=== PATIENT | female | born 1930 | race Caucasian/White ===

== ENCOUNTER → 2016-08-20 | Outpatient (CLI) | payer OTHER ==
[~2016-08-20] MED LIST: ACET325T96 PO; CALC500C50; CITA40TA12 PO; CLR10 PO; LOPE1TAB25 PO; LORA-741 PO; NVLGI/PEN SQ; ONDA4TAB10 SL; PRT40 PO; ULT50X PO
--- NOTE | 2016-08-20 09:35 | DIAGNOSTIC IMAGING REPORT ---
DOUBLE CONTRAST UPPER GI SERIES CLINICAL HISTORY: Status post hiatal hernia repair. COMPARISON STUDY: Abdominal CT dated 04/19/2016. Upper GI series dated 05/13/2016. TECHNIQUE: A standard air contrast upper GI series was performed. Spot images of the esophagus and stomach were obtained in multiple obliquities both upright and prone. FINDINGS: The patient swallowed barium without difficulty. The esophagus is structurally normal without evidence of intrinsic or extrinsic mass. The esophageal mucosal pattern is normal. No gastroesophageal reflux was elicited by having the patient perform the Valsalva maneuver. Moderate dysmotility is seen in the mid to distal third. The gastroesophageal junction distends normally. The appearance of the gastroesophageal junction suggests previous fundoplication. No hiatal hernia is identified. The stomach is otherwise normal in configuration and demonstrates normal distensibility. No mass or ulceration is identified. There was no evidence of gastritis. The duodenal bulb and sweep are unremarkable. Fluoroscopy time: 1.7 minutes Fluoroscopic images: 19 IMPRESSION: 1. The appearance of the stomach suggests interval fundoplication. No hiatal hernia is identified on today's examination. 2. Esophageal dysmotility. Electronically signed by: Figueroa Henson M.D. 08/20/2016 9:33 AM Dictated Date/Time: 08/20/2016 9:25 AM
== END | disposition home or self-care (01) ==
LOC: C.RAD 08:42
PROVIDERS: ATTEND Surgery
DX: K91.1 Postgastric surgery syndromes (principal); K22.4 Dyskinesia of esophagus

== ENCOUNTER → 2016-12-18 | Outpatient (CLI) | payer OTHER ==
[~2016-12-18] MED LIST changes: -ONDA4TAB10 SL
[2016-12-18 10:55] LABS: BLOOD UREA NITROGEN 9 mg/dl (7-18); BUN/CREATININE RATIO 14.1 (10-20); CALCIUM 8.3 mg/dl (8.5-10.1); CARBON DIOXIDE 30 mmol/L (21-32); CHLORIDE 104 mmol/L (98-107); CREATININE 0.64 mg/dl (0.60-1.20); GLUCOSE 237 mg/dl (70-99); POTASSIUM 4.4 mmol/L (3.5-5.1); SODIUM 140 mmol/L (136-145)
[2016-12-18 11:22] LABS: ESTIMATED AVERAGE GLUCOSE 171 mg/dl; HA1C FLAG Normal (Normal)
== END | disposition home or self-care (01) ==
LOC: C.LABOUTLO 10:04
PROVIDERS: ATTEND Family Medicine
DX: E11.9 Type 2 diabetes mellitus without complications (principal)

== ENCOUNTER 2017-08-07 18:58 | Emergency (ER) | payer OTHER ==
[~2017-08-07] VITALS: Ht 167.6 cm; Wt 75.0 kg
[~2017-08-07 18:58] MED LIST changes: -CLR10 PO
[2017-08-07 19:06] VITALS: TEMP 36.6; Ht 167.6 cm; Wt 75.0 kg
[2017-08-07] MEDS ORDERED: CITA40TA12 PO (19:34)
[2017-08-07] MEDS ORDERED: FLUT0.15 NAE (19:34)
[2017-08-07] MEDS ORDERED: MULT-513 PO (19:34)
[2017-08-07] MEDS ORDERED: DOCU-94 PO (19:34)
[2017-08-07] MEDS ORDERED: INSDGIPEN SQ (19:34)
[2017-08-07] MEDS ORDERED: GEMF600T3 PO (19:34)
[2017-08-07] MEDS ORDERED: ASPCH81X PO (19:34)
[2017-08-07] MEDS ORDERED: SALI0.6515 (19:34)
[2017-08-07] MEDS ORDERED: LISI-461 PO (19:34)
[2017-08-07] MEDS ORDERED: METO25TA3 PO (19:34)
[2017-08-07] MEDS ORDERED: NVLGI/PEN SQ (19:34)
[2017-08-07] MEDS ORDERED: PROAIR SQ (19:46)
[2017-08-07] MEDS ORDERED: SENN8.6T9 PO (19:46)
[2017-08-07] MEDS ORDERED: IMD/2 PO (19:46)
[2017-08-07] MEDS ORDERED: ONDA4TAB46 PO (19:46)
[2017-08-07] MEDS ORDERED: IBUP-1050 PO (19:46)
[2017-08-07] MEDS ORDERED: ACET5LIQ PO (19:46)
[2017-08-07 19:50] LABS: BASO % 0.2 %; BASO ABS # 0.02 K/uL (0-0.2); EOS % 2.2 %; EOS ABS # 0.18 K/uL (0-0.5); HEMATOCRIT 34.2 % (37-47); HEMOGLOBIN 11.5 g/dL (12.0-16.0); IG# 0.05 K/uL (0.00-0.02); LYMPH % 24.1 %; MEAN CORPUSCULAR HEMOGLOBIN 27.9 pg (25-34); MEAN CORPUSCULAR HGB CONC 33.6 g/dl (32-36); MEAN PLATELET VOLUME 8.7 fL (7.4-10.4); MONO ABS # 0.75 K/uL (0.11-0.59); NEUT % 63.9 %; NEUT ABS # 5.29 K/uL (1.4-6.5); PLATELET COUNT 260 K/uL (130-400); RED CELL DISTRIBUTION WIDTH CV 16.7 % (11.5-14.5); RED CELL DISTRIBUTION WIDTH SD 50.9 fL (36.4-46.3); WHITE BLOOD COUNT 8.29 K/uL (4.8-10.8)
[2017-08-07 20:08] LABS: ALBUMIN 3.2 gm/dl (3.4-5.0); ALT/SGPT 22 U/L (12-78); BLOOD UREA NITROGEN 9 mg/dl (7-18); CALCIUM 8.7 mg/dl (8.5-10.1); CARBON DIOXIDE 23 mmol/L (21-32); CREATININE 0.73 mg/dl (0.60-1.20); GLUCOSE 325 mg/dl (70-99); LIPASE 212 U/L (73-393); POTASSIUM 3.8 mmol/L (3.5-5.1); SODIUM 131 mmol/L (136-145)
[2017-08-07 20:11] LABS: AST/SGOT 15 U/L (15-37); TOTAL PROTEIN 7.1 gm/dl (6.4-8.2)
[2017-08-07 20:19] LABS: ALKALINE PHOSPHATASE 106 U/L (45-117)
[2017-08-07 21:20] VITALS: BP 156/71; PULSE 78; O2SAT 97
[2017-08-07] MEDS ORDERED: CLR10 PO (21:37)
--- NOTE | 2017-08-07 22:29 | EMERGENCY ROOM VISIT NOTE ---
History Report prepared by Roseanne: Marielena Navarrete Under the Supervision of: Dr. Good Manjarrez D.O. First contact with patient: 19:11 Chief Complaint: HYPERGLYCEMIA Stated Complaint: HIGH BLOOD SUGAR Nursing Triage Summary: Pt from [facility]. Daughter reports patient had BSG of 400 before dinner and was given 10 units of insulin. Pt ate dinner and then had a recheck of >400. BSG 342 in triage. History of Present Illness The patient is an 86 year old female who presents to the Emergency Room with complaints of persistent hyperglycemia starting earlier today. The patient lives at [facility] living. They went to the [employer] today for breakfast. They note that she normally puts a time of syrup on her food at the shop. Before dinner, they checked her BSG and found that it was over 400. She was given 10 units of insulin and she ate dinner. After dinner, her blood sugar was still high. It is now down to 340. She states that she feels fine. She has some headache. She denies any chest pain, SOB, nausea, vomiting, diarrhea, urinary symptoms, or abdominal pain. She last had a bowel movement this afternoon. She has been acting normally according to her daughter. Source of History: patient, family Onset: earlier today Position: other (global) Symptom Intensity: over 400 Quality: other (hyperglycemia) Timing: other (persistent) Associated Symptoms: + headache, No chest pain, No SOB, No nausea, No vomiting, No abdominal pain, No diarrhea, No urinary symptoms Review of Systems See HPI for pertinent positives & negatives. A total of 10 systems reviewed and were otherwise negative. Past Medical & Surgical Medical Problems: (1) Amputated toe (2) DM type 2 (diabetes mellitus, type 2) (3) Endometrial adenocarcinoma (4) HTN (hypertension) Surgical Problems: (1) Hx of tubal ligation (2) S/P tonsillectomy and adenoidectomy Family History Cancer Diabetes mellitus FHx: gallbladder disease Social History Smoking Status: Never Smoker Drug Use: none Housing Status: assisted living Occupation Status: retired Current/Historical Medications Scheduled Aspirin (Aspirin Chewable), 81 MG PO DAILY Citalopram Hydrobromide (Celexa), 40 MG PO DAILY Docusate Sodium (Colace), 1 CAP PO BID Fluticasone Propionate (Nasal) (Flonase Allergy Relief), 2 SPRAYS BHAVANI DAILY Gemfibrozil (Lopid), 600 MG PO DAILY Insulin Glargine (Lantus Solostar), 12 UNITS SQ QPM Lisinopril (Zestril), 10 MG PO DAILY Loratadine (Claritin), 10 MG PO DAILY Metoprolol Succ (Toprol Xl) (Toprol-Xl), 25 MG PO DAILY Multivitamins/Minerals (Mvi With Minerals), 1 TAB PO DAILY Saline (Saline Mist), 1 SPRAY NA BID Scheduled PRN Acetaminophen (Tylenol Children's Susp), 15.6 ML PO Q4H PRN for Pain or Fever Ibuprofen (Advil), 800 MG PO Q6H PRN for Pain Insulin Aspart (Novolog Flexpen), SQ BID PRN for SLIDING SCALE Loperamide Hcl (Imodium), 2 MG PO Q4 PRN for Diarrhea Ondansetron Hcl (Zofran), 4 MG PO Q8 PRN for Nausea Sennosides (Senexon), 2 TAB PO BID PRN for Constipation [Proair], 2 PUFF SQ Q4 PRN for Shortness of Breath Allergies Coded Allergies: No Known Allergies (Unverified , 05/11/16) Physical Exam Vital Signs Date Time Temp Pulse Resp B/P (MAP) Pulse Ox O2 Delivery O2 Flow Rate FiO2 08/07/17 21:20 78 18 156/71 97 08/07/17 19:06 36.6 91 18 120/71 93 Room Air Physical Exam GENERAL: Sitting up in bed, alert, well appearing, well nourished, no distress, non-toxic EYE EXAM: normal conjunctiva. OROPHARYNX: no exudate, no erythema, lips, buccal mucosa, and tongue normal and mucous membranes are moist NECK: supple, no nuchal rigidity, no adenopathy, non-tender LUNGS: Clear to auscultation. Normal chest wall mechanics HEART: no murmurs, S1 normal and S2 normal ABDOMEN: abdomen soft, non-tender, normo-active bowel sounds, no masses, no rebound or guarding. BACK: Back is symmetrical on inspection and there is no deformity, no midline tenderness, no CVA tenderness. SKIN: no rashes and no bruising UPPER EXTREMITIES: upper extremities are grossly normal. LOWER EXTREMITIES: No pitting edema. NEURO EXAM: Normal sensorium, cranial nerves II-XII grossly intact, normal speech, no gross weakness of arms, no gross weakness of legs. Medical Decision & Procedures Laboratory Results 08/07/17 19:30 Red Blood Count 4.12, Mean Corpuscular Volume 83.0, Mean Corpuscular Hemoglobin 27.9, Mean Corpuscular Hemoglobin Concent 33.6, Mean Platelet Volume 8.7, Neutrophils (%) (Auto) 63.9, Lymphocytes (%) (Auto) 24.1, Monocytes (%) (Auto) 9.0, Eosinophils (%) (Auto) 2.2, Basophils (%) (Auto) 0.2, Neutrophils # (Auto) 5.29, Lymphocytes # (Auto) 2.00, Monocytes # (Auto) 0.75, Eosinophils # (Auto) 0.18, Basophils # (Auto) 0.02 08/07/17 19:30 Test 08/07/17 19:30 08/07/17 21:01 White Blood Count 8.29 K/uL (4.8-10.8) Red Blood Count 4.12 M/uL (4.2-5.4) Hemoglobin 11.5 g/dL (12.0-16.0) Hematocrit 34.2 % (37-47) Mean Corpuscular Volume 83.0 fL (80-100) Mean Corpuscular Hemoglobin 27.9 pg (25-34) Mean Corpuscular Hemoglobin Concent 33.6 g/dl (32-36) Platelet Count 260 K/uL (130-400) Mean Platelet Volume 8.7 fL (7.4-10.4) Neutrophils (%) (Auto) 63.9 % Lymphocytes (%) (Auto) 24.1 % Monocytes (%) (Auto) 9.0 % Eosinophils (%) (Auto) 2.2 % Basophils (%) (Auto) 0.2 % Neutrophils # (Auto) 5.29 K/uL (1.4-6.5) Lymphocytes # (Auto) 2.00 K/uL (1.2-3.4) Monocytes # (Auto) 0.75 K/uL (0.11-0.59) Eosinophils # (Auto) 0.18 K/uL (0-0.5) Basophils # (Auto) 0.02 K/uL (0-0.2) RDW Standard Deviation 50.9 fL (36.4-46.3) RDW Coefficient of Variation 16.7 % (11.5-14.5) Immature Granulocyte % (Auto) 0.6 % Immature Granulocyte # (Auto) 0.05 K/uL (0.00-0.02) Anion Gap 12.0 mmol/L (3-11) Est Creatinine Clear Calc Drug Dose 58.3 ml/min Estimated GFR () 87.0 Estimated GFR (Non- 75.1 BUN/Creatinine Ratio 12.1 (10-20) Calcium Level 8.7 mg/dl (8.5-10.1) Total Bilirubin 0.4 mg/dl (0.2-1) Direct Bilirubin < 0.1 mg/dl (0-0.2) Aspartate Amino Transf (AST/SGOT) 15 U/L (15-37) Alanine Aminotransferase (ALT/SGPT) 22 U/L (12-78) Alkaline Phosphatase 106 U/L (45-117) Total Protein 7.1 gm/dl (6.4-8.2) Albumin 3.2 gm/dl (3.4-5.0) Lipase 212 U/L (73-393) Beta-Hydroxybutyric Acid 1.18 mg/dL (0.2-2.81) Bedside Glucose 272 mg/dl (70-90) Laboratory results per my review. ED Course ED COURSE: Vital signs were reviewed and showed normal vitals. The patients medical record was reviewed The above diagnostic studies were performed and reviewed. ED treatments and interventions as stated above. 1916: The patient was evaluated in room C4. A complete history and physical examination was performed. 2103: Upon reevaluation, the patient's blood sugar is down to 277. I discussed my findings with the patient and her daughter and they understand and agree with the treatment plan. Based on the patients age, coexisting illnesses, exam and lab findings the decision to treat as an outpatient was made. The patient remained stable while under my care. The patient appeared well at the time of discharge. Medical Decision Differential Diagnosis includes but is not limited to dehydration, stroke, anemia, hypoglycemia, hyponatremia, hypernatremia, urinary tract infection, pneumonia, bronchitis, sepsis, gastroenteritis, additional abdominal pathology, metabolic abnormalities and infections. Patient is an 86-year-old female who presents to ER for hyperglycemia. She went to the [employer] shop earlier today where she puts a large amount of syrup on her food. Blood sugars were in the 400s. She was given 10 units of insulin. He ate dinner and her blood sugar was again above 400. Patient was sent in for evaluation. She has no complaints. She is at her baseline. CBC was unremarkable. BMP without a gap. CO2 was 23. Beta hydroxybutyric acid was negative. BSG was 342. Trended down to 272 on the ER without intervention. Patient family were updated at bedside. Discussed with Pt concerning signs and symptoms to watch out for. Pt was instructed to follow up with their PCP and discussed with the patient their option to return to the ED at anytime for persistent or worsening symptoms. The appropriate anticipatory guidance and out- patient management, including indications for return to the emergency department , were explained at length to the patient and understood. Medication Reconcilliation Current Medication List: was personally reviewed by me Blood Pressure Screening Patient's blood pressure: Normal blood pressure Blood pressure disposition: Did not require urgent referral Impression Primary Impression: Hyperglycemia Scribe Attestation The scribe's documentation has been prepared under my direction and personally reviewed by me in its entirety. I confirm that the note above accurately reflects all work, treatment, procedures, and medical decision making performed by me. Departure Information Dispostion Home / Self-Care Referrals Joselin Campos D.O. Forms HOME CARE DOCUMENTATION FORM, IMPORTANT VISIT INFORMATION, WORK / SCHOOL INSTRUCTIONS Patient Instructions ED Hyperglycemia Diabetic, My [facility] Additional Instructions Please follow up with your primary care doctor with in the next 24 hours. Any worsening of your symptoms, please return to the ED immediately. This includes any fevers greater than 100.4, worsening pain, chest pain, shortness breath, persistent nausea, vomiting, unable to eat or drink, or any other concerning signs or symptoms from your standpoint. Please keep close eye on her blood sugars for the next 2 hours.
== END 2017-08-07 21:23 | disposition home or self-care (01) ==
LOC: C.EDB 19:00 → C.EDC 21:23
DX: R73.9 Hyperglycemia, unspecified (principal); E11.9 Type 2 diabetes mellitus without complications; I10 Essential (primary) hypertension; Z83.3 Family history of diabetes mellitus; Z79.82 Long term (current) use of aspirin; Z79.4 Long term (current) use of insulin

== ENCOUNTER 2017-11-02 21:52 | Emergency (ER) | payer OTHER ==
[~2017-11-02] VITALS: Ht 172.7 cm; Wt 71.8 kg
[~2017-11-02 21:52] MED LIST changes: -ACET325T96 PO; +ACET5LIQ PO; +ASPCH81X PO; -CALC500C50; +CLR10 PO; +DOCU-94 PO; +FLUT0.15 NAE; +GEMF600T3 PO; +IBUP-1050 PO; +IMD/2 PO; +INSDGIPEN SQ; +LISI-461 PO; -LOPE1TAB25 PO; -LORA-741 PO; +METO25TA3 PO; +MULT-513 PO; +ONDA4TAB46 PO; +PROAIR SQ; -PRT40 PO; +SALI0.6515; +SENN8.6T9 PO; -ULT50X PO
[2017-11-02 21:58] VITALS: TEMP 36.8; Ht 172.7 cm; Wt 71.8 kg
[2017-11-02 22:04] VITALS: O2SAT 98
--- NOTE | 2017-11-02 22:17 | DIAGNOSTIC IMAGING REPORT ---
CHEST ONE VIEW PORTABLE HISTORY: 87 years-old Female EVALUATE RESPIRATORY DISTRESS.DYSPNEA acute respiratory distress COMPARISON: Acute abdominal series radiographs 05/11/2016 TECHNIQUE: Portable AP view of the chest FINDINGS: Cardiac silhouette is enlarged, unchanged. Suggested coronary arterial stent graft. Atherosclerosis of the aorta. No pneumothorax, pleural effusion, overt pulmonary edema or lobar airspace consolidation. Linear subsegmental bibasilar opacities suggest atelectasis. Previously noted large hiatal hernia is no longer identified. Degenerative changes of the shoulders and spine. IMPRESSION: Cardiomegaly without acute process. The above report was generated using voice recognition software. It may contain grammatical, syntax or spelling errors. Electronically signed by: Daryl Mills M.D. 11/02/2017 10:16 PM Dictated Date/Time: 11/02/2017 10:15 PM
[2017-11-02 22:20] LABS: BASO % 0.2 %; BASO ABS # 0.02 K/uL (0-0.2); EOS % 1.6 %; EOS ABS # 0.14 K/uL (0-0.5); HEMATOCRIT 34.6 % (37-47); HEMOGLOBIN 11.5 g/dL (12.0-16.0); IG# 0.03 K/uL (0.00-0.02); LYMPH % 22.8 %; LYMPH ABS # 1.94 K/uL (1.2-3.4); MEAN CELL VOLUME 80.8 fL (80-100); MEAN CORPUSCULAR HEMOGLOBIN 26.9 pg (25-34); MEAN CORPUSCULAR HGB CONC 33.2 g/dl (32-36); MEAN PLATELET VOLUME 8.2 fL (7.4-10.4); MONO % 7.4 %; MONO ABS # 0.63 K/uL (0.11-0.59); NEUT % 67.6 %; NEUT ABS # 5.76 K/uL (1.4-6.5); PLATELET COUNT 258 K/uL (130-400); RED CELL DISTRIBUTION WIDTH CV 16.1 % (11.5-14.5); RED CELL DISTRIBUTION WIDTH SD 47.4 fL (36.4-46.3); WHITE BLOOD COUNT 8.52 K/uL (4.8-10.8)
[2017-11-02 22:33] LABS: PTT PATIENT 26.9 SECONDS (21.0-31.0)
[2017-11-02 22:36] LABS: ALBUMIN 3.2 gm/dl (3.4-5.0); ALT/SGPT 20 U/L (12-78); AST/SGOT 11 U/L (15-37); BLOOD UREA NITROGEN 7 mg/dl (7-18); CALCIUM 8.5 mg/dl (8.5-10.1); CARBON DIOXIDE 25 mmol/L (21-32); GLUCOSE 235 mg/dl (70-99); POTASSIUM 3.9 mmol/L (3.5-5.1); SODIUM 133 mmol/L (136-145)
[2017-11-02 22:41] LABS: ALKALINE PHOSPHATASE 96 U/L (45-117); TOTAL PROTEIN 6.9 gm/dl (6.4-8.2)
[2017-11-02] MEDS ORDERED: TPRSR25 PO (22:51)
[2017-11-02 22:53] VITALS: BP 149/72; PULSE 77; O2SAT 98
--- NOTE | 2017-11-02 23:00 | EMERGENCY ROOM VISIT NOTE ---
History Report prepared by Roseanne: Marielena Navarrete Under the Supervision of: Dr. Peter Patel D.O. First contact with patient: 21:55 Chief Complaint: SHORTNESS OF BREATH Stated Complaint: SOB, REFERRED BY [facility] Nursing Triage Summary: patient from [facility], called for shortness of breath. patient did not want to come to ER. she states she was at the doctors today and was seen. that she doesn' have shortness of breath or chest pain. that she cannot lie down and they had her flat. room air oxygen was 98% History of Present Illness The patient is an 87 year old female who presents to the Emergency Room for resolved SOB starting 2129. The patient presents to the ED by EMS from [facility]. The patient reportedly had chest pain and SOB. She currently denies chest pain and SOB. She reports rhinorrhea which she attributes to allergies. She has had a cough recently. She denies any leg swelling. Source of History: patient, nursing staff Onset: 2129 Position: other (breathing) Quality: other (SOB) Timing: resolved Associated Symptoms: + cough, + chest pain Note: Pt reports rhinorrhea. Pt denies leg swelling. Review of Systems See HPI for pertinent positives & negatives. A total of 10 systems reviewed and were otherwise negative. Past Medical & Surgical Medical Problems: (1) Amputated toe (2) DM type 2 (diabetes mellitus, type 2) (3) Endometrial adenocarcinoma (4) HTN (hypertension) Surgical Problems: (1) Hx of tubal ligation (2) S/P tonsillectomy and adenoidectomy Family History Cancer Diabetes mellitus FHx: gallbladder disease Social History Smoking Status: Never Smoker Drug Use: none Housing Status: assisted living Occupation Status: retired Current/Historical Medications Scheduled Aspirin (Aspirin Chewable), 81 MG PO DAILY Citalopram Hydrobromide (Celexa), 40 MG PO DAILY Docusate Sodium (Colace), 100 MG PO BID Gemfibrozil (Lopid), 600 MG PO DAILY Insulin Glargine (Lantus Solostar), 22 UNITS SQ QPM Lisinopril (Zestril), 10 MG PO DAILY Metoprolol Succinate (Metoprolol Succinate ER), 25 MG PO DAILY Multivitamins/Minerals (Mvi With Minerals), 1 TAB PO DAILY Scheduled PRN Acetaminophen (Tylenol Children's Susp), 15.6 ML PO Q4H PRN for Pain or Fever Insulin Aspart (Novolog Flexpen), SQ BID PRN for SLIDING SCALE Loperamide Hcl (Imodium), 2 MG PO Q4 PRN for Diarrhea Ondansetron Hcl (Zofran), 4 MG PO Q8 PRN for Nausea Sennosides (Senexon), 2 TAB PO BID PRN for Constipation Allergies Coded Allergies: No Known Allergies (Unverified , 05/11/16) Physical Exam Vital Signs Date Time Temp Pulse Resp B/P (MAP) Pulse Ox O2 Delivery O2 Flow Rate FiO2 11/02/17 22:53 77 20 149/72 98 Room Air 11/02/17 22:09 81 11/02/17 22:04 98 Room Air 11/02/17 21:58 36.8 81 20 165/69 96 Room Air 11/02/17 21:58 98 Room Air Physical Exam GENERAL: Patient is awake, alert, and in no acute distress. Patient is resting comfortably and showing no signs of anxiety EYES: The conjunctivae are clear. The pupils are round and reactive. EARS, NOSE, MOUTH AND THROAT: The nose is without any evidence of any deformity. Mucous membranes are moist tongue is midline NECK: The neck is nontender and supple. RESPIRATORY: Normal respiratory effort is noted there is no evidence of wheezing rhonchi or rales CARDIOVASCULAR: Regular rate and rhythm noted there no murmurs rubs or gallops normal S1 normal S2 GASTROINTESTINAL: The abdomen is soft. Bowel sounds are present in all quadrants. Abdomen is nontender MUSCULOSKELETAL/EXTREMITIES: There is no evidence of gross deformity full range of motion is noted in the hips and shoulders SKIN: There is trace pedal edema bilaterally. NEUROLOGIC: Patient is awake and oriented to person and place, but not time or situation. Medical Decision & Procedures ER Provider Diagnostic Interpretation: X-ray results as stated below per interpretation by me and the radiologist. CHEST ONE VIEW PORTABLE HISTORY: 87 years-old Female EVALUATE RESPIRATORY DISTRESS.DYSPNEA acute respiratory distress COMPARISON: Acute abdominal series radiographs 05/11/2016 TECHNIQUE: Portable AP view of the chest FINDINGS: Cardiac silhouette is enlarged, unchanged. Suggested coronary arterial stent graft. Atherosclerosis of the aorta. No pneumothorax, pleural effusion, overt pulmonary edema or lobar airspace consolidation. Linear subsegmental bibasilar opacities suggest atelectasis. Previously noted large hiatal hernia is no longer identified. Degenerative changes of the shoulders and spine. IMPRESSION: Cardiomegaly without acute process. The above report was generated using voice recognition software. It may contain grammatical, syntax or spelling errors. Electronically signed by: Daryl Mills M.D. 11/02/2017 10:16 PM Dictated Date/Time: 11/02/2017 10:15 PM Laboratory Results 11/02/17 22:10 Red Blood Count 4.28, Mean Corpuscular Volume 80.8, Mean Corpuscular Hemoglobin 26.9, Mean Corpuscular Hemoglobin Concent 33.2, Mean Platelet Volume 8.2, Neutrophils (%) (Auto) 67.6, Lymphocytes (%) (Auto) 22.8, Monocytes (%) (Auto) 7.4, Eosinophils (%) (Auto) 1.6, Basophils (%) (Auto) 0.2, Neutrophils # (Auto) 5.76, Lymphocytes # (Auto) 1.94, Monocytes # (Auto) 0.63, Eosinophils # (Auto) 0.14, Basophils # (Auto) 0.02 11/02/17 22:10 Test 11/02/17 22:10 White Blood Count 8.52 K/uL (4.8-10.8) Red Blood Count 4.28 M/uL (4.2-5.4) Hemoglobin 11.5 g/dL (12.0-16.0) Hematocrit 34.6 % (37-47) Mean Corpuscular Volume 80.8 fL (80-100) Mean Corpuscular Hemoglobin 26.9 pg (25-34) Mean Corpuscular Hemoglobin Concent 33.2 g/dl (32-36) Platelet Count 258 K/uL (130-400) Mean Platelet Volume 8.2 fL (7.4-10.4) Neutrophils (%) (Auto) 67.6 % Lymphocytes (%) (Auto) 22.8 % Monocytes (%) (Auto) 7.4 % Eosinophils (%) (Auto) 1.6 % Basophils (%) (Auto) 0.2 % Neutrophils # (Auto) 5.76 K/uL (1.4-6.5) Lymphocytes # (Auto) 1.94 K/uL (1.2-3.4) Monocytes # (Auto) 0.63 K/uL (0.11-0.59) Eosinophils # (Auto) 0.14 K/uL (0-0.5) Basophils # (Auto) 0.02 K/uL (0-0.2) RDW Standard Deviation 47.4 fL (36.4-46.3) RDW Coefficient of Variation 16.1 % (11.5-14.5) Immature Granulocyte % (Auto) 0.4 % Immature Granulocyte # (Auto) 0.03 K/uL (0.00-0.02) Prothrombin Time 10.7 SECONDS (9.0-12.0) Prothromb Time International Ratio 1.0 (0.9-1.1) Activated Partial Thromboplast Time 26.9 SECONDS (21.0-31.0) Partial Thromboplastin Ratio 1.0 Anion Gap 8.0 mmol/L (3-11) Est Creatinine Clear Calc Drug Dose 58.2 ml/min Estimated GFR () 90.9 Estimated GFR (Non- 78.5 BUN/Creatinine Ratio 9.6 (10-20) Calcium Level 8.5 mg/dl (8.5-10.1) Total Bilirubin 0.3 mg/dl (0.2-1) Aspartate Amino Transf (AST/SGOT) 11 U/L (15-37) Alanine Aminotransferase (ALT/SGPT) 20 U/L (12-78) Alkaline Phosphatase 96 U/L (45-117) Troponin I < 0.015 ng/ml (0-0.045) Total Protein 6.9 gm/dl (6.4-8.2) Albumin 3.2 gm/dl (3.4-5.0) Globulin 3.7 gm/dl (2.5-4.0) Albumin/Globulin Ratio 0.9 (0.9-2) Influenza Type A (RT-PCR) Neg for Influ A (NEG) Influenza Type B (RT-PCR) Neg for Influ B (NEG) Laboratory results per my review. ECG Per My Interpretation Indication: chest pain Rate (beats per minute): 83 Rhythm: sinus rhythm Findings: 1st degree AV block, no ectopy, other (no acute ST segment abnormality) Comparison ECG Date: 11-May-2016 Change: no significant change ED Course 2200: The patient was evaluated in room C6. A complete history and physical examination were performed. 2212: The nurse from [facility] reports that the patient complained of chest pain and SOB. She also had pain with deep breaths. Medical Decision Prior records/ancillary studies reviewed. Triage Nursing notes reviewed. The patient's history was concerning for respiratory difficulties. Additional history is obtained from patient's daughter. Differential diagnosis: Etiologies such as infections, reactive airway disease, pneumonia, pneumothorax , COPD, CHF, cardiac ischemia, pulmonary embolism, musculoskeletal, gastrointestinal, as well as others were entertained. The patient is an 87-year-old female who presented to the emergency department for an evaluation of shortness of breath. The patient did not have any complaints on arrival. She had no hypoxia or tachycardia. She had no calf tenderness. When we called to her personal mcc there was report that the patient was having chest discomfort but this appears to be resolved at this time. The patient's EKG did not reveal any acute ischemic changes compared to previous. Her cardiac biomarkers was negative. Chest x-ray did not show any acute abnormality. I discussed patient's laboratory and radiographic studies with her and her daughter. At this time I would not recommend any further workup but I would defer further workup to her primary care physician if symptoms continue or worsen. The patient does not appear to be a very good anticoagulation candidate so I do not feel that pursuing any further workup for venous thromboembolic disease would be warranted. I discussed this with her daughter and she was in agreement. They were encouraged to follow-up with the primary care physician this week but return to the emergency department immediately if symptoms change worsening the need arises. Medication Reconcilliation Current Medication List: was personally reviewed by me Blood Pressure Screening Patient's blood pressure: Elevated blood pressure Impression Primary Impression: SOB (shortness of breath) Additional Impression: Chest pain Scribe Attestation The scribe's documentation has been prepared under my direction and personally reviewed by me in its entirety. I confirm that the note above accurately reflects all work, treatment, procedures, and medical decision making performed by me. Departure Information Referrals Joselin Campos D.O. (PCP) Patient Instructions My [facility] Problem Qualifiers Additional Impression: Chest pain Chest pain type: unspecified Qualified Codes: R07.9 - Chest pain, unspecified
[2017-11-02 23:08] LABS: INFLUENZA A PCR Neg for Influ A (NEG); INFLUENZA B PCR Neg for Influ B (NEG)
== END 2017-11-02 23:26 | disposition home or self-care (01) ==
LOC: EDBD 21:52 → C.EDC 21:53
DX: R06.02 Shortness of breath (principal); R07.9 Chest pain, unspecified; Z89.429 Acquired absence of other toe(s), unspecified side; E11.9 Type 2 diabetes mellitus without complications; Z85.42 Personal history of malignant neoplasm of other parts of uterus; I10 Essential (primary) hypertension; Z98.51 Tubal ligation status; Z79.82 Long term (current) use of aspirin; Z79.84 Long term (current) use of oral hypoglycemic drugs; Z79.899 Other long term (current) drug therapy

== ENCOUNTER 2020-05-23 17:49 | Inpatient (IN) ==
[2020-05-23] MEDS ORDERED: PIPERACILLIN/TAZOBACTAM 4.5 GM/120 ML BAG IV ONE (18:49)
[2020-05-23] MEDS ORDERED: DAPTOmycin 200 MG in SYRINGE 0 ML IV ONE (18:49)
[2020-05-23] MEDS ORDERED: PIPERACILL/TAZOBAC CONSULT ACTIVE PRN (18:49)
[2020-05-23] MEDS ORDERED: SODIUM CHLORIDE 0.9% 1000ML 1,000 ML IV SCH (19:00)
--- NOTE | 2020-05-23 19:27 | Emergency Department Note ---
Impression & Plan Cellulitis, Diabetic foot ulcer ED Provider Note INFORMANT: Patient ED PROVIDER(S): Truman Marin MD CHIEF COMPLAINT: Right foot infection PLAN: Disposition: Admitted Condition: Good MEDICAL DECISION MAKING: Patient presented because of a right foot infection. On examination she has a obvious cellulitis and diabetic ulcer. The redness has extended up to the knee. An x-ray was performed and did not reveal any obvious osteomyelitis. Blood work revealed a mild anemia on CBC. Chemistry panel was unremarkable. Twelve- lead ECG reveals a sinus rhythm. No dysrhythmia. Blood and wound cultures were performed. The patient was given IV Zosyn and daptomycin to cover for a diabetic foot infection. I discussed treatment in the hospital. Consultation was made with Dr. Wellington Javed, [facility] hospitalist service. The patient was evaluated in the ER for further treatment. Triage Nursing notes reviewed and agree them. Additional history obtained from patient's friend. Vital Signs: reviewed and remarkable for no significant abnormalities Differential diagnosis: Etiologies such as cellulitis, abscess, MRSA infection, dermatitis, drug eruption, necrotizing fasciitis, DVT as well as others were entertained. Diagnostics interpreted by me: ECG: Twelve-lead ECG reveals a sinus rhythm with sinus arrhythmia and first- degree AV block at 73 bpm. Inferior Q waves. No dysrhythmia. No ST elevation or depression. Normal axis and QRS. Imaging studies: X-ray imaging of the right foot reveals no evidence of osteomyelitis. Soft tissue swelling noted. Consultation(s): [facility] Hospitalist service HPI: The patient is a 89 year old female who presents to the Emergency Room with complaints of right foot infection. This started 5 days ago and is worsening. The patient also notes the following associated symptoms, tenderness and swelling. The patient has been seen by her PCP today and started on oral antibiotics for relieving factors. Current pain is unable to be accurately rated, likely to the patient's memory impairment issues. 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 Pt denies LOC, headache, fevers, chills, diaphoresis, visual changes, neck pain, chest pain, breathing difficulties, nausea, vomiting, abdominal pain, back pain, urinary symptoms, numbness, weakness, or other complaints. ROS: See above HPI for pertinent positives & negatives. A total of 10 systems reviewed and were otherwise negative. PAST MEDICAL HISTORY:See Below, diabetes, hypertension PAST SURGICAL HISTORY:See Below, tonsillectomy FAMILY HISTORY:See Below SOCIAL HISTORY:See Below, resides at [facility] MEDICATIONS:See Below ALLERGIES:See Below VITALS:See Below PHYSICAL EXAMINATION: GENERAL: Awake, alert, well-appearing, in no distress HENT: Normocephalic, atraumatic. Oropharynx unremarkable. EYES: Normal conjunctiva. Sclera non-icteric. NECK: Inspection normal. Non-tender. Supple. No nuchal rigidity. FROM. No masses. RESPIRATORY: Clear to auscultation. No wheezes. No rales. Normal respiratory effort. CARDIAC: Normal rate. Normal rhythm. No murmurs. No rubs. Extremities warm and well perfused. Pulses equal. No JVD. GI: Soft, non-distended. No tenderness to palpation. No rebound or guarding. No masses. RECTAL: Deferred. MUSCULOSKELETAL: Atraumatic. Chest examination reveals no tenderness. The back is symmetrical on inspection without obvious abnormality. There is no CVA tenderness to palpation. No joint edema. LOWER EXTREMITIES: The right lower extremity is significant more edematous compared to the left. There is erythema extending up to the knee. There are 2 open wounds noted on the medial and plantar aspect of the foot with serous drainage present. Concerning for a cellulitis and infected diabetic foot ulcer. NEURO: Normal sensorium. No sensory or motor deficits noted. SKIN: No rash or jaundice noted. 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 Colon cancer status post resection - 2012 2. Endometrial adenocarcinoma, FIGO grade I, clinical FIGO I (no surgical staging) 3. Status post completion of radiation therapy, all external beam, completed 10/26/2015 received 6100 cGy" On 11/02/15 09:49 Dotty Whitman wrote "DIAGNOSIS: 1. Colon cancer status post resection - 2012 2. Endometrial adenocarcinoma, FIGO grade I, clinical FIGO I (no surgical staging) 3. Status post completion of radiation therapy, all external beam, completed 10/26/2015 received 6100 cGy" On 08/03/15 14:24 Rae Black wrote "DIAGNOSIS: 1. Endometrial adenocarcinoma, FIGO grade I, clinical FIGO I (no surgical staging) 2. Colon cancer status post resection - 2012" Endometrial cancer Environmental allergies MOLD/POLLEN/CATS/MILDEW GERD (gastroesophageal reflux disease) Hearing deficit History of amputation of left great toe HTN (hypertension) Hyperlipidemia Surgical History Amputated toe RT TOE History of amputation of lesser toe of left foot History of cataract surgery left Hx of tubal ligation S/P tonsillectomy and adenoidectomy Social History Smoking Status: Unknown if ever smoked Hx Alcohol Use: No Preferred Language: Citizen Of [place] Health Equipment Servicer Required: No Current Living Situation[facility] Current Living Situation Comment: [facility] Feels Safe at Home: Yes Assistive Devices: Hearing Aid - Bilateral Allergies Allergies Allergy/AdvReac Type Severity Reaction Status Date / Time No Known Allergies Allergy Verified 05/23/20 21:19 Home Meds Home Medications Medication Instructions Recorded Confirmed Lantus Solostar U-100 Insulin 12 units SUBCUT AMHS 07/10/18 05/23/20 citalopram 40 mg PO DAILY 07/10/18 05/23/20 gemfibrozil 600 mg PO DAILY 07/10/18 05/23/20 lisinopril 10 mg PO DAILY 07/10/18 05/23/20 metoprolol succinate 25 mg PO DAILY 07/10/18 05/23/20 aspirin 81 mg PO DAILY 07/17/18 05/23/20 insulin aspart U-100 [Novolog 1 sliding scale dose SUBCUT BID 07/17/18 05/23/20 PenFill U-100 Insulin] Therems-M 1 tab PO DAILY 03/02/19 05/23/20 diclofenac sodium [Voltaren] 1 g TOPICAL QID 03/02/19 05/23/20 tramadol 50 mg PO DAILY PRN 03/02/19 05/23/20 Silapap 160mg/5ml 15.6 ml PO Q4 PRN 05/23/20 05/23/20 lorazepam [Ativan] 1 mg PO DAILY PRN 05/23/20 05/23/20 mirtazapine 15 mg PO HS 05/23/20 05/23/20 sulfamethoxazole-trimethoprim 1 tab PO BID 05/23/20 05/23/20 trazodone 50 mg PO DAILY 05/23/20 05/23/20 Results & Data (ED) Vital Signs Vital Signs - 24 hr 05/23/20 17:55 05/23/20 19:57 Temperature 37 C Temperature Source Oral Pulse Rate 81 Pulse Rate [Right Finger] 79 Respiratory Rate 18 24 Blood Pressure 161/57 H Blood Pressure [Right Arm] 138/66 Blood Pressure Mean 91 Blood Pressure Mean [Right Arm] 90 Pulse Oximetry 98 96 Sepsis Recent Fever Within 48 Hours No Sepsis New/Unexplained Change in Mental Status N/A Sepsis Action Taken by Nursing No Action Required Laboratory Data Result diagrams: 05/23/20 19:27 05/23/20 19:27 Lab Results 05/23/20 05/23/20 05/23/20 Range/Units 19:27 19:27 19:27 WBC 10.45 (4.8-10.8) K/uL RBC 3.52 L (4.2-5.4) M/uL Hgb 9.7 L (12.0-16.0) g/dL Hct 30.1 L (37-47) % MCV 85.5 (80-100) fL MCH 27.6 (25-34) pg MCHC 32.2 (32-36) g/dL RDW Std Deviation 47.4 H (36.4-46.3) fL RDW Coeff of Pamela 15.2 H (11.5-14.5) % Plt Count 258 (130-400) K/uL MPV 9.0 (7.4-10.4) fL Immature Gran % (Auto) 0.6 % Neut % (Auto) 79.2 % Lymph % (Auto) 10.5 % [place] % (Auto) 8.5 % Eos % (Auto) 1.0 % Baso % (Auto) 0.2 % Neut # (Auto) 8.28 H (1.4-6.5) K/uL Lymph # (Auto) 1.10 L (1.2-3.4) K/uL [place] # (Auto) 0.89 H (0.11-0.59) K/uL Eos # (Auto) 0.10 (0-0.5) K/uL Baso # (Auto) 0.02 (0-0.2) K/uL Immature Gran # (Auto) 0.06 H (0.00-0.02) K/uL PT 11.9 (9.0-12.0) Seconds INR 1.1 (0.9-1.1) APTT 32.6 H (21.0-31.0) Seconds PTT Ratio 1.2 Sodium 135 L (136-145) mmol/L Potassium 4.2 (3.5-5.1) mmol/L Chloride 103 (98-107) mmol/L Carbon Dioxide 26 (21-32) mmol/L Anion Gap 6.0 (3-11) BUN 17 (7-18) mg/dl Creatinine 0.83 (0.6-1.2) mg/dl Est Cr Clr Drug Dosing 43.7 ml/min Est GFR ( Amer) 73.0 Est GFR (Non-Af Amer) 63.0 BUN/Creatinine Ratio 20.1 H (10-20) Glucose 219 H (70-99) mg/dl Lactate (0.4-2.0) mmol/L Calcium 8.5 (8.5-10.1) mg/dl Magnesium 2.2 (1.8-2.4) mg/dl Total Bilirubin 0.1 L (0.2-1) mg/dl AST 65 H (15-37) U/L ALT 50 (12-78) U/L Alkaline Phosphatase 100 (45-117) U/L Total Creatine Kinase (26-192) U/L Total Protein 7.4 (6.4-8.2) gm/dl Albumin 2.5 L (3.4-5.0) gm/dl Globulin 4.9 H (2.5-4.0) gm/dl Albumin/Globulin Ratio 0.5 L (0.9-2) Specimen Hemolysis Urine Color Urine Appearance (Clear) Urine pH (4.5-7.5) Ur Specific Golden (1.000-1.030) Urine Protein (Negative) Urine Glucose (UA) (Negative) Urine Ketones (Negative) Urine Blood (Negative) Urine Nitrite (Negative) Urine Bilirubin (Negative) Urine Urobilinogen (Negative) Ur Leukocyte Esterase (Negative) Urine WBC (Auto) (0-5) /hpf Urine RBC (Auto) (0-4) /hpf U Hyaline Cast (Auto) (0-5) /lpf U Epithel Cells (Auto) (0-5) /lpf Urine Bacteria (Auto) (Negative) COVID-19 Eval Order 05/23/20 05/23/20 05/23/20 Range/Units 19:27 19:27 20:30 WBC (4.8-10.8) K/uL RBC (4.2-5.4) M/uL Hgb (12.0-16.0) g/dL Hct (37-47) % MCV (80-100) fL MCH (25-34) pg MCHC (32-36) g/dL RDW Std Deviation (36.4-46.3) fL RDW Coeff of Pamela (11.5-14.5) % Plt Count (130-400) K/uL MPV (7.4-10.4) fL Immature Gran % (Auto) % Neut % (Auto) % Lymph % (Auto) % [place] % (Auto) % Eos % (Auto) % Baso % (Auto) % Neut # (Auto) (1.4-6.5) K/uL Lymph # (Auto) (1.2-3.4) K/uL [place] # (Auto) (0.11-0.59) K/uL Eos # (Auto) (0-0.5) K/uL Baso # (Auto) (0-0.2) K/uL Immature Gran # (Auto) (0.00-0.02) K/uL PT (9.0-12.0) Seconds INR (0.9-1.1) APTT (21.0-31.0) Seconds PTT Ratio Sodium (136-145) mmol/L Potassium (3.5-5.1) mmol/L Chloride (98-107) mmol/L Carbon Dioxide (21-32) mmol/L Anion Gap (3-11) BUN (7-18) mg/dl Creatinine (0.6-1.2) mg/dl Est Cr Clr Drug Dosing ml/min Est GFR ( Amer) Est GFR (Non-Af Amer) BUN/Creatinine Ratio (10-20) Glucose (70-99) mg/dl Lactate 1.6 (0.4-2.0) mmol/L Calcium (8.5-10.1) mg/dl Magnesium (1.8-2.4) mg/dl Total Bilirubin (0.2-1) mg/dl AST (15-37) U/L ALT (12-78) U/L Alkaline Phosphatase (45-117) U/L Total Creatine Kinase 104 (26-192) U/L Total Protein (6.4-8.2) gm/dl Albumin (3.4-5.0) gm/dl Globulin (2.5-4.0) gm/dl Albumin/Globulin Ratio (0.9-2) Specimen Hemolysis Urine Color Yellow Urine Appearance Clear (Clear) Urine pH 6.5 (4.5-7.5) Ur Specific Golden 1.009 (1.000-1.030) Urine Protein Trace H (Negative) Urine Glucose (UA) Negative (Negative) Urine Ketones Negative (Negative) Urine Blood Trace H (Negative) Urine Nitrite Positive A (Negative) Urine Bilirubin Negative (Negative) Urine Urobilinogen Negative (Negative) Ur Leukocyte Esterase 1+ H (Negative) Urine WBC (Auto) 10-30 H (0-5) /hpf Urine RBC (Auto) >30 H (0-4) /hpf U Hyaline Cast (Auto) 0 (0-5) /lpf U Epithel Cells (Auto) 20-30 H (0-5) /lpf Urine Bacteria (Auto) 4+ H (Negative) COVID-19 Eval Order 05/23/20 Range/Units 21:38 WBC (4.8-10.8) K/uL RBC (4.2-5.4) M/uL Hgb (12.0-16.0) g/dL Hct (37-47) % MCV (80-100) fL MCH (25-34) pg MCHC (32-36) g/dL RDW Std Deviation (36.4-46.3) fL RDW Coeff of Pamela (11.5-14.5) % Plt Count (130-400) K/uL MPV (7.4-10.4) fL Immature Gran % (Auto) % Neut % (Auto) % Lymph % (Auto) % [place] % (Auto) % Eos % (Auto) % Baso % (Auto) % Neut # (Auto) (1.4-6.5) K/uL Lymph # (Auto) (1.2-3.4) K/uL [place] # (Auto) (0.11-0.59) K/uL Eos # (Auto) (0-0.5) K/uL Baso # (Auto) (0-0.2) K/uL Immature Gran # (Auto) (0.00-0.02) K/uL PT (9.0-12.0) Seconds INR (0.9-1.1) APTT (21.0-31.0) Seconds PTT Ratio Sodium (136-145) mmol/L Potassium (3.5-5.1) mmol/L Chloride (98-107) mmol/L Carbon Dioxide (21-32) mmol/L Anion Gap (3-11) BUN (7-18) mg/dl Creatinine (0.6-1.2) mg/dl Est Cr Clr Drug Dosing ml/min Est GFR ( Amer) Est GFR (Non-Af Amer) BUN/Creatinine Ratio (10-20) Glucose (70-99) mg/dl Lactate (0.4-2.0) mmol/L Calcium (8.5-10.1) mg/dl Magnesium (1.8-2.4) mg/dl Total Bilirubin (0.2-1) mg/dl AST (15-37) U/L ALT (12-78) U/L Alkaline Phosphatase (45-117) U/L Total Creatine Kinase (26-192) U/L Total Protein (6.4-8.2) gm/dl Albumin (3.4-5.0) gm/dl Globulin (2.5-4.0) gm/dl Albumin/Globulin Ratio (0.9-2) Specimen Hemolysis Urine Color Urine Appearance (Clear) Urine pH (4.5-7.5) Ur Specific Golden (1.000-1.030) Urine Protein (Negative) Urine Glucose (UA) (Negative) Urine Ketones (Negative) Urine Blood (Negative) Urine Nitrite (Negative) Urine Bilirubin (Negative) Urine Urobilinogen (Negative) Ur Leukocyte Esterase (Negative) Urine WBC (Auto) (0-5) /hpf Urine RBC (Auto) (0-4) /hpf U Hyaline Cast (Auto) (0-5) /lpf U Epithel Cells (Auto) (0-5) /lpf Urine Bacteria (Auto) (Negative) COVID-19 Eval [facility] Administered Medications Discontinued Medications Sodium Chloride (Nss 1000ml) 1,000 mls @ 150 mls/hr IV [id number] HINA Stop: 06/22/20 18:59 Last Admin: 05/23/20 19:33 Dose: 150 mls/hr Documented by: [id number] Piperacillin Sod/Tazobactam Sod (Zosyn) 4.5 gm in 120 mls @ 240 mls/hr IV NOW ONE Stop: 05/23/20 19:18 Last Infusion: 05/23/20 20:02 Dose: 0 mls/hr Documented by: [id number] Admin: 05/23/20 19:33 Dose: 240 mls/hr Documented by: [id number] Daptomycin 200 mg/ Syringe 4 mls @ 2 mls/min IV NOW ONE; Protocol Stop: 05/23/20 18:50 Last Admin: 05/23/20 19:57 Dose: 2 mls/min Documented by: [id number] Discharge Plan Visit Data Chief Complaint: Laceration/Cut (Suture/Dermabond) Stated Complaint: LACERATION TO R FOOT ED Provider: Truman Marin Discharge Problem: Cellulitis, Diabetic foot ulcer Forms Stand Alone Forms: My [facility] Prescriptions Prescriptions: No Action citalopram 40 mg Tablet 40 mg PO DAILY RF: 0 gemfibrozil 600 mg Tablet 600 mg PO DAILY RF: 0 Lantus Solostar U-100 Insulin 100 unit/mL (3 mL) Insulin Pen 12 units subcut AMHS RF: 0 lisinopril 10 mg Tablet 10 mg PO DAILY RF: 0 metoprolol succinate 25 mg Tablet Extended Release 24 Hr 25 mg PO DAILY RF: 0 aspirin 81 mg Tablet,Chewable 81 mg PO DAILY RF: 0 insulin aspart U-100 [Novolog PenFill U-100 Insulin] 100 unit/mL Cartridge 1 sliding scale dose SUBCUT BID RF: 0 trazodone 50 mg tablet 50 mg PO DAILY RF: 0 sulfamethoxazole-trimethoprim 800-160 mg tablet 1 tab PO BID RF: 0 mirtazapine 15 mg tablet 15 mg PO HS RF: 0 lorazepam [Ativan] 1 mg tablet 1 mg PO DAILY PRN (Reason: Anxiety) RF: 0 Silapap 160mg/5ml 15.6 ml PO Q4 PRN (Reason: Pain) RF: 0 tramadol 50 mg Tablet 50 mg PO DAILY PRN (Reason: Pain) RF: 0 Therems-M 27-0.4 mg Tablet 1 tab PO DAILY RF: 0 diclofenac sodium [Voltaren] 1 % Gel 1 g TOPICAL QID RF: 0
[2020-05-23 19:47] LABS: Basophils # (auto) 0.02 K/uL (0-0.2); Basophils % (auto) 0.2 %; Hematocrit (blood only) 30.1 % (37-47); Hemoglobin 9.7 g/dL (12.0-16.0); Immature Granulocytes # (auto) 0.06 K/uL (0.00-0.02); Immature Granulocytes % (auto) 0.6 %; Lymphocytes % (auto) 10.5 %; Mean Corpuscular Hemoglobin 27.6 pg (25-34); Mean Corpuscular Hgb Conc 32.2 g/dL (32-36); Mean Corpuscular Volume 85.5 fL (80-100); Monocytes # (auto) 0.89 K/uL (0.11-0.59); Monocytes % (auto) 8.5 %; Neutrophils # (auto) 8.28 K/uL (1.4-6.5); Neutrophils % (auto) 79.2 %; Platelet Count 258 K/uL (130-400); RDW Coefficient of Variation 15.2 % (11.5-14.5); RDW Standard Deviation 47.4 fL (36.4-46.3); Red Blood Count 3.52 M/uL (4.2-5.4); White Blood Count 10.45 K/uL (4.8-10.8)
[2020-05-23 19:57] LABS: INR 1.1 (0.9-1.1); Partial Thromboplastin Ratio 1.2; Partial Thromboplastin Time 32.6 Seconds (21.0-31.0); Prothrombin Time 11.9 Seconds (9.0-12.0)
[2020-05-23 20:05] LABS: Albumin Level 2.5 gm/dl (3.4-5.0); BUN Creatinine Ratio 20.1 (10-20); Calcium 8.5 mg/dl (8.5-10.1); Creatinine Clr Calc Pharmacy 43.7 ml/min; Magnesium 2.2 mg/dl (1.8-2.4); Potassium 4.2 mmol/L (3.5-5.1)
[2020-05-23 20:09] LABS: Albumin Globulin Ratio 0.5 (0.9-2); Bilirubin,Total 0.1 mg/dl (0.2-1); Globulin 4.9 gm/dl (2.5-4.0); Total Protein 7.4 gm/dl (6.4-8.2)
--- NOTE | 2020-05-23 20:11 | XRay Report ---
XR foot RT min 3V routine CLINICAL HISTORY: infected diabetic foot ulcer COMPARISON STUDY: None. FINDINGS: Mild diffuse soft tissue swelling within the right foot. No acute fracture or dislocation. Dermal calcifications are seen within the distal lower leg. The bones are osteopenic. The Lisfranc kenny int is intact. Old, healed right fifth metatarsal fracture. No bony destruction to suggest osteomyeli tis. There are flexion deformities seen within the toes. Small plantar and posterior tibial spurs are noted. Focal skin ulceration along the plantar surface of the foot at the level of the first MTP rafael nt. This measures 1.5 cm. IMPRESSION: 1. A 1.5 cm focal skin ulceration at the plantar surface of the foot at the level the first MTP joint . No underlying bony abnormality to suggest osteomyelitis. 2. No acute fracture or dislocation within the right foot. 3. Mild diffuse soft tissue swelling. 4. Old, healed right fifth metatarsal fracture. ACT 112: Negative or not required by law. Electronically signed by: Juan Carlos Bonilla M.D. 05/23/2020 8:09 PM
[2020-05-23 21:09] LABS: Appearance Urine Clear (Clear); Bacteria Urine Automated 4+ (Negative); Bilirubin Urine Negative (Negative); Blood Urine Trace (Negative); Cast Urine Automated 0 /lpf (0-5); Color Urine Yellow; Epithelial Cell Urine Auto 20-30 /lpf (0-5); Glucose Urine UA Negative (Negative); Ketones Urine Negative (Negative); Leukocyte Esterase Urine 1+ (Negative); Nitrite Urine Positive (Negative); Protein Urine Trace (Negative); RBC Urine Automated >30 /hpf (0-4); Specific Gravity Urine 1.009 (1.000-1.030); Urobilinogen Urine Negative (Negative); pH Urine 6.5 (4.5-7.5)
[2020-05-23 22:12] LABS: Creatine Kinase 104 U/L (26-192)
--- NOTE | 2020-05-23 22:55 | History & Physical Report ---
Date of Service May 23, 2020 Assessment & Plan (1) Cellulitis: RLE celluliitis secondary to infected foot wound No sepsis for now Rule out arterial insufficiency, hx PVD as per records abdominal pain ? Secondary to complicated UTI Esophageal thickening on initial CT read hypertension, stable Acute on chronic anemia, hemoglobin drop from baseline DM2 insulin requiring, well-controlled as of recent outpatient hemoglobin A1c of 25 May 2020 colon cancer sp surgery uterine cancer sp radiation tx Dementia, at baseline mood disorder GMF Doxycycline, Cefepime for infected foot wound Wound care provider consult RE right foot wound RLE arterial Dopplers rule out arterial insufficiency, history of PVD Cefepime for complicated UTI Anemia work-up, transfuse PRBC if hemoglobin less than 8 and or for symptomatic anemia Follow official CT abdomen pelvis read regarding esophageal [id number] Basal insulin, ISS BG goal [id number] DVT prophylaxis with Lovenox subcu DNR as per prior directives as per daughter/POA, Ms. No Parker. She requests updates from providers through [phone]. Text document was generated using [employer] voice recognition software. It may contain grammatical or spelling errors. Kindly contact undersigned for clarification of any documentation item in question. History of Present Illness Chief Complaint: Right foot swelling/wound Primary Care Provider: [place]angi History obtained from patient, family, and records. Limited history from patient secondary to dementia. Medical history significant for dementia, hypertension, PVD as per records, DM2 insulin requiring, colon cancer sp surgery, uterine cancer sp radiation tx, chronic anemia (baseline hemoglobin 11), mood disorder. Last confinement April 2016 for abdominal pain, attributed to paraesophageal hernia. Patient transferred to [facility] for laparoscopic paraesophageal hernia repair. Patient noted to have a draining wound on the right great toe with swelling extending to the R foot and leg. Probably started just in the last few days given absence of finding on last PCP visit last week for annual checkup. PCP prescribed Bactrim course, consideration for inpatient care as per family. Outpatient RLE venous Dopplers negative for DVT. Patient complaining of right foot pain. Denies chest pain, S OB, fever, chills. Complains of abdominal pain as per family. No note of black/bloody stools. Patient brought to ER for evaluation. Patient received Vancomycin and Zosyn at the ER. MEDICAL HISTORY: As above. 2015 EGD showed reflux esophagitis 2013 colonoscopy showed a polyp. SURGERIES: Colectomy, foot surgery, paraesophageal hernia repair, bone debridement, colpocleisis, cystoscopy, BTL, tonsillectomy/adenoidectomy FAMILY HISTORY: Cervical cancer. Heart disease. PERSONAL AND SOCIAL HISTORY: Past tobacco abuse. No chronic intake of ETOH beverages. [facility] resident Allergies Allergy/AdvReac Type Severity Reaction Status Date / Time No Known Allergies Allergy Verified 05/23/20 21:19 Home Medications Home Medications Medication Instructions Recorded Confirmed Type Lantus Solostar U-100 Insulin 12 units SUBCUT AMHS 07/10/18 05/23/20 History citalopram 40 mg PO DAILY 07/10/18 05/23/20 History gemfibrozil 600 mg PO DAILY 07/10/18 05/23/20 History lisinopril 10 mg PO DAILY 07/10/18 05/23/20 History metoprolol succinate 25 mg PO DAILY 07/10/18 05/23/20 History aspirin 81 mg PO DAILY 07/17/18 05/23/20 History insulin aspart U-100 [Novolog 1 sliding scale dose SUBCUT BID 07/17/18 05/23/20 History PenFill U-100 Insulin] Therems-M 1 tab PO DAILY 03/02/19 05/23/20 History diclofenac sodium [Voltaren] 1 g TOPICAL QID 03/02/19 05/23/20 History tramadol 50 mg PO DAILY PRN 03/02/19 05/23/20 History Silapap 160mg/5ml 15.6 ml PO Q4 PRN 05/23/20 05/23/20 History lorazepam [Ativan] 1 mg PO DAILY PRN 05/23/20 05/23/20 History mirtazapine 15 mg PO HS 05/23/20 05/23/20 History sulfamethoxazole-trimethoprim 1 tab PO BID 05/23/20 05/23/20 History trazodone 50 mg PO DAILY 05/23/20 05/23/20 History Past Med/Surg History Medical History (Updated 05/23/20 @ 19:23 by Truman Marin MD) Acquired claw toe of right foot Adenoma Asthma Benign neoplasm of colon Depression Diabetes mellitus with diabetic polyneuropathy Diabetic polyneuropathy Diverticulitis DM type 2 (diabetes mellitus, type 2) 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 Colon cancer status post resection - 2012 2. Endometrial adenocarcinoma, FIGO grade I, clinical FIGO I (no surgical staging) 3. Status post completion of radiation therapy, all external beam, completed 10/26/2015 received 6100 cGy" On 11/02/15 09:49 Dotty Whitman wrote "DIAGNOSIS: 1. Colon cancer status post resection - 2012 2. Endometrial adenocarcinoma, FIGO grade I, clinical FIGO I (no surgical staging) 3. Status post completion of radiation therapy, all external beam, completed 10/26/2015 received 6100 cGy" On 08/03/15 14:24 Rae Black wrote "DIAGNOSIS: 1. Endometrial adenocarcinoma, FIGO grade I, clinical FIGO I (no surgical staging) 2. Colon cancer status post resection - 2012" Endometrial cancer Environmental allergies MOLD/POLLEN/CATS/MILDEW GERD (gastroesophageal reflux disease) Hearing deficit History of amputation of left great toe HTN (hypertension) Hyperlipidemia Surgical History Amputated toe RT TOE History of amputation of lesser toe of left foot History of cataract surgery left Hx of tubal ligation S/P tonsillectomy and adenoidectomy Social History Smoking Status: Unknown if ever smoked Hx Alcohol Use: No (Unknown.) Hx Substance Use: No (Unknown.) Preferred Language: Mozambican Communication Ability: Effective Can Stacker Required: No Beliefs That Will Affect Care: None Current Living Situation: Detention Current Living Situation Comment: [facility]isted Living facility. Other Information That Helps Us Care for You: No Feels Safe at Home: Yes Safety Concerns: Feels Safe At This Time Assistive Devices: Glasses, Hearing Aid - Bilateral and Walker Review of Systems Review of Systems: Could not be reliably obtained Physical Exam Physical Exam: GENERAL: Demented, hard of hearing, no respiratory distress SKIN: Pallor , warm HEENT: Pale palpebral conjunctivae, no ptosis, dry buccal mucosa NECK : Supple, no tenderness CHEST : Decreased breath sounds , no tenderness HEART : RRR, no obvious murmurs ABDOMEN: Some distention, nontender RECTAL : Intact sphincter, brown stool (FOBT negative) EXTREMITIES : Ulcerated wounds right foot, tender R foot swelling extending to right leg NEUROLOGIC : Demented, no facial asymmetry, no other gross focality Results & Data Results & Data ([facility]) Vital Signs (Past 12 Hours) Vital Signs Temp Pulse Pulse Resp BP BP Pulse Ox 05/23/20 19:57 79 24 138/66 96 05/23/20 17:55 37 C 81 18 161/57 H 98 Laboratory Results Laboratory Results WBC 10.45 K/uL (4.8-10.8) 05/23/20 19: RBC 3.52 M/uL (4.2-5.4) L 05/23/20 19: Hgb 9.7 g/dL (12.0-16.0) L 05/23/20 19: Hct 30.1 % (37-47) L 05/23/20 19: MCV 85.5 fL (80-100) 05/23/20 19: MCH 27.6 pg (25-34) 05/23/20 19: MCHC 32.2 g/dL (32-36) 05/23/20 19: RDW Std Deviation 47.4 fL (36.4-46.3) H 05/23/20 19: RDW Coeff of Pamela 15.2 % (11.5-14.5) H 05/23/20 19: Plt Count 258 K/uL (130-400) 05/23/20 19: MPV 9.0 fL (7.4-10.4) 05/23/20 19: Immature Gran % (Auto) 0.6 % 05/23/20 19: Neut % (Auto) 79.2 % 05/23/20 19: Lymph % (Auto) 10.5 % 05/23/20 19: [place] % (Auto) 8.5 % 05/23/20 19: Eos % (Auto) 1.0 % 05/23/20 19: Baso % (Auto) 0.2 % 05/23/20 19: Neut # (Auto) 8.28 K/uL (1.4-6.5) H 05/23/20 19: Lymph # (Auto) 1.10 K/uL (1.2-3.4) L 05/23/20 19:27 [place] # (Auto) 0.89 K/uL (0.11-0.59) H 05/23/20 19: Eos # (Auto) 0.10 K/uL (0-0.5) 05/23/20 19: Baso # (Auto) 0.02 K/uL (0-0.2) 05/23/20 19: Immature Gran # (Auto) 0.06 K/uL (0.00-0.02) H 05/23/20 19: PT 11.9 Seconds (9.0-12.0) 05/23/20 19: INR 1.1 (0.9-1.1) 05/23/20: APTT 32.6 Seconds (21.0-31.0) H 05/23/20: PTT Ratio 1.2 05/23/20 19: Sodium 135 mmol/L (136-145) L 05/23/20: Potassium 4.2 mmol/L (3.5-5.1) 05/23/20: Chloride 103 mmol/L (98-107) 05/23/20 19: Carbon Dioxide 26 mmol/L (21-32) 05/23/20: Anion Gap 6.0 (3-11) 05/23/20: BUN 17 mg/dl (7-18) 05/23/20 19: Creatinine 0.83 mg/dl (0.6-1.2) 05/23/20 19: Est Cr Clr Drug Dosing 43.7 ml/min 05/23/20: Est GFR ( Amer) 73.0 05/23/20 19: Est GFR (Non-Af Amer) 63.0 05/23/20: BUN/Creatinine Ratio 20.1 (10-20) H 05/23/20 19: Glucose 219 mg/dl (70-99) H 05/23/20: Lactate 1.6 mmol/L (0.4-2.0) 05/23/20 19: Calcium 8.5 mg/dl (8.5-10.1) 05/23/20: Magnesium 2.2 mg/dl (1.8-2.4) 05/23/20 19: Total Bilirubin 0.1 mg/dl (0.2-1) L 05/23/20 19: AST 65 U/L (15-37) H 05/23/20: ALT 50 U/L (12-78) 05/23/20 19: Alkaline Phosphatase 100 U/L (45-117) 05/23/20: Total Creatine Kinase 104 U/L (26-192) 05/23/20: Total Protein 7.4 gm/dl (6.4-8.2) 05/23/20: Albumin 2.5 gm/dl (3.4-5.0) L 05/23/20: Globulin 4.9 gm/dl (2.5-4.0) H 05/23/20: Albumin/Globulin Ratio 0.5 (0.9-2) L 05/23/20: Lipase 152 U/L (73-393) 05/23/20: Specimen Hemolysis 05/23/20: Specimen Hemolysis 05/23/20: Urine Color Yellow 05/23/20 20: Urine Appearance Clear (Clear) 05/23/20 20: Urine pH 6.5 (4.5-7.5) 05/23/20 20: Ur Specific [place] 1.009 (1.000-1.030) 05/23/20 20: Urine Protein Trace (Negative) H 05/23/20 20:30 Urine Glucose (UA) Negative (Negative) 05/23/20 20: Urine Ketones Negative (Negative) 05/23/20 20: Urine Blood Trace (Negative) H 05/23/20 20:30 Urine Nitrite Positive (Negative) A 05/23/20 20: Urine Bilirubin Negative (Negative) 05/23/20 20: Urine Urobilinogen Negative (Negative) 05/23/20 20: Ur Leukocyte Esterase 1+ (Negative) H 05/23/20 20:30 Urine WBC (Auto) 10-30 /hpf (0-5) H 05/23/20 20:30 Urine RBC (Auto) >30 /hpf (0-4) H 05/23/20 20:30 U Hyaline Cast (Auto) 0 /lpf (0-5) 05/23/20 20:30 U Epithel Cells (Auto) 20-30 /lpf (0-5) H 05/23/20 20:30 Urine Bacteria (Auto) 4+ (Negative) H 05/23/20 20:30 COVID-19 Eval Order Covid19 [facility]Now [facility] 05/23/20 21:38 SARS-CoV-2, RNA, NAAT NEGATIVE (NEGATIVE) 05/23/20 21:38 Diagnostic Findings Right foot x-ray: 1. A 1.5 cm focal skin ulceration at the plantar surface of the foot at the level the first MTP joint. No underlying bony abnormality to suggest osteomyelitis. 2. No acute fracture or dislocation within the right foot. 3. Mild diffuse soft tissue swelling. 4. Old, healed right fifth metatarsal fracture. CT abdomen pelvis initial read: Resolved hiatal hernia. Distal esophageal thickening (esophagitis versus neoplasm), cholelithiasis. No clear findings of gallbladder inflammation. Distal colonic resection. EKG as per my interpretation: Rate 75, NSR, LAD, LAFB 1 AVB, inferior infarct, T wave abnormalities inferior leads
[2020-05-23] MEDS ORDERED: IOVERSOL 100ml IV ONE (23:17)
[2020-05-24] MEDS ORDERED: IBUPROFEN 200 MG TAB PO PRN (00:04)
[2020-05-24] MEDS ORDERED: ACETAMINOPHEN 325 MG TAB PO PRN (00:04)
[2020-05-24] MEDS ORDERED: traMADol HCL 50 MG TABLET PO PRN (00:04)
[2020-05-24] MEDS ORDERED: INSULIN GLARGINE SOLOSTAR 100 UNITS/ML 3 ML PEN SC STA (00:04)
[2020-05-24] MEDS: INSULIN ASPART 100 UNITS/ML 3 ML PEN SC SCH ×5 (01:42→20:25)
[2020-05-24] MEDS ORDERED: CEFEPIME CONSULT ACTIVE PRN (03:25)
[2020-05-24] MEDS: CEFEPIME 2,000 MG in SYRINGE 0 ML IV SCH ×2 (03:58→15:56)
[2020-05-24] MEDS ORDERED: OLANZapine 10 MG/2.1 ML SDV IM PRN (05:07)
[2020-05-24 06:09] LABS: Estimated Average Glucose 123 mg/dl; Hemoglobin A1C 5.9 % (4.5-5.6)
[2020-05-24] MEDS: DOXYCYCLINE HYCLATE 100 MG CAP PO SCH ×2 (06:34→18:21)
[2020-05-24] MEDS ORDERED: SODIUM CHLORIDE 0.9% 1000ML 1,000 ML IV ONE (06:51)
[2020-05-24 07:11] LABS: Basophils # (auto) 0.01 K/uL (0-0.2); Basophils % (auto) 0.1 %; Eosinophils # (auto) 0.11 K/uL (0-0.5); Eosinophils % (auto) 1.4 %; Hematocrit (blood only) 27.8 % (37-47); Hemoglobin 9.1 g/dL (12.0-16.0); Immature Granulocytes # (auto) 0.06 K/uL (0.00-0.02); Immature Granulocytes % (auto) 0.8 %; Lymphocytes # (auto) 1.11 K/uL (1.2-3.4); Lymphocytes % (auto) 14.1 %; Mean Corpuscular Hemoglobin 27.5 pg (25-34); Mean Corpuscular Hgb Conc 32.7 g/dL (32-36); Mean Platelet Volume 8.7 fL (7.4-10.4); Monocytes # (auto) 0.72 K/uL (0.11-0.59); Monocytes % (auto) 9.1 %; Neutrophils # (auto) 5.87 K/uL (1.4-6.5); Neutrophils % (auto) 74.5 %; Platelet Count 233 K/uL (130-400); RDW Coefficient of Variation 14.9 % (11.5-14.5); RDW Standard Deviation 46.4 fL (36.4-46.3); Red Blood Count 3.31 M/uL (4.2-5.4); Reticulocyte % 1.1 % (0.5-2.0); Reticulocytes # 0.03 10^6/uL (0.02-0.10); White Blood Count 7.88 K/uL (4.8-10.8)
[2020-05-24 07:44] LABS: BUN Creatinine Ratio 16.6 (10-20); Calcium 8.5 mg/dl (8.5-10.1); Creatinine Clr Calc Pharmacy 64.1 ml/min; Est GFR (African American) 95.9; Est GFR (Non-African American) 82.8
[2020-05-24 07:47] LABS: Ferritin 256.7 ng/ml (8-388)
[2020-05-24] MEDS: METOPROLOL SUCC 25MG EXT REL TAB PO SCH (08:42)
[2020-05-24] MEDS: CITALOPRAM 40 MG TAB PO SCH (08:42)
[2020-05-24] MEDS: lisinopril 10 MG TAB PO SCH (08:42)
[2020-05-24] MEDS: gemfibroziL 600 MG TAB PO SCH (08:42)
[2020-05-24] MEDS: ASPIRIN 81 MG ECTAB PO SCH (08:42)
[2020-05-24] MEDS: INSULIN GLARGINE SOLOSTAR 100 UNITS/ML 3 ML PEN SC SCH ×2 (08:43→20:28)
[2020-05-24] MEDS: ENOXAPARIN INJ 30 MG/0.3 ML SYR SQ SCH (08:49)
--- NOTE | 2020-05-24 08:57 | Ultrasound Report ---
US arterial duplex right lower extremity CLINICAL HISTORY: R foot infection, hx peripheral vascular disease as per records COMPARISON STUDY: None. FINDINGS: Diffuse calcified plaque seen throughout the right lower extremity arterial system. Elevate d peak systolic velocities within the right common femoral artery and mid to distal right superficial femoral artery. These measure up to 308 cm/s and are consistent with areas of stenosis. Monophasic l ow velocity waveforms seen within the popliteal and calf vessels consistent with diffuse atherosclero tic disease. There is enlarged right inguinal lymph node measuring 3.9 x 2.3 x 1.4 cm. However, this demonstrates a normal fatty hilum and thin cortex. The ankle brachial indices were unable to be evalu ated. IMPRESSION: 1. Multifocal areas of stenosis within the right common femoral and mid to distal superficial femoral arteries. 2. No evidence for arterial occlusion. ACT 112: Negative or not required by law. Electronically signed by: Juan Carlos Bonilla M.D. 05/24/2020 8:55 AM
[2020-05-24 09:18] LABS: Folate (Folic Acid) 12.71 ng/ml (>5.38)
--- NOTE | 2020-05-24 09:22 | CT Scan Report ---
CT SCAN OF THE ABDOMEN AND PELVIS WITH IV CONTRAST CLINICAL HISTORY: Generalized abdominal pain. Change in mental status. COMPARISON STUDY: Abdominal CT dated 04/19/2016. TECHNIQUE: Following the IV administration of 93 cc of Optiray 320, CT scan of the abdomen and pelvi s is performed from the lung bases to the proximal femora. Images are reviewed in the axial, sagittal , and coronal planes. IV contrast was administered without complication. A dose lowering technique wa s utilized adhering to the principles of ALARA. The examination is degraded by motion artifact, as we ll as by streak artifact from the arms which could not be elevated above the abdomen. CT DOSE: 669.28 mGy.cm FINDINGS: Lung bases: The heart is top normal in size and without pericardial effusion. Evaluation of the lung bases is degraded by motion artifact. No airspace consolidation or pleural effusion is identified. Th ere is a moderate hiatal hernia. Postoperative change is suggested at the gastroesophageal junction. Wall thickening is noted in the distal esophagus. Liver: The contrast-enhanced liver is mildly enlarged measuring 18.7 cm in length. The liver is other weems normal in contour and attenuation. There is no intrahepatic biliary ductal dilatation. The hepat ic veins and portal veins are patent. Gallbladder: There is a large calcified gallstone with no CT evidence of acute cholecystitis. Spleen: The spleen is mildly enlarged measuring 13.5 cm in length. 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 Pancreas: Unremarkable. Adrenal glands: Unremarkable. Kidneys: The contrast enhanced kidneys demonstrate cortical atrophy and are without hydronephrosis. T he kidneys enhance symmetrically. Foci of cortical scarring are noted in both kidneys. Abdominal vasculature: The abdominal aorta is normal in course and caliber. Bowel: There is postoperative change from sigmoid colon resection with colocolonic anastomosis. No deloris wel obstruction is seen. Moderate fecal retention is noted throughout the colon. A segment of small b owel is contained within a left inguinal hernia. The appendix is not visualized. Peritoneum: There is no intraperitoneal free air or abdominal ascites. Lymphadenopathy: None. Pelvic viscera: The bladder is distended. The bladder wall appears mildly thickened and trabeculated. The uterus and adnexa are normal as visualized. There are bilateral fat-containing inguinal hernias. A small segment of bowel is present within the left inguinal hernia. Skeletal structures: The skeletal structures are osteopenic. Moderate lumbosacral spondylosis is obse rved. No lytic or blastic lesions are seen. IMPRESSION: 1. The bladder is distended, and the wall appears thickened and trabeculated. Correlation with clinic al findings and urinalysis will be required. 2. Moderate constipation. No bowel obstruction is seen. 3. A left inguinal hernia contains a nonobstructed segment of small bowel. 4. Cholelithiasis. 5. Mild hepatosplenomegaly. 6. Moderate hiatal hernia with wall thickening of the distal esophagus. Correlate clinically for evid ence of esophagitis. 7. Additional findings as above. ACT 112: Negative or not required by law. Electronically signed by: Figueroa Henson M.D. 05/24/2020 9:20 AM
[2020-05-24] MEDS: CEROVITE ADV FORMULA TAB PO SCH (10:32)
[2020-05-24] MEDS: DICLOFENAC SOD 1% GEL 100 GM TUBE EXT SCH ×4 (10:32→20:28)
--- NOTE | 2020-05-24 14:19 | Consultation ---
Date of Consultation May 24, 2020 Assessment & Plan (1) Diabetic foot ulcer: This 89-year-old female had noninvasive testing of the arterial system both lower extremities. Waveforms are biphasic throughout. She has diffuse areas of mild stenosis but no occlusion was noted on the duplex of the lower extremities. At this point she is not a candidate for any intervention either endovascular or surgical. Would recommend orthopedic consult for evaluation of the necrotic ulcer of the foot. Thank you very much for letting us participate in the care of this patient. Please page us if any questions or reevaluation needed. Diabetic foot ulcer location: midfoot Diabetes mellitus type: type 2 Laterality: right Non-pressure ulcer stage: with necrosis of muscle Qualified Code(s): E11.621 - Type 2 diabetes mellitus with foot ulcer; L97.413 - Non-pressure chronic ulcer of right heel and midfoot with necrosis of muscle History of Present Illness Reason for Consultation: Peripheral vascular disease with ulceration right foot Attending Physician: Niels Arias MD History of Present Illness This is an 89-year-old female with a history of carcinoma the colon and endometrium. She has a history of peripheral vascular disease according to her chart. She presented to emergency room with swelling pain and ulceration on the right foot. She is a poor historian due to dementia. She is in a long-term nursing care facility. Allergies Allergy/AdvReac Type Severity Reaction Status Date / Time No Known Allergies Allergy Verified 05/23/20 21:19 Home Medications Home Medications Medication Instructions Recorded Confirmed Type Lantus Solostar U-100 Insulin 12 units SUBCUT AMHS 07/10/18 05/23/20 History citalopram 40 mg PO DAILY 07/10/18 05/23/20 History gemfibrozil 600 mg PO DAILY 07/10/18 05/23/20 History lisinopril 10 mg PO DAILY 07/10/18 05/23/20 History metoprolol succinate 25 mg PO DAILY 07/10/18 05/23/20 History aspirin 81 mg PO DAILY 07/17/18 05/23/20 History insulin aspart U-100 [Novolog 1 sliding scale dose SUBCUT BID 07/17/18 05/23/20 History PenFill U-100 Insulin] Therems-M 1 tab PO DAILY 03/02/19 05/23/20 History diclofenac sodium [Voltaren] 1 g TOPICAL QID 03/02/19 05/23/20 History tramadol 50 mg PO DAILY PRN 03/02/19 05/23/20 History Silapap 160mg/5ml 15.6 ml PO Q4 PRN 05/23/20 05/23/20 History lorazepam [Ativan] 1 mg PO DAILY PRN 05/23/20 05/23/20 History mirtazapine 15 mg PO HS 05/23/20 05/23/20 History sulfamethoxazole-trimethoprim 1 tab PO BID 05/23/20 05/23/20 History trazodone 50 mg PO DAILY 05/23/20 05/23/20 History Patient History Medical History (Updated 05/24/20 @ 14:18 by Ismael Deal MD) Acquired claw toe of right foot Adenoma Asthma Benign neoplasm of colon Depression Diabetes mellitus with diabetic polyneuropathy Diabetic polyneuropathy Diverticulitis DM type 2 (diabetes mellitus, type 2) 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 Colon cancer status post resection - 2012 2. Endometrial adenocarcinoma, FIGO grade I, clinical FIGO I (no surgical staging) 3. Status post completion of radiation therapy, all external beam, completed 10/26/2015 received 6100 cGy" On 11/02/15 09:49 Dotty Whitman wrote "DIAGNOSIS: 1. Colon cancer status post resection - 2012 2. Endometrial adenocarcinoma, FIGO grade I, clinical FIGO I (no surgical staging) 3. Status post completion of radiation therapy, all external beam, completed 10/26/2015 received 6100 cGy" On 08/03/15 14:24 Rae Black wrote "DIAGNOSIS: 1. Endometrial adenocarcinoma, FIGO grade I, clinical FIGO I (no surgical staging) 2. Colon cancer status post resection - 2012" Endometrial cancer Environmental allergies MOLD/POLLEN/CATS/MILDEW GERD (gastroesophageal reflux disease) Hearing deficit History of amputation of left great toe HTN (hypertension) Hyperlipidemia Surgical History Amputated toe RT TOE History of amputation of lesser toe of left foot History of cataract surgery left Hx of tubal ligation S/P tonsillectomy and adenoidectomy Social History Smoking Status: Unknown if ever smoked Hx Alcohol Use: No (Unknown.) Hx Substance Use: No (Unknown.) Preferred Language: Arabic Communication Ability: Impaired Head Waiter Required: No Beliefs That Will Affect Care: None marital status: / Current Living Situation: Intermediate Current Living Situation Comment: [facility]-Assisted Living facility. Other Information That Helps Us Care for You: No Feels Safe at Home: Yes Safety Concerns: Feels Safe At This Time Assistive Devices: Glasses, Hearing Aid - Bilateral and Walker Review of Systems Review of Systems: Unobtainable due to the dementia. Physical Exam Constitutional: well developed, well nourished and + frail appearing; no acute distress Neck: trachea midline Cardiovascular: Rate/Rhythm: regular rate and regular rhythm Vessels: femoral pulses present, posterior tibial pulses present (to doppler), dorsalis pedis pulses present (to doppler) and radial pulses present Extremities: normal capillary refill and + pedal edema (right foot) Gastrointestinal (Abdomen): Inspection/Auscultation: abdomen normal to inspection Percussion/Palpation: abdomen soft; abdomen nontender Musculoskeletal: gangrenous ulcer right foot Neurologic: CN's II-XI intact bilaterally and moves all extremities Psychiatric: Orientation: alert; + not oriented x 3 Results & Data ([facility]) Vital Signs (Past 12 Hours) Vital Signs Temp Pulse Resp BP Pulse Ox 05/24/20 07:37 37.2 C 74 16 119/44 L 96
--- NOTE | 2020-05-24 15:44 | Hospitalist Progress Note ---
Date of Service May 24, 2020 Assessment & Plan (1) Cellulitis: 89-year-old female with history of diabetes type 2, hypertension, history of colon cancer status post surgery, dementia Stenting with right foot infection and right lower extremity swelling Right foot wound infection, right lower extremity cellulitis No sepsis for now Foot wound culture: Staph species Blood cultures: Pending Arterial Doppler ultrasound: Positive stenosis of the right femoral artery and superficial femoral artery Continue empiric cefepime plus doxycycline Wound care service consulted, MRI of the foot recommended Vascular surgery consulted, recommend conservative management of femoral artery stenosis, recommend orthopedic consultation Orthopedic service consulted abdominal pain ? Secondary to UTI Urine culture: Gram-negative bacilli Continue cefepime Esophageal thickening on initial CT read Outpatient follow-up Acute on chronic anemia, iron deficiency Hemoglobin at baseline is 11, now at 9.1 Iron level 26 Start iron supplementation No signs of active bleeding Check fecal occult blood test Hypertension Blood pressure on the lower side, hold lisinopril, continue metoprolol DM2 insulin requiring, well-controlled as of recent outpatient hemoglobin A1c of 25 May 2020 Sliding scale Colon cancer sp surgery Uterine cancer sp radiation tx Dementia, at baseline mood disorder DVT prophylaxis with Lovenox subcu DNR as per prior directives as per daughter/POA, Ms. No Parker. She requests updates from providers through [phone]. Admission and Anticipated Discharge Date Admission Date: May 23, 2020 Subjective ff up for foot infection, leg cellulitis seen resting in bed, comfortable, sleeping, but easily awakened alert, answering questions appropriately States she feels improved compared to yesterday Less foot discomfort and leg pain Denies fevers or chills, dizziness, headache, chest pain, shortness of breath, abdominal pain, nausea vomiting No other symptoms Review of Systems Review of Systems: All systems reviewed & are unremarkable except as noted in Subjective Physical Exam Physical Exam: General- oriented x 2, not in distress, speaks in sentences with no effort or accessory muscle use Head- atraumatic Eyes- PERRL, EOMI, anicteric ENT- oropharynx clear Neck- supple, no JVD, no adenopathy, no thyromegaly; carotids +2/2, no bruits appreciated Lungs- clear to auscultation bilaterally, no rales/wheezes Heart- normal rate, regular rhythm; no murmur, no gallop, no rub appreciated Abdomen- normal bowel sounds, nondistended, soft, nontender, no masses or hepatosplenomegaly Extremities- right foot: Necrotic ulcer noted at the area of the first metatarsal head, with surrounding erythema, no active discharge noted Positive mild to moderate foot edema Positive right lower leg edema, no erythema/warmth/tenderness Neuro- alert, oriented x2; CN 2-12 grossly intact; motor 5/5 bilaterally;sensation 100% on all extremities; no other gross focal neurologic deficits Skin- warm & dry Results & Data Results & Data ([facility]) Vital Signs (Past 12 Hours) Vital Signs Temp Pulse Resp BP Pulse Ox 05/24/20 07:37 37.2 C 74 16 119/44 L 96 Laboratory Results Laboratory Results - last 24 hr 05/23/20 05/23/20 05/23/20 19:27 19:27 19:27 WBC 10.45 RBC 3.52 L Hgb 9.7 L Hct 30.1 L MCV 85.5 MCH 27.6 MCHC 32.2 RDW Std Deviation 47.4 H RDW Coeff of Pamela 15.2 H Plt Count 258 MPV 9.0 Immature Gran % (Auto) 0.6 Neut % (Auto) 79.2 Lymph % (Auto) 10.5 [place] % (Auto) 8.5 Eos % (Auto) 1.0 Baso % (Auto) 0.2 Reticulocyte % (Auto) Neut # (Auto) 8.28 H Lymph # (Auto) 1.[address] [place] # (Auto) 0.89 H Eos # (Auto) 0.10 Baso # (Auto) 0.02 Reticulocyte # Immature Gran # (Auto) 0.06 H PT 11.9 INR 1.1 APTT 32.6 H PTT Ratio 1.2 Sodium 135 L Potassium 4.2 Chloride 103 Carbon Dioxide 26 Anion Gap 6.0 BUN 17 Creatinine 0.83 Est Cr Clr Drug Dosing 43.7 Est GFR ( Amer) 73.0 Est GFR (Non-Af Amer) 63.0 BUN/Creatinine Ratio 20.1 H Glucose 219 H POC Glucose Estimat Average Glucose Hemoglobin A1c Lactate Calcium 8.5 Magnesium 2.2 Iron TIBC Transferrin Ferritin Total Bilirubin 0.1 L AST 65 H ALT 50 Alkaline Phosphatase 100 Total Creatine Kinase Total Protein 7.4 Albumin 2.5 L Globulin 4.9 H Albumin/Globulin Ratio 0.5 L Lipase 152 Vitamin B12 Folate Specimen Hemolysis Urine Color Urine Appearance Urine pH Ur Specific [place] Urine Protein Urine Glucose (UA) Urine Ketones Urine Blood Urine Nitrite Urine Bilirubin Urine Urobilinogen Ur Leukocyte Esterase Urine WBC (Auto) Urine RBC (Auto) U Hyaline Cast (Auto) U Epithel Cells (Auto) Urine Bacteria (Auto) Nasal Screen MRSA (PCR) COVID-19 Eval Order SARS-CoV-2, RNA, NAAT Blood Type Antibody Screen 05/23/20 05/23/20 05/23/20 19:27 19:27 19:27 WBC RBC Hgb Hct MCV MCH MCHC RDW Std Deviation RDW Coeff of Pamela Plt Count MPV Immature Gran % (Auto) Neut % (Auto) Lymph % (Auto) [place] % (Auto) Eos % (Auto) Baso % (Auto) Reticulocyte % (Auto) Neut # (Auto) Lymph # (Auto) [place] # (Auto) Eos # (Auto) Baso # (Auto) Reticulocyte # Immature Gran # (Auto) PT INR APTT PTT Ratio Sodium Potassium Chloride Carbon Dioxide Anion Gap BUN Creatinine Est Cr Clr Drug Dosing Est GFR ( Amer) Est GFR (Non-Af Amer) BUN/Creatinine Ratio Glucose POC Glucose Estimat Average Glucose 123 Hemoglobin A1c 5.9 H Lactate 1.6 Calcium Magnesium Iron TIBC Transferrin Ferritin Total Bilirubin AST ALT Alkaline Phosphatase Total Creatine Kinase 104 Total Protein Albumin Globulin Albumin/Globulin Ratio Lipase Vitamin B12 Folate Specimen Hemolysis Urine Color Urine Appearance Urine pH Ur Specific [place] Urine Protein Urine Glucose (UA) Urine Ketones Urine Blood Urine Nitrite Urine Bilirubin Urine Urobilinogen Ur Leukocyte Esterase Urine WBC (Auto) Urine RBC (Auto) U Hyaline Cast (Auto) U Epithel Cells (Auto) Urine Bacteria (Auto) Nasal Screen MRSA (PCR) COVID-19 Eval Order SARS-CoV-2, RNA, NAAT Blood Type Antibody Screen 05/23/20 05/23/20 05/23/20 20:30 21:38 21:38 WBC RBC Hgb Hct MCV MCH MCHC RDW Std Deviation RDW Coeff of Pamela Plt Count MPV Immature Gran % (Auto) Neut % (Auto) Lymph % (Auto) [place] % (Auto) Eos % (Auto) Baso % (Auto) Reticulocyte % (Auto) Neut # (Auto) Lymph # (Auto) [place] # (Auto) Eos # (Auto) Baso # (Auto) Reticulocyte # Immature Gran # (Auto) PT INR APTT PTT Ratio Sodium Potassium Chloride Carbon Dioxide Anion Gap BUN Creatinine Est Cr Clr Drug Dosing Est GFR ( Amer) Est GFR (Non-Af Amer) BUN/Creatinine Ratio Glucose POC Glucose Estimat Average Glucose Hemoglobin A1c Lactate Calcium Magnesium Iron TIBC Transferrin Ferritin Total Bilirubin AST ALT Alkaline Phosphatase Total Creatine Kinase Total Protein Albumin Globulin Albumin/Globulin Ratio Lipase Vitamin B12 Folate Specimen Hemolysis Urine Color Yellow Urine Appearance Clear Urine pH 6.5 Ur Specific [place] 1.009 Urine Protein Trace H Urine Glucose (UA) Negative Urine Ketones Negative Urine Blood Trace H Urine Nitrite Positive A Urine Bilirubin Negative Urine Urobilinogen Negative Ur Leukocyte Esterase 1+ H Urine WBC (Auto) 10-30 H Urine RBC (Auto) >30 H U Hyaline Cast (Auto) 0 U Epithel Cells (Auto) 20-30 H Urine Bacteria (Auto) 4+ H Nasal Screen MRSA (PCR) COVID-19 Eval [facility] SARS-CoV-2, RNA, NAAT NEGATIVE Blood Type Antibody Screen 05/24/20 05/24/20 05/24/20 01:31 02:21 06:14 WBC 7.88 RBC 3.31 L Hgb 9.1 L Hct 27.8 L MCV 84.0 MCH 27.5 MCHC 32.7 RDW Std Deviation 46.4 H RDW Coeff of Pamela 14.9 H Plt Count 233 MPV 8.7 Immature Gran % (Auto) 0.8 Neut % (Auto) 74.5 Lymph % (Auto) 14.1 [place] % (Auto) 9.1 Eos % (Auto) 1.4 Baso % (Auto) 0.1 Reticulocyte % (Auto) 1.1 Neut # (Auto) 5.87 Lymph # (Auto) 1.[address] [place] # (Auto) 0.72 H Eos # (Auto) 0.11 Baso # (Auto) 0.01 Reticulocyte # 0.03 Immature Gran # (Auto) 0.06 H PT INR APTT PTT Ratio Sodium Potassium Chloride Carbon Dioxide Anion Gap BUN Creatinine Est Cr Clr Drug Dosing Est GFR ( Amer) Est GFR (Non-Af Amer) BUN/Creatinine Ratio Glucose POC Glucose 230 H Estimat Average Glucose Hemoglobin A1c Lactate Calcium Magnesium Iron TIBC Transferrin Ferritin Total Bilirubin AST ALT Alkaline Phosphatase Total Creatine Kinase Total Protein Albumin Globulin Albumin/Globulin Ratio Lipase Vitamin B12 Folate Specimen Hemolysis Urine Color Urine Appearance Urine pH Ur Specific [place] Urine Protein Urine Glucose (UA) Urine Ketones Urine Blood Urine Nitrite Urine Bilirubin Urine Urobilinogen Ur Leukocyte Esterase Urine WBC (Auto) Urine RBC (Auto) U Hyaline Cast (Auto) U Epithel Cells (Auto) Urine Bacteria (Auto) Nasal Screen MRSA (PCR) Negative COVID-19 Eval Order SARS-CoV-2, RNA, NAAT Blood Type Antibody Screen 05/24/20 05/24/20 05/24/20 06:14 06:14 06:14 WBC RBC Hgb Hct MCV MCH MCHC RDW Std Deviation RDW Coeff of Pamela Plt Count MPV Immature Gran % (Auto) Neut % (Auto) Lymph % (Auto) [place] % (Auto) Eos % (Auto) Baso % (Auto) Reticulocyte % (Auto) Neut # (Auto) Lymph # (Auto) [place] # (Auto) Eos # (Auto) Baso # (Auto) Reticulocyte # Immature Gran # (Auto) PT INR APTT PTT Ratio Sodium 139 Potassium 4.0 Chloride 108 H Carbon Dioxide 27 Anion Gap 4.0 BUN 9 D Creatinine 0.57 L Est Cr Clr Drug Dosing 64.1 Est GFR ( Amer) 95.9 Est GFR (Non-Af Amer) 82.8 BUN/Creatinine Ratio 16.6 Glucose 115 H POC Glucose Estimat Average Glucose Hemoglobin A1c Lactate Calcium 8.5 Magnesium Iron 26 L TIBC 173 L Transferrin 141 L Ferritin 256.7 Total Bilirubin AST ALT Alkaline Phosphatase Total Creatine Kinase Total Protein Albumin Globulin Albumin/Globulin Ratio Lipase Vitamin B12 Folate Cancelled Specimen Hemolysis Urine Color Urine Appearance Urine pH Ur Specific [place] Urine Protein Urine Glucose (UA) Urine Ketones Urine Blood Urine Nitrite Urine Bilirubin Urine Urobilinogen Ur Leukocyte Esterase Urine WBC (Auto) Urine RBC (Auto) U Hyaline Cast (Auto) U Epithel Cells (Auto) Urine Bacteria (Auto) Nasal Screen MRSA (PCR) COVID-19 Eval Order SARS-CoV-2, RNA, NAAT Blood Type B Negative Antibody Screen NEGATIVE 05/24/20 05/24/20 05/24/20 06:14 08:16 12:07 WBC RBC Hgb Hct MCV MCH MCHC RDW Std Deviation RDW Coeff of Pamela Plt Count MPV Immature Gran % (Auto) Neut % (Auto) Lymph % (Auto) [place] % (Auto) Eos % (Auto) Baso % (Auto) Reticulocyte % (Auto) Neut # (Auto) Lymph # (Auto) [place] # (Auto) Eos # (Auto) Baso # (Auto) Reticulocyte # Immature Gran # (Auto) PT INR APTT PTT Ratio Sodium Potassium Chloride Carbon Dioxide Anion Gap BUN Creatinine Est Cr Clr Drug Dosing Est GFR ( Amer) Est GFR (Non-Af Amer) BUN/Creatinine Ratio Glucose POC Glucose 124 H 133 H Estimat Average Glucose Hemoglobin A1c Lactate Calcium Magnesium Iron TIBC Transferrin Ferritin Total Bilirubin AST ALT Alkaline Phosphatase Total Creatine Kinase Total Protein Albumin Globulin Albumin/Globulin Ratio Lipase Vitamin B12 666 Folate 12.71 Specimen Hemolysis Urine Color Urine Appearance Urine pH Ur Specific [place] Urine Protein Urine Glucose (UA) Urine Ketones Urine Blood Urine Nitrite Urine Bilirubin Urine Urobilinogen Ur Leukocyte Esterase Urine WBC (Auto) Urine RBC (Auto) U Hyaline Cast (Auto) U Epithel Cells (Auto) Urine Bacteria (Auto) Nasal Screen MRSA (PCR) COVID-19 Eval Order SARS-CoV-2, RNA, NAAT Blood Type Antibody Screen
--- NOTE | 2020-05-24 16:39 | Electrocardiogram Report ---
Test Reason : Blood Pressure : / mmHG Vent. Rate : 073 BPM Atrial Rate : 073 BPM P-R Int : 218 ms QRS Dur : 088 ms QT Int : 396 ms P-R-T Axes : 068 -09 007 degrees QTc Int : 436 ms Sinus rhythm with sinus arrhythmia with 1st degree A-V block Abnormal ECG When compared with ECG of 31-OCT-2019 22:55, No significant change was found Confirmed by Addison Shine ([id number]) on 05/24/2020 4:38:49 PM [place] [facility] [place] Confirmed By:Conner Shine
[2020-05-24] MEDS: DOCUSATE SODIUM/SENNA 50/8.6MG TAB PO SCH (17:49)
--- NOTE | 2020-05-24 23:43 | Wound Consultation ---
Date of Consultation May 24, 2020 Assessment & Plan (1) Diabetic foot ulcer: This 89-year-old female with diabetic foot ulcer and underlying cellulitis. Wound needed debridement. Using scissors and forceps the wound was debrided of necrotic skin and slough. There was no bleeding. Patient tolerated the procedure well with no complications. This represents a nonexcisional debridement of less than 20cm2. Would will be dressed with Optifoam. Recommend MRI foot to rule out osteomyelitis or abscess. Thank you for allowing me to participate in the care of this patient. Please call with any questions. History of Present Illness Reason for Consultation: right foot wound Attending Physician: Niels Arias MD History of Present Illness This is an 89 year old female with a history of dementia, type 2 diabetes, htn, and left toe amputation who is admitted with cellulitis. I am being asked to see her about her diabetic foot ulcer with underlying cellulitis. Patient is non verbal during history and exam. Allergies Allergy/AdvReac Type Severity Reaction Status Date / Time No Known Allergies Allergy Verified 05/23/20 21:19 Home Medications Home Medications Medication Instructions Recorded Confirmed Type Lantus Solostar U-100 Insulin 12 units SUBCUT AMHS 07/10/18 05/23/20 History citalopram 40 mg PO DAILY 07/10/18 05/23/20 History gemfibrozil 600 mg PO DAILY 07/10/18 05/23/20 History lisinopril 10 mg PO DAILY 07/10/18 05/23/20 History metoprolol succinate 25 mg PO DAILY 07/10/18 05/23/20 History aspirin 81 mg PO DAILY 07/17/18 05/23/20 History insulin aspart U-100 [Novolog 1 sliding scale dose SUBCUT BID 07/17/18 05/23/20 History PenFill U-100 Insulin] Therems-M 1 tab PO DAILY 03/02/19 05/23/20 History diclofenac sodium [Voltaren] 1 g TOPICAL QID 03/02/19 05/23/20 History tramadol 50 mg PO DAILY PRN 03/02/19 05/23/20 History Silapap 160mg/5ml 15.6 ml PO Q4 PRN 05/23/20 05/23/20 History lorazepam [Ativan] 1 mg PO DAILY PRN 05/23/20 05/23/20 History mirtazapine 15 mg PO HS 05/23/20 05/23/20 History sulfamethoxazole-trimethoprim 1 tab PO BID 05/23/20 05/23/20 History trazodone 50 mg PO DAILY 05/23/20 05/23/20 History Patient History Medical History Acquired claw toe of right foot Adenoma Asthma Benign neoplasm of colon Depression Diabetes mellitus with diabetic polyneuropathy Diabetic polyneuropathy Diverticulitis DM type 2 (diabetes mellitus, type 2) 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 Colon cancer status post resection - 2012 2. Endometrial adenocarcinoma, FIGO grade I, clinical FIGO I (no surgical staging) 3. Status post completion of radiation therapy, all external beam, completed 10/26/2015 received 6100 cGy" On 11/02/15 09:49 Dotty Whitman wrote "DIAGNOSIS: 1. Colon cancer status post resection - 2012 2. Endometrial adenocarcinoma, FIGO grade I, clinical FIGO I (no surgical staging) 3. Status post completion of radiation therapy, all external beam, completed 10/26/2015 received 6100 cGy" On 08/03/15 14:24 Rae Black wrote "DIAGNOSIS: 1. Endometrial adenocarcinoma, FIGO grade I, clinical FIGO I (no surgical staging) 2. Colon cancer status post resection - 2012" Endometrial cancer Environmental allergies MOLD/POLLEN/CATS/MILDEW GERD (gastroesophageal reflux disease) Hearing deficit History of amputation of left great toe HTN (hypertension) Hyperlipidemia Surgical History Amputated toe RT TOE History of amputation of lesser toe of left foot History of cataract surgery left Hx of tubal ligation S/P tonsillectomy and adenoidectomy Social History Smoking Status: Unknown if ever smoked Hx Alcohol Use: No (Unknown.) Hx Substance Use: No (Unknown.) Preferred Language: Montenegrin Communication Ability: Impaired Remedial Masseur Required: No Beliefs That Will Affect Care: None marital status: / Current Living Situation: Care Home Current Living Situation Comment: [facility]. Other Information That Helps Us Care for You: No Feels Safe at Home: Yes Safety Concerns: Feels Safe At This Time Assistive Devices: Walker Review of Systems Review of Systems: All systems reviewed & are unremarkable except as noted in HPI & below Physical Exam Physical Exam: Temp Pulse Resp BP Pulse Ox 36.7 C 78 18 106/53 L 95 05/24/20 16:07 05/24/20 16:07 05/24/20 16:07 05/24/20 16:07 05/24/20 16:07 Constitutional: WD/WN, vitals as above Skin: Right foot wound measuring as recorded in nursing documentation. Wound is covered with fibrin, slough and necrotic skin. Periwound is boggy with inflammation and maceration. Neurologic: awake Results & Data ([facility]) Vital Signs (Past 12 Hours) Vital Signs Temp Pulse Resp BP Pulse Ox 05/24/20 16:07 36.7 C 78 18 106/53 L 95 PG Care Time/CCT Total # of Minutes Spent Total Time Spent with Patient: Total time spent is greater than 50% in coordination of care (as documented) at patient's floor/unit and/or counseling patient: Coding Level of Care Code 24254 Inpt Consult Level 3 Diagnoses Diabetic foot ulcer E11.621; L97.413 Diabetes mellitus type: type 2 Diabetic foot ulcer location: midfoot Laterality: right Non-pressure ulcer stage: with necrosis of muscle (1) Diabetic foot ulcer Diabetes mellitus type: type 2 Diabetic foot ulcer location: midfoot Laterality: right Non-pressure ulcer stage: with necrosis of muscle Qualified Code(s): E11.621 - Type 2 diabetes mellitus with foot ulcer; 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
[2020-05-25] MEDS: CEFEPIME 2,000 MG in SYRINGE 0 ML IV SCH ×3 (03:38→20:16)
[2020-05-25] MEDS: DOXYCYCLINE HYCLATE 100 MG CAP PO SCH ×2 (05:53→18:12)
[2020-05-25] MEDS: INSULIN ASPART 100 UNITS/ML 3 ML PEN SC SCH ×4 (09:57→20:30)
[2020-05-25] MEDS: INSULIN GLARGINE SOLOSTAR 100 UNITS/ML 3 ML PEN SC SCH ×2 (09:58→20:29)
[2020-05-25] MEDS: METOPROLOL SUCC 25MG EXT REL TAB PO SCH (10:00)
[2020-05-25] MEDS: lisinopril 10 MG TAB PO SCH (10:00)
[2020-05-25] MEDS: ENOXAPARIN INJ 30 MG/0.3 ML SYR SQ SCH (10:01)
[2020-05-25] MEDS: FERROUS SULFATE 325 MG/7.4 ML UDP PO SCH ×2 (10:01→18:12)
[2020-05-25] MEDS: CITALOPRAM 40 MG TAB PO SCH (10:01)
[2020-05-25] MEDS: ASPIRIN 81 MG ECTAB PO SCH (10:01)
[2020-05-25] MEDS: CEROVITE ADV FORMULA TAB PO SCH (10:01)
[2020-05-25] MEDS: gemfibroziL 600 MG TAB PO SCH (10:01)
[2020-05-25] MEDS: DOCUSATE SODIUM/SENNA 50/8.6MG TAB PO SCH (10:02)
[2020-05-25] MEDS: DICLOFENAC SOD 1% GEL 100 GM TUBE EXT SCH ×4 (10:02→20:24)
--- NOTE | 2020-05-25 15:35 | Orthopedic Consultation ---
Date of Consultation May 25, 2020 Assessment & Plan (1) Diabetic foot ulcer: Will await MRI results of the right foot to assess for osteomyelitis. I discussed findings with the daughter. We discussed possible surgical I&D, possible great toe amputation depending on MRI findings. She will be nonweightbearing on the right lower extremity. We will follow with the right foot. Thank you for the consultation. (2) Peripheral vascular disease in diabetes mellitus: Supervising Physician Co-Signing Physician Notes I had seen the patient with her daughter at bedside shortly after the evaluation performed by Sarabjit Mistry PA-C. I had a lengthy discussion regarding the patient's care with the daughter present at bedside. The patient is a poor historian due to dementia. I performed physical exam and reviewed the laboratories and imaging studies as well as the patient's history and physical. Will await findings for MRI which will likely be completed within the next day. Likely need for surgical intervention possibility of amputation depending upon the extent of infection and presence of any osteomyelitis. Thank the opportunity consult in the care of this patient. Garcia Ortiz DO History of Present Illness Reason for Consultation: Right foot ulceration Requesting Physician: Dr. Arias Attending Physician: Niels Arias MD History of Present Illness This is a patient with a history of diabetes and peripheral vascular disease that had an ulceration start at the plantar and medial aspects of the first MTP. It is believed that the ulceration started within the past 1 to 2 weeks since she had recently been seen by her PCP. She has a related complicated history history of a transmetatarsal amputation on the left foot performed by [facility] in [place] for wounds that failed to heal despite several months of conservative management, debridement and hyperbaric treatments performed by another provider. Her daughter is with her today and states that they have tried to get an MRI but she has been too agitated to perform. She is hoping to have the MRI done this evening or tomorrow morning for the right foot. Allergies Allergy/AdvReac Type Severity Reaction Status Date / Time No Known Allergies Allergy Verified 05/23/20 21:19 Home Medications Home Medications Medication Instructions Recorded Confirmed Type Lantus Solostar U-100 Insulin 12 units SUBCUT AMHS 07/10/18 05/23/20 History citalopram 40 mg PO DAILY 07/10/18 05/23/20 History gemfibrozil 600 mg PO DAILY 07/10/18 05/23/20 History lisinopril 10 mg PO DAILY 07/10/18 05/23/20 History metoprolol succinate 25 mg PO DAILY 07/10/18 05/23/20 History aspirin 81 mg PO DAILY 07/17/18 05/23/20 History insulin aspart U-100 [Novolog 1 sliding scale dose SUBCUT BID 07/17/18 05/23/20 History PenFill U-100 Insulin] Therems-M 1 tab PO DAILY 03/02/19 05/23/20 History diclofenac sodium [Voltaren] 1 g TOPICAL QID 03/02/19 05/23/20 History tramadol 50 mg PO DAILY PRN 03/02/19 05/23/20 History Silapap 160mg/5ml 15.6 ml PO Q4 PRN 05/23/20 05/23/20 History lorazepam [Ativan] 1 mg PO DAILY PRN 05/23/20 05/23/20 History mirtazapine 15 mg PO HS 05/23/20 05/23/20 History sulfamethoxazole-trimethoprim 1 tab PO BID 05/23/20 05/23/20 History trazodone 50 mg PO DAILY 05/23/20 05/23/20 History Patient History Medical History (Updated 05/25/20 @ 15:43 by Sarabjit Mistry PA-C) Acquired claw toe of right foot Adenoma Asthma Benign neoplasm of colon Depression Diabetes mellitus with diabetic polyneuropathy Diabetic polyneuropathy Diverticulitis DM type 2 (diabetes mellitus, type 2) 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 Colon cancer status post resection - 2012 2. Endometrial adenocarcinoma, FIGO grade I, clinical FIGO I (no surgical staging) 3. Status post completion of radiation therapy, all external beam, completed 10/26/2015 received 6100 cGy" On 11/02/15 09:49 Dotty Whitman wrote "DIAGNOSIS: 1. Colon cancer status post resection - 2012 2. Endometrial adenocarcinoma, FIGO grade I, clinical FIGO I (no surgical staging) 3. Status post completion of radiation therapy, all external beam, completed 10/26/2015 received 6100 cGy" On 08/03/15 14:24 Rae Black wrote "DIAGNOSIS: 1. Endometrial adenocarcinoma, FIGO grade I, clinical FIGO I (no surgical staging) 2. Colon cancer status post resection - 2012" Endometrial cancer Environmental allergies MOLD/POLLEN/CATS/MILDEW GERD (gastroesophageal reflux disease) Hearing deficit History of amputation of left great toe HTN (hypertension) Hyperlipidemia Surgical History Amputated toe RT TOE History of amputation of lesser toe of left foot History of cataract surgery left Hx of tubal ligation S/P tonsillectomy and adenoidectomy Social History Smoking Status: Unknown if ever smoked Hx Alcohol Use: No (Unknown.) Hx Substance Use: No (Unknown.) Preferred Language: Argentine Communication Ability: Impaired Claim Auditor Required: No Beliefs That Will Affect Care: None marital status: / Current Living Situation: Care Home Current Living Situation Comment: [facility]. Other Information That Helps Us Care for You: No Feels Safe at Home: Yes Safety Concerns: Feels Safe At This Time Assistive Devices: Walker Physical Exam Constitutional: + thin ENMT: external ear and nose normal, oropharynx normal Neck: trachea midline, no thyromegaly Musculoskeletal: Right foot: Plantar medial first MTP ulcerations that appear superficial but identical to assess for abscess near the first MTP. Fluctuant tissue plantar medial first metatarsal phalangeal joint right foot. The plantar ulceration is approximately 3 cm with his zone of injury that extends to 4.5 cm in diameter. The medial first MTP ulceration appears to be approximately 4 cm in diameter. There is mild to moderate erythema surrounding the lesion. Pedal pulses are palpable. Scant hair growth is noted. No streaking up the foot or lower leg. Psychiatric: Patient is lying in bed, mostly sleeping. When she is awake, she appears confused. Patient daughter present at bedside. Results & Data ([facility]) Vital Signs (Past 12 Hours) Vital Signs Temp Pulse Resp BP Pulse Ox 05/25/20 08:00 36.9 C 75 18 110/79 98 (1) Diabetic foot ulcer Diabetes mellitus type: type 2 Diabetic foot ulcer location: midfoot Laterality: right Non-pressure ulcer stage: with necrosis of muscle Qualified Code(s): E11.621 - Type 2 diabetes mellitus with foot ulcer; L97.619 - Non-pressure chronic ulcer of right heel and midfoot with necrosis of muscle
[2020-05-25] MEDS ORDERED: LORazepam 1 MG TAB PO PRN (19:51)
--- NOTE | 2020-05-25 19:57 | Hospitalist Progress Note ---
Date of Service May 25, 2020 Assessment & Plan (1) Cellulitis: 89-year-old female with history of diabetes type 2, hypertension, history of colon cancer status post surgery, dementia Stenting with right foot infection and right lower extremity swelling Right foot wound infection, right lower extremity cellulitis No sepsis for now Foot wound culture: MSSA Blood cultures: Negative so far Arterial Doppler ultrasound: Positive stenosis of the right femoral artery and superficial femoral artery Continue empiric cefepime plus doxycycline Wound care service consulted, MRI of the foot recommended: Pending Vascular surgery consulted, recommend conservative management of femoral artery stenosis, recommend orthopedic consultation Orthopedic service consulted: Awaiting MRI, will likely need surgical I&D, and possible great toe amputation Abdominal pain likely secondary to UTI Urine culture: Klebsiella Continue cefepime Esophageal thickening on initial CT read Outpatient follow-up Acute on chronic anemia, iron deficiency Hemoglobin at baseline is 11, now at 9.1 Iron level 26 iron supplementation No signs of active bleeding Fecal occult blood test: Negative Hypertension Blood pressure on the lower side, hold lisinopril, continue metoprolol DM2 insulin requiring, well-controlled as of recent outpatient hemoglobin A1c of 25 May 2020 Sliding scale Colon cancer sp surgery Uterine cancer sp radiation tx Dementia, at baseline mood disorder DVT prophylaxis with Lovenox subcu DNR as per prior directives as per daughter/POA, . No Parker. Disposition Pending Admission and Anticipated Discharge Date Admission Date: May 23, 2020 Subjective Follow-up for right foot wound infection, lower leg cellulitis Seen resting in bed, comfortable, not in distress, pleasantly confused States she feels fine overall Denies foot or leg pain No chest pain, palpitations, dizziness No other symptoms next Review of Systems Review of Systems: All systems reviewed & are unremarkable except as noted in Subjective Physical Exam Physical Exam: General- oriented x 1, not in distress, speaks in sentences with no effort or accessory muscle use Eyes- anicteric Neck- no JVD Lungs- clear breath sounds bilaterally, no rales/wheezes Heart- normal rate, regular rhythm; no murmurs Abdomen- normal bowel sounds, nondistended, soft, nontender Extremities-right foot: Necrotic wound on the first metatarsal head area, with some drainage Right lower leg: Less edema Left lower extremity essentially normal Neuro- alert, oriented x 3; no gross focal neurologic deficits Skin- warm & dry Results & Data Results & Data ([facility]) Vital Signs (Past 12 Hours) Vital Signs Temp Pulse Pulse Resp BP Pulse Ox 05/25/20 16:33 36.3 C L 75 18 128/65 96 05/25/20 08:00 36.9 C 75 18 110/79 98 Laboratory Results Laboratory Results - last 24 hr 05/24/20 05/25/20 05/25/20 20:24 08:35 12:10 POC Glucose 209 H 146 H 193 H Stool Occult Bld Scrn 05/25/20 05/25/20 17:01 19:20 POC Glucose 153 H Stool Occult Bld Scrn Negative
[2020-05-25] MEDS: MIRTAZAPINE TAB 15 MG TAB PO SCH (20:16)
[2020-05-25] MEDS: traZODone HCL 50 MG TAB PO SCH (20:23)
--- NOTE | 2020-05-25 23:48 | Wound Progress Note ---
Date of Service May 25, 2020 Assessment & Plan (1) Diabetic foot ulcer: No debridement done today. Wound will be dressed with kaltistat and optifoam. After MRI will use Aquacel Ag. Await MRI. Agree with orthopedic consultation. Will continue to follow. Admission and Anticipated Discharge Date Admission Date: May 23, 2020 Subjective Patient seen at bedside with WOCN. MRI pending. Vascular consult reviewed. Recommend ortho consult. Wound culture positive for MSSA. Review of Systems Review of Systems: Unobtainable due to cognitive status Physical Exam Physical Exam: Temp Pulse Resp BP Pulse Ox 36.3 C L 75 18 128/65 96 05/25/20 16:33 05/25/20 16:33 05/25/20 16:33 05/25/20 16:33 05/25/20 16:33 Skin: Wound measuring as recorded in nursing documentation. Wound bed is boggy and covered with fibrin and slough. Periwound is boggy, with noviable skin and erythema. Neurologic: awake Results & Data ([facility]) Vital Signs (Past 12 Hours) Vital Signs Temp Pulse Resp BP Pulse Ox 05/25/20 16:33 36.3 C L 75 18 128/65 96 PG Care Time/CCT Total # of Minutes Spent Total Time Spent with Patient: Total time spent is greater than 50% in coordination of care (as documented) at patient's floor/unit and/or counseling patient: Coding Level of Care Code 32773 Subseq Hosp Care Lvl 2 Diagnoses Diabetic foot ulcer E11.621; L97.413 Diabetes mellitus type: type 2 Diabetic foot ulcer location: midfoot Laterality: right Non-pressure ulcer stage: with necrosis of muscle (1) Diabetic foot ulcer Diabetes mellitus type: type 2 Diabetic foot ulcer location: midfoot Laterality: right Non-pressure ulcer stage: with necrosis of muscle Qualified Code(s): E11.621 - Type 2 diabetes mellitus with foot ulcer; 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
[2020-05-26] MEDS: CEFEPIME 2,000 MG in SYRINGE 0 ML IV SCH (04:12)
[2020-05-26] MEDS: DOXYCYCLINE HYCLATE 100 MG CAP PO SCH ×2 (05:43→18:30)
[2020-05-26] MEDS ORDERED: traZODone HCL 50 MG TAB PO SCH (09:00)
[2020-05-26 09:34] LABS: Basophils # (auto) 0.02 K/uL (0-0.2); Basophils % (auto) 0.2 %; Eosinophils # (auto) 0.28 K/uL (0-0.5); Eosinophils % (auto) 2.5 %; Hematocrit (blood only) 29.9 % (37-47); Hemoglobin 9.6 g/dL (12.0-16.0); Immature Granulocytes # (auto) 0.17 K/uL (0.00-0.02); Immature Granulocytes % (auto) 1.5 %; Lymphocytes # (auto) 1.43 K/uL (1.2-3.4); Lymphocytes % (auto) 12.9 %; Mean Corpuscular Hemoglobin 27.7 pg (25-34); Mean Corpuscular Hgb Conc 32.1 g/dL (32-36); Mean Corpuscular Volume 86.2 fL (80-100); Mean Platelet Volume 8.7 fL (7.4-10.4); Monocytes # (auto) 1.12 K/uL (0.11-0.59); Monocytes % (auto) 10.1 %; Neutrophils # (auto) 8.06 K/uL (1.4-6.5); Neutrophils % (auto) 72.8 %; Platelet Count 293 K/uL (130-400); RDW Coefficient of Variation 14.9 % (11.5-14.5); RDW Standard Deviation 46.8 fL (36.4-46.3); Red Blood Count 3.47 M/uL (4.2-5.4); White Blood Count 11.08 K/uL (4.8-10.8)
[2020-05-26 09:55] LABS: BUN Creatinine Ratio 12.7 (10-20); Calcium 8.8 mg/dl (8.5-10.1); Creatinine Clr Calc Pharmacy 53.7 ml/min; Est GFR (African American) 90.5; Est GFR (Non-African American) 78.1; Potassium 4.5 mmol/L (3.5-5.1)
--- NOTE | 2020-05-26 10:59 | Magnetic Resonance Report ---
MR foot RT w/o con CLINICAL HISTORY: R/O ABSCESS, OSTEOMYELITIS COMPARISON STUDY: No previous studies for comparison. FINDINGS: Images were acquired in the axial sagittal and coronal planes. 3 attempts were made at imaging this patient. Images are severely degraded by motion artifact. The co ntrast portion the study was not performed due to the severe artifact on the noncontrast images. There is mild soft tissue edema involving the medial aspect of the foot. There is no definitive T1 edema involving the great toe to indicate osteomyelitis. IMPRESSION: 1. Severely motion degraded study. 2. No convincing evidence of osteomyelitis. ACT 112: Negative or not required by law. Electronically signed by: Florencio Hood M.D. 05/26/2020 10:58 AM
--- NOTE | 2020-05-26 11:20 | Orthopedic Progress Note ---
Date of Service May 26, 2020 Assessment & Plan (1) Diabetic foot ulcer: No Clear evidence of osteomyelitis Per MRI performed. I discussed findings with the I discussed MRI findings and need for surgical intervention with Dr. Coronado. She will be nonweightbearing on the right lower extremity. N.p.o. after midnight for planned surgical incision and drainage right foot with debridement of diabetic neuropathic hypovascular ulcer 4 cm in diameter. Plan for OR tomorrow. Thank you for the consultation. (2) Peripheral vascular disease in diabetes mellitus: Admission and Anticipated Discharge Date Admission Date: May 23, 2020 Subjective Patient seen while sitting up in bed. MRI Completed. Vascular consult reviewed. Wound culture positive for MSSA. All history obtained from the chart as patient is demented. Physical Exam Physical Exam: Pleasantly confused due to dementia. Focused examination right foot demonstrates 3 to 4 cm diameter zone of injury with wound necrosis and abscess adjacent to the first metatarsal phalangeal joint plantar medial right foot. Zone of injury is 4.5 cm diameter. Claw toes first second third fourth and fifth toes. Pulses are occasionally palpable. Feet are warm. Scant hair growth. No streaking or redness proximal to the first MTP region. Difficult to assess sensation due to patient's dementia. Results & Data ([facility]) Vital Signs (Past 12 Hours) Vital Signs Temp Pulse Pulse Resp BP BP Pulse Ox 05/26/20 07:20 36.6 C 82 16 115/53 L 96 05/26/20 00:08 37.3 C 73 17 109/45 L 93 (1) Diabetic foot ulcer Diabetes mellitus type: type 2 Diabetic foot ulcer location: midfoot Laterality: right Non-pressure ulcer stage: with necrosis of muscle Qualified Code(s): E11.621 - Type 2 diabetes mellitus with foot ulcer; 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
[2020-05-26] MEDS: INSULIN ASPART 100 UNITS/ML 3 ML PEN SC SCH ×4 (11:32→20:49)
[2020-05-26] MEDS: gemfibroziL 600 MG TAB PO SCH (11:34)
[2020-05-26] MEDS: CITALOPRAM 40 MG TAB PO SCH (11:34)
[2020-05-26] MEDS: ASPIRIN 81 MG ECTAB PO SCH (11:34)
[2020-05-26] MEDS: METOPROLOL SUCC 25MG EXT REL TAB PO SCH (11:34)
[2020-05-26] MEDS: lisinopril 10 MG TAB PO SCH (11:35)
[2020-05-26] MEDS: CEROVITE ADV FORMULA TAB PO SCH (11:35)
[2020-05-26] MEDS: DICLOFENAC SOD 1% GEL 100 GM TUBE EXT SCH ×4 (11:36→21:22)
[2020-05-26] MEDS: INSULIN GLARGINE SOLOSTAR 100 UNITS/ML 3 ML PEN SC SCH ×2 (11:36→20:42)
[2020-05-26] MEDS: FERROUS SULFATE 325 MG/7.4 ML UDP PO SCH ×2 (11:36→18:30)
[2020-05-26] MEDS: ENOXAPARIN INJ 30 MG/0.3 ML SYR SQ SCH (11:37)
[2020-05-26] MEDS: DOCUSATE SODIUM/SENNA 50/8.6MG TAB PO SCH (11:39)
--- NOTE | 2020-05-26 13:15 | Anesthesiology Consultation ---
Date of Service May 26, 2020 Assessment & Plan (1) Encounter for pre-operative examination: Chart Review Chart Review: entry level chemist initiated History Surgery Operation Date: 05/27/20 07:30 Proposed Procedures p Incision and Drainage Right Foot Abscess(Right) - Garcia Ortiz DO Height/Weight Height: 5 ft 3 in Weight: 70.2 kg Allergies Allergy/AdvReac Type Severity Reaction Status Date / Time No Known Allergies Allergy Verified 05/23/20 21:19 Medications Home Medications Medication Instructions Recorded Confirmed Last Taken Lantus Solostar U-100 Insulin 12 units SUBCUT AMHS 07/10/18 05/23/20 03/27/19 citalopram 40 mg PO DAILY 07/10/18 05/23/20 03/27/19 gemfibrozil 600 mg PO DAILY 07/10/18 05/23/20 07/16/18 08:30 lisinopril 10 mg PO DAILY 07/10/18 05/23/20 03/27/19 metoprolol succinate 25 mg PO DAILY 07/10/18 05/23/20 03/27/19 aspirin 81 mg PO DAILY 07/17/18 05/23/20 03/27/19 insulin aspart U-100 [Novolog 1 sliding scale dose SUBCUT BID 07/17/18 05/23/20 07/16/18 PenFill U-100 Insulin] Therems-M 1 tab PO DAILY 03/02/19 05/23/20 03/27/19 diclofenac sodium [Voltaren] 1 g TOPICAL QID 03/02/19 05/23/20 03/27/19 tramadol 50 mg PO DAILY PRN 03/02/19 05/23/20 Unknown Silapap 160mg/5ml 15.6 ml PO Q4 PRN 05/23/20 05/23/20 Unknown lorazepam [Ativan] 1 mg PO DAILY PRN 05/23/20 05/23/20 Unknown mirtazapine 15 mg PO HS 05/23/20 05/23/20 Unknown sulfamethoxazole-trimethoprim 1 tab PO BID 05/23/20 05/23/20 Unknown trazodone 50 mg PO DAILY 05/23/20 05/23/20 Unknown Active Medications Generic Name Dose Route Start Last Admin Trade Name Freq PRN Reason Stop Dose Admin Aspirin 81 mg 05/24/20 09:00 11/07/20 11:34 Aspirin 81 Mg Ectab PO 06/23/20 08:59 81 mg DAILY HINA Administration Citalopram Hydrobromide 40 mg 05/24/20 09:00 05/26/20 11:34 Citalopram 40 Mg Tab PO 06/23/20 08:59 40 mg DAILY HINA Administration Diclofenac Sodium 1 gm 05/24/20 09:00 05/26/20 11:36 Diclofenac Sod 1% Gel 100 Gm Tube EXT 06/23/20 08:59 Not Given QID HINA Doxycycline Hyclate 100 mg 05/24/20 06:00 05/26/20 05:43 Doxycycline Hyclate 100 Mg Cap PO 05/31/20 05:59 100 mg Q12H HINA Administration Enoxaparin Sodium 30 mg 05/24/20 09:00 05/26/20 11:37 Enoxaparin Inj 30 Mg/0.3 Ml Syr SQ 06/23/20 08:59 30 mg QAM HINA Administration Ferrous Sulfate 325 mg 05/25/20 08:00 05/26/20 11:36 Ferrous Sulfate 325 Mg/7.4 Ml Udp PO 06/24/20 07:59 325 mg BIDM HINA Administration Gemfibrozil 600 mg 05/24/20 09:00 05/26/20 11:34 Gemfibrozil 600 Mg Tab PO 06/23/20 08:59 600 mg DAILY HINA Administration Insulin Aspart 0 units 05/24/20 00:04 05/26/20 11:32 Insulin Aspart 100 Units/Ml 3 Ml Pen SC 06/23/20 00:03 Not Given ACHS HINA Insulin Glargine 5 units 05/24/20 09:00 05/26/20 11:36 Insulin Glargine Solostar 100 Units/Ml 3 Ml Pen SC 06/23/20 08:59 5 units BID HINA Administration Lisinopril 10 mg 05/24/20 09:00 05/26/20 11:35 Lisinopril 10 Mg Tab PO 06/23/20 08:59 10 mg DAILY HINA Administration Lorazepam 1 mg 05/25/20 19:51 05/26/20 09:10 Lorazepam 1 Mg Tab PO 06/24/20 19:50 1 mg DAILY PRN Administration Anxiety Metoprolol Succinate 25 mg 05/24/20 09:00 05/26/20 11:34 Metoprolol Succ 25mg Ext Rel Tab PO 06/23/20 08:59 25 mg DAILY HINA Administration Mirtazapine 15 mg 05/25/20 21:00 05/25/20 20:16 Mirtazapine Tab 15 Mg Tab PO 06/24/20 20:59 15 mg HS HINA Administration Multivitamins/Minerals 1 tab 05/24/20 09:00 05/26/20 11:35 Cerovite Adv Formula Tab PO 06/23/20 08:59 1 tab DAILY HINA Administration Olanzapine 2.5 mg 05/24/20 05:07 05/24/20 20:29 Olanzapine 10 Mg/2.1 Ml Sdv IM 06/23/20 05:06 2.5 mg Q4H PRN Administration Anxiety/Agitation Senna/Docusate Sodium 1 tab 05/24/20 17:30 05/26/20 11:39 Docusate Sodium/Senna 50/8.6mg Tab PO 06/23/20 17:29 Not Given QAM HINA Tramadol HCl 25 - 50 mg 05/24/20 00:04 05/24/20 19:21 Tramadol Hcl 50 Mg Tablet PO 06/23/20 00:03 25 mg Q4H PRN Administration Pain Trazodone HCl 50 mg 05/25/20 21:00 05/25/20 20:23 Trazodone Hcl 50 Mg Tab PO 06/24/20 20:59 50 mg HS HINA Administration Past Medical History Medical History Acquired claw toe of right foot Adenoma Asthma Benign neoplasm of colon Depression Diabetes mellitus with diabetic polyneuropathy Diabetic polyneuropathy Diverticulitis DM type 2 (diabetes mellitus, type 2) 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 Colon cancer status post resection - 2012 2. Endometrial adenocarcinoma, FIGO grade I, clinical FIGO I (no surgical staging) 3. Status post completion of radiation therapy, all external beam, completed 10/26/2015 received 6100 cGy" On 11/02/15 09:49 Dotty Whitman wrote "DIAGNOSIS: 1. Colon cancer status post resection - 2012 2. Endometrial adenocarcinoma, FIGO grade I, clinical FIGO I (no surgical staging) 3. Status post completion of radiation therapy, all external beam, completed 10/26/2015 received 6100 cGy" On 08/03/15 14:24 Veaisha Black wrote "DIAGNOSIS: 1. Endometrial adenocarcinoma, FIGO grade I, clinical FIGO I (no surgical staging) 2. Colon cancer status post resection - 2012" Endometrial cancer Environmental allergies MOLD/POLLEN/CATS/MILDEW GERD (gastroesophageal reflux disease) Hearing deficit History of amputation of left great toe HTN (hypertension) Hyperlipidemia Past Surgical History Surgical History Amputated toe RT TOE History of amputation of lesser toe of left foot History of cataract surgery left Hx of tubal ligation S/P tonsillectomy and adenoidectomy Social History Smoking Status: Unknown if ever smoked Hx Alcohol Use: No (Unknown.) Hx Substance Use: No (Unknown.) Physical Exam Vital Signs Last Vital Signs Temp 97.9 F 05/26/20 07:20 Pulse 82 05/26/20 07:20 Resp 16 05/26/20 07:20 BP 115/53 L 05/26/20 07:20 Pulse Ox 96 05/26/20 07:20 Testing Laboratory Results 05/26/20 09:12 05/26/20 09:12 PT 11.9 Seconds (9.0-12.0) 05/23/20 19:27 INR 1.1 (0.9-1.1) 05/23/20 19:27 APTT 32.6 Seconds (21.0-31.0) H 05/23/20 19:27 Hemoglobin A1c 5.9 % (4.5-5.6) H 05/23/20 19:27 Urine Color Yellow 05/23/20 20:30 Urine Appearance Clear (Clear) 05/23/20 20:30 Urine pH 6.5 (4.5-7.5) 05/23/20 20:30 Ur Specific [place] 1.009 (1.000-1.030) 05/23/20 20:30 Urine Protein Trace (Negative) H 05/23/20 20:30 Urine Glucose (UA) Negative (Negative) 05/23/20 20:30 Urine Ketones Negative (Negative) 05/23/20 20:30 Urine Nitrite Positive (Negative) A 05/23/20 20:30 Ur Leukocyte Esterase 1+ (Negative) H 05/23/20 20:30 Urine WBC (Auto) 10-30 /hpf (0-5) H 05/23/20 20:30 Urine RBC (Auto) >30 /hpf (0-4) H 05/23/20 20:30 U Hyaline Cast (Auto) 0 /lpf (0-5) 05/23/20 20:30 U Epithel Cells (Auto) 20-30 /lpf (0-5) H 05/23/20 20:30 Urine Bacteria (Auto) 4+ (Negative) H 05/23/20 20:30 Blood Type B Negative 05/24/20 06:14 Antibody Screen NEGATIVE 05/24/20 06:14 05/23/20 19:27 Aerobic Blood Culture - Preliminary Blood No growth in Aerobic bottle after 48 hours. Anaerobic Blood Culture - Preliminary No growth in Anaerobic bottle after 48 hours. 05/23/20 19:14 Aerobic Blood Culture - Preliminary Blood No growth in Aerobic bottle after 48 hours. Anaerobic Blood Culture - Preliminary No growth in Anaerobic bottle after 48 hours. 05/23/20 20:30 Urine Culture - Final Urine,Clean Catch Klebsiella pneumoniae 05/23/20 19:11 Gram Stain - Final Foot,Left Wound Culture - Final Staphylococcus aureus 05/26/20 05/26/20 12:09 08:09 POC Glucose 184 H 131 H Electrocardiogram Date: 05/23/20 Sinus rhythm with sinus arrhythmia with 1st degree A-V block, rate 73 bpm Abnormal ECG When compared with ECG of 31-OCT-2019 22:55, No significant change was found Confirmed by Addison Shine ([id number]) on 05/24/2020 4:38:49 PM
[2020-05-26] MEDS: AMPICILLIN/SULBACTAM SOD 3,000 MG in 0.9 % SODIUM CHLORIDE 100 ML IV SCH ×3 (14:03→23:50)
--- NOTE | 2020-05-26 18:02 | Hospitalist Progress Note ---
Date of Service May 26, 2020 Assessment & Plan (1) Cellulitis: 89-year-old female with history of diabetes type 2, hypertension, history of colon cancer status post surgery, dementia Stenting with right foot infection and right lower extremity swelling Right foot wound infection, right lower extremity cellulitis No sepsis for now Foot wound culture: MSSA Blood cultures: Negative so far Arterial Doppler ultrasound: Positive stenosis of the right femoral artery and superficial femoral artery MRI of the foot: Poor study but no signs of osteomyelitis Transitioned from cefepime and doxy to Unasyn Wound care service consulted Vascular surgery consulted, recommend conservative management of femoral artery stenosis Orthopedic service consulted: Recommend I&D tomorrow, no medical contraindications to proceed with planned surgical procedure Patient moderate risk for cardiopulmonary complications secondary to age and multiple comorbidities Patient's daughter Lindsey accepting of risks and agreeable to proceed with surgical procedure Abdominal pain likely secondary to UTI Urine culture: Klebsiella Continue cefepime Esophageal thickening on initial CT read Outpatient follow-up Acute on chronic anemia, iron deficiency Hemoglobin at baseline is 11, now at 9.1 Iron level 26 iron supplementation No signs of active bleeding Fecal occult blood test: Negative Hypertension Blood pressure on the lower side, hold lisinopril, continue metoprolol DM2 insulin requiring, well-controlled as of recent outpatient hemoglobin A1c of 6 N [id number] Sliding scale Colon cancer sp surgery Uterine cancer sp radiation tx Dementia, at baseline mood disorder DVT prophylaxis with Lovenox subcu DNR as per prior directives as per daughter/POA, Ms. No Parker. Disposition Pending Admission and Anticipated Discharge Date Admission Date: May 23, 2020 Subjective Follow-up for right foot infection, cellulitis Seen resting in bed, sleeping but easily awakened Patient's daughter Lindsey at the bedside visiting Patient states she feels fine Denies pain No shortness of breath or chest pain No other symptoms Review of Systems Review of Systems: All systems reviewed & are unremarkable except as noted in Subjective Physical Exam Physical Exam: General- oriented x 1-2, not in distress, speaks in sentences with no effort or accessory muscle use Eyes- anicteric Neck- no JVD Lungs- clear breath sounds bilaterally, no rales/wheezes Heart- normal rate, regular rhythm; no murmurs Abdomen- normal bowel sounds, nondistended, soft, nontender Extremities- no pretibial edema, no calf tenderness Right foot-minimal edema, necrotic appearing wound on the area of the first base of the metatarsal, minimal discharge Neuro- alert, oriented x 1-2; no gross focal neurologic deficits Skin- warm & dry Results & Data Results & Data ([facility]) Vital Signs (Past 12 Hours) Vital Signs Temp Pulse Pulse Resp BP Pulse Ox 05/26/20 16:05 36.9 C 77 16 106/57 L 95 05/26/20 07:20 36.6 C 82 16 115/53 L 96 Laboratory Results Laboratory Results - last 24 hr 05/25/20 05/25/20 05/26/20 19:20 20:29 08:09 WBC RBC Hgb Hct MCV MCH MCHC RDW Std Deviation RDW Coeff of Pamela Plt Count MPV Immature Gran % (Auto) Neut % (Auto) Lymph % (Auto) [place] % (Auto) Eos % (Auto) Baso % (Auto) Neut # (Auto) Lymph # (Auto) [place] # (Auto) Eos # (Auto) Baso # (Auto) Immature Gran # (Auto) Sodium Potassium Chloride Carbon Dioxide Anion Gap BUN Creatinine Est Cr Clr Drug Dosing Est GFR ( Amer) Est GFR (Non-Af Amer) BUN/Creatinine Ratio Glucose POC Glucose 163 H 131 H Calcium Stool Occult Bld Scrn Negative 05/26/20 05/26/20 05/26/20 09:12 09:12 12:09 WBC 11.08 H RBC 3.47 L Hgb 9.6 L Hct 29.9 L MCV 86.2 MCH 27.7 MCHC 32.1 RDW Std Deviation 46.8 H RDW Coeff of Pamela 14.9 H Plt Count 293 MPV 8.7 Immature Gran % (Auto) 1.5 Neut % (Auto) 72.8 Lymph % (Auto) 12.9 [place] % (Auto) 10.1 Eos % (Auto) 2.5 Baso % (Auto) 0.2 Neut # (Auto) 8.06 H Lymph # (Auto) 1.43 [place] # (Auto) 1.12 H Eos # (Auto) 0.28 Baso # (Auto) 0.02 Immature Gran # (Auto) 0.17 H Sodium 137 Potassium 4.5 Chloride 104 Carbon Dioxide 27 Anion Gap 6.0 BUN 9 Creatinine 0.68 Est Cr Clr Drug Dosing 53.7 Est GFR ( Amer) 90.5 Est GFR (Non-Af Amer) 78.1 BUN/Creatinine Ratio 12.7 Glucose 146 H POC Glucose 184 H Calcium 8.8 Stool Occult Bld Scrn 05/26/20 17:34 WBC RBC Hgb Hct MCV MCH MCHC RDW Std Deviation RDW Coeff of Pamela Plt Count MPV Immature Gran % (Auto) Neut % (Auto) Lymph % (Auto) [place] % (Auto) Eos % (Auto) Baso % (Auto) Neut # (Auto) Lymph # (Auto) [place] # (Auto) Eos # (Auto) Baso # (Auto) Immature Gran # (Auto) Sodium Potassium Chloride Carbon Dioxide Anion Gap BUN Creatinine Est Cr Clr Drug Dosing Est GFR ( Amer) Est GFR (Non-Af Amer) BUN/Creatinine Ratio Glucose POC Glucose 166 H Calcium Stool Occult Bld Scrn
[2020-05-26] MEDS: traZODone HCL 50 MG TAB PO SCH (20:42)
[2020-05-26] MEDS: MIRTAZAPINE TAB 15 MG TAB PO SCH (20:44)
[2020-05-27] MEDS: AMPICILLIN/SULBACTAM SOD 3,000 MG in 0.9 % SODIUM CHLORIDE 100 ML IV SCH ×4 (05:58→23:31)
[2020-05-27] MEDS: DOXYCYCLINE HYCLATE 100 MG CAP PO SCH (06:19)
[2020-05-27 08:23] LABS: Creatinine Clr Calc Pharmacy 58.9 ml/min; Est GFR (African American) 93.3; Est GFR (Non-African American) 80.5
[2020-05-27] MEDS: INSULIN ASPART 100 UNITS/ML 3 ML PEN SC SCH ×4 (09:51→20:55)
[2020-05-27] MEDS: DICLOFENAC SOD 1% GEL 100 GM TUBE EXT SCH ×4 (09:52→20:48)
[2020-05-27] MEDS ORDERED: fentaNYL citrate 100 MCG/2 ML VIAL IV PRN (10:00)
[2020-05-27] MEDS ORDERED: ONDANSETRON INJ 2 MG/ML 2 ML VIAL IV PRN (10:00)
[2020-05-27] MEDS ORDERED: ePHEDrine sulfate 50 MG/ML AMP IV PRN (10:00)
[2020-05-27] MEDS ORDERED: ATROPINE SULFATE 0.1 MG/ML 10ML SYR IV PRN (10:00)
[2020-05-27] MEDS ORDERED: BACITRACIN INJ 50,000 UNIT VIAL ONE (10:30)
[2020-05-27] MEDS ORDERED: fentaNYL citrate 100 MCG/2 ML VIAL ONE (10:30)
--- NOTE | 2020-05-27 11:19 | History & Physical Bridge Note ---
Date of Service May 27, 2020 History & Physical Bridge Note I have examined the patient, reviewed the History & Physical and in the interval since the performance of the History & Physical I have noted the following changes of clinical significance: no changes noted
[2020-05-27] MEDS ORDERED: BUPIVACAINE 0.5 % 5 MG/1 ML MPF 30ML VIAL ONE (11:32)
[2020-05-27] MEDS ORDERED: PROPOFOL IV EMULSION 10 MG/ML 20 ML VIAL IV ONE ×2 (11:54)
[2020-05-27] MEDS ORDERED: ONDANSETRON INJ 2 MG/ML 2 ML VIAL ONE (11:54)
[2020-05-27] MEDS ORDERED: LIDOCAINE HCL 2% 2 ML VIAL/AMP(20MG/ML) INFIL ONE (11:54)
[2020-05-27] MEDS ORDERED: PHENYLEPHRINE 100MCG/ML 5ML SYR ONE (12:05)
[2020-05-27] MEDS ORDERED: ceFAZolin 1000MG 1,000 MG/7.5 ML SYR IV ONE (12:10)
--- NOTE | 2020-05-27 12:44 | Post Operative Brief Note ---
Immediate Post Op Note v1 Date of Surgery May 27, 2020 Pre & Post Diagnosis Operation Date: 05/27/20 07:30 Pre-Op Diagnosis: Right foot diabetic/neuropathic foot ulcer 3.5 cm diameter, abscess first metatarsal phalangeal joint region, septic bursitis right first MTPJ, skin slough, PVD Post-Op Diagnosis: Right foot diabetic/neuropathic foot ulcer 3.5 cm diameter, abscess first metatarsal phalangeal joint region, septic bursitis right first MTPJ, skin slough, PVD I identified the patient and participated in the time-out.: Yes Procedure Operation Date: 05/27/20 07:30 Actual Procedures p Incision and Drainage Right Foot deep abscess, Bursectomy first MTPJ, Irrigation and debridement neuropathic diabetic foot ulcer 3.5 cm diameter including skin/slough/fascia/joint capsule (Right) - Garcia Ortiz DO Surgeon Garcia Ortiz DO Quality Assurance Monitor Final None Estimated Blood Loss 2 Findings Consistent with Post-Op Diagnosis Specimens None-previous collection direct wound culture 24 hours prior in process Drains Other (1/4 inch iodoform packing x4 sites) Anesthesia Type MAC Complications none Disposition Accompanied Patient To Recovery: No Disposition: Recovery Room
--- NOTE | 2020-05-27 12:54 | Anesthesiology Progress Note ---
Date of Service May 27, 2020 Anesthesia Post Procedure Vital Signs Vital Signs: Temp Pulse Pulse Pulse Resp BP BP 05/27/20 12:50 65 18 101/45 L 05/27/20 12:40 67 15 118/52 L 05/27/20 12:33 99.3 F 69 18 123/51 L 05/27/20 07:41 97.9 F 75 16 128/64 05/26/20 23:28 98.4 F 70 14 80/34 L 05/26/20 16:05 98.4 F 77 16 106/57 L Pulse Ox 05/27/20 12:50 97 05/27/20 12:40 97 05/27/20 12:33 97 05/27/20 07:41 94 05/26/20 23:28 91 05/26/20 16:05 95 Transfer of Care Handoff Completed per policy Notes Mental Status: alert / awake / arousable and participated in evaluation Patient Amnestic to Procedure: Yes Nausea / Vomiting: adequately controlled Pain: adequately controlled Airway Patency, RR, SpO2: stable & adequate BP & HR: stable & adequate Hydration State: stable & adequate Anesthetic Complications: no major complications apparent and Pt Satisfied with anesthetic care
--- NOTE | 2020-05-27 14:31 | Hospitalist Progress Note ---
Date of Service May 27, 2020 Assessment & Plan (1) Cellulitis: 89-year-old female with history of diabetes type 2, hypertension, history of colon cancer status post surgery, dementia Stenting with right foot infection and right lower extremity swelling Right DM foot wound infection, right lower extremity cellulitis No sepsis for now Foot wound culture: MSSA Blood cultures: Negative Arterial Doppler ultrasound: Positive stenosis of the right femoral artery and superficial femoral artery MRI of the foot: Poor study but no signs of osteomyelitis Right foot diabetic/neuropathic foot ulcer 3.5 cm diameter, abscess first metatarsal phalangeal joint region, septic bursitis right first MTPJ, skin slough, PVD Transitioned from cefepime and doxy to Unasyn IV Wound care service consulted Vascular surgery consulted, recommend conservative management of femoral artery stenosis Orthopedic service consulted: s/p I&D 05/27/2020 Abdominal pain likely secondary to UTI Urine culture: Klebsiella on Unasyn Esophageal thickening on initial CT read Outpatient follow-up Acute on chronic anemia, iron deficiency Hemoglobin at baseline is 11, now at 9.1 Iron level 26 iron supplementation No signs of active bleeding Fecal occult blood test: Negative Hypertension Blood pressure on the lower side, hold lisinopril, continue metoprolol DM2 insulin requiring, well-controlled as of recent outpatient hemoglobin A1c of 25 May 2020 Sliding scale Colon cancer sp surgery Uterine cancer sp radiation tx Dementia, at baseline mood disorder DVT prophylaxis with Lovenox subcu DNR as per prior directives as per daughter/POA, Ms. No Parker. Disposition Pending Status post I&D, DM foot, will need prison facility placement Admission and Anticipated Discharge Date Admission Date: May 23, 2020 Subjective ff up for right foot infected ulcer, cellulitis seen resting in bed, comfortable sitting up, having lunch s/p I&D states she feels fine overall denies chest pain, dyspnea, dizziness no abdominal pain, nausea no other symptoms Review of Systems Review of Systems: All systems reviewed & are unremarkable except as noted in Subjective Physical Exam Physical Exam: General- oriented x 1, not in distress, speaks in sentences with no effort or accessory muscle use Eyes- anicteric Neck- no JVD Lungs- clear BS BL no rales/wheezing Heart- normal rate, regular rhythm; no murmurs Abdomen- normal bowel sounds, nondistended, soft, nontender Extremities- no pretibial edema, no calf tenderness Right foot: heavy dressing in place Neuro- alert, oriented x 1; no gross focal neurologic deficits Skin- warm & dry Results & Data Results & Data ([facility]) Vital Signs (Past 12 Hours) Vital Signs Temp Pulse Pulse Resp BP Pulse Ox 05/27/20 13:45 69 17 124/52 L 97 05/27/20 13:15 36.4 C L 69 16 121/62 97 05/27/20 13:00 36.4 C L 67 14 120/51 L 95 05/27/20 12:50 65 18 101/45 L 97 05/27/20 12:40 67 15 118/52 L 97 05/27/20 12:33 37.4 C 69 18 123/51 L 97 05/27/20 07:41 36.6 C 75 16 128/64 94 Laboratory Results Laboratory Results - last 24 hr 05/26/20 05/26/20 05/27/20 17:34 20:48 06:56 Creatinine 0.62 Est Cr Clr Drug Dosing 58.9 Est GFR ( Amer) 93.3 Est GFR (Non-Af Amer) 80.5 POC Glucose 166 H 201 H 05/27/20 05/27/20 08:23 12:36 Creatinine Est Cr Clr Drug Dosing Est GFR ( Amer) Est GFR (Non-Af Amer) POC Glucose 140 H 140 H
[2020-05-27] MEDS: DOCUSATE SODIUM/SENNA 50/8.6MG TAB PO SCH (14:42)
[2020-05-27] MEDS: INSULIN GLARGINE SOLOSTAR 100 UNITS/ML 3 ML PEN SC SCH ×2 (14:42→20:53)
[2020-05-27] MEDS: FERROUS SULFATE 325 MG/7.4 ML UDP PO SCH ×2 (14:42→18:08)
[2020-05-27] MEDS: CEROVITE ADV FORMULA TAB PO SCH (14:46)
[2020-05-27] MEDS: ASPIRIN 81 MG ECTAB PO SCH (14:46)
[2020-05-27] MEDS: CITALOPRAM 40 MG TAB PO SCH (14:46)
[2020-05-27] MEDS: gemfibroziL 600 MG TAB PO SCH (14:46)
[2020-05-27] MEDS: METOPROLOL SUCC 25MG EXT REL TAB PO SCH (14:46)
[2020-05-27] MEDS: lisinopril 10 MG TAB PO SCH (14:47)
--- NOTE | 2020-05-27 19:35 | Operative Report (OR) ---
DATE OF OPERATION: 05/27/2020 PREOPERATIVE DIAGNOSES: 1. Right foot first metatarsophalangeal abscess. 2. Diabetic neuropathic foot ulcer 3.5 cm in diameter. 3. Septic bursitis, right first metatarsophalangeal joint. 4. Skin slough. 5. Peripheral vascular disease. 6. Cellulitis. POSTOPERATIVE DIAGNOSES: 1. Right foot first metatarsophalangeal abscess. 2. Diabetic neuropathic foot ulcer 3.5 cm in diameter. 3. Septic bursitis, right first metatarsophalangeal joint. 4. Skin slough. 5. Peripheral vascular disease. 6. Cellulitis. PROCEDURES PERFORMED: 1. Incision and drainage of right foot deep abscess. 2. Bursectomy, first metatarsophalangeal joint. 3. Irrigation and debridement of neuropathic diabetic foot ulcer 3.5 cm in diameter including skin/slough/fascia/joint capsule. SURGEON: Garcia Ortiz DO. TARIFF PUBLISHING AGENT: None. ANESTHESIA: MAC. SPECIMENS: None with previously collected direct specimen in process in laboratory. DRAINS: Iodoform gauze 1/4 inch x4 sites. COMPLICATIONS: None. BLOOD LOSS: 2 mL. PERTINENT HISTORY: This is an 89-year-old woman who has had worsening diabetic neuropathic ulceration on the plantar medial first metatarsophalangeal region of the right foot. Conservative care was attempted and failed. The patient presented to the hospital and placed on IV antibiotics. MRI was obtained noting a local abscess and local soft tissue destruction without any evidence of osteomyelitis. The patient is scheduled for surgery as indicated. All potential risks, benefits, complications, alternatives, rehab potential for incomplete relief of symptoms, need for further surgery, DVT, PE, , persistent pain, swelling, scarring, weakness, neurovascular injury, wound complications or need for further debridement or amputation were discussed with the patient and her daughters who are her power of attorneys, and they all decided to proceed with the procedure as indicated. DESCRIPTION OF PROCEDURE: The patient was taken to the operative suite, placed supine on the operating table. After review of consent and identification of proper operative site, the patient was sedated and monitored anesthesia care was performed and the surgical timeout was performed. Right lower extremity was sterilely prepped and draped in usual fashion, elevated. Next, a sterile Esmarch tourniquet was applied over sterile surgical towel at the level of the right ankle. Next, a 15 blade scalpel was used to make an incision along the mid lateral line of the first metatarsophalangeal joint of the right foot. The incision was deepened through the skin, slough and subcutaneous tissue to the level of the abscess. The abscess was identified and then evacuated approximately 3-4 mL. Next, the adjacent first metatarsophalangeal bursa was noted to be septic and necrotic. This was then sharply excised using a combination of 15 blade scalpel and rongeur. Next, the incision site was then copiously irrigated with sterile normal saline and bacitracin with pulse lavage until clear. Next, the 3.5 cm diabetic neuropathic ulcer on the plantar aspect of the first metatarsal was then dressed with a 15 blade scalpel. This was used to debride the skin, slough, fascia and down to the level of the joint capsule with a 15 blade scalpel and a rongeur, removing any necrotic-appearing tissue. Superficial skin was preserved when possible. Next, pulsatile lavage, 3 liters in total was then used to lavage and cleanse the area. Next, a 1/4 inch iodoform gauze packing was placed in 4 separate sites, 1 in the incision site, 1 more proximal through a small percutaneous incision with 15 blade scalpel, 1 directly in the neuropathic ulcer on the plantar side of the foot and another through the incision medially. A 4-0 nylon suture was then used to loosely close over the drains and the primary incision site as well as the ulceration site. A sterile compressive dressing consisting of Xeroform gauze, sterile 4 x 4's, ABD pads x2, cast padding and Aron wrap was applied. The tourniquet was released. The patient was awakened and taken to recovery in stable condition. I attest to the content of the Intraoperative Record and any orders documented therein. Any exception s are noted below.
[2020-05-27] MEDS: MIRTAZAPINE TAB 15 MG TAB PO SCH (20:43)
[2020-05-27] MEDS: traZODone HCL 50 MG TAB PO SCH (20:43)
[2020-05-28] MEDS: AMPICILLIN/SULBACTAM SOD 3,000 MG in 0.9 % SODIUM CHLORIDE 100 ML IV SCH ×2 (05:31→13:24)
[2020-05-28] MEDS: METOPROLOL SUCC 25MG EXT REL TAB PO SCH (09:35)
[2020-05-28] MEDS: INSULIN ASPART 100 UNITS/ML 3 ML PEN SC SCH ×4 (09:37→21:14)
[2020-05-28] MEDS: INSULIN GLARGINE SOLOSTAR 100 UNITS/ML 3 ML PEN SC SCH ×2 (09:37→21:13)
[2020-05-28] MEDS: ENOXAPARIN INJ 30 MG/0.3 ML SYR SQ SCH (09:38)
[2020-05-28] MEDS: CITALOPRAM 40 MG TAB PO SCH (09:39)
[2020-05-28] MEDS: FERROUS SULFATE 325 MG/7.4 ML UDP PO SCH ×2 (09:39→18:33)
[2020-05-28] MEDS: ASPIRIN 81 MG ECTAB PO SCH (09:39)
[2020-05-28] MEDS: DICLOFENAC SOD 1% GEL 100 GM TUBE EXT SCH ×4 (09:39→20:10)
[2020-05-28] MEDS: CEROVITE ADV FORMULA TAB PO SCH (09:39)
[2020-05-28] MEDS: lisinopril 10 MG TAB PO SCH (09:39)
[2020-05-28] MEDS: gemfibroziL 600 MG TAB PO SCH (09:39)
[2020-05-28] MEDS: DOCUSATE SODIUM/SENNA 50/8.6MG TAB PO SCH (09:54)
--- NOTE | 2020-05-28 11:29 | Orthopedic Progress Note ---
Date of Service May 28, 2020 Assessment & Plan (1) Diabetic foot ulcer: Postop day 2 Continue daily dressing changes at this point in time. Antibiotics as per medicine service. Admission and Anticipated Discharge Date Admission Date: May 23, 2020 Subjective Postop day 2 Patient currently sleeping upon entering room but is easily awoken. States she is not having any discomfort at this time. Pain is controlled. No complaints. Physical Exam Physical Exam: Dressings removed from the right foot. Multiple strings of iodoform gauze are noted and removed. Mild erythema around the ulceration. Blackened eschar noted of the distal portion with the other two thirds being a yellow slough. There is a central portion where pink bed of tissue was seen. There is no foul odor. Minimal drainage noted. Wound is redressed with Adaptic, 4 x 4's, Kerlix wrap, Aron wrap. 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
--- NOTE | 2020-05-28 14:50 | Hospitalist Progress Note ---
Date of Service May 28, 2020 Assessment & Plan (1) Cellulitis: 89-year-old female with history of diabetes type 2, hypertension, history of colon cancer status post surgery, dementia presenting with right foot infection and right lower extremity swelling Right Foot 1st MTP Abscess, Septic Bursitis, Neuropathic Foot Culcer No sepsis Foot wound culture: MSSA Blood cultures: Negative Arterial Doppler ultrasound: Positive stenosis of the right femoral artery and superficial femoral artery Vascular surgery consulted, recommend conservative management of femoral artery stenosis MRI of the foot: Poor study but no signs of osteomyelitis Right foot diabetic/neuropathic foot ulcer 3.5 cm diameter, abscess first metatarsal phalangeal joint region, septic bursitis right first MTPJ, skin slough, PVD Orthopedic service consulted Dr. Ortiz: s/p I&D 05/28/20: 1. Right foot first metatarsophalangeal abscess. 2. Diabetic neuropathic foot ulcer 3.5 cm in diameter. 3. Septic bursitis, right first metatarsophalangeal joint. 4. Skin slough. 5. Peripheral vascular disease. 6. Cellulitis. PROCEDURES PERFORMED: 1. Incision and drainage of right foot deep abscess. 2. Bursectomy, first metatarsophalangeal joint. 3. Irrigation and debridement of neuropathic diabetic foot ulcer 3.5 cm in diameter including skin/slough/fascia/joint capsule. -- Transitioned from cefepime and doxy to Unasyn IV [facility] ID consulted: recommend Cefazolin 1g IV q8h x 4 weeks -- PT/OT eval Abdominal pain likely secondary to UTI Urine culture: Klebsiella transitioned to Cefazolin Esophageal thickening on initial CT read Outpatient follow-up Acute on chronic anemia, iron deficiency Hemoglobin at baseline is 11, now at 9.1 Iron level 26 iron supplementation No signs of active bleeding Fecal occult blood test: Negative Hypertension Blood pressure on the lower side, hold lisinopril, continue metoprolol DM2 insulin requiring, well-controlled as of recent outpatient hemoglobin A1c of 25 May 2020 Sliding scale Colon cancer sp surgery Uterine cancer sp radiation tx Dementia, at baseline mood disorder DVT prophylaxis with Lovenox subcu DNR as per prior directives as per daughter/POA, Ms. No Parker. Disposition Status post I&D, DM foot, will need IV Cefazolin x 4 weeks, will need alf facility placement Admission and Anticipated Discharge Date Admission Date: May 23, 2020 Subjective ff up for right foot abscess, cellulitis seen resting in bed, sleeping but easily awakened pleasantly confused states she feels fine denies pain no dyspnea, chest pain, dizziness appetite is good no other symptoms Review of Systems Review of Systems: All systems reviewed & are unremarkable except as noted in Subjective Physical Exam Physical Exam: General- oriented x 1, not in distress, speaks in sentences with no effort or accessory muscle use Eyes- anicteric Neck- no JVD Lungs- clear BS BL no rales/wheezing Heart- normal rate, regular rhythm; no murmurs Abdomen- normal bowel sounds, nondistended, soft, nontender Extremities- no pretibial edema, no calf tenderness Right foot: heavy dressing in place Neuro- alert, oriented x 3; no gross focal neurologic deficits Skin- warm & dry Results & Data Results & Data ([facility]) Vital Signs (Past 12 Hours) Vital Signs Temp Pulse Resp BP 05/28/20 07:23 36.4 C L 74 16 108/47 L Laboratory Results Laboratory Results - last 24 hr 05/27/20 05/27/20 05/27/20 17:19 20:36 20:52 POC Glucose 198 H 182 H 173 H 05/28/20 05/28/20 08:23 12:19 POC Glucose 113 H 230 H
[2020-05-28] MEDS: ceFAZolin 2000MG 2,000 MG/15 ML SYR IV SCH (20:08)
[2020-05-28] MEDS: traZODone HCL 50 MG TAB PO SCH (20:09)
[2020-05-28] MEDS: MIRTAZAPINE TAB 15 MG TAB PO SCH (20:10)
[2020-05-29] MEDS: ceFAZolin 2000MG 2,000 MG/15 ML SYR IV SCH ×3 (04:42→20:25)
--- NOTE | 2020-05-29 08:21 | Orthopedic Progress Note ---
Date of Service May 29, 2020 Assessment & Plan (1) Diabetic foot ulcer: Postop day 3 Continue daily dressing changes at this point in time. Antibiotics as per medicine service. No further surgery at this time. Orthopedics will sign off. Is call with any questions. Follow-up with Dr. Ortiz in 7 to 10 days. Admission and Anticipated Discharge Date Admission Date: May 23, 2020 Subjective Postop day 3 Patient sleeping upon arrival. Easily awoken but drifts off to sleep again at times. No complaints this morning. States she is feeling well. Pain appears controlled Physical Exam Physical Exam: Dressings removed. Less drainage this morning. Much less y ellow slough noted and a good portion of the wound now is covered with a light eschar mild erythema around the edges. No foul odor. Wound redressed. 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
[2020-05-29] MEDS: FERROUS SULFATE 325 MG/7.4 ML UDP PO SCH ×2 (11:00→18:38)
[2020-05-29] MEDS: INSULIN ASPART 100 UNITS/ML 3 ML PEN SC SCH ×4 (11:00→20:56)
[2020-05-29] MEDS: lisinopril 10 MG TAB PO SCH (11:03)
[2020-05-29] MEDS: CITALOPRAM 40 MG TAB PO SCH (11:03)
[2020-05-29] MEDS: gemfibroziL 600 MG TAB PO SCH (11:03)
[2020-05-29] MEDS: METOPROLOL SUCC 25MG EXT REL TAB PO SCH (11:03)
[2020-05-29] MEDS: CEROVITE ADV FORMULA TAB PO SCH (11:03)
[2020-05-29] MEDS: INSULIN GLARGINE SOLOSTAR 100 UNITS/ML 3 ML PEN SC SCH ×2 (11:03→20:55)
[2020-05-29] MEDS: ASPIRIN 81 MG ECTAB PO SCH (11:03)
[2020-05-29] MEDS: ENOXAPARIN INJ 30 MG/0.3 ML SYR SQ SCH (11:04)
[2020-05-29] MEDS: DOCUSATE SODIUM/SENNA 50/8.6MG TAB PO SCH (11:04)
[2020-05-29] MEDS: DICLOFENAC SOD 1% GEL 100 GM TUBE EXT SCH ×4 (11:04→20:27)
[2020-05-29] MEDS: MIRTAZAPINE TAB 15 MG TAB PO SCH (20:26)
[2020-05-29] MEDS: traZODone HCL 50 MG TAB PO SCH (20:26)
--- NOTE | 2020-05-29 21:36 | Hospitalist Progress Note ---
Date of Service May 29, 2020 Assessment & Plan (1) Cellulitis: 89-year-old female with history of diabetes type 2, hypertension, history of colon cancer status post surgery, dementia presenting with right foot infection and right lower extremity swelling Right Foot 1st MTP Abscess, Septic Bursitis, Neuropathic Foot Culcer No sepsis Foot wound culture: MSSA Blood cultures: Negative Arterial Doppler ultrasound: Positive stenosis of the right femoral artery and superficial femoral artery Vascular surgery consulted, recommend conservative management of femoral artery stenosis MRI of the foot: Poor study but no signs of osteomyelitis Right foot diabetic/neuropathic foot ulcer 3.5 cm diameter, abscess first metatarsal phalangeal joint region, septic bursitis right first MTPJ, skin slough, PVD Orthopedic service consulted Dr. Ortiz: s/p I&D 05/28/20: 1. Right foot first metatarsophalangeal abscess. 2. Diabetic neuropathic foot ulcer 3.5 cm in diameter. 3. Septic bursitis, right first metatarsophalangeal joint. 4. Skin slough. 5. Peripheral vascular disease. 6. Cellulitis. 1. Incision and drainage of right foot deep abscess. 2. Bursectomy, first metatarsophalangeal joint. 3. Irrigation and debridement of neuropathic diabetic foot ulcer 3.5 cm in diameter including skin/slough/fascia/joint capsule. -- Transitioned from cefepime and doxy to Unasyn IV, then [facility] ID consulted: recommend Cefazolin 1g IV q8h x 4 weeks --Awaiting acceptance to [facility] Abdominal pain likely secondary to UTI Urine culture: Klebsiella transitioned to Cefazolin Esophageal thickening CT abd/pelv:Moderate hiatal hernia with wall thickening of the distal esophagus. Correlate clinically for evidence of esophagitis. denies abdominal pain, nausea start Protonix daily Outpatient follow-up Acute on chronic anemia, iron deficiency Hemoglobin at baseline is 11, now at 9.1 Iron level 26 Iron supplementation No signs of active bleeding Fecal occult blood test: Negative -- ff up as outpatient Hypertension Blood pressure on the lower side, hold lisinopril, continue metoprolol DM2 insulin requiring, well-controlled as of recent outpatient hemoglobin A1c of 25 May 2020 Sliding scale Colon cancer sp surgery Uterine cancer sp radiation tx Dementia, at baseline mood disorder DVT prophylaxis with Lovenox subcu DNR as per prior directives as per daughter/POA, Ms. No Parker. Disposition Status post I&D, DM foot, will need IV Cefazolin x 4 weeks, will need Rehab/shelter facility placement Admission and Anticipated Discharge Date Admission Date: May 23, 2020 Subjective ff up for right foot abscess and cellulitis Seen resting bedside chair, not in distress, pleasantly confused States she feels fine overall Minimal pain over the right foot surgical site No chest pain, shortness of breath, palpitations, dizziness Denies other symptoms Review of Systems Review of Systems: All systems reviewed & are unremarkable except as noted in Subjective Physical Exam Physical Exam: General- oriented x 1, not in distress, speaks in sentences with no effort or accessory muscle use Eyes- anicteric Neck- no JVD Lungs- clear breath sounds bilaterally Heart- normal rate, regular rhythm; no murmurs Abdomen- normal bowel sounds, nondistended, soft, nontender Extremities- no pretibial edema, no calf tenderness Right foot heavy dressing in place No bleeding or discharge Neuro- alert, oriented x 1; no gross focal neurologic deficits Skin- warm & dry Results & Data Results & Data ([facility]) Vital Signs (Past 12 Hours) Vital Signs Temp Pulse Resp BP Pulse Ox 05/29/20 16:36 36.7 C 64 17 126/62 97 Laboratory Results Laboratory Results - last 24 hr 05/29/20 05/29/20 05/29/20 08:05 12:11 16:56 POC Glucose 139 H 260 H 156 H 05/29/20 20:28 POC Glucose 224 H
[2020-05-30] MEDS: ceFAZolin 2000MG 2,000 MG/15 ML SYR IV SCH ×3 (05:31→21:31)
[2020-05-30] MEDS: ASPIRIN 81 MG ECTAB PO SCH (08:21)
[2020-05-30] MEDS: CEROVITE ADV FORMULA TAB PO SCH (08:21)
[2020-05-30] MEDS: lisinopril 10 MG TAB PO SCH (08:21)
[2020-05-30] MEDS: METOPROLOL SUCC 25MG EXT REL TAB PO SCH (08:22)
[2020-05-30] MEDS: gemfibroziL 600 MG TAB PO SCH (08:22)
[2020-05-30] MEDS: CITALOPRAM 40 MG TAB PO SCH (08:22)
[2020-05-30] MEDS: ENOXAPARIN INJ 30 MG/0.3 ML SYR SQ SCH (08:23)
[2020-05-30] MEDS: DICLOFENAC SOD 1% GEL 100 GM TUBE EXT SCH ×4 (08:24→20:21)
[2020-05-30] MEDS: INSULIN ASPART 100 UNITS/ML 3 ML PEN SC SCH ×4 (09:15→21:26)
[2020-05-30] MEDS: INSULIN GLARGINE SOLOSTAR 100 UNITS/ML 3 ML PEN SC SCH ×2 (09:16→21:25)
[2020-05-30] MEDS: DOCUSATE SODIUM/SENNA 50/8.6MG TAB PO SCH (09:19)
[2020-05-30 10:07] LABS: Creatinine Clr Calc Pharmacy 56.2 ml/min; Est GFR (African American) 91.9; Est GFR (Non-African American) 79.3
[2020-05-30] MEDS: FERROUS SULFATE 325 MG/7.4 ML UDP PO SCH ×2 (11:14→15:56)
--- NOTE | 2020-05-30 13:02 | Hospitalist Progress Note ---
Date of Service May 30, 2020 Assessment & Plan (1) Cellulitis: 89-year-old female with history of diabetes type 2, hypertension, history of colon cancer status post surgery, dementia presenting with right foot infection and right lower extremity swelling Right Foot 1st MTP Abscess, Septic Bursitis, Neuropathic Foot Ulcer No sepsis Foot wound culture: MSSA Blood cultures: Negative Arterial Doppler ultrasound: Positive stenosis of the right femoral artery and superficial femoral artery Vascular surgery consulted, recommend conservative management of femoral artery stenosis MRI of the foot: Poor study but no signs of osteomyelitis Right foot diabetic/neuropathic foot ulcer 3.5 cm diameter, abscess first metatarsal phalangeal joint region, septic bursitis right first MTPJ, skin slough, PVD Orthopedic service consulted Dr. Ortiz: s/p I&D 05/28/20: 1. Right foot first metatarsophalangeal abscess. 2. Diabetic neuropathic foot ulcer 3.5 cm in diameter. 3. Septic bursitis, right first metatarsophalangeal joint. 4. Skin slough. 5. Peripheral vascular disease. 6. Cellulitis. 1. Incision and drainage of right foot deep abscess. 2. Bursectomy, first metatarsophalangeal joint. 3. Irrigation and debridement of neuropathic diabetic foot ulcer 3.5 cm in diameter including skin/slough/fascia/joint capsule. -- Transitioned from cefepime and doxy to Unasyn IV, then [facility] ID consulted: recommend Cefazolin 1g IV q8h x 4 weeks --Awaiting acceptance to [facility] guided Peripheral Ordered today Abdominal pain likely secondary to UTI Urine culture: Klebsiella transitioned to Cefazolin Esophageal thickening CT abd/pelv:Moderate hiatal hernia with wall thickening of the distal esophagus. Correlate clinically for evidence of esophagitis. denies abdominal pain, nausea start Protonix daily Outpatient follow-up Acute on chronic anemia, iron deficiency Hemoglobin at baseline is 11, now at 9.1 Iron level 26 Iron supplementation No signs of active bleeding Fecal occult blood test: Negative -- ff up as outpatient Hypertension Blood pressure on the lower side, hold lisinopril, continue metoprolol DM2 insulin requiring, well-controlled as of recent outpatient hemoglobin A1c of 25 May 2020 Sliding scale Colon cancer sp surgery Uterine cancer sp radiation tx Dementia, at baseline mood disorder DVT prophylaxis with Lovenox subcu DNR as per prior directives as per daughter/POA, Ms. No Parker. Disposition Status post I&D, DM foot, will need IV Cefazolin x 4 weeks, will need Rehab/nursing home facility placement Labs Checked ROS-No Headache, No Visual Changes, No Nausea, No Vomiting, No Fever, No Chills, No Neck Pain or Stiffness, No Chest Pain, No Palpitations, No SOB, No DAVIS, No Cough, No Sputum, No Wheezing, No Abdominal Pain, No Diarrhea, No Hematemesis, No Hemoptysis, No Unexpected Weight Loss, No Flank pain, No Melena, No Hematochezia, No Frequency, No Urgency, No Burning, No Hematuria, No Rashes, No Diaphoresis. Appetite is Normal Physical Exam Gen-AAO x 3, NAD, Afebrile Head-NCAT, EOMI, PERRLA, Anicteric Sclera, No Posterior Pharyngeal Erythema Neck-Supple, No JVD, No Thyromegaly, No Masses, No LAD, No Bruits Lungs-Clear to Auscultation Bilaterally, No Rales, No Rhonchi, No Wheezing, No Crepitus Chest-No S4, +S1, +S2, No S3, No Murmurs, No Rubs, No Gallops, No Ectopy Abdomen-Soft, Bowel Sounds Present, Non Tender, Non Distended, No Hepatomegaly, No Splenomegaly, No Palpable Masses, No Rebound, No Rigidity, No Guarding Musculoskeletal-Full Range of Motion Bilaterally, No CVAT Extremities-No Cyanosis, No Clubbing, No Edema, R Foot Dressed Nuero-Cranial Nerves II-XII grossly intact, Motor WNL, DTRs WNL, Strength WNL, Non Focal Psych-Normal Mood Admission and Anticipated Discharge Date Admission Date: May 23, 2020 Results & Data Results & Data ([facility]) Vital Signs (Past 12 Hours) Vital Signs Temp Pulse Resp BP Pulse Ox 05/30/20 07:37 36.7 C 74 16 125/54 L 95
[2020-05-30] MEDS: traZODone HCL 50 MG TAB PO SCH (20:20)
[2020-05-30] MEDS: MIRTAZAPINE TAB 15 MG TAB PO SCH (20:20)
[2020-05-31] MEDS: ceFAZolin 2000MG 2,000 MG/15 ML SYR IV SCH ×2 (06:00→12:16)
[2020-05-31 06:31] LABS: Basophils # (auto) 0.03 K/uL (0-0.2); Basophils % (auto) 0.3 %; Eosinophils # (auto) 0.23 K/uL (0-0.5); Eosinophils % (auto) 2.6 %; Hematocrit (blood only) 30.2 % (37-47); Hemoglobin 9.3 g/dL (12.0-16.0); Immature Granulocytes # (auto) 0.19 K/uL (0.00-0.02); Immature Granulocytes % (auto) 2.2 %; Lymphocytes # (auto) 1.98 K/uL (1.2-3.4); Lymphocytes % (auto) 22.6 %; Mean Corpuscular Hemoglobin 26.8 pg (25-34); Mean Corpuscular Hgb Conc 30.8 g/dL (32-36); Mean Platelet Volume 8.6 fL (7.4-10.4); Monocytes # (auto) 0.77 K/uL (0.11-0.59); Monocytes % (auto) 8.8 %; Neutrophils # (auto) 5.58 K/uL (1.4-6.5); Neutrophils % (auto) 63.5 %; Platelet Count 352 K/uL (130-400); RDW Coefficient of Variation 15.1 % (11.5-14.5); RDW Standard Deviation 47.7 fL (36.4-46.3); Red Blood Count 3.47 M/uL (4.2-5.4); White Blood Count 8.78 K/uL (4.8-10.8)
[2020-05-31 06:56] LABS: Albumin Level 2.3 gm/dl (3.4-5.0); BUN Creatinine Ratio 16.5 (10-20); Calcium 8.3 mg/dl (8.5-10.1); Creatinine Clr Calc Pharmacy 59.9 ml/min; Est GFR (African American) 93.8; Est GFR (Non-African American) 80.9; Potassium 4.1 mmol/L (3.5-5.1)
[2020-05-31 07:00] LABS: Albumin Globulin Ratio 0.4 (0.9-2); Bilirubin,Total 0.2 mg/dl (0.2-1); Globulin 5.1 gm/dl (2.5-4.0); Total Protein 7.4 gm/dl (6.4-8.2)
[2020-05-31] MEDS: gemfibroziL 600 MG TAB PO SCH (09:01)
[2020-05-31] MEDS: FERROUS SULFATE 325 MG/7.4 ML UDP PO SCH (09:01)
[2020-05-31] MEDS: CITALOPRAM 40 MG TAB PO SCH (09:01)
[2020-05-31] MEDS: METOPROLOL SUCC 25MG EXT REL TAB PO SCH (09:01)
[2020-05-31] MEDS: ENOXAPARIN INJ 30 MG/0.3 ML SYR SQ SCH (09:01)
[2020-05-31] MEDS: ASPIRIN 81 MG ECTAB PO SCH (09:01)
[2020-05-31] MEDS: lisinopril 10 MG TAB PO SCH (09:01)
[2020-05-31] MEDS: CEROVITE ADV FORMULA TAB PO SCH (09:02)
[2020-05-31] MEDS: DICLOFENAC SOD 1% GEL 100 GM TUBE EXT SCH (09:03)
[2020-05-31] MEDS: DOCUSATE SODIUM/SENNA 50/8.6MG TAB PO SCH (09:17)
[2020-05-31] MEDS: INSULIN GLARGINE SOLOSTAR 100 UNITS/ML 3 ML PEN SC SCH (09:18)
[2020-05-31] MEDS: INSULIN ASPART 100 UNITS/ML 3 ML PEN SC SCH (09:20)
--- NOTE | 2020-05-31 10:23 | Discharge Summary ---
Date of Service May 31, 2020 Admission HPI Per Admitting Provider History obtained from patient, family, and records. Limited history from patient secondary to dementia. Medical history significant for dementia, hypertension, PVD as per records, DM2 insulin requiring, colon cancer sp surgery, uterine cancer sp radiation tx, chronic anemia (baseline hemoglobin 11), mood disorder. Last confinement April 2016 for abdominal pain, attributed to paraesophageal hernia. Patient transferred to [facility] for laparoscopic paraesophageal hernia repair. Patient noted to have a draining wound on the right great toe with swelling extending to the R foot and leg. Probably started just in the last few days given absence of finding on last PCP visit last week for annual checkup. PCP prescribed Bactrim course, consideration for inpatient care as per family. Outpatient RLE venous Dopplers negative for DVT. Patient complaining of right foot pain. Denies chest pain, S OB, fever, chills. Complains of abdominal pain as per family. No note of black/bloody stools. Patient brought to ER for evaluation. Patient received Vancomycin and Zosyn at the ER. MEDICAL HISTORY: As above. 2015 EGD showed reflux esophagitis 2013 colonoscopy showed a polyp. SURGERIES: Colectomy, foot surgery, paraesophageal hernia repair, bone debridement, colpocleisis, cystoscopy, BTL, tonsillectomy/adenoidectomy FAMILY HISTORY: Cervical cancer. Heart disease. PERSONAL AND SOCIAL HISTORY: Past tobacco abuse. No chronic intake of ETOH beverages. [facility] resident Admission Exam Per Admitting Provider GENERAL: Demented, hard of hearing, no respiratory distress SKIN: Pallor , warm HEENT: Pale palpebral conjunctivae, no ptosis, dry buccal mucosa NECK : Supple, no tenderness CHEST : Decreased breath sounds , no tenderness HEART : RRR, no obvious murmurs ABDOMEN: Some distention, nontender RECTAL : Intact sphincter, brown stool (FOBT negative) EXTREMITIES : Ulcerated wounds right foot, tender R foot swelling extending to right leg NEUROLOGIC : Demented, no facial asymmetry, no other gross focality Principal Diagnosis Cellulitis: Abdominal pain UTI Esophageal thickening Acute on chronic anemia, iron deficiency Hypertension DM2 Colon cancer Uterine cancer Dementia Discharge Exam See below Discharge Data Allergies Allergy/AdvReac Type Severity Reaction Status Date / Time No Known Allergies Allergy Verified 05/23/20 21:19 Consultations 05/23/20 20:29 ED Decision to Admit Stat 05/24/20 00:04 Consult Wound Care Provider Routine 05/24/20 09:49 Consult Vascular Surgery Routine 05/24/20 15:41 Consult Orthopedic Surgery Routine 05/28/20 09:47 Consult Infectious Diseases Routine Procedures Performed Operation Date: 05/27/20 07:30 Actual Procedures p Incision and Drainage Right Foot Abscess, Bursectomy first MCP, Irrigation and debridement neuropathic diabetic foot ulcer 3.5 cm diameter(Right) - Garcia Ortiz DO Ordered Studies 05/23/20 22:36 CT abd pelvis IV con only Urgent 05/24/20 01:37 US arterial duplex LE RT Routine 05/26/20 00:00 MR foot RT w/o con Routine Current Diagnoses Type 2 diabetes mellitus with diabetic peripheral angiopathy without gangrene (05/23/20) Type 2 diabetes mellitus with foot ulcer (05/23/20) Cellulitis, unspecified (05/23/20) Non-pressure chronic ulcer of right heel and midfoot with necrosis of muscle (05/23/20) Encounter for other preprocedural examination (05/23/20) Allergies No Known Allergies Allergy (Verified 05/23/20 21:19) Height/Weight/Isolation Height 5 ft 3 in Weight 70.2 kg Isolation Type Removed Precautions Chemistry 05/30/20 05/31/20 09:05 05:58 Sodium 139 Potassium 4.1 Chloride 107 Carbon Dioxide 28 Anion Gap 5.0 BUN 10 Creatinine 0.65 0.61 Glucose 122 H Microbiology 05/23/20 19:27 Blood Aerobic Blood Culture - Final No growth in Aerobic bottle after 5 days. 05/23/20 19:27 Blood Anaerobic Blood Culture - Final No growth in Anaerobic bottle after 5 days. 05/23/20 19:14 Blood Aerobic Blood Culture - Final No growth in Aerobic bottle after 5 days. 05/23/20 19:14 Blood Anaerobic Blood Culture - Final No growth in Anaerobic bottle after 5 days. Hospital Course (1) Cellulitis: 89-year-old female with history of diabetes type 2, hypertension, history of colon cancer status post surgery, dementia presenting with right foot infection and right lower extremity swelling Right Foot 1st MTP Abscess, Septic Bursitis, Neuropathic Foot Ulcer No sepsis Foot wound culture: MSSA Blood cultures: Negative Arterial Doppler ultrasound: Positive stenosis of the right femoral artery and superficial femoral artery Vascular surgery consulted, recommend conservative management of femoral artery stenosis MRI of the foot: Poor study but no signs of osteomyelitis Right foot diabetic/neuropathic foot ulcer 3.5 cm diameter, abscess first metatarsal phalangeal joint region, septic bursitis right first MTPJ, skin slough, PVD Orthopedic service consulted Dr. Ortiz: s/p I&D 05/28/20: 1. Right foot first metatarsophalangeal abscess. 2. Diabetic neuropathic foot ulcer 3.5 cm in diameter. 3. Septic bursitis, right first metatarsophalangeal joint. 4. Skin slough. 5. Peripheral vascular disease. 6. Cellulitis. 1. Incision and drainage of right foot deep abscess. 2. Bursectomy, first metatarsophalangeal joint. 3. Irrigation and debridement of neuropathic diabetic foot ulcer 3.5 cm in diameter including skin/slough/fascia/joint capsule. -- Transitioned from cefepime and doxy to Unasyn IV, then [facility] ID consulted: recommend Cefazolin 1g IV q8h x 4 weeks --Awaiting acceptance to [facility], [place] guided Peripheral Ordered today Abdominal pain likely secondary to UTI Urine culture: Klebsiella transitioned to Cefazolin Esophageal thickening CT abd/pelv:Moderate hiatal hernia with wall thickening of the distal esophagus. Correlate clinically for evidence of esophagitis. denies abdominal pain, nausea start Protonix daily Outpatient follow-up Acute on chronic anemia, iron deficiency Hemoglobin at baseline is 11, now at 9.1 Iron level 26 Iron supplementation No signs of active bleeding Fecal occult blood test: Negative -- ff up as outpatient Hypertension Blood pressure on the lower side, hold lisinopril, continue metoprolol DM2 insulin requiring, well-controlled as of recent outpatient hemoglobin A1c of 25 May 2020 Sliding scale Colon cancer sp surgery Uterine cancer sp radiation tx Dementia, at baseline mood disorder DVT prophylaxis with Lovenox subcu DNR as per prior directives as per daughter/POA, Ms. No Parker. Disposition Status post I&D, DM foot, DC to SNF on IV Cefazolin x 4 weeks, [facility] today, COVID negative Labs Checked ROS-No Headache, No Visual Changes, No Nausea, No Vomiting, No Fever, No Chills, No Neck Pain or Stiffness, No Chest Pain, No Palpitations, No SOB, No DAVIS, No Cough, No Sputum, No Wheezing, No Abdominal Pain, No Diarrhea, No Hematemesis, No Hemoptysis, No Unexpected Weight Loss, No Flank pain, No Melena, No Hematochezia, No Frequency, No Urgency, No Burning, No Hematuria, No Rashes, No Diaphoresis. Appetite is Normal Physical Exam Gen-AAO x 3, NAD, Afebrile Head-NCAT, EOMI, PERRLA, Anicteric Sclera, No Posterior Pharyngeal Erythema Neck-Supple, No JVD, No Thyromegaly, No Masses, No LAD, No Bruits Lungs-Clear to Auscultation Bilaterally, No Rales, No Rhonchi, No Wheezing, No Crepitus Chest-No S4, +S1, +S2, No S3, No Murmurs, No Rubs, No Gallops, No Ectopy Abdomen-Soft, Bowel Sounds Present, Non Tender, Non Distended, No Hepatomegaly, No Splenomegaly, No Palpable Masses, No Rebound, No Rigidity, No Guarding Musculoskeletal-Full Range of Motion Bilaterally, No CVAT Extremities-No Cyanosis, No Clubbing, No Edema, R Foot Dressed Nuero-Cranial Nerves II-XII grossly intact, Motor WNL, DTRs WNL, Strength WNL, Non Focal Psych-Normal Mood Total Time Total Time Spent Total Time Spent (In Minutes): 45 mins Total Time Includes: Examination of the Patient, Discharge Planning, Medication Reconciliation and Communication With Other Providers Discharge Plan Discharge Items Patient Disposition: Transfer Alf Fac Reason For Visit: R foot Infection, Covid Neg, DC Isol Prec Discharge Diagnosis: Cellulitis: Abdominal pain UTI Esophageal thickening Acute on chronic anemia, iron deficiency Hypertension DM2 Colon cancer Uterine cancer Dementia Condition on Discharge: Good Activity: Resume your previous activity Lifting: None Bathing: No limitations Exercise/Sports: None Weightbearing: Full weightbearing Non-emergency contact: Primary Care Provider Call non-emergency contact if: you have any medication questions Follow-up/Referrals: [facility] Wald[facility] at [place] [facility]Staff[facility] - Diet: Carb Consistent or DM2 and Heart Healthy Addtl Attending Provider Instructions: None Pending Studies at Discharge: No Stand-Alone Forms: My [facility] Skilled Items Patient informed of condition?: Yes DNR: Yes Discharge Level of Care: Skilled Communicable Disease: No Discharge Prognosis: Improving Lines: US Guided Peripheral IV Urinary Catheter: No Medications and DC Order Prescriptions: New cefazolin 1 gram recon soln 2 g IV Q8 28 Days Qty: 84 RF: 0 tramadol 50 mg tablet 50 mg PO Q8H Qty: 30 RF: 0 lorazepam [Ativan] 1 mg tablet 1 mg PO DAILY PRN (Reason: anxiety) Qty: 30 RF: 0 Continued citalopram 40 mg Tablet 40 mg PO DAILY RF: 0 gemfibrozil 600 mg Tablet 600 mg PO DAILY RF: 0 Lantus Solostar U-100 Insulin 100 unit/mL (3 mL) Insulin Pen 12 units subcut AMHS RF: 0 lisinopril 10 mg Tablet 10 mg PO DAILY RF: 0 metoprolol succinate 25 mg Tablet Extended Release 24 Hr 25 mg PO DAILY RF: 0 aspirin 81 mg Tablet,Chewable 81 mg PO DAILY RF: 0 insulin aspart U-100 [Novolog PenFill U-100 Insulin] 100 unit/mL Cartridge 1 sliding scale dose SUBCUT BID RF: 0 trazodone 50 mg tablet 50 mg PO DAILY RF: 0 mirtazapine 15 mg tablet 15 mg PO HS RF: 0 lorazepam [Ativan] 1 mg tablet 1 mg PO DAILY PRN (Reason: Anxiety) RF: 0 Silapap 160mg/5ml 15.6 ml PO Q4 PRN (Reason: Pain) RF: 0 tramadol 50 mg Tablet 50 mg PO DAILY PRN (Reason: Pain) RF: 0 Therems-M 27-0.4 mg Tablet 1 tab PO DAILY RF: 0 diclofenac sodium [Voltaren] 1 % Gel 1 g TOPICAL QID RF: 0 Discontinued sulfamethoxazole-trimethoprim 800-160 mg tablet 1 tab PO BID RF: 0 Discharge Orders: Discharge Order (Routine); Ordered 05/31/20 Ordered By: Enoc Gomez Admission Data Admit Date/Time: 05/23/20 22:39 Attending Provider: Enoc Gomez Admit Provider: Wellington Javed [facility] Other Providers: Arnold Azevedo ; Ismael Deal ; Ty Matias ; Adia Liang ; Jonah Reilly ; Mónica Hoyt ; Rg Arauz ; Wellington Javed ; Mario Neil ; Ashia Hughes ; Trevin Garcia I. ; Pepito Stafford II ; Vielka Espinoza ; Pino English ; Jennifer Waldron [facility]
== END 2020-05-31 13:19 | DRG 988 ==
LOC: ED 17:49 → 3N 22:39 → SUATTDRO 22:39 → 3N 23:04

== ENCOUNTER 2020-07-19 12:08 | Inpatient (IN) ==
--- NOTE | 2020-07-18 10:57 | Anesthesiology Consultation ---
Date of Service July 18, 2020 Assessment & Plan (1) Encounter for pre-operative examination: Patient with severe dementia, resides in [facility] Care unit. Facility reports no current known + covid cases in [facility]. Spoke to surgeon's office, who state patient was covid tested this AM via CSI send-out. They expect results to be back by AM DOS. Will send letter of medical necessity AM DOS just in case covid test results not yet received. Spoke to Dr. Salgado -- patient approved for [facility] test if CSI test not received. Daughter, BOOM Johnson, will be present AM DOS. BSG AM DOS Chart Review Chart Review: Acceptable Risk for Surgery and Patient NOT seen in Pre Admission Testing History Surgery Operation Date: 07/19/20 13:30 Proposed Procedures p Right Freat Toe Amputation, First Ray Resection - Garcia Ortiz DO s Incision and Drainage - Garcia Ortiz DO Height/Weight Height: 5 ft 3 in Weight: 70.2 kg Allergies Allergy/AdvReac Type Severity Reaction Status Date / Time No Known Allergies Allergy Verified 07/18/20 11:49 Medications Home Medications Medication Instructions Recorded Confirmed Last Taken Lantus Solostar U-100 Insulin 12 units SUBCUT AMHS 07/10/18 07/18/20 03/27/19 citalopram 40 mg PO DAILY 07/10/18 07/18/20 03/27/19 gemfibrozil 600 mg PO DAILY 07/10/18 07/18/20 07/16/18 08:30 lisinopril 10 mg PO DAILY 07/10/18 07/18/20 03/27/19 metoprolol succinate 25 mg PO DAILY 07/10/18 07/18/20 03/27/19 aspirin 81 mg PO DAILY 07/17/18 07/18/20 03/27/19 insulin aspart U-100 [Novolog 1 sliding scale dose SUBCUT BID 07/17/18 07/18/20 07/16/18 PenFill U-100 Insulin] Therems-M 1 tab PO DAILY 03/02/19 07/18/20 03/27/19 diclofenac sodium [Voltaren] 1 g TOPICAL QID 03/02/19 07/18/20 03/27/19 tramadol 50 mg PO DAILY PRN 03/02/19 07/18/20 Unknown mirtazapine 15 mg PO HS 05/23/20 07/18/20 Unknown trazodone 50 mg PO HS 05/23/20 07/18/20 Unknown acetaminophen 650 mg PO Q4H PRN 07/18/20 07/18/20 Unknown amoxicillin-pot clavulanate 1 tab PO BID 07/18/20 07/18/20 Unknown ferrous sulfate 325 mg PO BID 07/18/20 07/18/20 Unknown Past Medical History Medical History Acquired claw toe of right foot Anemia Asthma Cellulitis RIGHT LOWER LIMB Dementia Daughter, Elizabeth, is POA. Patient does not sign consents. Currently residing in [facility]. Depression Diabetic polyneuropathy Diverticulitis DM type 2 (diabetes mellitus, type 2) Controlled, A1C 5.9% 05/2020. 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/15) Endometrial adenocarcinoma, FIGO grade I, status post completion of radiation therapy 2015 Endometrial cancer Environmental allergies MOLD/POLLEN/CATS/MILDEW Foot ulcer GERD (gastroesophageal reflux disease) Hearing deficit History of amputation of left great toe History of colon cancer s/p resection 2012 HTN (hypertension) Hyperlipidemia Reflux esophagitis Exercise / Class Metabolic Activity IV < 2 Limit ADL/Bedbound Past Surgical History Surgical History Amputated toe RT TOE H/O colonoscopy with polypectomy History of amputation of lesser toe of left foot History of cataract surgery left Hx of tubal ligation S/P tonsillectomy and adenoidectomy Social History Smoking Status: Unknown if ever smoked Hx Alcohol Use: No (Unknown.) Hx Substance Use: No (Unknown.) Testing Laboratory Results 05/31/20 WBC: 8.78 H/H: 9.3/30.2 PLATELETS: 352 SODIUM: 139 POTASSIUM: 4.1 CHLORIDE: 107 CO2: 28 BUN: 10 CREATININE: 0.61 GLUCOSE: 122 05/23/20 PT: 11.9 PTT: 32.6 INR: 1.1 A1C: 5.9% Electrocardiogram Date: 05/23/20 Sinus rhythm at 73 bpm with sinus arrhythmia and first-degree AV block. Compared with EKG of 10/31/2019 no significant change was found. Chest X-Ray Date: 10/31/19 FINDINGS: AP and lateral chest radiographs are compared to study dated 11/02/2017. Correlation is made with chest CT dated 08/20/2015. The heart is mildly enlarged noting atherosclerotic calcification of the thoracic aorta. The pulmonary vasculature is noncongested. Chronic interstitial thickening is similar to previous. Scarring/atelectasis is noted at the lung bases. No airspace consolidation or pleural effusion is identified. There is no pneumothorax. The skeletal structures are osteopenic. The bony thorax appears intact. IMPRESSION: Mild cardiac enlargement with no acute cardiopulmonary abnormality.
--- NOTE | 2020-07-18 12:15 | PAT Medication Instructions ---
Medication Instructions Date of Service July 18, 2020 Home Medications Lantus Solostar U-100 Insulin 12 units SUBCUT AMHS citalopram 40 mg PO DAILY gemfibrozil 600 mg PO DAILY lisinopril 10 mg PO DAILY metoprolol succinate 25 mg PO DAILY aspirin 81 mg PO DAILY insulin aspart U-100 [Novolog PenFill U-100 Insulin] 1 sliding scale dose SUBCUT BID Therems-M 1 tab PO DAILY diclofenac sodium [Voltaren] 1 g TOPICAL QID tramadol 50 mg PO DAILY PRN mirtazapine 15 mg PO HS trazodone 50 mg PO HS acetaminophen 650 mg PO Q4H PRN amoxicillin-pot clavulanate 1 tab PO BID ferrous sulfate 325 mg PO BID Continue as directed amoxicillin-pot clavulanate 1 tab PO BID ASK your surgeon for instructions aspirin 81 mg PO DAILY STOP taking 48 hours before surgery gemfibrozil 600 mg PO DAILY STOP taking 24 hours before surgery diclofenac sodium [Voltaren] 1 g TOPICAL QID DO NOT take the morning of surgery lisinopril 10 mg PO DAILY insulin aspart U-100 [Novolog PenFill U-100 Insulin] 1 sliding scale dose SUBCUT BID Therems-M 1 tab PO DAILY ferrous sulfate 325 mg PO BID Take morning of surgery With a small sip of water, OTHERWISE NOTHING TO EAT OR DRINK AFTER MIDNIGHT: citalopram 40 mg PO DAILY (if scheduled for AM) metoprolol succinate 25 mg PO DAILY (if scheduled for AM) tramadol 50 mg PO DAILY PRN (if needed, may be taken up to four hours before surgery) acetaminophen 650 mg PO Q4H PRN (if needed, may be taken up to four hours before surgery) Take evening before surgery Lantus Solostar U-100 Insulin 12 units SUBCUT AMHS insulin aspart U-100 [Novolog PenFill U-100 Insulin] 1 sliding scale dose SUBCUT BID Therems-M 1 tab PO DAILY tramadol 50 mg PO DAILY PRN (if needed) mirtazapine 15 mg PO HS trazodone 50 mg PO HS acetaminophen 650 mg PO Q4H PRN (if needed) ferrous sulfate 325 mg PO BID Insulin Dependent Diabetic Patients * Test your blood sugar the morning of surgery * If Blood Sugar is GREATER THAN 150, take HALF of your regular dose of: Lantus Solostar U-100 Insulin 12 units SUBCUT AMHS -- TAKE 6 UNITS * If Blood Sugar is LESS THAN 150, DO NOT TAKE ANY: Lantus Solostar U-100 Insulin 12 units SUBCUT AMHS Other Notes If you have any questions please call us at [phone] or [phone] or [phone] or [phone]
[~2020-07-19 12:08] MED LIST changes: -ACET5LIQ PO; -ASPCH81X PO; -CITA40TA12 PO; -CLR10 PO; -DOCU-94 PO; -FLUT0.15 NAE; -GEMF600T3 PO; -IBUP-1050 PO; -IMD/2 PO; -INSDGIPEN SQ; -LISI-461 PO; +LR 15ML/HR IV SCH; -METO25TA3 PO; -MULT-513 PO; -NVLGI/PEN SQ; -ONDA4TAB46 PO; -PROAIR SQ; -SALI0.6515; -SENN8.6T9 PO
[2020-07-19] MEDS ORDERED: LIDOCAINE HCL 2% 2 ML VIAL/AMP(20MG/ML) INFIL ONE (13:34)
[2020-07-19] MEDS ORDERED: PHENYLEPHRINE 100MCG/ML 5ML SYR ONE (13:34)
[2020-07-19] MEDS ORDERED: PROPOFOL IV EMULSION 10 MG/ML 20 ML VIAL IV ONE ×3 (13:34→15:18)
[2020-07-19] MEDS ORDERED: ePHEDrine sulfate 50 MG/ML SYR ONE (13:34)
[2020-07-19] MEDS ORDERED: fentaNYL citrate 100 MCG/2 ML VIAL ONE (13:34)
[2020-07-19] MEDS ORDERED: ceFAZolin 2000MG 2,000 MG/15 ML SYR IV ONE (13:38)
[2020-07-19] MEDS ORDERED: fentaNYL citrate 100 MCG/2 ML VIAL IV PRN (13:39)
[2020-07-19] MEDS ORDERED: ATROPINE SULFATE 0.1 MG/ML 10ML SYR IV PRN (13:39)
[2020-07-19] MEDS ORDERED: ePHEDrine sulfate 50 MG/ML AMP IV PRN (13:39)
[2020-07-19] MEDS ORDERED: ceFAZolin 2,000 MG/15 ML IV PUSH IV ONE (13:40)
--- NOTE | 2020-07-19 13:40 | History & Physical Bridge Note ---
Date of Service July 19, 2020 History & Physical Bridge Note I have examined the patient, reviewed the History & Physical and in the interval since the performance of the History & Physical I have noted the following changes of clinical significance: no changes noted
[2020-07-19] MEDS ORDERED: BACITRACIN INJ 50,000 UNIT VIAL ONE (13:47)
[2020-07-19] MEDS ORDERED: BUPIVACAINE 0.5 % 5 MG/1 ML MPF 30ML VIAL ONE (13:47)
[2020-07-19] MEDS ORDERED: LIDOCAINE HCL 1% 20 ML VIAL ONE (14:49)
--- NOTE | 2020-07-19 16:01 | Anesthesiology Progress Note ---
Date of Service July 19, 2020 Anesthesia Post Procedure Vital Signs Vital Signs: Temp Pulse Pulse Resp BP BP Pulse Ox 07/19/20 16:00 97.5 F L 79 16 98/37 L 98 07/19/20 15:50 79 15 95/38 L 100 07/19/20 15:40 96.8 F L 72 16 113/60 100 07/19/20 12:51 97.7 F 90 20 108/71 99 Transfer of Care Handoff Completed per policy Notes Mental Status: alert / awake / arousable and participated in evaluation Patient Amnestic to Procedure: Yes Nausea / Vomiting: adequately controlled Pain: adequately controlled Airway Patency, RR, SpO2: stable & adequate BP & HR: stable & adequate Hydration State: stable & adequate Anesthetic Complications: no major complications apparent and Pt Satisfied with anesthetic care
--- NOTE | 2020-07-19 16:19 | Post Operative Brief Note ---
Immediate Post Op Note v1 Date of Surgery July 19, 2020 Pre & Post Diagnosis Operation Date: 07/19/20 13:30 Pre-Op Diagnosis: Right Toe Non-Pressure Large Chronic Ulcer, Right great toe osteomyelitis, osteomyelitis first metatarsal head, osteomyelitis medial sesamoid Post-Op Diagnosis: Non-Pressure Large Chronic Ulcer (4 x 4.5 x 1.0 cm), Right great toe osteomyelitis, osteomyelitis first metatarsal head, osteomyelitis medial sesamoid I identified the patient and participated in the time-out.: Yes Procedure Operation Date: 07/19/20 13:30 Actual Procedures p Right Great Toe Amputation, First Ray Resection with amputation first metatarsal, Second Metatarsal head Resection (Right) - Garcia Ortiz DO s Irrigation and debridement large necrotic ulcer first metatarsal phalangeal joint (4 x 4.5 x 1.0 cm)(Right) - Garcia Ortiz DO Surgeon Garcia Ortiz DO Stop Attacher None Estimated Blood Loss 5 Findings Consistent with Post-Op Diagnosis Specimens Amputated right great toe, first metatarsal and second metatarsal head Anesthesia Type MAC Regional Complications none Disposition Accompanied Patient To Recovery: Yes Disposition: Recovery Room
--- NOTE | 2020-07-19 17:00 | Operative Report (OR) ---
DATE OF OPERATION: 07/19/2020 PREOPERATIVE DIAGNOSES: 1. Right foot great toe osteomyelitis. 2. Osteomyelitis of the first metatarsal head. 3. Osteomyelitis of the medial sesamoid. 4. Large necrotic ulceration, right first metatarsophalangeal joint, measuring 4 x 4.5 x 1.0 cm with exposed bone. POSTOPERATIVE DIAGNOSES: 1. Right foot great toe osteomyelitis. 2. Osteomyelitis of the first metatarsal head. 3. Osteomyelitis of the medial sesamoid. 4. Large necrotic ulceration, right first metatarsophalangeal joint, measuring 4 x 4.5 x 1.0 cm with exposed bone. PROCEDURES PERFORMED: 1. Right foot amputation, great toe. 2. Amputation of first metatarsal/first ray resection. 3. Resection of second metatarsal head. 4. Irrigation and debridement of large necrotic neuropathic ulcer, first metatarsophalangeal joint (4 x 4.5 x 1.0 cm). SURGEON: Garcia Ortiz DO. SNUFF GRINDER AND SCREENER: None. ANESTHESIA: MAC regional. SPECIMENS: Bone and tissue from the right foot including the great toe, first metatarsal and second metatarsal and tissue. DRAINS: None. COMPLICATIONS: None. BLOOD LOSS: 5 mL. PERTINENT HISTORY: This is an 89-year-old female who had prior irrigation and debridement for limb salvage. She had worsening of her status due to diabetes mellitus, neuropathy, peripheral vascular disease and dementia. The patient was seen in the clinic, noted to have worsening of her condition despite conservative management. She was then scheduled for surgery as indicated due to large exposed neuropathic necrotic ulcer measuring 4 x 4.5 x 1.0 cm with exposed bone including the first metatarsal head, medial sesamoid, and base of the proximal phalanx of the great toe. All potential risks, benefits, complications, alternatives, rehab potential for incomplete relief of symptoms, need for further surgery, DVT, PE, , persistent pain, swelling, scarring, weakness, neurovascular injury, wound complications, need for further surgery and amputation were discussed with the patient and her durable power of employment law attorney, and they both decided to proceed with the procedure as indicated. DESCRIPTION OF PROCEDURE: The patient was taken to the operative suite and placed supine on the operating table. After review of consent and identification of proper operative site, the patient was sedated and the right lower extremity was then sterilely prepped and draped in usual fashion, elevated and partially exsanguinated from the hindfoot extending proximally with an Esmarch bandage and Esmarch tourniquet was applied over sterile surgical towel at the level of the ankle. Next, a 15 blade scalpel was used to debride the necrotic full-thickness ulcer along the medial first metatarsophalangeal region of the right foot measuring 4 x 4.5 x 1.0 cm. The margins were then debrided until bleeding tissue was noted. The necrotic tissue was then sharply excised revealing the medial sesamoid, which was then sharply excised due to its necrosis. Next, the first metatarsal head was identified and then a forceps was then placed to test the integrity of the bone and the forceps passed easily into the bone indicating advanced necrosis and osteomyelitis. The decision was then made to perform a complete amputation of the great toe while extending the incision distally to circumferentially excise the nail plate and the distal phalanx. The tissue flap was then salvaged for later use to rotate over the tissue deficit over the medial forefoot as described above. Next, the 15 blade was used to make an incision along the medial first metatarsal and the incision was then deepened along the medial aspect of the foot. Care was taken to dissect free the neurovascular components and the tendons, both extensor and flexor to reveal the periosteum, which was then split with a 15 blade scalpel and then using gentle tissue retraction, dorsal and plantar with skin rakes. The joint capsule of the first tarsometatarsal joint was then incised with a 15 blade scalpel and circumferential release of the first metatarsal bone was then performed with a 15 blade scalpel. This was then resected primarily due to tissue loss distally and also with concern of spreading and advancing necrosis of the bone as evidenced by softening of the metatarsal, at least 60% of the metatarsal length. After the first metatarsal was then resected, the remainder of the great toe was then resected, was circumferentially released at the first metatarsophalangeal joint of the proximal phalanx, which was then dissected free from the soft tissue, which was preserved and the distal phalanx was then excised in completion and passed off. Next, the residual flap was then irrigated with copious amounts of sterile normal saline until clear. All necrotic tissue was then sharply excised exposing the second metatarsal head, which had been violated by the erosion of the tissue and obvious wound necrosis. Forceps was placed into the second metatarsal head evidencing wound necrosis and bone necrosis. Next, the second metatarsal head was then exposed with 15 blade scalpel. Hohmann retractors were placed around the soft tissue to protect it and then a sagittal saw was then used to resect the second metatarsal head with a slight margin to prevent spread of the infection of the distal metatarsal. This was then excised using a rongeur and passed off. Next, the residual soft tissue was then copiously irrigated with a lavage with bacitracin. Next, the residual tissue flap was then sharply revised and rotated appropriately to cover the void and tissue flap was then sutured in place using multiple 3-0 nylon and 4-0 nylon sutures. Stable reconstruction of the forefoot was achieved. Flap appeared healthy with low tension and a partial ankle block was then performed with 30 mL of 0.5% Marcaine plain and 1% lidocaine plain was then used to supplement distally. A sterile compressive dressing and a soft bulky forefoot dressing was applied overwrapped with an Aron wrap. The tourniquet was released. The patient was awakened and taken to recovery in stable condition. I attest to the content of the Intraoperative Record and any orders documented therein. Any exception s are noted below.
[2020-07-19] MEDS ORDERED: PHARMACY GLYCEMIC MGMT CONSULT PRN (19:25)
[2020-07-19] MEDS ORDERED: GLUCAGON FOR INJ 1 MG VIAL IM PRN (19:30)
[2020-07-19] MEDS ORDERED: CARBOHYDRATES FOR HYPOGLYCEMIA PO PRN (19:30)
[2020-07-19] MEDS ORDERED: DEXTROSE 50% 50 ML SYRINGE IV PRN (19:30)
[2020-07-19] MEDS ORDERED: GLUCOSE 40% GEL 15 GM TUBE PO PRN (19:30)
[2020-07-19] MEDS ORDERED: GLUCOSE 10 TABS/TUBE PO PRN (19:30)
[2020-07-19] MEDS ORDERED: SODIUM CHLORIDE 0.9% 500 ML IV ONE (20:06)
[2020-07-19 20:22] LABS: Basophils # (auto) 0.02 K/uL (0-0.2); Basophils % (auto) 0.3 %; Eosinophils # (auto) 0.13 K/uL (0-0.5); Eosinophils % (auto) 2.2 %; Hematocrit (blood only) 24.9 % (37-47); Hemoglobin 7.9 g/dL (12.0-16.0); Immature Granulocytes # (auto) 0.05 K/uL (0.00-0.02); Immature Granulocytes % (auto) 0.9 %; Lymphocytes # (auto) 1.53 K/uL (1.2-3.4); Lymphocytes % (auto) 26.1 %; Mean Corpuscular Hemoglobin 26.9 pg (25-34); Mean Corpuscular Hgb Conc 31.7 g/dL (32-36); Mean Corpuscular Volume 84.7 fL (80-100); Mean Platelet Volume 7.8 fL (7.4-10.4); Monocytes # (auto) 0.42 K/uL (0.11-0.59); Monocytes % (auto) 7.2 %; Neutrophils # (auto) 3.72 K/uL (1.4-6.5); Neutrophils % (auto) 63.3 %; Platelet Count 274 K/uL (130-400); RDW Coefficient of Variation 15.8 % (11.5-14.5); RDW Standard Deviation 49.2 fL (36.4-46.3); Red Blood Count 2.94 M/uL (4.2-5.4); White Blood Count 5.87 K/uL (4.8-10.8)
[2020-07-19] MEDS: INSULIN ASPART 100 UNITS/ML 3 ML PEN SC SCH (20:39)
[2020-07-19 20:40] LABS: BUN Creatinine Ratio 11.4 (10-20); Calcium 7.8 mg/dl (8.5-10.1); Creatinine Clr Calc Pharmacy 54.3 ml/min; Est GFR (Non-African American) 78.5; Magnesium 1.9 mg/dl (1.8-2.4)
[2020-07-19] MEDS: FERROUS SULFATE 325 MG TAB PO SCH (20:41)
[2020-07-19 20:43] LABS: RBC Morphology Unremarkable
[2020-07-19] MEDS ORDERED: traZODone HCL 50 MG TAB PO SCH (21:00)
[2020-07-19] MEDS ORDERED: INSULIN GLARGINE SOLOSTAR 100 UNITS/ML 3 ML PEN SC SCH (21:00)
[2020-07-19] MEDS ORDERED: MIRTAZAPINE TAB 15 MG TAB PO SCH (21:00)
--- NOTE | 2020-07-19 21:04 | Pharmacy Report ---
Pharmacy Glycemic Short Note 2 - Date of Service July 19, 2020 - Glycemic Short BSG Results (Last 24 hours): 07/19/20 07/19/20 07/19/20 12:35 15:44 17:23 Glucose POC Glucose 160 H 136 H 159 H 07/19/20 07/19/20 20:12 20:34 Glucose 180 H POC Glucose 201 H OUTPATIENT ANTIDIABETIC REGIMEN: * Lantus 12 units AMHS, novolog SSI ASSESSMENT: * 89 year old admitted for toe amputation/osteomyelitis concern. Pharmacy consulted for glycemic management postop. No steroids given intraoperatively. * Patient managed on insulin at home, diet started post surgery - plan to utilize scale for basal insulin / stress of 2 dosing for novolog PLAN FOR INPATIENT GLYCEMIC CONTROL: * Hold outpatient oral diabetes medications * Basal insulin * Lantus 8-12 units SQ BID based upon BSG value * Bolus insulin * NovoLog per scale ACHS or Q6hrs while NPO * Goal Range: Low 120 mg/dL - High 160 mg/dL * Correction Factor: 35 mg/dL/unit * Nutritional / Prandial insulin per carb ratio of 1 unit per 12 grams CHO consumed
[2020-07-19] MEDS ORDERED: SODIUM CHLORIDE 0.9% 250 ML IV PRN (21:31)
--- NOTE | 2020-07-19 22:02 | Hospitalist Consultation ---
Date of Consultation July 19, 2020 Assessment & Plan (1) Amputated toe: Final Assessment and Recommendations as follows : Right great toe osteomyelitis status post toe amputation hx PVD as per records Postop hypotension Postop anemia, hemoglobin drop from baseline DM2 insulin requiring, well-controlled as of recent outpatient hemoglobin A1c of 25 May 2020 colon cancer sp surgery uterine cancer sp radiation tx Dementia, at baseline mood disorder IVF bolus Decrease maintenance lisinopril dose for now Transfuse PRBC to maintain hemoglobin greater than 8, hx PVD as per records Delirium precautions Hold nighttime neuropsychotropic medications for now given confusion Pharmacy glycemic control consult as per postop Orthopedic orders DVT prophylaxis. TEDS as per postop Orthopedics orders (SCDs contraindicated with history PAD) Recommend pharmacologic anticoagulation with Lovenox 30 mg subcutaneous daily once bleeding risk is deemed to be minimal and negligible pending Orthopedics follow-up evaluation in a.m. Thank you very much for this consultation. Dr. Mays will follow patient's progress. Text document was generated using frents voice recognition software. It may contain grammatical or spelling errors. Kindly contact undersigned for clarification of any documentation item in question. History of Present Illness Reason for Consultation: Medical management Requesting Physician: Dr. Ortiz Attending Physician: Garcia Ortiz DO History of Present Illness PCP : Dr. Joselin Campos History obtained from patient and records. Limited history from patient secondary to dementia. Medical history significant for dementia, hypertension, PVD as per records, DM2 insulin requiring, colon cancer sp surgery, uterine cancer sp radiation tx, chronic anemia (baseline hemoglobin 9), mood disorder. Last confinement right foot abscess, diabetic foot ulcer status post surgery. Wound CS grew MSSA. Patient discharged on Cefazolin course as per C ID recommendations. Worsening right foot ulcer despite outpatient antibiotic Rx as per documentation. Patient underwent right foot/great toe amputation today. SBP noted to be 90s postop. Patient currently comfortable. Denies chest pain, S OB. Does not know why she is at the hospital. " Republican, republican" as per patient. MEDICAL HISTORY: As above. SURGERIES: Colectomy, foot surgery, paraesophageal hernia repair, bone debridement, colpocleisis, cystoscopy, BTL, tonsillectomy/adenoidectomy FAMILY HISTORY: Cervical cancer. Heart disease. PERSONAL AND SOCIAL HISTORY: Past tobacco abuse. No chronic intake of ETOH beverages. Personal-snf resident Allergies Allergy/AdvReac Type Severity Reaction Status Date / Time No Known Allergies Allergy Verified 07/19/20 12:48 Home Medications Medication Instructions Recorded Confirmed Type Lantus Solostar U-100 Insulin 12 units SUBCUT AMHS 07/10/18 07/19/20 History citalopram 40 mg PO DAILY 07/10/18 07/19/20 History gemfibrozil 600 mg PO DAILY 07/10/18 07/19/20 History lisinopril 10 mg PO DAILY 07/10/18 07/19/20 History metoprolol succinate 25 mg PO DAILY 07/10/18 07/19/20 History aspirin 81 mg PO DAILY 07/17/18 07/19/20 History insulin aspart U-100 [Novolog 1 sliding scale dose SUBCUT BID 07/17/18 07/18/20 History PenFill U-100 Insulin] Therems-M 1 tab PO DAILY 03/02/19 07/19/20 History diclofenac sodium [Voltaren] 1 g TOPICAL QID 03/02/19 07/19/20 History tramadol 50 mg PO DAILY PRN 03/02/19 07/19/20 History mirtazapine 15 mg PO HS 05/23/20 07/19/20 History trazodone 50 mg PO HS 05/23/20 07/19/20 History acetaminophen 650 mg PO Q4H PRN 07/18/20 07/19/20 History amoxicillin-pot clavulanate 1 tab PO BID 07/18/20 07/19/20 History ferrous sulfate 325 mg PO BID 07/18/20 07/19/20 History Patient History Medical History Acquired claw toe of right foot Anemia Asthma Cellulitis RIGHT LOWER LIMB Dementia Daughter, Elizabeth, is POA. Patient does not sign consents. Currently residing in [facility]. Depression Diabetic polyneuropathy Diverticulitis DM type 2 (diabetes mellitus, type 2) Controlled, A1C 5.9% 05/2020. 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/15) Endometrial adenocarcinoma, FIGO grade I, status post completion of radiation therapy 2016 Endometrial cancer Environmental allergies MOLD/POLLEN/CATS/MILDEW Foot ulcer GERD (gastroesophageal reflux disease) Hearing deficit History of amputation of left great toe History of colon cancer s/p resection 2012 HTN (hypertension) Hyperlipidemia Reflux esophagitis Surgical History Amputated toe RT TOE H/O colonoscopy with polypectomy History of amputation of lesser toe of left foot History of cataract surgery left Hx of tubal ligation S/P tonsillectomy and adenoidectomy Social History Smoking Status: Unknown if ever smoked Hx Alcohol Use: No (Unknown.) Hx Substance Use: No (Unknown.) Preferred Language: Japanese Communication Ability: Impaired Communication Ability Comment: PT DX WITH DEMENTIA Clinical Resource Manager Required: No Beliefs That Will Affect Care: None marital status: / Current Living Situation: [facility] Current Living Situation Comment: [facility] Feels Safe at Home: Yes Assistive Devices: None Review of Systems Review of Systems: Could not be reliably obtained Physical Exam Physical Exam: GENERAL: Comfortable, demented, hard of hearing, no respiratory distress SKIN: Pallor , warm HEENT: Pale palpebral conjunctivae, no ptosis, dry buccal mucosa NECK : Supple, no tenderness CHEST : CTA, no tenderness HEART : RRR, no obvious murmurs ABDOMEN: Some distention, nontender EXTREMITIES : RLE dressing, no other conspicuous deformities noted NEUROLOGIC : Demented, no facial asymmetry, hard of hearing, no other gross focality Results & Data Results & Data ([facility]) Vital Signs (Past 12 Hours) Vital Signs Temp Pulse Pulse Resp BP BP Pulse Ox 07/19/20 20:10 37.2 C 81 14 104/58 L 95 07/19/20 19:10 37.4 C 97 H 14 93/56 L 94 07/19/20 18:21 37.1 C 86 16 120/63 96 07/19/20 17:45 36.8 C 84 16 104/57 L 95 07/19/20 16:40 91 H 16 114/41 L 96 07/19/20 16:25 85 15 93/40 L 94 07/19/20 16:15 82 15 92/36 L 98 07/19/20 16:00 36.4 C L 79 16 98/37 L 98 07/19/20 15:50 79 15 95/38 L 100 07/19/20 15:40 36 C L 72 16 113/60 100 07/19/20 12:51 36.5 C 90 20 108/71 99 Laboratory Results Laboratory Results WBC 5.87 K/uL (4.8-10.8) 07/19/20 20:12 RBC 2.94 M/uL (4.2-5.4) L 07/19/20 20:12 Hgb 7.9 g/dL (12.0-16.0) L 07/19/20 20:12 Hct 24.9 % (37-47) L 07/19/20 20:12 MCV 84.7 fL (80-100) 07/19/20 20:12 MCH 26.9 pg (25-34) 07/19/20 20:12 MCHC 31.7 g/dL (32-36) L 07/19/20 20:12 RDW Std Deviation 49.2 fL (36.4-46.3) H 07/19/20 20:12 RDW Coeff of Pamela 15.8 % (11.5-14.5) H 07/19/20 20:12 Plt Count 274 K/uL (130-400) 07/19/20 20:12 MPV 7.8 fL (7.4-10.4) 07/19/20 20:12 Immature Gran % (Auto) 0.9 % 07/19/20 20:12 Neut % (Auto) 63.3 % 07/19/20 20:12 Lymph % (Auto) 26.1 % 07/19/20 20:12 [place] % (Auto) 7.2 % 07/19/20 20:12 Eos % (Auto) 2.2 % 07/19/20 20:12 Baso % (Auto) 0.3 % 07/19/20 20:12 Neut # (Auto) 3.72 K/uL (1.4-6.5) 07/19/20 20:12 Lymph # (Auto) 1.53 K/uL (1.2-3.4) 07/19/20 20:12 [place] # (Auto) 0.42 K/uL (0.11-0.59) 07/19/20 20:12 Eos # (Auto) 0.13 K/uL (0-0.5) 07/19/20 20:12 Baso # (Auto) 0.02 K/uL (0-0.2) 07/19/20 20:12 Immature Gran # (Auto) 0.05 K/uL (0.00-0.02) H 07/19/20 20:12 RBC Morphology Unremarkable 07/19/20 20:12 Sodium 140 mmol/L (136-145) 07/19/20 20:12 Potassium 4.0 mmol/L (3.5-5.1) 07/19/20 20:12 Chloride 106 mmol/L (98-107) 07/19/20 20:12 Carbon Dioxide 28 mmol/L (21-32) 07/19/20 20:12 Anion Gap 6.0 (3-11) 07/19/20 20:12 BUN 8 mg/dl (7-18) 07/19/20 20:12 Creatinine 0.67 mg/dl (0.6-1.2) 07/19/20 20:12 Est Cr Clr Drug Dosing 54.3 ml/min 07/19/20 20:12 Est GFR ( Amer) 91.0 07/19/20 20:12 Est GFR (Non-Af Amer) 78.5 07/19/20 20:12 BUN/Creatinine Ratio 11.4 (10-20) 07/19/20 20:12 Glucose 180 mg/dl (70-99) H 07/19/20 20:12 POC Glucose 201 mg/dl (70-99) H 07/19/20 20:34 Lactate 1.8 mmol/L (0.4-2.0) 07/19/20 20:12 Calcium 7.8 mg/dl (8.5-10.1) L 07/19/20 20:12 Magnesium 1.9 mg/dl (1.8-2.4) 07/19/20 20:12
[2020-07-19] MEDS: HYDROCODONE/ACETAMOPHEN 5/325MG TAB PO PRN (23:22)
[2020-07-20] MEDS: ACETAMINOPHEN 325 MG TAB PO PRN ×2 (03:18→22:20)
[2020-07-20] MEDS ORDERED: KETOROLAC TROMETHAMINE 15 MG/ML VIAL IV ONE (04:42)
[2020-07-20] MEDS ORDERED: KETOROLAC TROMETHAMINE 15 MG/ML VIAL ONE (04:48)
[2020-07-20] MEDS: HYDROCODONE/ACETAMOPHEN 5/325MG TAB PO PRN ×3 (05:19→20:02)
[2020-07-20] MEDS ORDERED: OLANZapine 10 MG/2.1 ML SDV IM PRN (06:35)
[2020-07-20] MEDS: lisinopril 2.5 MG TAB PO SCH (08:04)
[2020-07-20] MEDS: METOPROLOL SUCC 25MG EXT REL TAB PO SCH (08:05)
[2020-07-20] MEDS: ASPIRIN 81 MG ECTAB PO SCH (08:06)
[2020-07-20] MEDS: FERROUS SULFATE 325 MG TAB PO SCH ×2 (08:06→20:03)
[2020-07-20] MEDS: CITALOPRAM 40 MG TAB PO SCH (08:06)
--- NOTE | 2020-07-20 08:20 | Orthopedic Progress Note ---
Date of Service July 20, 2020 Assessment & Plan (1) Diabetic foot ulcer: Postop day #1 status post 1. Right foot amputation, great toe. 2. Amputation of first metatarsal/first ray resection. 3. Resection of second metatarsal head. 4. Irrigation and debridement of large necrotic neuropathic ulcer, first metatarsophalangeal joint (4 x 4.5 x 1.0 cm). Dressing kept in place today. We will plan for dressing change tomorrow. Nonweightbearing on the right lower extremity. DVT prophylaxisaspirin 81 mg daily. Discharge planninguncertain at this time. Possible return to [facility]. Preoperative hemoglobin was 7.9. We will recheck labs today. (2) Peripheral vascular disease in diabetes mellitus: Admission and Anticipated Discharge Date Admission Date: July 19, 2020 Subjective Patient is somnolent this a.m. No history given by the patient. Patient has a history of dementia. Physical Exam Constitutional: + altered mental status; no acute distress Patient lying comfortably in bed sleeping. Vitals are stable. Musculoskeletal: Right foot: Dressing is clean/dry/intact. No drainage noted on the Aron bandage. Dressing kept in place today. Results & Data ([facility]) Vital Signs (Past 12 Hours) Vital Signs Temp Pulse Pulse Pulse Resp BP BP 07/20/20 08:00 36.7 C 87 16 93/57 L 07/20/20 04:19 36.9 C 94 H 16 118/54 L 07/20/20 02:39 36.2 C L 88 18 125/56 L 07/20/20 02:19 36.4 C L 88 16 126/56 L 07/20/20 01:19 36.7 C 86 16 114/53 L 07/20/20 00:49 37.1 C 87 16 111/49 L 07/20/20 00:34 37.2 C 88 18 99/51 L 07/20/20 00:17 37.4 C 93 H 18 115/50 L 07/19/20 23:11 36.9 C 93 H 18 147/56 H Pulse Ox 07/20/20 08:00 94 07/20/20 04:19 91 07/20/20 02:39 93 07/20/20 02:19 94 07/20/20 01:19 91 07/20/20 00:49 91 07/20/20 00:34 92 07/20/20 00:17 95 07/19/20 23:11 95 (1) Diabetic foot ulcer Diabetes mellitus type: type 2 Diabetic foot ulcer location: midfoot Laterality: right Non-pressure ulcer stage: with necrosis of muscle Qualified Code(s): E11.621 - Type 2 diabetes mellitus with foot ulcer; 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
[2020-07-20] MEDS: INSULIN ASPART 100 UNITS/ML 3 ML PEN SC SCH ×4 (08:52→20:48)
[2020-07-20] MEDS: INSULIN GLARGINE SOLOSTAR 100 UNITS/ML 3 ML PEN SC SCH ×2 (08:53→20:48)
[2020-07-20] MEDS ORDERED: lisinopril 10 MG TAB PO SCH (09:00)
[2020-07-20 10:28] LABS: Hematocrit (blood only) 28.7 % (37-47); Hemoglobin 9.2 g/dL (12.0-16.0); Mean Corpuscular Hemoglobin 26.9 pg (25-34); Mean Corpuscular Hgb Conc 32.1 g/dL (32-36); Mean Corpuscular Volume 83.9 fL (80-100); Mean Platelet Volume 8.2 fL (7.4-10.4); Platelet Count 294 K/uL (130-400); RDW Standard Deviation 48.9 fL (36.4-46.3); Red Blood Count 3.42 M/uL (4.2-5.4); White Blood Count 10.07 K/uL (4.8-10.8)
[2020-07-20 10:59] LABS: BUN Creatinine Ratio 11.7 (10-20); Calcium 8.2 mg/dl (8.5-10.1); Est GFR (African American) 89.7; Est GFR (Non-African American) 77.4; Potassium 3.8 mmol/L (3.5-5.1)
--- NOTE | 2020-07-20 14:34 | Pharmacy Report ---
Pharmacy Glycemic Short Note 2 - Date of Service July 20, 2020 - Glycemic Short BSG Results (Last 24 hours): 07/19/20 07/19/20 07/19/20 15:44 17:23 20:12 Glucose 180 H POC Glucose 136 H 159 H 07/19/20 07/20/20 07/20/20 20:34 08:00 10:04 Glucose 200 H POC Glucose 201 H 98 07/20/20 07/20/20 12:13 12:15 Glucose POC Glucose 332 H* 327 H* OUTPATIENT ANTIDIABETIC REGIMEN: * Lantus 12 units AMHS, novolog SSI ASSESSMENT: 07/20: * Kasandra tolerated her home dose of Lantus 12 units last evening. Fasting BSG of 98 mg/dl this AM is at goal. * Lunchtime BSG of 327 mg/dL. Patient required only 1 unit of novolog this AM to cover carbs from breakfast. I suspect she had something to eat prior to lunch BSG check. RN unable to get a straight answer from the patient as she is confused. I am hesitant to react to a single BSG elevation based on previous BSG data and A1c of 5.9%. If BSG is > 200 mg/dL at dinnertime, adjustments will be made to novolog order. 07/19: * 89 year old admitted for toe amputation/osteomyelitis concern. Pharmacy consulted for glycemic management postop. No steroids given intraoperatively. * Patient managed on insulin at home, diet started post surgery - plan to utilize scale for basal insulin / stress of 2 dosing for novolog PLAN FOR INPATIENT GLYCEMIC CONTROL: * Hold outpatient oral diabetes medications * Basal insulin * Continue Lantus 8-12 units SQ BID based upon BSG value * Bolus insulin * NovoLog per scale ACHS or Q6hrs while NPO * Goal Range: Low 120 mg/dL - High 160 mg/dL * Correction Factor: 35 mg/dL/unit * Nutritional / Prandial insulin per carb ratio of 1 unit per 12 grams CHO consumed
--- NOTE | 2020-07-20 18:50 | Hospitalist Progress Note ---
Date of Service July 20, 2020 Assessment & Plan (1) Amputated toe: Right great toe osteomyelitis S/p day #1 right Great Toe Amputation, First Ray Resection with amputation first metatarsal, Second Metatarsal head Resection and Irrigation and debridement large necrotic ulcer first metatarsal phalangeal joint performed by Dr. Ortiz Post op bleeding Hgb dropped to 7.9 Received 1 unit PRBC Repeat hgb 9.2 Continue monitor CBC Continue IV Zosyn Pain control as per ortho Hypotension Received 1 unit PRBC and IVF Continue to hold Lisinopril Continue monitor BP Acute blood loss anemia Due to the postop S/p 1 unit PRBC Continue monitor BP Dementia Continue Olanzapine prn DVT px on SCD CODE Status DNR Admission and Anticipated Discharge Date Admission Date: July 19, 2020 Subjective Pt was seen and examined Lying in bed with no acute distress Pt has been very agitated and confused Physical Exam Physical Exam: General- confused Head- atraumatic Eyes- PERRL, EOMI, ENT- oropharynx clear Neck- supple, no JVD Lungs- clear to auscultation Heart- regular rhythm; no murmur Abdomen- normal bowel sounds, soft, nontender Extremities- no calf tenderness Neuro- alert, oriented Skin- warm & dry Results & Data Results & Data ([facility]) Vital Signs (Past 12 Hours) Vital Signs Temp Pulse Resp BP BP Pulse Ox 07/20/20 15:39 36.8 C 78 16 115/49 L 93 07/20/20 14:10 148/62 H 07/20/20 08:00 36.7 C 87 16 93/57 L 94
[2020-07-20] MEDS ORDERED: SODIUM CHLORIDE 0.9% 500 ML IV ONE (22:35)
[2020-07-20] MEDS ORDERED: ACETAMINOPHEN 325 MG TAB PO STA (22:36)
[2020-07-20 23:17] LABS: Basophils # (auto) 0.02 K/uL (0-0.2); Basophils % (auto) 0.2 %; Eosinophils # (auto) 0.01 K/uL (0-0.5); Eosinophils % (auto) 0.1 %; Hematocrit (blood only) 27.8 % (37-47); Hemoglobin 8.7 g/dL (12.0-16.0); Immature Granulocytes # (auto) 0.06 K/uL (0.00-0.02); Immature Granulocytes % (auto) 0.5 %; Lymphocytes # (auto) 1.85 K/uL (1.2-3.4); Lymphocytes % (auto) 14.2 %; Mean Corpuscular Hemoglobin 26.3 pg (25-34); Mean Corpuscular Hgb Conc 31.3 g/dL (32-36); Mean Platelet Volume 8.1 fL (7.4-10.4); Monocytes # (auto) 1.43 K/uL (0.11-0.59); Neutrophils # (auto) 9.67 K/uL (1.4-6.5); Platelet Count 294 K/uL (130-400); RDW Coefficient of Variation 15.8 % (11.5-14.5); RDW Standard Deviation 48.5 fL (36.4-46.3); Red Blood Count 3.31 M/uL (4.2-5.4); White Blood Count 13.04 K/uL (4.8-10.8)
[2020-07-20] MEDS ORDERED: PIPERACILL/TAZOBAC CONSULT ACTIVE PRN (23:19)
--- NOTE | 2020-07-20 23:20 | Communication Note ---
Date of Service: July 20, 2020 Notified by RN of SBP 80s, fever spike. Cough symptoms earlier in the day. Chest x-ray as per my interpretation atelectasis AP Sepsis, possible HCAP Cultures, check lactic acid COVID-19 swab IVF Zosyn Will relay to AM provider.
[2020-07-20] MEDS ORDERED: PIPERACILLIN/TAZOBACTAM 4.5 GM in DEXTROSE 5% 100 ML IV STA (23:21)
[2020-07-20 23:36] LABS: BUN Creatinine Ratio 18.7 (10-20); Calcium 7.9 mg/dl (8.5-10.1); Est GFR (African American) 91.9; Est GFR (Non-African American) 79.3; Magnesium 1.9 mg/dl (1.8-2.4); Potassium 3.4 mmol/L (3.5-5.1)
[2020-07-20 23:39] LABS: Albumin Globulin Ratio 0.5 (0.9-2); Bilirubin,Total 0.5 mg/dl (0.2-1); Globulin 4.3 gm/dl (2.5-4.0); Total Protein 6.3 gm/dl (6.4-8.2)
[2020-07-20] MEDS ORDERED: POTASSIUM CHLORIDE CRTAB 20 MEQ TABCR PO STA (23:39)
[2020-07-21 00:01] LABS: Appearance Urine Clear (Clear); Bacteria Urine Automated Negative (Negative); Bilirubin Urine Negative (Negative); Blood Urine Negative (Negative); Color Urine Dark Yellow; Glucose Urine UA 1+ (Negative); Ketones Urine Negative (Negative); Leukocyte Esterase Urine Negative (Negative); Nitrite Urine Negative (Negative); Protein Urine Trace (Negative); RBC Urine Automated 0-4 /hpf (0-4); Urobilinogen Urine Negative (Negative); WBC Urine Automated 0 /hpf (0-5); pH Urine 5.5 (4.5-7.5)
[2020-07-21 00:22] LABS: Influenza A virus by PCR Negative (Neg); Influenza B virus by PCR Negative (Neg); RSV by PCR Negative (Neg); SARS CoV2 RNA(COVID-19) InHosp NEGATIVE (Negative)
[2020-07-21] MEDS ORDERED: NSS + 20MEQ KCL 20 MEQ/1,000 ML BAG IV ONE (01:55)
[2020-07-21] MEDS: PIPERACILLIN/TAZOBACTAM 3.375 GM in DEXTROSE 5% 100 ML IV SCH ×3 (05:35→22:02)
[2020-07-21 07:09] LABS: Hematocrit (blood only) 25.2 % (37-47); Hemoglobin 8.2 g/dL (12.0-16.0); Mean Corpuscular Hemoglobin 27.1 pg (25-34); Mean Corpuscular Hgb Conc 32.5 g/dL (32-36); Mean Corpuscular Volume 83.2 fL (80-100); Mean Platelet Volume 7.9 fL (7.4-10.4); Platelet Count 253 K/uL (130-400); RDW Coefficient of Variation 16.1 % (11.5-14.5); RDW Standard Deviation 48.7 fL (36.4-46.3); Red Blood Count 3.03 M/uL (4.2-5.4); White Blood Count 11.77 K/uL (4.8-10.8)
[2020-07-21 07:39] LABS: BUN Creatinine Ratio 18.9 (10-20); Calcium 7.7 mg/dl (8.5-10.1); Creatinine Clr Calc Pharmacy 66.2 ml/min; Est GFR (African American) 97.1; Est GFR (Non-African American) 83.7; Potassium 3.8 mmol/L (3.5-5.1)
--- NOTE | 2020-07-21 07:55 | XRay Report ---
SINGLE VIEW CHEST CLINICAL HISTORY: Fever. FINDINGS: 2 AP, portable, upright chest radiographs are compared to study dated 10/31/2019 and correla priya with chest CT dated 08/20/2015. The heart is mildly enlarged. The pulmonary vasculature is nonconge sted. Mild interstitial opacities are seen in the right midlung. Atelectasis is noted at the left sandro g base. No large pleural effusion or pneumothorax is seen. The skeletal structures are osteopenic. Th e bony thorax is grossly intact. IMPRESSION: 1. Mild cardiomegaly with no radiographic evidence of congestive failure. 2. There are mild interstitial opacities in the right midlung. Correlate clinically for evidence of a n infectious/inflammatory pneumonitis. ACT 112: Negative or not required by law. Electronically signed by: Figueroa Henson M.D. 07/21/2020 7:54 AM
[2020-07-21] MEDS: METOPROLOL SUCC 25MG EXT REL TAB PO SCH (08:40)
[2020-07-21] MEDS: CITALOPRAM 40 MG TAB PO SCH (08:40)
[2020-07-21] MEDS: ASPIRIN 81 MG ECTAB PO SCH (08:40)
[2020-07-21] MEDS: FERROUS SULFATE 325 MG TAB PO SCH ×2 (08:40→19:21)
[2020-07-21] MEDS: INSULIN GLARGINE SOLOSTAR 100 UNITS/ML 3 ML PEN SC SCH ×2 (08:46→22:00)
[2020-07-21] MEDS: INSULIN ASPART 100 UNITS/ML 3 ML PEN SC SCH ×4 (08:47→21:56)
--- NOTE | 2020-07-21 09:29 | Orthopedic Progress Note ---
"Date of Service July 21, 2020 Assessment & Plan (1) Diabetic foot ulcer: Postop day #2 status post 1. Right foot amputation, great toe. 2. Amputation of first metatarsal/first ray resection. 3. Resection of second metatarsal head. 4. Irrigation and debridement of large necrotic neuropathic ulcer, first metatarsophalangeal joint (4 x 4.5 x 1.0 cm). Dressing change today with Adaptic, gauze, gauze wrap, and Aron bandage. If dressing needs to be changed, please use single layer of Adaptic or Xeroform. Nonweightbearing on the right lower extremity. DVT prophylaxisaspirin 81 mg daily. Discharge planninguncertain at this time. Possible return to [facility]. Will require insurance authorization prior to any prison facility transfer. Hemoglobin--8.2. (2) Peripheral vascular disease in diabetes mellitus: Admission and Anticipated Discharge Date Admission Date: July 19, 2020 Subjective Patient was alert this morning. No complaints of the right foot. She is pleasant and eating breakfast in her bed. No other history today secondary to dementia. Review of Systems Review of Systems: All systems reviewed & are unremarkable except as noted in HPI & below Constitutional: as per Subjective / HPI Physical Exam Constitutional: + altered mental status; no acute distress Vitals are stable Musculoskeletal: Right foot: Well approximated great toe, first metatarsal, second metatarsal amputation site. No erythema. No drainage. Mild blanching at the most distal aspect of the incision/flap. No obvious tenderness noted with dressing change. Results & Data ([facility]) Vital Signs (Past 12 Hours) Vital Signs Temp Pulse Pulse Resp BP BP Pulse Ox 07/21/20 07:37 37.1 C 83 18 94 07/21/20 06:00 121/61 07/20/20 23:17 89/44 L 07/20/20 23:16 37.8 C H 81 16 84/43 L 91 07/20/20 22:21 38.1 C H 76 18 86/38 L 93 Laboratory Results Collected: 07/21/20 Received: 07/21/[address]: Yakov Mays M.D. Copy To: Garcia Ortiz D.O. Ordered: CBC Test Result Flag Reference Site WBC | 11.77 | H | 4.8-10.8 K/uL | RBC | 3.03 | L | 4.2-5.4 M/uL | Hgb | 8.2 | L | 12.0-16.0 g/dL | Hct | 25.2 | L | 37-47 % | MCV | 83.2 | | 80-100 fL | MCH | 27.1 | | 25-34 pg | MCHC | 32.5 | | 32-36 g/dL | RDW Std Dev | 48.7 | H | 36.4-46.3 fL | RDW Coeff Pamela | 16.1 | H | 11.5-14.5 % | Plt | 253 | | 130-400 K/uL | MPV | 7.9 | | 7.4-10.4 fL | (1) Diabetic foot ulcer Diabetes mellitus type: type 2 Diabetic foot ulcer location: midfoot Laterality: right Non-pressure ulcer stage: with necrosis of muscle Qualified Code(s): E11.621 - Type 2 diabetes mellitus with foot ulcer; 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
[2020-07-21] MEDS: HYDROCODONE/ACETAMOPHEN 5/325MG TAB PO PRN ×2 (09:37→17:41)
--- NOTE | 2020-07-21 18:48 | Hospitalist Progress Note ---
Date of Service July 21, 2020 Assessment & Plan (1) Amputated toe: Right great toe osteomyelitis S/p day #1 right Great Toe Amputation, First Ray Resection with amputation first metatarsal, Second Metatarsal head Resection and Irrigation and debridement large necrotic ulcer first metatarsal phalangeal joint performed by Dr. Ortiz Post op bleeding Hgb dropped to 7.9 Received 1 unit PRBC Repeat hgb 9.2 Continue monitor CBC Continue IV Zosyn Pain control as per ortho Hypotension Received 1 unit PRBC and IVF Continue to hold Lisinopril BP improved Continue monitor BP Acute blood loss anemia Due to the postop S/p 1 unit PRBC during hospital course Hgb 8.2 todday Continue monitor h/h Dementia Continue Olanzapine prn DVT px on SCD CODE Status DNR Admission and Anticipated Discharge Date Admission Date: July 19, 2020 Subjective Pt was seen and examined Lying in bed with no distress pain control Denies any chest pain, palpitation, dizziness and SOB Physical Exam Physical Exam: General- confused Head- atraumatic Eyes- PERRL, EOMI, ENT- oropharynx clear Neck- supple, no JVD Lungs- clear to auscultation Heart- regular rhythm; no murmur Abdomen- normal bowel sounds, soft, nontender Extremities- no calf tenderness Neuro- alert, oriented Skin- warm & dry Results & Data Results & Data ([facility]) Vital Signs (Past 12 Hours) Vital Signs Temp Pulse Resp Pulse Ox 07/21/20 07:37 37.1 C 83 18 94
[2020-07-22] MEDS: HYDROCODONE/ACETAMOPHEN 5/325MG TAB PO PRN ×2 (03:55→19:01)
[2020-07-22] MEDS: PIPERACILLIN/TAZOBACTAM 3.375 GM in DEXTROSE 5% 100 ML IV SCH ×3 (05:21→21:32)
[2020-07-22 08:19] LABS: Hematocrit (blood only) 27.8 % (37-47); Hemoglobin 8.9 g/dL (12.0-16.0); Mean Corpuscular Hemoglobin 26.7 pg (25-34); Mean Corpuscular Volume 83.5 fL (80-100); Mean Platelet Volume 8.3 fL (7.4-10.4); Platelet Count 313 K/uL (130-400); RDW Standard Deviation 49.1 fL (36.4-46.3); Red Blood Count 3.33 M/uL (4.2-5.4); White Blood Count 10.97 K/uL (4.8-10.8)
[2020-07-22] MEDS: ASPIRIN 81 MG ECTAB PO SCH (08:40)
[2020-07-22] MEDS: METOPROLOL SUCC 25MG EXT REL TAB PO SCH (08:40)
[2020-07-22] MEDS: CITALOPRAM 40 MG TAB PO SCH (08:40)
[2020-07-22] MEDS: FERROUS SULFATE 325 MG TAB PO SCH ×2 (08:41→20:19)
[2020-07-22] MEDS: INSULIN ASPART 100 UNITS/ML 3 ML PEN SC SCH ×4 (08:43→21:03)
[2020-07-22 08:45] LABS: BUN Creatinine Ratio 12.5 (10-20); Calcium 8.5 mg/dl (8.5-10.1); Creatinine Clr Calc Pharmacy 59.7 ml/min; Est GFR (African American) 93.8; Est GFR (Non-African American) 80.9; Potassium 4.2 mmol/L (3.5-5.1)
[2020-07-22] MEDS: INSULIN GLARGINE SOLOSTAR 100 UNITS/ML 3 ML PEN SC SCH ×2 (08:45→21:58)
--- NOTE | 2020-07-22 10:08 | Pharmacy Report ---
Pharmacy Glycemic Short Note 2 - Date of Service July 22, 2020 - Glycemic Short BSG Results (Last 24 hours): 07/21/20 07/21/20 07/21/20 12:19 17:11 20:39 Glucose POC Glucose 209 H 116 H 134 H 07/22/20 07/22/20 08:04 08:12 Glucose 90 POC Glucose 94 OUTPATIENT ANTIDIABETIC REGIMEN: * Lantus 12 units AMHS, novolog SSI ASSESSMENT: 07/22 * Patient received total of 24 units of insulin yesterday, of which 20 were basal, PO intake poor * Fasting BSG 94 mg/dL - plan to decrease basal at HS * Continue same CF/CR for now PLAN FOR INPATIENT GLYCEMIC CONTROL: * Hold outpatient oral diabetes medications * Basal insulin * Decrease to Lantus 4-6 units SQ BID based upon BSG value * Bolus insulin * NovoLog per scale ACHS or Q6hrs while NPO * Goal Range: Low 120 mg/dL - High 160 mg/dL * Correction Factor: 30 mg/dL/unit * Nutritional / Prandial insulin per carb ratio of 1 unit per 9 grams CHO consumed
--- NOTE | 2020-07-22 11:11 | Orthopedic Progress Note ---
Date of Service July 22, 2020 Assessment & Plan (1) Diabetic foot ulcer: Postop day #3 status post 1. Right foot amputation, great toe. 2. Amputation of first metatarsal/first ray resection. 3. Resection of second metatarsal head. 4. Irrigation and debridement of large necrotic neuropathic ulcer, first metatarsophalangeal joint (4 x 4.5 x 1.0 cm). If dressing needs to be changed, please use single layer of Adaptic or Xeroform. Nonweightbearing on the right lower extremity. DVT prophylaxisaspirin 81 mg daily. Discharge planninguncertain at this time. Possible return to [facility]. Will require insurance authorization prior to any intermediate facility transfer. Hemoglobin--8.9. (2) Peripheral vascular disease in diabetes mellitus: Admission and Anticipated Discharge Date Admission Date: July 19, 2020 Subjective Post Operative Progress Note Patient seen sitting up in bed, comfortable, denies complaints, pain well controlled, no acute issues. Denies F/C/N/V/SOB/CP. Review of Systems Review of Systems: All systems reviewed & are unremarkable except as noted in HPI & below Physical Exam Physical Exam: RLE NVSI grossly, +2 DP pulse, compartments soft NT, dressing cdi. Constitutional: WD/WN, vitals as above Results & Data ([facility]) Vital Signs (Past 12 Hours) Vital Signs Temp Pulse Resp BP Pulse Ox 07/22/20 06:45 36.8 C 73 16 106/56 L 94 07/21/20 23:40 37.5 C 77 18 106/56 L 93 Laboratory Results 07/22/20 07/22/20 07/22/20 Range/Units 08:12 08:04 08:04 WBC 10.97 H (4.8-10.8) K/uL RBC 3.33 L (4.2-5.4) M/uL Hgb 8.9 L (12.0-16.0) g/dL Hct 27.8 L (37-47) % MCV 83.5 (80-100) fL MCH 26.7 (25-34) pg MCHC 32.0 (32-36) g/dL RDW Std Deviation 49.1 H (36.4-46.3) fL RDW Coeff of Paemla 16.0 H (11.5-14.5) % Plt Count 313 (130-400) K/uL MPV 8.3 (7.4-10.4) fL Sodium 138 (136-145) mmol/L Potassium 4.2 (3.5-5.1) mmol/L Chloride 107 (98-107) mmol/L Carbon Dioxide 26 (21-32) mmol/L Anion Gap 5.0 (3-11) BUN 8 (7-18) mg/dl Creatinine 0.61 (0.6-1.2) mg/dl Est Cr Clr Drug Dosing 59.7 ml/min Est GFR ( Amer) 93.8 Est GFR (Non-Af Amer) 80.9 BUN/Creatinine Ratio 12.5 (10-20) Glucose 90 (70-99) mg/dl POC Glucose 94 (70-99) mg/dl Calcium 8.5 (8.5-10.1) mg/dl 07/21/20 07/21/20 07/21/20 Range/Units 20:39 17:11 12:19 WBC (4.8-10.8) K/uL RBC (4.2-5.4) M/uL Hgb (12.0-16.0) g/dL Hct (37-47) % MCV (80-100) fL MCH (25-34) pg MCHC (32-36) g/dL RDW Std Deviation (36.4-46.3) fL RDW Coeff of Pamela (11.5-14.5) % Plt Count (130-400) K/uL MPV (7.4-10.4) fL Sodium (136-145) mmol/L Potassium (3.5-5.1) mmol/L Chloride (98-107) mmol/L Carbon Dioxide (21-32) mmol/L Anion Gap (3-11) BUN (7-18) mg/dl Creatinine (0.6-1.2) mg/dl Est Cr Clr Drug Dosing ml/min Est GFR ( Amer) Est GFR (Non-Af Amer) BUN/Creatinine Ratio (10-20) Glucose (70-99) mg/dl POC Glucose 134 H 116 H 209 H (70-99) mg/dl Calcium (8.5-10.1) mg/dl (1) Diabetic foot ulcer Diabetes mellitus type: type 2 Diabetic foot ulcer location: midfoot Laterality: right Non-pressure ulcer stage: with necrosis of muscle Qualified Code(s): E11.621 - Type 2 diabetes mellitus with foot ulcer; 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
--- NOTE | 2020-07-22 15:59 | Hospitalist Progress Note ---
Date of Service July 22, 2020 Assessment & Plan (1) Amputated toe: Right great toe osteomyelitis S/p day #1 right Great Toe Amputation, First Ray Resection with amputation first metatarsal, Second Metatarsal head Resection and Irrigation and debridement large necrotic ulcer first metatarsal phalangeal joint performed by Dr. Ortiz Post op bleeding Hgb dropped to 7.9 Received 1 unit PRBC Repeat hgb 9.2 Continue monitor CBC Continue IV Zosyn Pain control as per ortho Hypotension Received 1 unit PRBC and IVF Continue to hold Lisinopril BP stable Continue monitor BP Acute blood loss anemia Due to the postop S/p 1 unit PRBC during hospital course Hgb 8.9 today Continue monitor h/h Dementia Continue Olanzapine prn DVT px on SCD CODE Status DNR Admission and Anticipated Discharge Date Admission Date: July 19, 2020 Subjective Pt was seen and examined Lying in bed with no distress Pain controlled Denies any new complaint Physical Exam Physical Exam: General- confused Head- atraumatic Eyes- PERRL, EOMI, ENT- oropharynx clear Neck- supple, no JVD Lungs- clear to auscultation Heart- regular rhythm; no murmur Abdomen- normal bowel sounds, soft, nontender Extremities- no calf tenderness Neuro- alert, oriented Skin- warm & dry Results & Data Results & Data ([facility]) Vital Signs (Past 12 Hours) Vital Signs Temp Pulse Resp BP Pulse Ox 07/22/20 06:45 36.8 C 73 16 106/56 L 94
[2020-07-23] MEDS: HYDROCODONE/ACETAMOPHEN 5/325MG TAB PO PRN ×2 (02:49→18:26)
[2020-07-23] MEDS: PIPERACILLIN/TAZOBACTAM 3.375 GM in DEXTROSE 5% 100 ML IV SCH ×2 (05:42→18:00)
[2020-07-23] MEDS: FERROUS SULFATE 325 MG TAB PO SCH ×2 (09:37→21:14)
--- NOTE | 2020-07-23 09:37 | Pharmacy Report ---
Pharmacy Glycemic Short Note 2 - Date of Service July 23, 2020 - Glycemic Short BSG Results (Last 24 hours): 07/22/20 07/22/20 07/22/20 12:33 17:28 20:58 POC Glucose 117 H 115 H 117 H 07/23/20 08:04 POC Glucose 99 OUTPATIENT ANTIDIABETIC REGIMEN: * Lantus 12 units AMHS, novolog SSI ASSESSMENT: 07/23 * Patient received a total of 12 units of insulin yesterday, 8 of which were basal * BSGs 94-117 mg/dL yesterday * Basal was held last PM per scale, fasting this AM 99 mg/dL will continue with 8 units of lantus this AM * Continue same CF/CR 07/22 * Patient received total of 24 units of insulin yesterday, of which 20 were basal, PO intake poor * Fasting BSG 94 mg/dL - plan to decrease basal at HS * Continue same CF/CR for now PLAN FOR INPATIENT GLYCEMIC CONTROL: * Hold outpatient oral diabetes medications * Basal insulin * Change to 8-12 units QAM; will hold evening dose of lantus * Bolus insulin * NovoLog per scale ACHS or Q6hrs while NPO * Goal Range: Low 120 mg/dL - High 160 mg/dL * Correction Factor: 30 mg/dL/unit * Nutritional / Prandial insulin per carb ratio of 1 unit per 9 grams CHO consumed
[2020-07-23] MEDS: CITALOPRAM 40 MG TAB PO SCH (09:38)
[2020-07-23] MEDS: METOPROLOL SUCC 25MG EXT REL TAB PO SCH (09:38)
[2020-07-23] MEDS: INSULIN GLARGINE SOLOSTAR 100 UNITS/ML 3 ML PEN SC SCH ×2 (09:39→21:49)
[2020-07-23] MEDS: ASPIRIN 81 MG ECTAB PO SCH (09:39)
--- NOTE | 2020-07-23 09:42 | Orthopedic Progress Note ---
Date of Service July 23, 2020 Assessment & Plan (1) Diabetic foot ulcer: Postop day #4 status post 1. Right foot amputation, great toe. 2. Amputation of first metatarsal/first ray resection. 3. Resection of second metatarsal head. 4. Irrigation and debridement of large necrotic neuropathic ulcer, first metatarsophalangeal joint (4 x 4.5 x 1.0 cm). If dressing needs to be changed, please use single layer of Adaptic or Xeroform. Nonweightbearing on the right lower extremity. DVT prophylaxisaspirin 81 mg daily. Discharge planninguncertain at this time. Possible return to [facility]. Will require insurance authorization prior to any senior care facility transfer. (2) Peripheral vascular disease in diabetes mellitus: Admission and Anticipated Discharge Date Admission Date: July 19, 2020 Subjective Post Operative Progress Note Patient seen sitting up in bed, comfortable, denies complaints, pain well controlled, no acute issues. Denies F/C/N/V/SOB/CP. Review of Systems Review of Systems: All systems reviewed & are unremarkable except as noted in HPI & below Constitutional: as per Subjective / HPI Physical Exam Physical Exam: Right lower extremity is neurovascular and sensory intact grossly, dressings are clean dry and intact, compartment soft nontender. Constitutional: WD/WN, vitals as above Results & Data ([facility]) Vital Signs (Past 12 Hours) Vital Signs Temp Pulse Resp BP Pulse Ox 07/23/20 07:09 36.6 C 71 16 121/64 96 07/22/20 23:20 36.5 C 84 15 133/60 93 Laboratory Results 07/23/20 07/22/20 07/22/20 Range/Units 08:04 20:58 17:28 POC Glucose 99 117 H 115 H (70-99) mg/dl 07/22/20 Range/Units 12:33 POC Glucose 117 H (70-99) mg/dl (1) Diabetic foot ulcer Diabetes mellitus type: type 2 Diabetic foot ulcer location: midfoot Laterality: right Non-pressure ulcer stage: with necrosis of muscle Qualified Code(s): E11.621 - Type 2 diabetes mellitus with foot ulcer; 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
[2020-07-23] MEDS: INSULIN ASPART 100 UNITS/ML 3 ML PEN SC SCH ×4 (09:44→21:50)
--- NOTE | 2020-07-23 10:03 | Communication Note ---
Date of Service: July 23, 2020 Dressing changed. Small amount of bloody drainage noted on rick wrap. Dressing removed. Mild odor. No purulent drainage. Blackened eshcar over the majority of the wound flap. Wound edges well approximated. Mild erythema noted around the wound. Redressed.
--- NOTE | 2020-07-23 18:42 | Hospitalist Progress Note ---
Date of Service July 23, 2020 Assessment & Plan (1) Amputated toe: Right great toe osteomyelitis S/p day #1 right Great Toe Amputation, First Ray Resection with amputation first metatarsal, Second Metatarsal head Resection and Irrigation and debridement large necrotic ulcer first metatarsal phalangeal joint performed by Dr. Ortiz Post op bleeding Hgb dropped to 7.9 Received 1 unit PRBC Hgb 8.9 Continue monitor CBC Continue IV Zosyn Pain control as per ortho Hypotension Received 1 unit PRBC and IVF Continue to hold Lisinopril BP stable Continue monitor BP Acute blood loss anemia Due to the postop S/p 1 unit PRBC during hospital course Hgb 8.9 today Continue monitor h/h Dementia Continue Olanzapine prn DVT px on SCD CODE Status DNR Admission and Anticipated Discharge Date Admission Date: July 19, 2020 Subjective Pt was seen and examined Lying in bed with no distress Denies any complaint Physical Exam Physical Exam: General- confused Head- atraumatic Eyes- PERRL, EOMI, ENT- oropharynx clear Neck- supple, no JVD Lungs- clear to auscultation Heart- regular rhythm; no murmur Abdomen- normal bowel sounds, soft, nontender Extremities- no calf tenderness, +dressing in right foot Neuro- alert, oriented Skin- warm & dry Results & Data Results & Data ([facility]) Vital Signs (Past 12 Hours) Vital Signs Temp Pulse Resp BP BP Pulse Ox 07/23/20 15:56 37 C 96 H 18 136/71 98 07/23/20 07:09 36.6 C 71 16 121/64 96
[2020-07-23] MEDS: CEFDINIR 300 MG CAP PO SCH (23:35)
[2020-07-24] MEDS ORDERED: bisacodyL 5 MG TABEC PO ONE (08:01)
[2020-07-24] MEDS: INSULIN ASPART 100 UNITS/ML 3 ML PEN SC SCH ×4 (10:21→21:07)
[2020-07-24] MEDS: ASPIRIN 81 MG ECTAB PO SCH (10:22)
[2020-07-24] MEDS: METOPROLOL SUCC 25MG EXT REL TAB PO SCH (10:22)
[2020-07-24] MEDS: CITALOPRAM 40 MG TAB PO SCH (10:22)
[2020-07-24] MEDS: FERROUS SULFATE 325 MG TAB PO SCH ×2 (10:23→21:08)
[2020-07-24] MEDS: CEFDINIR 300 MG CAP PO SCH ×2 (10:24→21:08)
[2020-07-24] MEDS: INSULIN GLARGINE SOLOSTAR 100 UNITS/ML 3 ML PEN SC SCH ×2 (10:24→21:07)
[2020-07-24] MEDS: ACETAMINOPHEN 325 MG TAB PO PRN (11:34)
--- NOTE | 2020-07-24 11:49 | Orthopedic Progress Note ---
Date of Service July 24, 2020 Assessment & Plan (1) Diabetic foot ulcer: Postop day #5 status post 1. Right foot amputation, great toe. 2. Amputation of first metatarsal/first ray resection. 3. Resection of second metatarsal head. 4. Irrigation and debridement of large necrotic neuropathic ulcer, first metatarsophalangeal joint (4 x 4.5 x 1.0 cm). I will discuss wound with Dr. Ortiz Nonweightbearing on the right lower extremity. Pt not understanding WB status. DVT prophylaxisaspirin 81 mg daily. Discharge planninguncertain at this time. Continue auth for SNF (2) Peripheral vascular disease in diabetes mellitus: Admission and Anticipated Discharge Date Admission Date: July 19, 2020 Subjective POD 5 Pt working with PT/OT. Having difficulty understanding WB status per PT team. More talkative today. Answers some questions appropriately. States the area above her ankle is uncomfortable due to the dressing being too tight? No other complaints. Physical Exam Physical Exam: Dressing removed. Seems to have a little bit more drainage on the rick wrap today. Less odor today. When removing the 4x4's, the proximal suture line seems to be slightly mobile with yellow to grayish tissue surrounding the sutures. Darkened eschar noted over the majority of the flap. Mild erythema noted dorsally. No purulent drainage. Wound redressed. 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
--- NOTE | 2020-07-24 21:24 | Hospitalist Progress Note ---
Date of Service July 24, 2020 Assessment & Plan (1) Amputated toe: Right great toe osteomyelitis S/p day #1 right Great Toe Amputation, First Ray Resection with amputation first metatarsal, Second Metatarsal head Resection and Irrigation and debridement large necrotic ulcer first metatarsal phalangeal joint performed by Dr. Ortiz Case discussed ortho, pt might need another 24hr washout Post op bleeding Hgb dropped to 7.9 Received 1 unit PRBC Hgb 8.9 Continue monitor CBC Continue IV Zosyn Pain control as per ortho Hypotension Received 1 unit PRBC and IVF Continue to hold Lisinopril Continue monitor BP Resolved Acute blood loss anemia Due to the postop S/p 1 unit PRBC during hospital course Hgb 8.9 today Continue monitor h/h Dementia Continue Olanzapine prn DVT px on SCD CODE Status DNR Admission and Anticipated Discharge Date Admission Date: July 19, 2020 Subjective Pt was seen and examined Lying in bed with no distress Pt said that she feels ok She denies any new complaint Physical Exam Physical Exam: General- confused Head- atraumatic Eyes- PERRL, EOMI, ENT- oropharynx clear Neck- supple, no JVD Lungs- clear to auscultation Heart- regular rhythm; no murmur Abdomen- normal bowel sounds, soft, nontender Extremities- no calf tenderness, +dressing in right foot Neuro- alert, oriented Skin- warm & dry Results & Data Results & Data ([facility]) Vital Signs (Past 12 Hours) Vital Signs Temp Pulse Resp BP Pulse Ox 07/24/20 15:38 36.8 C 70 16 104/58 L 96
[2020-07-25] MEDS: FERROUS SULFATE 325 MG TAB PO SCH ×2 (08:56→21:12)
[2020-07-25] MEDS: CITALOPRAM 40 MG TAB PO SCH (08:56)
[2020-07-25] MEDS: METOPROLOL SUCC 25MG EXT REL TAB PO SCH (08:56)
[2020-07-25] MEDS: ASPIRIN 81 MG ECTAB PO SCH (08:56)
[2020-07-25] MEDS: CEFDINIR 300 MG CAP PO SCH (08:56)
[2020-07-25] MEDS: INSULIN ASPART 100 UNITS/ML 3 ML PEN SC SCH ×4 (09:31→21:20)
[2020-07-25] MEDS: INSULIN GLARGINE SOLOSTAR 100 UNITS/ML 3 ML PEN SC SCH ×2 (09:34→21:20)
--- NOTE | 2020-07-25 12:00 | Orthopedic Progress Note ---
Date of Service July 25, 2020 Assessment & Plan (1) Diabetic foot ulcer: Postop day #6 status post 1. Right foot amputation, great toe. 2. Amputation of first metatarsal/first ray resection. 3. Resection of second metatarsal head. 4. Irrigation and debridement of large necrotic neuropathic ulcer, first metatarsophalangeal joint (4 x 4.5 x 1.0 cm). Possible second washout needed. Waiting on Dr. Ortiz's input. NPO for now. Nonweightbearing on the right lower extremity. Pt not understanding WB status. DVT prophylaxisaspirin 81 mg daily. Discharge planninguncertain at this time. Continue auth for SNF (2) Peripheral vascular disease in diabetes mellitus: Admission and Anticipated Discharge Date Admission Date: July 19, 2020 Subjective POD 6 Pt sitting up in bed. Conversant. Pleasant. No complaints. Physical Exam Physical Exam: Dressing changed. The original dressing I did yesterday apparently needed changing. The eschar continues to darken further. The proximal portion of the incision has yellowish tissue that is peeling away. Suture line is somewhat mobile. Mild drainage on this lastest dressing . Minimal odor. 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
--- NOTE | 2020-07-25 13:13 | Anesthesiology Consultation ---
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 Surgery Operation Date: 07/19/20 13:30 Proposed Procedures p Right Freat Toe Amputation, First Ray Resection - Garcia Ortiz DO s Incision and Drainage - Garcia Ortiz DO Operation Date: 07/25/20 11:10 Proposed Procedures p Right Foot Repeat Incision and Drainage - Garcia Ortiz DO Height/Weight Height: 5 ft 6 in Weight: 64.4 kg Allergies Allergy/AdvReac Type Severity Reaction Status Date / Time No Known Allergies Allergy Verified 07/19/20 12:48 Medications Home Medications Medication Instructions Recorded Confirmed Last Taken Lantus Solostar U-100 Insulin 12 units SUBCUT AMHS 07/10/18 07/19/20 07/11/20 citalopram 40 mg PO DAILY 07/10/18 07/19/20 07/19/20 gemfibrozil 600 mg PO DAILY 07/10/18 07/19/20 07/12/20 lisinopril 10 mg PO DAILY 07/10/18 07/19/20 07/12/20 metoprolol succinate 25 mg PO DAILY 07/10/18 07/19/20 07/19/20 aspirin 81 mg PO DAILY 07/17/18 07/19/20 07/12/20 insulin aspart U-100 [Novolog 1 sliding scale dose SUBCUT BID 07/17/18 07/18/20 07/16/18 PenFill U-100 Insulin] Therems-M 1 tab PO DAILY 03/02/19 07/19/20 07/11/20 diclofenac sodium [Voltaren] 1 g TOPICAL QID 03/02/19 07/19/20 07/11/20 tramadol 50 mg PO DAILY PRN 03/02/19 07/19/20 07/12/20 mirtazapine 15 mg PO HS 05/23/20 07/19/20 07/11/20 trazodone 50 mg PO HS 05/23/20 07/19/20 07/12/20 acetaminophen 650 mg PO Q4H PRN 07/18/20 07/19/20 07/11/20 amoxicillin-pot clavulanate 1 tab PO BID 07/18/20 07/19/20 07/16/20 ferrous sulfate 325 mg PO BID 07/18/20 07/19/20 07/11/20 Active Medications Generic Name Dose Route Start Last Admin Trade Name Freq PRN Reason Stop Dose Admin Acetaminophen 650 mg 07/19/20 17:06 07/24/20 11:34 Acetaminophen 325 Mg Tab PO 08/18/20 17:05 650 mg Q4H PRN Administration Pain Hydrocodone Bitart/Acetaminophen 1 tab 07/19/20 19:14 07/23/20 18:26 Hydrocodone/Acetamophen 5/325mg Tab PO 08/02/20 19:13 1 tab Q6H PRN Administration Pain Aspirin 81 mg 07/20/20 09:00 07/25/20 08:56 Aspirin 81 Mg Ectab PO 08/19/20 08:59 81 mg DAILY HINA Administration Cefdinir 300 mg 07/23/20 22:35 07/25/20 08:56 Cefdinir 300 Mg Cap PO 07/30/20 22:34 300 mg Q12 HINA Administration Citalopram Hydrobromide 40 mg 07/20/20 09:00 07/25/20 08:56 Citalopram 40 Mg Tab PO 08/19/20 08:59 40 mg DAILY HINA Administration Ferrous Sulfate 325 mg 07/19/20 21:00 07/25/20 08:56 Ferrous Sulfate 325 Mg Tab PO 08/18/20 20:59 325 mg BID HINA Administration Insulin Aspart 0 units 07/19/20 21:00 07/25/20 12:40 Insulin Aspart 100 Units/Ml 3 Ml Pen SC 08/18/20 20:59 Not Given ACHS [facility] Insulin Glargine 0 units 07/24/20 09:00 07/25/20 09:34 Insulin Glargine Solostar 100 Units/Ml 3 Ml Pen SC 08/19/20 08:59 8 units QAM HINA Administration Protocol Insulin Glargine 0 units 07/23/20 21:00 07/24/20 21:07 Insulin Glargine Solostar 100 Units/Ml 3 Ml Pen SC 08/22/20 20:59 4 units HS HINA Administration Protocol Lisinopril 2.5 mg 07/20/20 09:00 07/20/20 08:04 Lisinopril 2.5 Mg Tab PO 08/19/20 08:59 2.5 mg DAILY HINA Administration Metoprolol Succinate 25 mg 07/20/20 09:00 07/25/20 08:56 Metoprolol Succ 25mg Ext Rel Tab PO 08/19/20 08:59 25 mg DAILY HINA Administration NPO Date Last Intake of Fluids: 07/18/20 Time Last Intake of Fluids: 23:00 Date Last Intake of Solids: 07/18/20 Time Last Intake of Solids: 23:00 Past Medical History Medical History Acquired claw toe of right foot Anemia Asthma Cellulitis RIGHT LOWER LIMB Dementia Daughter, Elizabeth, is POA. Patient does not sign consents. Currently residing in [facility]. Depression Diabetic polyneuropathy Diverticulitis DM type 2 (diabetes mellitus, type 2) Controlled, A1C 5.9% 05/2020. 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/15) Endometrial adenocarcinoma, FIGO grade I, status post completion of radiation therapy 2016 Endometrial cancer Environmental allergies MOLD/POLLEN/CATS/MILDEW Foot ulcer GERD (gastroesophageal reflux disease) Hearing deficit History of amputation of left great toe History of colon cancer s/p resection 2012 HTN (hypertension) Hyperlipidemia Reflux esophagitis Past Surgical History Surgical History Amputated toe RT TOE H/O colonoscopy with polypectomy History of amputation of lesser toe of left foot History of cataract surgery left Hx of tubal ligation S/P tonsillectomy and adenoidectomy Social History Smoking Status: Unknown if ever smoked Hx Alcohol Use: No (Unknown.) Hx Substance Use: No (Unknown.) Physical Exam Vital Signs Last Vital Signs Temp 97.7 F 07/25/20 07:15 Pulse 80 07/25/20 07:15 Resp 16 07/25/20 07:15 BP 129/69 07/25/20 07:15 Pulse Ox 95 07/25/20 07:15 Testing Laboratory Results 07/22/20 08:04 07/22/20 08:04 Urine Color Dark Yellow 07/20/20 23:30 Urine Appearance Clear (Clear) 07/20/20 23:30 Urine pH 5.5 (4.5-7.5) 07/20/20 23:30 Ur Specific Mcg[place] 1.020 (1.000-1.030) 07/20/20 23:30 Urine Protein Trace (Negative) H 07/20/20 23:30 Urine Glucose (UA) 1+ (Negative) H 07/20/20 23:30 Urine Ketones Negative (Negative) 07/20/20 23:30 Urine Nitrite Negative (Negative) 07/20/20 23:30 Ur Leukocyte Esterase Negative (Negative) 07/20/20 23:30 Urine WBC (Auto) 0 /hpf (0-5) 07/20/20 23:30 Urine RBC (Auto) 0-4 /hpf (0-4) 07/20/20 23:30 U Hyaline Cast (Auto) 1-5 /lpf (0-5) 07/20/20 23:30 U Epithel Cells (Auto) 5-10 /lpf (0-5) H 07/20/20 23:30 Urine Bacteria (Auto) Negative (Negative) 07/20/20 23:30 Blood Type B Negative 07/19/20 21:58 Antibody Screen NEGATIVE 07/19/20 21:58 07/20/20 23:04 Aerobic Blood Culture - Preliminary Blood No growth in Aerobic bottle after 48 hours. Anaerobic Blood Culture - Preliminary No growth in Anaerobic bottle after 48 hours. 07/20/20 22:55 Aerobic Blood Culture - Preliminary Blood No growth in Aerobic bottle after 48 hours. Anaerobic Blood Culture - Preliminary No growth in Anaerobic bottle after 48 hours. 07/25/20 07/25/20 07/25/20 12:07 08:21 08:16 POC Glucose 137 H 110 H 116 H Laboratory Tests 07/20/20 23:15 SARS-CoV-2 (PCR) NEGATIVE Electrocardiogram Date: 05/23/20 Sinus rhythm with sinus arrhythmia with 1st degree A-V block, rate 73 bpm Abnormal ECG When compared with ECG of 31-OCT-2019 22:55, No significant change was found Confirmed by Addison Shine ([id number]) on 05/24/2020 4:38:49 PM Chest X-Ray Date: 07/20/20 IMPRESSION: 1. Mild cardiomegaly with no radiographic evidence of congestive failure. 2. There are mild interstitial opacities in the right midlung. Correlate clinically for evidence of an infectious/inflammatory pneumonitis.
[2020-07-25] MEDS ORDERED: fentaNYL citrate 100 MCG/2 ML VIAL IV PRN (16:16)
[2020-07-25] MEDS ORDERED: ATROPINE SULFATE 0.1 MG/ML 10ML SYR IV PRN (16:16)
[2020-07-25] MEDS ORDERED: ONDANSETRON INJ 2 MG/ML 2 ML VIAL IV PRN (16:16)
--- NOTE | 2020-07-25 17:09 | History & Physical Bridge Note ---
Date of Service July 25, 2020 History & Physical Bridge Note I have examined the patient, reviewed the History & Physical and in the interval since the performance of the History & Physical I have noted the following changes of clinical significance: no changes noted
[2020-07-25] MEDS ORDERED: PIPERACILL/TAZOBAC CONSULT ACTIVE PRN (17:10)
[2020-07-25] MEDS ORDERED: PIPERACILLIN/TAZOBACTAM 3.375 GM in DEXTROSE 5% 100 ML IV ONE ×2 (17:30→18:15)
[2020-07-25] MEDS ORDERED: ceFAZolin 2000MG 2,000 MG/15 ML SYR IV ONE (17:41)
--- NOTE | 2020-07-25 17:42 | Hospitalist Progress Note ---
Date of Service July 25, 2020 Assessment & Plan (1) Amputated toe: Right great toe osteomyelitis S/p day #2 right Great Toe Amputation, s/p repeat wash out today Acute blood loss anemia Due to the postop S/p 1 unit PRBC during hospital course Hgb 8.9 today Continue monitor h/h Dementia Continue Olanzapine prn DVT px on SCD CODE Status DNR Admission and Anticipated Discharge Date Admission Date: July 19, 2020 Subjective s/p repeat I&D of left great toe diabetic ulcer pt is afebrile pain is well controlled Review of Systems Review of Systems: All systems reviewed & are unremarkable except as noted in HPI & below Physical Exam Constitutional: WD/WN, vitals as above Eyes: PERRL, conjunctivae normal, anicteric sclerae ENMT: external ear and nose normal, oropharynx normal Neck: trachea midline, no thyromegaly Respiratory: normal respiratory effort, lungs clear to auscultation Cardiovascular: RRR, no murmur, no edema Gastrointestinal (Abdomen): normal bowel sounds, soft, nontender, no hepatosplenomegaly Musculoskeletal: left foot in bandage Skin: no rashes, warm and dry Neurologic: PERRL, EOMI, accommodation nl, no face palsy, no dysarthria Psychiatric: A+Ox3, euthymic affect Results & Data Results & Data ([facility]) Vital Signs (Past 12 Hours) Vital Signs Temp Pulse Pulse Resp BP BP Pulse Ox 07/25/20 16:16 37.4 C 77 74 18 158/58 H 94 07/25/20 14:57 36.4 C L 76 17 123/55 L 94 07/25/20 07:15 36.5 C 80 16 129/69 95
[2020-07-25] MEDS ORDERED: BUPIVACAINE 0.5 % 5 MG/1 ML MPF 30ML VIAL ONE (18:00)
[2020-07-25] MEDS ORDERED: BACITRACIN INJ 50,000 UNIT VIAL ONE (18:01)
--- NOTE | 2020-07-25 18:41 | Post Operative Brief Note ---
Immediate Post Op Note v1 Date of Surgery July 25, 2020 Pre & Post Diagnosis Operation Date: 07/19/20 13:30 Pre-Op Diagnosis: Right Toe necrotic ulcer 6 x 4 x 2 cm; osteomyelitis first metatarsal head; osteomyelitis medial sesamoid Post-Op Diagnosis: Right Toe necrotic ulcer 6 x 4 x 2 cm; osteomyelitis first metatarsal head; osteomyelitis medial sesamoid Operation Date: 07/25/20 11:10 Pre-Op Diagnosis: Right Toe necrotic ulcer 6 x 4 x 2 cm Post-Op Diagnosis: Right Toe necrotic ulcer 6 x 4 x 2 cm I identified the patient and participated in the time-out.: Yes Procedure Operation Date: 07/19/20 13:30 Actual Procedures p Right Great Toe Amputation, First Ray Resection, Second Metatarsal Resection (Right) - Garcia Ortiz DO s Incision and Drainage(Right) - Garcia Ortiz DO Operation Date: 07/25/20 11:10 Actual Procedures p Right Foot Incision and Drainage deep abscess; irrigation and debridement necrotic ulcer 6 x 4 x 2 cm; irrigation debridement skin, subcutaneous tissue, fascia, tendon and muscle (Right) - Garcia Ortiz DO Surgeon Garcia Ortiz DO Social Services Director None Estimated Blood Loss 4 Findings Consistent with Post-Op Diagnosis Specimens Amputated right great toe, first metatarsal and second metatarsal head Second procedurenone Drains Other (Multiple 1/2 inch iodoform gauze drains) Anesthesia Type MAC Regional Complications none Disposition Accompanied Patient To Recovery: No Disposition: Recovery Room
--- NOTE | 2020-07-25 18:55 | Anesthesiology Progress Note ---
Date of Service July 25, 2020 Anesthesia Post Procedure Vital Signs Vital Signs: Temp Pulse Pulse Resp BP BP Pulse Ox 07/25/20 18:35 72 14 134/57 L 98 07/25/20 18:27 36.4 C L 63 13 108/53 L 98 07/25/20 16:16 37.4 C 77 74 18 158/58 H 94 07/25/20 14:57 36.4 C L 76 17 123/55 L 94 07/25/20 07:15 36.5 C 80 16 129/69 95 07/24/20 23:43 37.2 C 83 14 142/56 H 96 Pain Intensity Right Foot: Pain Intensity: 0 Right Ankle: Pain Intensity: 6 Transfer of Care Handoff Completed per policy Notes Mental Status: alert / awake / arousable Patient Amnestic to Procedure: Yes Nausea / Vomiting: adequately controlled Pain: adequately controlled Airway Patency, RR, SpO2: stable & adequate BP & HR: stable & adequate Hydration State: stable & adequate Anesthetic Complications: no major complications apparent
--- NOTE | 2020-07-25 21:24 | Operative Report (OR) ---
DATE OF OPERATION: 07/25/2020 PREOPERATIVE DIAGNOSES: 1. Right foot necrotic ulceration 6 x 4 x 2 cm. 2. Deep abscess, right foot. POSTOPERATIVE DIAGNOSES: 1. Right foot necrotic ulceration 6 x 4 x 2 cm. 2. Deep abscess, right foot. PROCEDURES: 1. Right foot irrigation and debridement of necrotic ulcer 6 x 4 x 2 cm. 2. Irrigation and debridement of skin, subcutaneous tissue, fascia, tendon and muscle. 3. Incision and drainage deep abscess, right foot. SURGEON: Garcia Ortiz DO. DRILLING ENGINEER: None. ANESTHESIA: MAC regional. SPECIMENS: None, previously collected on last debridement. DRAINS: Multiple 1/2 inch iodoform gauze drains. COMPLICATIONS: None. BLOOD LOSS: 4 mL. PERTINENT HISTORY: This is an 89-year-old female who had previous first ray resection with amputation of the great toe and resection of sesamoids. She had a rotational flap performed and unfortunately the patient's dementia precluded her from adhering to the nonweightbearing recommendations. The patient had been routinely walking and transferring with full weight on the foot and began to breakdown the flap. Next, during dressing changes noted to have some purulence indicating deep abscess and then further necrosis of the flap. The patient is scheduled for surgery as indicated. All potential risks, benefits, complications, alternatives, rehab potential for incomplete relief of symptoms, need for further surgery, DVT, PE, , persistent pain, swelling, scarring, weakness, neurovascular injury, need for further amputation and debridement were discussed with the patient's power of call person, which is her daughter. She decided to proceed with the procedure as indicated. DESCRIPTION OF PROCEDURE: The patient was taken to the operative suite, placed supine on the operating table. After review of consent and identification of proper operative site, the patient was sedated and the right lower extremity was then sterilely prepped and draped in usual fashion. After surgical timeout was performed, the Esmarch tourniquet was applied to the ankle over sterile surgical towel. No exsanguination was performed due to the wound necrosis distally. The 15 blade scalpel was then used to remove any sutures left from previous procedure and the superficial eschar overlying the flap was then sharply excised. There was noted to be a large void medially. Necrotic tissue was noted. This included skin, subcutaneous tissue and fascia, which were sharply debrided with a 15 blade scalpel. The extensor tendon and flexor tendon were visualized and noted to be in poor condition with local necrosis. There was also noted to be a deep abscess adjacent to it, which was then evacuated with a curette and a rongeur. Next noted to be a necrotic muscular tissue, specifically of the abductor hallucis, which remained as a flap. This was sharply debrided with a 15 blade scalpel and after the flap was debrided, noted to be still a significant ulcer measuring 6 x 4 x 2 cm. Next, after the grossly necrotic tissue was sharply excised and then pulsatile lavage with 3 liters of saline with bacitracin was then used to cleanse the foot. The flap had some viability to it and therefore, this was preserved as best as possible. Next, a new top sheet and top gloves were applied. New instruments were utilized and then the deep space was then closed with gentle light traction sutures of 3-0 nylon followed by packing with one-half inch iodoform gauze to promote egress of any necrotic fluid or tissue, which was not visualized. Next, a moist sterile saline 4 x 4 was then packed over the soft tissue to promote wet to dry debridement and then a Xeroform gauze dressing was applied overwrapped with 4 x 4s, ABD pads x2, cast padding and a 4-inch Aron wrap. This was after local anesthetic was injected in and around the surgical site one-half with 0.5% Marcaine, approximately 20 mL. This was then overwrapped with a 4-inch Aron wrap and then the tourniquet was released. Normal hyperemic response returned to the toes. The patient was awakened and then taken to recovery in stable condition. I attest to the content of the Intraoperative Record and any orders documented therein. Any exception s are noted below.
[2020-07-25] MEDS: HYDROCODONE/ACETAMOPHEN 5/325MG TAB PO PRN (22:44)
[2020-07-26] MEDS: PIPERACILLIN/TAZOBACTAM 3.375 GM in DEXTROSE 5% 100 ML IV SCH ×4 (00:03→23:56)
[2020-07-26 06:56] LABS: Creatinine Clr Calc Pharmacy 61.7 ml/min; Est GFR (African American) 94.8; Est GFR (Non-African American) 81.8
[2020-07-26] MEDS: FERROUS SULFATE 325 MG TAB PO SCH ×2 (08:41→20:25)
[2020-07-26] MEDS: METOPROLOL SUCC 25MG EXT REL TAB PO SCH (08:41)
[2020-07-26] MEDS: CITALOPRAM 40 MG TAB PO SCH (08:41)
[2020-07-26] MEDS: ASPIRIN 81 MG ECTAB PO SCH (08:42)
[2020-07-26] MEDS: lisinopril 2.5 MG TAB PO SCH (09:11)
[2020-07-26] MEDS: INSULIN ASPART 100 UNITS/ML 3 ML PEN SC SCH ×4 (09:38→20:55)
[2020-07-26] MEDS: INSULIN GLARGINE SOLOSTAR 100 UNITS/ML 3 ML PEN SC SCH (09:40)
--- NOTE | 2020-07-26 11:24 | Pharmacy Report ---
Pharmacy Glycemic Short Note 2 - Date of Service July 26, 2020 - Glycemic Short BSG Results (Last 24 hours): 07/25/20 07/25/20 12:07 20:34 POC Glucose 137 H 153 H OUTPATIENT ANTIDIABETIC REGIMEN: * Lantus 12 units AMHS, novolog SSI ASSESSMENT: 07/26 * Patient received total of 12 units of insulin yesterday, of which 8 were basal * Had been changed to NPO yesterday evening and went for 2nd washout of foot, continue with Lantus BID scale per BSG PLAN FOR INPATIENT GLYCEMIC CONTROL: * Hold outpatient oral diabetes medications * Basal insulin * Lantus 0-8 units bid based upon BSG value * Bolus insulin * NovoLog per scale ACHS or Q6hrs while NPO * Goal Range: Low 120 mg/dL - High 160 mg/dL * Correction Factor: 30 mg/dL/unit * Nutritional / Prandial insulin per carb ratio of 1 unit per 9 grams CHO consumed PLAN FOR DISCHARGE: * A1c of 5.9% 05/2020 * Less stringent goal of <8% is reasonable for this patient. A1c indicative of tight control. Not clear if patient experiencing low BSGs outpatient * Would favor reducing home insulin regimen on discharge as insulin needs during hospital stay minimal. Could consider Lantus 8 units daily (~30% reduction) plus continuation of home SSI * Would encourage routine self monitoring of BSGs 3x per day to ensure BSGs stable
[2020-07-26] MEDS ORDERED: INSULIN GLARGINE SOLOSTAR 100 UNITS/ML 3 ML PEN SC ONE (12:15)
--- NOTE | 2020-07-26 15:22 | Orthopedic Progress Note ---
Date of Service July 26, 2020 Assessment & Plan (1) Abscess of left foot: Admission and Anticipated Discharge Date Admission Date: 89 yo female POD #1 s/p right foot I&D, POD 1 week s/p right 1st ray resection, I&D, stable 1. Med management- cont IV Zosyn 2. DVT prophylaxis- ASA, SCDs 3. PT/OT 4. D/C planning- Subjective Pt resting in bed, pain controlled, denies complaints Physical Exam Physical Exam: Right foot dressing C/D/I Results & Data ([facility]) Vital Signs (Past 12 Hours) Vital Signs Temp Pulse Resp BP Pulse Ox 07/26/20 15:08 36.9 C 82 18 112/52 L 95 07/26/20 12:30 36.4 C L 75 18 122/59 L 95 07/26/20 08:03 36.7 C 70 18 113/47 L 95 07/26/20 03:44 36.7 C 74 16 145/68 H 91 Laboratory Results 07/26/20 07/26/20 07/25/20 Range/Units 11:56 05:33 20:34 Creatinine 0.59 L (0.6-1.2) mg/dl Est Cr Clr Drug Dosing 61.7 ml/min Est GFR ( Amer) 94.8 Est GFR (Non-Af Amer) 81.8 POC Glucose 195 H 153 H (70-99) mg/dl
--- NOTE | 2020-07-26 20:33 | Hospitalist Progress Note ---
Date of Service July 26, 2020 Assessment & Plan (1) Amputated toe: Right great toe osteomyelitis S/p day #3 right Great Toe Amputation, s/p repeat wash out Continue on Zosyn Acute blood loss anemia Due to the postop S/p 1 unit PRBC during hospital course Remained stable postop Dementia Continue Olanzapine prn DVT px on SCD CODE Status DNR Disposition: As per orthopedics team Admission and Anticipated Discharge Date Admission Date: July 19, 2020 Subjective Up visit for right great toe osteomyelitis status post amputation. Offers no new complaint, pain at surgical site well controlled, no fever or chills, Chest pain or shortness of breath Vitals stable Review of Systems Review of Systems: All systems reviewed & are unremarkable except as noted in HPI & below Physical Exam Constitutional: WD/WN, vitals as above Eyes: PERRL, conjunctivae normal, anicteric sclerae ENMT: external ear and nose normal, oropharynx normal Neck: trachea midline, no thyromegaly Respiratory: normal respiratory effort, lungs clear to auscultation Cardiovascular: RRR, no murmur, no edema Gastrointestinal (Abdomen): normal bowel sounds, soft, nontender, no hepatosplenomegaly Skin: no rashes, warm and dry Neurologic: PERRL, EOMI, accommodation nl, no face palsy, no dysarthria Psychiatric: A+Ox3, euthymic affect Results & Data Results & Data ([facility]) Vital Signs (Past 12 Hours) Vital Signs Temp Pulse Resp BP Pulse Ox 07/26/20 15:08 36.9 C 82 18 112/52 L 95 07/26/20 12:30 36.4 C L 75 18 122/59 L 95
[2020-07-26] MEDS ORDERED: INSULIN GLARGINE SOLOSTAR 100 UNITS/ML 3 ML PEN SC SCH (21:00)
[2020-07-27] MEDS: HYDROCODONE/ACETAMOPHEN 5/325MG TAB PO PRN ×2 (00:36→23:50)
[2020-07-27] MEDS ORDERED: POLYETHYLENE (MIRALAX) 17 GM PACK PO PRN (06:37)
[2020-07-27 07:36] LABS: Creatinine Clr Calc Pharmacy 56.9 ml/min; Est GFR (African American) 92.3; Est GFR (Non-African American) 79.7
[2020-07-27] MEDS: CITALOPRAM 40 MG TAB PO SCH (08:50)
[2020-07-27] MEDS: lisinopril 2.5 MG TAB PO SCH (08:51)
[2020-07-27] MEDS: ASPIRIN 81 MG ECTAB PO SCH (08:51)
[2020-07-27] MEDS: FERROUS SULFATE 325 MG TAB PO SCH ×2 (08:51→20:49)
[2020-07-27] MEDS: METOPROLOL SUCC 25MG EXT REL TAB PO SCH (08:51)
[2020-07-27] MEDS: INSULIN ASPART 100 UNITS/ML 3 ML PEN SC SCH ×4 (08:52→20:45)
[2020-07-27] MEDS: INSULIN GLARGINE SOLOSTAR 100 UNITS/ML 3 ML PEN SC SCH (08:55)
[2020-07-27] MEDS: PIPERACILLIN/TAZOBACTAM 3.375 GM in DEXTROSE 5% 100 ML IV SCH ×2 (08:57→16:05)
[2020-07-27 09:28] LABS: Hematocrit (blood only) 27.4 % (37-47); Hemoglobin 8.6 g/dL (12.0-16.0); Mean Corpuscular Hemoglobin 26.5 pg (25-34); Mean Corpuscular Hgb Conc 31.4 g/dL (32-36); Mean Corpuscular Volume 84.3 fL (80-100); Mean Platelet Volume 8.1 fL (7.4-10.4); Platelet Count 371 K/uL (130-400); RDW Standard Deviation 49.5 fL (36.4-46.3); Red Blood Count 3.25 M/uL (4.2-5.4); White Blood Count 9.07 K/uL (4.8-10.8)
[2020-07-27 09:39] LABS: BUN Creatinine Ratio 14.1 (10-20); Calcium 8.3 mg/dl (8.5-10.1); Creatinine Clr Calc Pharmacy 68.7 ml/min; Est GFR (African American) 98.3; Est GFR (Non-African American) 84.8
--- NOTE | 2020-07-27 10:24 | Orthopedic Progress Note ---
Date of Service July 27, 2020 Assessment & Plan (1) Abscess of right foot: Postop day 2 status post I&D of 1: Right foot irrigation and debridement of necrotic ulcer 6 x 4 x 2 cm. 2. Irrigation and debridement of skin, subcutaneous tissue, fascia, tendon and muscle.3. Incision and drainage deep abscess, right foot. Currently on Zosyn. No cultures taken from the second I&D. Will discuss use of wound VAC with wound care team. Consider cx of wound at bedside during Wound Care team mamta. Discussed case with Janine HCENG. Plan for wound cx at the bedside Admission and Anticipated Discharge Date Admission Date: July 19, 2020 Subjective Postop day 2 Patient currently sleeping while sitting up in bed. Easily awoken. Conversant and pleasant. No complaints at this time. Physical Exam Physical Exam: Dressing removed. Moderate drainage noted on the dressing. Multiple strands of iodoform packing that was placed superficially are removed. Moistened 4 x 4 noted, packed into the wound, removed. Scant purulence noted on a pink bed of tissue. Moderate tissue loss noted compared to previous I&D. Redressed with Adaptic, 4 x 4's, Kerlix, Aron wrap. Results & Data ([facility]) Vital Signs (Past 12 Hours) Vital Signs Temp Pulse Resp BP Pulse Ox 07/27/20 07:38 36.5 C 68 14 104/59 L 94 07/26/20 23:00 37.2 C 68 16 115/53 L 95
--- NOTE | 2020-07-27 10:48 | Hospitalist Progress Note ---
Date of Service July 27, 2020 Assessment & Plan (1) Amputated toe: RIGHT GREAT TOE OSTEOMYELITIS -07/19/2020: S/p right great toe amputation -07/25/2020: S/p I&D and washout of right great toe amputation site -On Zosyn (day 8) -Blood cultures negative -Wound culture from 05/2020 grew MSSA -No wound cultures available for this visit -discussed with Mathew Hannon PA-C -plan for bedside culture today, wound care evaluation, possible wound VAC ANEMIA -History of chronic iron deficiency anemia -Hgb 7.9 07/20/20 -received 1 unit PRBC -Hgb 8.6 today -Continue iron replacement HTN -Lisinopril was reduced to 2.5 mg (from 10mg) due to hypotension -Continue metoprolol -BP controlled DM TYPE II -Hgb A1c 5.9 05/2020 -Lantus and NovoLog -Glycemic pharmacy consulted DEMENTIA -Mood stable, continue citalopram -Continue Olanzapine prn DVT px on SCD CODE Status DNR Admission and Anticipated Discharge Date Admission Date: July 19, 2020 Supervising Physician Co-Signing Physician Notes ATTENDING ADDENDUM : pt seen and examined care co-ordinated with Janine CHENG advanced dementia , very pleasant offeres no complains has wound vac on right foot no fever or chills tolerating iv abx well please refer to further documentation by Janine CHENG for disussion of other chronic issues Jenny Trevizo MD Subjective Patient seen and examined. Offers no complaints. Denies chest pain and shortness of breath. No abdominal pain or nausea. Worked with PT this morning. Physical Exam Constitutional: WD/WN, vitals as above Respiratory: normal respiratory effort, lungs clear to auscultation Cardiovascular: Rate/Rhythm: regular rate and regular rhythm Extremities: no edema Gastrointestinal (Abdomen): Inspection/Auscultation: normal bowel sounds Percussion/Palpation: abdomen soft; abdomen nontender Musculoskeletal: Extremities: + amputation noted (Left transmetatarsal) Dressing in place to right foot Neurologic: No gross focal deficits Psychiatric: Orientation: alert, oriented to person and oriented to place; + not oriented to time Results & Data Results & Data ([facility]) Vital Signs (Past 12 Hours) Vital Signs Temp Pulse Resp BP Pulse Ox 07/27/20 07:38 36.5 C 68 14 104/59 L 94 07/26/20 23:00 37.2 C 68 16 115/53 L 95 Laboratory Results Short CBC 07/27/20 Range/Units 05:51 WBC 9.07 (4.8-10.8) K/uL Hgb 8.6 L (12.0-16.0) g/dL Hct 27.4 L (37-47) % Plt Count 371 (130-400) K/uL BMP 07/27/20 07/27/20 05:51 08:51 Sodium 136 Potassium 4.0 Chloride 103 Carbon Dioxide 31 BUN 7 Creatinine 0.64 0.53 L Glucose 127 H Calcium 8.3 L
--- NOTE | 2020-07-27 14:43 | Pharmacy Report ---
Pharmacy Glycemic Short Note 2 - Date of Service July 27, 2020 - Glycemic Short BSG Results (Last 24 hours): 07/26/20 07/26/20 07/27/20 16:56 20:51 08:04 Glucose POC Glucose 162 H 201 H 137 H 07/27/20 07/27/20 08:51 11:48 Glucose 127 H POC Glucose 202 H OUTPATIENT ANTIDIABETIC REGIMEN: * Lantus 12 units AMHS, novolog SSI ASSESSMENT: 07/27 * Patient received total of 21 units of insulin yesterday, of which 8 were basal * Fasting BSG w/in range 137 mg/dL - continue same * No change in CF/CR PLAN FOR INPATIENT GLYCEMIC CONTROL: * Hold outpatient oral diabetes medications * Basal insulin * Lantus 8 units daily * Bolus insulin * NovoLog per scale ACHS or Q6hrs while NPO * Goal Range: Low 120 mg/dL - High 160 mg/dL * Correction Factor: 30 mg/dL/unit * Nutritional / Prandial insulin per carb ratio of 1 unit per 9 grams CHO consumed PLAN FOR DISCHARGE: * A1c of 5.9% 05/2020 * Less stringent goal of <8% is reasonable for this patient. A1c indicative of tight control. Not clear if patient experiencing low BSGs outpatient * Would favor reducing home insulin regimen on discharge as insulin needs during hospital stay minimal. Could consider dose decrease ~30-50% on discharge (Lantus 6-8 units BID) plus SSI novolog * Would encourage routine self monitoring of BSGs 3x per day to ensure BSGs stable
[2020-07-28] MEDS: PIPERACILLIN/TAZOBACTAM 3.375 GM in DEXTROSE 5% 100 ML IV SCH ×3 (00:04→15:18)
--- NOTE | 2020-07-28 07:58 | Orthopedic Progress Note ---
Date of Service July 28, 2020 Assessment & Plan (1) Abscess of right foot: Postop day 3 status post repeat I&D of 1: Right foot irrigation and debridement of necrotic ulcer 6 x 4 x 2 cm. 2. Irrigation and debridement of skin, subcutaneous tissue, fascia, tendon and muscle.3. Incision and drainage deep abscess, right foot. POD#9 Right Great Toe Amputation, First Ray Resection, Second Metatarsal Resection, I&D Currently on Zosyn. Cultures taken at bedside yesterday are pending. Gram stain with few WBC's, no organisms Wound vac has been placed and is suctioning. NWB right lower extremity D/C planning-plan to discharge to [facility] when stable. Await cultures. As per medicine. Admission and Anticipated Discharge Date Admission Date: July 19, 2020 Subjective Patient is POD3 repeat I&D. She is asleep on arrival but is arousable. However not really answering my questions this morning. She has no complaints of pain or discomfort. Wound vac placed yesterday. Review of Systems Review of Systems: Unobtainable due to mental health condition Physical Exam Physical Exam: Patient is sleeping on arrival. She is arousable. Wound vac is in place and suctioning. Dressing is c/d/i. Distally n/v status and sensation intact. Results & Data ([facility]) Vital Signs (Past 12 Hours) Vital Signs Temp Pulse Resp BP Pulse Ox 07/27/20 23:36 36.4 C L 73 14 121/57 L 95
[2020-07-28] MEDS: FERROUS SULFATE 325 MG TAB PO SCH ×2 (08:01→20:25)
[2020-07-28] MEDS: METOPROLOL SUCC 25MG EXT REL TAB PO SCH (08:01)
[2020-07-28] MEDS: CITALOPRAM 40 MG TAB PO SCH (08:02)
[2020-07-28] MEDS: lisinopril 2.5 MG TAB PO SCH (08:02)
[2020-07-28] MEDS: ASPIRIN 81 MG ECTAB PO SCH (08:02)
[2020-07-28] MEDS: INSULIN GLARGINE SOLOSTAR 100 UNITS/ML 3 ML PEN SC SCH (08:35)
[2020-07-28] MEDS: INSULIN ASPART 100 UNITS/ML 3 ML PEN SC SCH ×4 (08:40→20:56)
[2020-07-28 09:09] LABS: Creatinine Clr Calc Pharmacy 61.7 ml/min; Est GFR (African American) 94.8; Est GFR (Non-African American) 81.8
--- NOTE | 2020-07-28 16:33 | Hospitalist Progress Note ---
Date of Service July 28, 2020 Assessment & Plan (1) Amputated toe: Right great toe osteomyelitis S/p day #4 right Great Toe Amputation, s/p repeat wash out wound culture growing -gram negative bacilli on IV Zosyn ID consulted for recommendation of antibiotic and duration of tx Acute blood loss anemia Due to the postop S/p 1 unit PRBC during hospital course Remained stable postop Dementia Continue Olanzapine prn mental status at baseline , pleasant , oriented to person only continue supportive care caution for owning avoid BDZ /sedatives which can cause reactive agitation , worsening of confsion DVT px on SCD CODE Status DNR Disposition: As per orthopedics team Admission and Anticipated Discharge Date Admission Date: July 19, 2020 Subjective FOLLOW UP VISIT FOR RT GREAT TOE OSTEOMYELITIS S/P AMPUTATION , REPEAT I&d Presently demented, offers no complaints, Appears to be comfortable No fever or chills, vitals Physical Exam Constitutional: WD/WN, vitals as above Eyes: PERRL, conjunctivae normal, anicteric sclerae ENMT: external ear and nose normal, oropharynx normal Neck: trachea midline, no thyromegaly Respiratory: normal respiratory effort, lungs clear to auscultation Cardiovascular: RRR, no murmur, no edema Gastrointestinal (Abdomen): normal bowel sounds, soft, nontender, no hepatosplenomegaly Skin: no rashes, warm and dry Neurologic: PERRL, EOMI, accommodation nl, no face palsy, no dysarthria Psychiatric: A+Ox3, euthymic affect Results & Data Results & Data ([facility]) Vital Signs (Past 12 Hours) Vital Signs Temp Pulse Resp BP Pulse Ox 07/28/20 15:55 36.9 C 69 16 129/65 95 07/28/20 08:16 36.9 C 59 L 18 129/50 L 90
[2020-07-29] MEDS: PIPERACILLIN/TAZOBACTAM 3.375 GM in DEXTROSE 5% 100 ML IV SCH ×3 (00:17→16:23)
--- NOTE | 2020-07-29 07:44 | Orthopedic Progress Note ---
Date of Service July 29, 2020 Assessment & Plan (1) Abscess of right foot: POD# 4 status post repeat I&D of 1: Right foot irrigation and debridement of necrotic ulcer 6 x 4 x 2 cm. 2. Irrigation and debridement of skin, subcutaneous tissue, fascia, tendon and muscle.3. Incision and drainage deep abscess, right foot. POD#10 s/p Right Great Toe Amputation, First Ray Resection, Second Metatarsal Resection, I&D -Currently on Zosyn. Bedside cultures growing gram negative bacilli, sens itivities pending. Gram stain with few WBC's, no organisms. ID consult is pending. -Wound vac has been placed and is suctioning. To be changed Thursday. -NWB right lower extremity -D/C planning-plan to discharge to [facility] when stable. Await cultures, ID consult pending. Admission and Anticipated Discharge Date Admission Date: July 19, 2020 Subjective POD#4 repeat I&D. Has wound vac on. Patient with dementia. Offers no complaints. Review of Systems Review of Systems: Unobtainable due to cognitive status Physical Exam Physical Exam: Wound vac is in place and suctioning. Dressing is c/d/i. Calf is soft and non tender. Results & Data ([facility]) Vital Signs (Past 12 Hours) Vital Signs Temp Pulse Resp BP Pulse Ox 07/28/20 22:55 36.9 C 68 16 124/38 L 95
[2020-07-29] MEDS: ASPIRIN 81 MG ECTAB PO SCH (09:15)
[2020-07-29] MEDS: CITALOPRAM 40 MG TAB PO SCH (09:15)
[2020-07-29] MEDS: METOPROLOL SUCC 25MG EXT REL TAB PO SCH (09:15)
[2020-07-29] MEDS: lisinopril 2.5 MG TAB PO SCH (09:15)
[2020-07-29] MEDS: FERROUS SULFATE 325 MG TAB PO SCH ×2 (09:15→19:47)
[2020-07-29] MEDS: INSULIN ASPART 100 UNITS/ML 3 ML PEN SC SCH ×4 (09:16→20:26)
[2020-07-29] MEDS: INSULIN GLARGINE SOLOSTAR 100 UNITS/ML 3 ML PEN SC SCH (09:16)
--- NOTE | 2020-07-29 14:47 | Pharmacy Report ---
Pharmacy Glycemic Short Note 2 - Date of Service July 29, 2020 - Glycemic Short BSG Results (Last 24 hours): 07/28/20 07/28/20 07/29/20 17:23 20:39 08:10 POC Glucose 205 H 96 136 H 07/29/20 12:05 POC Glucose 190 H OUTPATIENT ANTIDIABETIC REGIMEN: * Lantus 12 units AMHS, novolog SSI ASSESSMENT: 07/29: * Pt has been receiving ~25 units of insulin per day with adequate glycemic control * 8 units of basal insulin with Lantus * 17 units of bolus insulin with NovoLog * BSGs 340-000-655-96-136-190 mg/dl * AM fasting BSG is in goal range BG < 140 mg/dl. May need to increase slightly if AM fasting BSG continues to trend upwards. * Post-prandial BSGs elevated - will tighten CR. BSGs drop significantly when high dose CF+CR given therefore will loosen CF 07/27 * Patient received total of 21 units of insulin yesterday, of which 8 were basal * Fasting BSG w/in range 137 mg/dL - continue same * No change in CF/CR PLAN FOR INPATIENT GLYCEMIC CONTROL: * Hold outpatient oral diabetes medications * Basal insulin * Lantus 8 units daily * Bolus insulin * NovoLog per scale ACHS or Q6hrs while NPO * Goal Range: Low 100 mg/dL - High 160 mg/dL * Correction Factor: 40 mg/dL/unit * Nutritional / Prandial insulin per carb ratio of 1 unit per 7 grams CHO consumed PLAN FOR DISCHARGE: * A1c of 5.9% 05/2020 * Less stringent goal of <8% is reasonable for this patient. A1c indicative of tight control. Not clear if patient experiencing low BSGs outpatient * Would favor reducing home insulin regimen on discharge as insulin needs during hospital stay minimal. Could consider dose decrease ~30-50% on discharge (Lantus 6-8 units BID) plus SSI novolog * Would encourage routine self monitoring of BSGs 3x per day to ensure BSGs stable
--- NOTE | 2020-07-29 22:54 | Hospitalist Progress Note ---
Date of Service July 29, 2020 Assessment & Plan (1) Amputated toe: Right great toe osteomyelitis S/p day #5 right Great Toe Amputation, s/p repeat wash out wound culture growing -gram negative bacilli on IV Zosyn ID consulted for recommendation of antibiotic and duration of tx Acute blood loss anemia Due to the postop S/p 1 unit PRBC during hospital course Remained stable postop Dementia Continue Olanzapine prn mental status at baseline , pleasant , oriented to person only continue supportive care caution for sundowning avoid BDZ /sedatives which can cause reactive agitation , worsening of confsion DVT px on SCD CODE Status DNR Disposition: As per orthopedics team Admission and Anticipated Discharge Date Admission Date: July 19, 2020 Subjective Follow up visit for rt great toe osteomyelitis s/p amputation pt sitting up on bed pleasantly demented offers no complain wound vac present on rt foot no fever or chills Review of Systems Review of Systems: Unobtainable due to cognitive status (dementia ) Physical Exam Constitutional: WD/WN, vitals as above Eyes: PERRL, conjunctivae normal, anicteric sclerae ENMT: external ear and nose normal, oropharynx normal Neck: trachea midline, no thyromegaly Respiratory: normal respiratory effort, lungs clear to auscultation Cardiovascular: RRR, no murmur, no edema Gastrointestinal (Abdomen): normal bowel sounds, soft, nontender, no hepatosplenomegaly Skin: no rashes, warm and dry Neurologic: PERRL, EOMI, accommodation nl, no face palsy, no dysarthria Psychiatric: A+Ox3, euthymic affect Results & Data Results & Data ([facility]) Vital Signs (Past 12 Hours) Vital Signs Temp Pulse Resp BP Pulse Ox 07/29/20 15:10 36.8 C 59 L 18 107/56 L 97
[2020-07-30] MEDS: PIPERACILLIN/TAZOBACTAM 3.375 GM in DEXTROSE 5% 100 ML IV SCH ×2 (00:23→08:25)
[2020-07-30] MEDS: lisinopril 2.5 MG TAB PO SCH (08:17)
[2020-07-30] MEDS: METOPROLOL SUCC 25MG EXT REL TAB PO SCH (08:17)
[2020-07-30] MEDS: ASPIRIN 81 MG ECTAB PO SCH (08:17)
[2020-07-30] MEDS: CITALOPRAM 40 MG TAB PO SCH (08:20)
[2020-07-30] MEDS: FERROUS SULFATE 325 MG TAB PO SCH ×2 (08:21→20:54)
[2020-07-30] MEDS: INSULIN GLARGINE SOLOSTAR 100 UNITS/ML 3 ML PEN SC SCH (08:27)
[2020-07-30] MEDS: INSULIN ASPART 100 UNITS/ML 3 ML PEN SC SCH ×4 (08:32→20:53)
--- NOTE | 2020-07-30 10:43 | Orthopedic Progress Note ---
Date of Service July 30, 2020 Assessment & Plan (1) Abscess of right foot: Waiting on ID consult today. Pending antibiotic recommendation, patient may be able to go to [facility] today. [facility] will be using their own wound VAC products and will not need the current VAC on. Aquacel Ag dressing applied to the foot at this point in time. If she will need to be here a few more days, plan for continued wound VAC. Enterobacter Cloacae noted on bedside culture. Currently on Zosyn. Admission and Anticipated Discharge Date Admission Date: July 19, 2020 Subjective Postop day 5 status post repeat I&D right foot Patient sitting up in bed awake and alert. No complaints. Wound care team is present and taking off the wound VAC. Physical Exam Physical Exam: Wound VAC removed by Erica Del Toro. No gross purulence or purulent drainage in the tubing. Mild bloody drainage in the tubing. There was apparently a slight odor when the VAC was removed but I cannot appreciate one at this time. [place] wound bed with a little bit of slough noted. It appears some of the wound cavities have close down. Overall looking better. Results & Data ([facility]) Vital Signs (Past 12 Hours) Vital Signs Temp Pulse Resp BP Pulse Ox 07/30/20 08:36 36.8 C 81 16 101/62 97 07/29/20 23:31 36.8 C 58 L 18 123/83 96 Diagnostic Findings Name: CARON LUEVANO Acct: [id number] Status: AD[place] 1930 [facility] [place]: 07/19/20 Age: 89 Sex: F Dis Date: Loc: Medical/Surgical/Ortho [address] [place] [address]/Bed: N375-1 Spec: [id number] Collected: 07/27/20 Received: 07/27/[address]: Mathew Hannon PA-C Copy To: Garcia Ortiz D.O. Source: Foot,Right OV Order: Ordered: Aer/Karen Cult/Sm Comments: Comment Collected by Stephany MARSHALL Procedure Result Verified Site Gram Stain Final 07/28/2046 Gram Stain Result Few WBCs Seen No Organisms Seen Aero/Karen Cult Preliminary 07/30/20-1007 Organism 1 Enterobacter cloacae Quantity Moderate Sens Sensitivities to Follow +MixWound Plus Low Counts of Probable Skin Estella E cloacae RX M.I.C. --- --------- Amikacin S <=16 Cefepime S <=4 Cefotaxime S 8 Ceftriaxone R 8 Ciprofloxacin S <=1 Ertapenem S <=1 Gentamicin S <=4 Levofloxacin S <=2 Meropenem S <=1 Tobramycin S <=4 Trimeth/Sulfa S <=2/38 Pip/Tazo S <=16 S = SENSITIVE I = INTERMEDIATE R = RESISTANT
[2020-07-30] MEDS ORDERED: ERTAPENEM SODIUM 1,000 MG in SODIUM CHLORIDE 0.9% 50 ML IV SCH (15:00)
[2020-07-30] MEDS: ACETAMINOPHEN 325 MG TAB PO PRN (15:19)
--- NOTE | 2020-07-30 21:48 | Communication Note ---
Date of Service: July 30, 2020 Appreciate input from Yrn infectious disease consult: Right great toe amputation site, growing Enterobacter: Infectious disease specialist: Recommends discontinuing IV Zosyn, and switching to ertapenem 1 g every 24 IV. Recommends 4 weeks of IV antibiotics status post last for intervention on 07/25/2020 given a removal of right great toe osteomyelitis with additional debridement, 4 weeks antibiotic for deep infection is appropriate Check CRP and ESR today Given CMP, CBC weekly and CRP every 2 weeks for 4 weeks. Antibiotic change done accordingly Primary team orthopedics updated Patient seen at bedside, denies of any discomfort, advanced dementia Vitals as per [facility] Physical exam: General, no sign of distress, advanced dementia HEENT: Sclera nonicteric Heart, regular S1 and S2 no lower extremity edema Lungs: Clear to auscultate no wheeze or rales Extremities: Status post right great toe amputation, wound VAC placement Neuro :no focal deficit Right great toe osteomyelitis: Status post amputation, repeat I&D after procedure Wound culture, antibiotic treatment as outlined above. Jenny Trevizo MD
[2020-07-31] MEDS: FERROUS SULFATE 325 MG TAB PO SCH (08:36)
[2020-07-31] MEDS: CITALOPRAM 40 MG TAB PO SCH (08:36)
[2020-07-31] MEDS: METOPROLOL SUCC 25MG EXT REL TAB PO SCH (08:36)
[2020-07-31] MEDS: ASPIRIN 81 MG ECTAB PO SCH (08:37)
[2020-07-31] MEDS: lisinopril 2.5 MG TAB PO SCH (08:37)
[2020-07-31] MEDS: ACETAMINOPHEN 325 MG TAB PO PRN (08:41)
[2020-07-31] MEDS: INSULIN ASPART 100 UNITS/ML 3 ML PEN SC SCH ×2 (08:50→12:47)
[2020-07-31] MEDS: INSULIN GLARGINE SOLOSTAR 100 UNITS/ML 3 ML PEN SC SCH (08:50)
--- NOTE | 2020-07-31 10:55 | Orthopedic Progress Note ---
Date of Service July 31, 2020 Assessment & Plan (1) Abscess of right foot: ID recommending IV Ertapenem daily. Vanita Rodriguez refusing patient secondary due to difficulty with patient from previous visit with her pulling out multiple IV's etc. Discussed with Dr. Trevizo. She will reach out to ID team to see if there is an alternative antibx (oral?) Continue wound vac. Vanita Rodriguez will use their own Vac system if approved to go there. Await further ID input. Admission and Anticipated Discharge Date Admission Date: July 19, 2020 Subjective POD 6 from repeat I/D Right foot Pt without complaints this AM. Denies CP, SOB. Nursing related pt c/o chest discomfort and arm discomfort. EKG ordered and Dr. Trevizo notified at the time. Physical Exam Physical Exam: Wound vac on right foot. Functioning well. No overt changes is in foot. 2nd toe was noted to look a bit red but NT. Results & Data ([facility]) Vital Signs (Past 12 Hours) Vital Signs Temp Pulse Resp BP Pulse Ox 07/31/20 08:26 37.1 C 70 18 115/59 L 98 07/30/20 23:19 36.2 C L 72 16 131/62 94
--- NOTE | 2020-07-31 11:19 | Electrocardiogram Report ---
Test Reason : Blood Pressure : / mmHG Vent. Rate : 069 BPM Atrial Rate : 069 BPM P-R Int : 254 ms QRS Dur : 086 ms QT Int : 406 ms P-R-T Axes : 024 -04 050 degrees QTc Int : 435 ms Poor data quality, interpretation may be adversely affected Sinus rhythm with 1st degree A-V block Low voltage QRS Borderline ECG When compared with ECG of 23-MAY-2020 19:28, No significant change was found Confirmed by Nestor Brooks ([id number]) on 07/31/2020 11:19:01 AM Referred By: Garcia Ortiz Confirmed By:Nestor Brooks
[2020-07-31] MEDS ORDERED: CIPROFLOXACIN 500 MG TAB PO SCH (11:30)
[2020-07-31] MEDS ORDERED: LINEZOLID 600 MG TAB PO SCH (11:30)
--- NOTE | 2020-07-31 11:34 | Pharmacy Report ---
Pharmacy Glycemic Short Note 2 - Date of Service July 31, 2020 - Glycemic Short BSG Results (Last 24 hours): 07/30/20 07/30/20 07/30/20 12:12 17:07 20:49 POC Glucose 212 H 162 H 191 H 07/31/20 08:24 POC Glucose 137 H OUTPATIENT ANTIDIABETIC REGIMEN: * Lantus 12 units AMHS * Novolog SSI * HbA1c: 5.9% (05/2020) ASSESSMENT: 07/31/20: * Patient has been receiving less than 20 units per day of insulin for the past ~48 hours, with relatively well-controlled BSGs. * No changes required at this time. 07/29 * Pt has been receiving ~25 units of insulin per day with adequate glycemic con trol * 8 units of basal insulin with Lantus * 17 units of bolus insulin with NovoLog * BSGs 052-162-434-96-136-190 mg/dl * AM fasting BSG is in goal range BG < 140 mg/dl. May need to increase slightly if AM fasting BSG continues to trend upwards. * Post-prandial BSGs elevated - will tighten CR. BSGs drop significantly when high dose CF+CR given therefore will loosen CF 07/27 * Patient received total of 21 units of insulin yesterday, of which 8 were basal * Fasting BSG w/in range 137 mg/dL - continue same * No change in CF/CR PLAN FOR INPATIENT GLYCEMIC CONTROL: * Hold outpatient oral diabetes medications * Basal insulin * Lantus 8 units daily * Bolus insulin * NovoLog per scale ACHS or Q6hrs while NPO * Goal Range: Low 120 mg/dL - High 160 mg/dL * Correction Factor: 40 mg/dL/unit * Nutritional / Prandial insulin per carb ratio of 1 unit per 7 grams CHO consumed PLAN FOR DISCHARGE: * A1c of 5.9% 05/2020 * Less stringent goal of <8% is reasonable for this patient. A1c indicative of tight control. Not clear if patient experiencing low BSGs outpatient * Would favor reducing home insulin regimen on discharge as insulin needs during hospital stay minimal. Could consider dose decrease ~30-50% on discharge (Lantus 6-8 units BID) plus SSI novolog * Would encourage routine self monitoring of BSGs 3x per day to ensure BSGs stab le
--- NOTE | 2020-07-31 16:14 | Communication Note ---
Date of Service: July 31, 2020 Patient's wound culture growing multiple organisms: VRE vancomycin resistant Enterococcus, Enterobacter. Discussed with pharmacy, Patient has advanced dementia, prior history of pulling out PICC line/ultrasound-guided line, p.o. agent would be appropriate. Patient will be started with Zyvox twice daily-for VRE discontinue SSRI while on Zyvox P.o. ciprofloxacin both of the antibiotic will be continued for 4 weeks Orthopedics follow-up and wound care clinic follow-up for wound VAC management as scheduled Patient is stable to be transferred to [facility] Orthopedics team updated. Patient seen at bedside, general advanced dementia offers no complaint Physical exam : HEENT sclera nonicteric Lungs, clear to auscultate no wheeze or rales Cardio heart rate regular with normal rhythm, no lower extremity edema Musculoskeletal, right great toe amputation wound VAC present Neuro no focal neurological deficit, baseline advanced dementia oriented to person only Assessment and plan, right great toe osteomyelitis: Status post amputation on 07/25/2019, and repeat irrigation and debridement done Wound culture growing VRE, Enterococcus, antibiotic adjustment as outlined above, Yrn ID consult appreciated Patient is medically stable to be transitioned to skilled rehab today. Jenny Trevizo MD
--- NOTE | 2020-08-03 00:51 | Discharge Summary (DS) ---
DISCHARGE DIAGNOSES: Right foot great toe osteomyelitis, osteomyelitis of the first metatarsal head, osteomyelitis of the medial sesamoid with large necrotic ulceration, right first metatarsophalangeal joint measuring 4 x 4.5 x 1 cm with exposed bone. SECONDARY DIAGNOSES: Dementia; hypertension; PVD; diabetes mellitus type 2, insulin requiring; history of colon carcinoma, status post surgery; uterine carcinoma, status post radiation treatment; chronic anemia; mood disorder. CONSULTATIONS: Dr. Grimes. COMPLICATIONS: None. PROCEDURES: 1. Right foot amputation great toe with amputation of the first metatarsal ray resection and resection of second metatarsal head. Irrigation and debridement of large necrotic neuropathic ulcer, first metatarsophalangeal joint by Dr. Ortiz on 07/19/2020. 2. Repeat right foot irrigation and debridement of necrotic ulcer with irrigation and debridement of skin, subcutaneous tissue, fascia, and tendon, muscle with incision and drainage, deep abscess right foot by Dr. Ortiz on 07/25/2020. BRIEF HISTORY: As dictated in the history and physical. HOSPITAL SUMMARY: The patient was admitted on the above-noted date and had the first above-noted surgery performed, which she tolerated well[facility] and continued to follow the patient during her stay. She had been started on IV antibiotics and was started on daily dressing changes. By 07/23/2020, her dressing change showed small amount of bloody drainage noted on the ARON wrap. Dressing was removed and there was mild odor. No purulent drainage. Blackened eschar over the majority of the wound flap with wound edges well approximated. Mild erythema noted around the wound and was redressed. Over the next several days though, the wound progressively got worse, mainly at the proximal suture line with increasing necrotic yellow to grayish tissue surrounding the sutures with increasing mobility of the proximal suture line. Case was discussed with Dr. Ortiz and after reviewing the patient's wound on 07/25/2020, it was felt a repeat I and D would be needed. At that point in time, Dr. Otriz took the patient back to the operating room and the second procedure was performed. I stayed in contact with Dr. Trevizo, who is following the patient for [facility] service. By her second postoperative day for her second procedure, her dressing had been removed. She had moderate drainage noted on the dressing and multiple strands of iodoform packing that had been placed superficially were removed. A moistened 4 x 4 packing was in the wound and was removed. Scant purulence was noted on a pink bed of tissue. Moderate tissue loss noted compared to previous I and D that occurred with the second I and D. Redressed with Adaptic, 4 x 4's, and Kerlix and Aron wrap. With the size of the wound, I contacted wound care to assess for possible use of wound VAC. The patient was seen by the wound care team and assessed that the wound VAC was possible. This was discussed with Dr. Ortiz and he was in agreement. Wound VAC was then placed and plan was for it to be changed every 72 hours. She continued to remain stable over the next several days and on 07/30/2020, the wound VAC was removed by the wound care team. There was no gross purulence or purulent drainage in the tubing of the wound VAC. There was mild bloody drainage in the tubing. There was apparently a slight odor when the VAC was removed, but I could not appreciate one at that time afterwards. She had a pink wound bed with a little bit of slough noted. It appears some of the wound cavities have closed down per wound care team and it was overall looking better. Case management was planning for [facility] [place] with wound VAC and question of IV antibiotics. A bedside culture was then performed secondary to no culture from the previous I and D had been done and a consult for infectious disease team was placed by Dr. Trevizo. The patient was approved for [facility] [place]. Infectious disease consult had been obtained and initially was going to be IV ertapenem; however, with the patient's history at [facility], she did not tolerate IV antibiotics well secondary to being somewhat combative and tearing out multiple PICC lines and IV sites. The cultures did come back showing enterococcus faecium VRE, Enterobacter, and also Bacteroides fragilis. Dr. Trevizo discussed this with the infectious disease team and it was felt that p.o. Zyvox and p.o. Cipro would be the optimal choice for the patient and her condition for 4 weeks. [facility] was in agreement to take the patient back with the p.o. antibiotics. The patient was remaining medically stable and plans were for discharge to [facility] [place] with use of their wound VAC team to continue wound VAC on the right foot and the two p.o. antibiotics as noted with followup with Dr. Ortiz in 1 week. DISCHARGE INSTRUCTIONS: The patient was discharged to [facility] on 07/31/2020. DIET: Diabetic. ACTIVITY: Nonweightbearing right lower extremity with walker. Bed to chair if unable to manage weightbearing status. Follow up with her surgeon if her pain is not controlled, temperature of 101.5, wound has increased redness or drainage. Follow orthopedic instructions as noted. Wound VAC to be applied to the right foot wound, change it q. [address] Ortiz with any questions and follow up with Dr. Ortiz in 1 week. DISCHARGE MEDICATIONS: Ciprofloxacin 500 mg p.o. b.i.d. for 4 weeks, linezolid 600 mg p.o. b.i.d. for 4 weeks. The patient to have weekly labs drawn including CBC, CMP, ESR, and CRP with results being sent to Dr. Ortiz. Resume other medications as noted and stop taking amoxicillin and citalopram. ROSARIO
== END 2020-07-31 16:19 | DRG 617 ==
LOC: ASU 12:08 → 3N 16:25

== ENCOUNTER 2020-08-31 11:56 | Inpatient (IN) ==
--- NOTE | 2020-08-29 08:38 | PAT Medication Instructions ---
Medication Instructions Date of Service August 29, 2020 Home Medications Lantus Solostar U-100 Insulin 12 units SUBCUT AMHS gemfibrozil 600 mg PO QAM lisinopril 10 mg PO QAM metoprolol succinate 25 mg PO QAM aspirin 81 mg PO DAILY insulin aspart U-100 [Novolog PenFill U-100 Insulin] 1 sliding scale dose SUBCUT BID Therems-M 1 tab PO DAILY diclofenac sodium [Voltaren] 1 g TOPICAL QID mirtazapine 15 mg PO HS trazodone 50 mg PO HS ferrous sulfate 325 mg PO BID acetaminophen 650 mg PO QID PRN ciprofloxacin HCl [Cipro] 500 mg PO BID citalopram 40 mg PO QAM linezolid 600 mg PO BID Continue as directed ciprofloxacin HCl [Cipro] 500 mg PO BID linezolid 600 mg PO BID STOP taking 48 hours before surgery gemfibrozil 600 mg PO QAM STOP taking 24 hours before surgery diclofenac sodium [Voltaren] 1 g TOPICAL QID DO NOT take the morning of surgery lisinopril 10 mg PO QAM insulin aspart U-100 [Novolog PenFill U-100 Insulin] 1 sliding scale dose SUBCUT BID ferrous sulfate 325 mg PO BID Therems-M 1 tab PO DAILY Take morning of surgery With a small sip of water, OTHERWISE NOTHING TO EAT OR DRINK AFTER MIDNIGHT: metoprolol succinate 25 mg PO QAM aspirin 81 mg PO DAILY acetaminophen 650 mg PO QID PRN (okay to take up to 4 hours prior to surgery if needed) citalopram 40 mg PO QAM Take evening before surgery Lantus Solostar U-100 Insulin 12 units SUBCUT AMHS insulin aspart U-100 [Novolog PenFill U-100 Insulin] 1 sliding scale dose SUBCUT BID mirtazapine 15 mg PO HS trazodone 50 mg PO HS ferrous sulfate 325 mg PO BID acetaminophen 650 mg PO QID PRN (if needed) Insulin Dependent Diabetic Patients * Test your blood sugar the morning of surgery * If Blood Sugar is GREATER THAN 150, take HALF of your regular dose of: Lantus Solostar U-100 Insulin (6 units) * If Blood Sugar is LESS THAN 150, DO NOT TAKE ANY: Lantus Solostar U-100 Insulin 12 units SUBCUT AMHS Other Notes If you have any questions please call us at [phone] or [phone] or [phone] or [phone]
--- NOTE | 2020-08-30 08:43 | Anesthesiology Consultation ---
Date of Service August 30, 2020 Assessment & Plan (1) Encounter for pre-operative examination: Chart Review Chart Review: Acceptable Risk for Surgery (pending anesthesia evaluation and blood transfusion DOS ) and Patient NOT seen in Pre Admission Testing -Surgeon's office was informed of anemia and thrombocytopenia on preop labs. Dr. Ortiz would still like to proceed with surgery as planned on 08/31/20 and plans to transfuse patient preoperatively with 1 unit PRBCs. Did discuss with surgeon's office that they will need to coincide with OR re: bringing patient in early, doing blood consent and ordering the 1 unit of PRBCs DOS. manager cable was also informed and will bring patient earlier in for surgery in order to allow sufficient time for type and cross and blood transfusion. Will leave to anesthesiologist discretion if repeat CXR needed DOS. Will repeat coags DOS (slightly elevated on preop labs) - Check BSG AM DOS Per nursing assessment 08/29/20, pt resides in [facility]. No recent travel. No current Covid positive cases in facility. Facility no longer testing residents weekly. Last Covid tested in facility 08/07/20= was negative. [place] had [place] [facility] [place]. Pt discharged from [facility] [place] 08/03/20= admitted for right foot osteomyelitis. Pt did have right foot amputation great toe with amputation of the first metatarsal and second metatarasal head with I&D on 07/19/20 and I&D again on 07/25/20. Given IV abx. Discharged back to [facility] with wound VAC and PO abxs. First ray resection, right foot and toe amputation 07/19/20= Done under MAC. No anesthesia issues noted per anesthesia record. History Surgery Operation Date: 08/31/20 15:30 Proposed Procedures p Right Foot Transmetatarsal Amputation, Application of Platelet Rich Plasma, Possible Stimulan Beads - Garcia Ortiz DO Height/Weight Height: 5 ft 3 in Weight: 64.41 kg Allergies Allergy/AdvReac Type Severity Reaction Status Date / Time No Known Allergies Allergy Verified 08/29/20 08:10 Medications Home Medications Medication Instructions Recorded Confirmed Last Taken Lantus Solostar U-100 Insulin 12 units SUBCUT AMHS 07/10/18 08/29/20 07/11/20 gemfibrozil 600 mg PO QAM 07/10/18 08/29/20 07/12/20 lisinopril 10 mg PO QAM 07/10/18 08/29/20 07/12/20 metoprolol succinate 25 mg PO QAM 07/10/18 08/29/20 07/19/20 aspirin 81 mg PO DAILY 07/17/18 08/29/20 07/12/20 insulin aspart U-100 [Novolog 1 sliding scale dose SUBCUT BID 07/17/18 08/29/20 07/16/18 PenFill U-100 Insulin] Therems-M 1 tab PO DAILY 03/02/19 08/29/20 07/11/20 diclofenac sodium [Voltaren] 1 g TOPICAL QID 03/02/19 08/29/20 07/11/20 mirtazapine 15 mg PO HS 05/23/20 08/29/20 07/11/20 trazodone 50 mg PO HS 05/23/20 08/29/20 07/12/20 ferrous sulfate 325 mg PO BID 07/18/20 08/29/20 07/11/20 acetaminophen 650 mg PO QID PRN 08/29/20 08/29/20 Unknown ciprofloxacin HCl [Cipro] 500 mg PO BID 08/29/20 08/29/20 Unknown citalopram 40 mg PO QAM 08/29/20 08/29/20 Unknown linezolid 600 mg PO BID 08/29/20 08/29/20 Unknown Past Medical History Medical History Acquired claw toe of right foot Anemia Asthma Cellulitis RIGHT LOWER LIMB Dementia Daughter, Elizabeth, is POA. Patient does not sign consents. Currently residing in [facility]. Depression Diabetic polyneuropathy DM type 2 (diabetes mellitus, type 2) Controlled, A1C 5.9% 05/2020. 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/15) Endometrial adenocarcinoma, FIGO grade I, status post completion of radiation therapy 2015 Environmental allergies MOLD/POLLEN/CATS/MILDEW Foot ulcer GERD (gastroesophageal reflux disease) Hearing deficit History of colon cancer s/p resection 2012 HTN (hypertension) Hyperlipidemia Reflux esophagitis Past Surgical History Surgical History Amputated toe RT TOE H/O colonoscopy with polypectomy History of amputation of left great toe History of amputation of lesser toe of left foot History of cataract surgery left Hx of tubal ligation S/P tonsillectomy and adenoidectomy Social History Smoking Status: Unknown if ever smoked Hx Alcohol Use: No (Unknown.) Hx Substance Use: No (Unknown.) Testing Laboratory Results 08/30/20= WBC: 4.14 H/H: 7.3/23.5 PLATELETS: 103 SODIUM: 141 POTASSIUM: 3.9 CHLORIDE: 106 CO2: 28 BUN: 15 CREATININE: 0.7 GLUCOSE: 53 PT: 15.4 INR: 1.20 Electrocardiogram Date: 07/30/20 Poor data quality SR with 1st degre AVB at 69bpm. Low voltage QRS. Chest X-Ray Date: 07/20/20 Findings: + cardiomegaly (mild CM with no radiographic evidence of congestive failture ) There are mild interstitial opacities in the right midlung. Correlate clinically for evidence of an infectious/inflammatory pneumonitis.
--- NOTE | 2020-08-30 16:47 | History & Physical Report ---
Date of Service August 30, 2020 Assessment & Plan (1) Diabetic foot ulcer: Schedule a Right Foot Transmetatarsal Amputation, Application of Platelet Rich Plasma, Possible Stimulan Beads for 08.31.20. All potential risks, benefits, complications, alternatives, and rehab have been discussed with the patient and her POA and the POA wishes to proceed. Will plan for return to her SNF ([facility]) upon discharge. Diabetes mellitus type: type 2 Diabetic foot ulcer location: midfoot Laterality: right Non-pressure ulcer stage: with necrosis of muscle Qualified Code(s): E11.621 - Type 2 diabetes mellitus with foot ulcer; L97.413 - Non-pressure chronic ulcer of right heel and midfoot with necrosis of muscle (2) Wound dehiscence, surgical: History of Present Illness Chief Complaint: right foot wound Primary Care Provider: Vanita Rodriguez at [place] This is a patient who had a right foot ulceration that progressively worsened and had a great toe/1st metatarsal head amputation. The wound failed to progress and the wound dehiscence worsened. She is now being set up for a right TMA. Allergies Allergy/AdvReac Type Severity Reaction Status Date / Time No Known Allergies Allergy Verified 08/29/20 08:10 Home Medications Medication Instructions Recorded Confirmed Type Lantus Solostar U-100 Insulin 12 units SUBCUT AMHS 07/10/18 08/29/20 History gemfibrozil 600 mg PO QAM 07/10/18 08/29/20 History lisinopril 10 mg PO QAM 07/10/18 08/29/20 History metoprolol succinate 25 mg PO QAM 07/10/18 08/29/20 History aspirin 81 mg PO DAILY 07/17/18 08/29/20 History insulin aspart U-100 [Novolog 1 sliding scale dose SUBCUT BID 07/17/18 08/29/20 History PenFill U-100 Insulin] Therems-M 1 tab PO DAILY 03/02/19 08/29/20 History diclofenac sodium [Voltaren] 1 g TOPICAL QID 03/02/19 08/29/20 History mirtazapine 15 mg PO HS 05/23/20 08/29/20 History trazodone 50 mg PO HS 05/23/20 08/29/20 History ferrous sulfate 325 mg PO BID 07/18/20 08/29/20 History acetaminophen 650 mg PO QID PRN 08/29/20 08/29/20 History ciprofloxacin HCl [Cipro] 500 mg PO BID 08/29/20 08/29/20 History citalopram 40 mg PO QAM 08/29/20 08/29/20 History linezolid 600 mg PO BID 08/29/20 08/29/20 History Past Med/Surg History Medical History Acquired claw toe of right foot Anemia Asthma Cellulitis RIGHT LOWER LIMB Dementia Daughter, Elizabeth, is POA. Patient does not sign consents. Currently residing in [facility] care unit. Depression Diabetic polyneuropathy DM type 2 (diabetes mellitus, type 2) Controlled, A1C 5.9% 05/2020. 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/15) Endometrial adenocarcinoma, FIGO grade I, status post completion of radiation therapy 2015 Environmental allergies MOLD/POLLEN/CATS/MILDEW Foot ulcer GERD (gastroesophageal reflux disease) Hearing deficit History of colon cancer s/p resection 2012 HTN (hypertension) Hyperlipidemia Reflux esophagitis Surgical History Amputated toe RT TOE H/O colonoscopy with polypectomy History of amputation of left great toe History of amputation of lesser toe of left foot History of cataract surgery left Hx of tubal ligation S/P tonsillectomy and adenoidectomy Social History Smoking Status: Unknown if ever smoked Hx Alcohol Use: No (Unknown.) Hx Substance Use: No (Unknown.) Preferred Language: Burkinan Communication Ability: Impaired Variety Saw Operator Required: No Beliefs That Will Affect Care: None marital status: / Current Living Situation: Alf Current Living Situation Comment: [facility] Feels Safe at Home: Yes Assistive Devices: Walker Physical Exam Constitutional: no acute distress ENMT: external ear and nose normal, oropharynx normal Neck: trachea midline, no thyromegaly Respiratory: normal respiratory effort, lungs clear to auscultation Cardiovascular: Rate/Rhythm: regular rate and regular rhythm Gastrointestinal (Abdomen): normal bowel sounds, soft, nontender, no hepatosplenomegaly Musculoskeletal: Right foot: wound dehiscence of great toe and 1st metatarsal head amputation site. Moderate drainage. No evidence of healing. Mild erythema. Neurologic: + abnormal touch/pain/proprioception (Decreased LE sensation BLE.) Psychiatric: Orientation: alert Cognition: + recent memory not intact
[~2020-08-31 11:56] MED LIST changes: +SODIUM CHLORIDE 0.9% 250 ML IV PRN; +ceFAZolin 1000MG 1,000 MG/7.5 ML SYR IV SCH
--- NOTE | 2020-08-31 12:15 | History & Physical Bridge Note ---
Date of Service August 31, 2020 History & Physical Bridge Note I have examined the patient, reviewed the History & Physical and in the interval since the performance of the History & Physical I have noted the following changes of clinical significance: no changes noted
[2020-08-31 12:33] LABS: INR 1.2 (0.9-1.1); Partial Thromboplastin Time 27.2 Seconds (21.0-31.0); Prothrombin Time 11.6 Seconds (9.0-12.0)
[2020-08-31] MEDS ORDERED: HYDROmorphone INJ 1 MG/ML SYRINGE IV PRN (16:33)
[2020-08-31] MEDS ORDERED: MEPERIDINE HCL 25 MG/ML CARP/VIAL IV PRN (16:33)
[2020-08-31] MEDS ORDERED: ONDANSETRON INJ 2 MG/ML 2 ML VIAL IV PRN ×2 (16:33→22:08)
[2020-08-31] MEDS ORDERED: ePHEDrine sulfate 50 MG/ML AMP IV PRN (16:33)
[2020-08-31] MEDS ORDERED: PHENYLEPHRINE 100MCG/ML 5ML SYR IV PRN (16:33)
[2020-08-31] MEDS ORDERED: fentaNYL citrate 100 MCG/2 ML VIAL IV PRN (16:33)
[2020-08-31] MEDS ORDERED: LABETALOL HCL IV 5 MG/ML 20ML IV PRN (16:33)
[2020-08-31] MEDS ORDERED: ATROPINE SULFATE 0.1 MG/ML 10ML SYR IV PRN (16:33)
[2020-08-31] MEDS ORDERED: ROPIVACAINE 0.5% 5 MG/ML 30 ML VIAL ONE (17:06)
[2020-08-31] MEDS ORDERED: CALCIUM CHLORIDE 10% 10 ML SYR IV ONE (18:59)
[2020-08-31] MEDS ORDERED: THROMBIN 5000 UNITS KIT ONE (18:59)
[2020-08-31] MEDS ORDERED: BACITRACIN INJ 50,000 UNIT VIAL ONE ×2 (19:00→19:57)
[2020-08-31] MEDS ORDERED: LIDOCAINE HCL 2% 2 ML VIAL/AMP(20MG/ML) INFIL ONE (19:07)
[2020-08-31] MEDS ORDERED: PROPOFOL IV EMULSION 10 MG/ML 20 ML VIAL IV ONE (19:07)
[2020-08-31] MEDS ORDERED: SODIUM CHLORIDE 0.9% INJ 10 ML VIAL ONE (19:34)
[2020-08-31] MEDS ORDERED: GENTAMICIN SULFATE 40 MG/ML 2 ML VIAL ONE (19:35)
[2020-08-31] MEDS ORDERED: VANCOMYCIN HCL 1000MG/20ML VIAL ONE (19:35)
--- NOTE | 2020-08-31 20:41 | Post Operative Brief Note ---
Immediate Post Op Note v1 Date of Surgery August 31, 2020 Pre & Post Diagnosis Operation Date: 08/31/20 15:30 Pre-Op Diagnosis: Right Foot Osteomyelitis second and third metatarsals, gangrene right foot, diabetes mellitus, peripheral vascular disease Post-Op Diagnosis: Right Foot Osteomyelitis second and third metatarsals, gangrene right foot, diabetes mellitus, peripheral vascular disease I identified the patient and participated in the time-out.: Yes Procedure Operation Date: 08/31/20 15:30 Actual Procedures p Right Foot Transmetatarsal Amputation, Application of Platelet Rich Plasma concentrate, 5 cc Stimulan Beads with antibiotics (Right) - Garcia Ortiz DO Surgeon Garcia Ortiz DO Catcher Helper Truman Mckeon PA-C Estimated Blood Loss 4 (per surgeon TORManju.) Findings Consistent with Post-Op Diagnosis Specimens Bone and tissue right foot Anesthesia Type MAC Regional Complications none Disposition Accompanied Patient To Recovery: Yes Disposition: Recovery Room
--- NOTE | 2020-08-31 20:44 | Anesthesiology Progress Note ---
Date of Service August 31, 2020 Anesthesia Post Procedure Vital Signs Vital Signs: Temp Pulse Pulse Resp BP BP Pulse Ox 08/31/20 15:46 36.7 C 81 18 109/56 L 96 08/31/20 15:00 37.5 C 80 18 108/57 L 95 08/31/20 14:30 36.5 C 86 18 107/50 L 97 08/31/20 14:00 36.8 C 80 18 100/53 L 96 08/31/20 13:45 36.7 C 80 18 108/49 L 95 08/31/20 13:22 36.7 C 83 18 113/53 L 98 08/31/20 12:55 36.7 C 88 18 113/53 L 98 Transfer of Care Handoff Completed per policy Notes Mental Status: alert / awake / arousable Patient Amnestic to Procedure: Yes Nausea / Vomiting: adequately controlled Pain: adequately controlled Airway Patency, RR, SpO2: stable & adequate BP & HR: stable & adequate Hydration State: stable & adequate Anesthetic Complications: no major complications apparent and Pt Satisfied with anesthetic care Notes: The patient is awake and stable at baseline. She has baseline dementia and was very upset because she had not eaten all day and was very hungry. She is much calmer and happier now that she has eaten some crackers.
[2020-08-31] MEDS ORDERED: oxyCODONE HCL IR 5 MG TAB (IMMEDIATE RELEASE) PO PRN (22:08)
[2020-08-31] MEDS ORDERED: bisacodyL 10 MG SUPP PR PRN (22:08)
[2020-08-31] MEDS ORDERED: NALOXONE HCL 0.4 MG/1 ML VIAL/CARP IV PRN (22:08)
[2020-08-31] MEDS ORDERED: LINEZOLID CONSULT ACTIVE PRN (22:08)
[2020-08-31] MEDS ORDERED: SODIUM CHLORIDE 0.9% 1000ML 1,000 ML IV SCH (22:08)
[2020-08-31] MEDS ORDERED: METOCLOPRAMIDE HCL INJ 5 MG/ML 2 ML VIAL IV PRN (22:08)
[2020-08-31] MEDS ORDERED: HYDROmorphone INJ 0.5 MG/0.5 ML SYR IV PRN (22:08)
[2020-08-31] MEDS ORDERED: MAGNESIUM HYDROXIDE SUSP 30 ML UDC PO PRN (22:08)
[2020-08-31] MEDS ORDERED: ACETAMINOPHEN 325 MG TAB PO PRN (22:08)
[2020-08-31] MEDS ORDERED: PHARMACY GLYCEMIC MGMT CONSULT PRN (22:32)
[2020-08-31] MEDS ORDERED: GLUCOSE 10 TABS/TUBE PO PRN (22:45)
[2020-08-31] MEDS ORDERED: DEXTROSE 50% 50 ML SYRINGE IV PRN (22:45)
[2020-08-31] MEDS ORDERED: GLUCOSE 40% GEL 15 GM TUBE PO PRN (22:45)
[2020-08-31] MEDS ORDERED: CARBOHYDRATES FOR HYPOGLYCEMIA PO PRN (22:45)
[2020-08-31] MEDS ORDERED: GLUCAGON FOR INJ 1 MG VIAL SQ PRN (22:45)
--- NOTE | 2020-08-31 22:46 | Pharmacy Report ---
Pharmacy Glycemic Short Note 2 - Date of Service August 31, 2020 - Glycemic Short BSG Results (Last 24 hours): 08/31/20 08/31/20 08/31/20 12:27 18:55 20:40 POC Glucose 104 H 106 H 105 H OUTPATIENT ANTIDIABETIC REGIMEN: * Lantus 12 units sq BID * Novolog SSI * UkV6r=4.9% from 05/2020 PLAN FOR INPATIENT GLYCEMIC CONTROL: * Basal insulin * Lantus 10 units SQ BID * Bolus insulin * NovoLog per scale ACHS or Q6hrs while NPO * Goal Range: Low 120 mg/dL - High 160 mg/dL * Correction Factor: 50 mg/dL/unit * Nutritional / Prandial insulin per carb ratio of 1 unit per 25 grams CHO consumed PLAN FOR DISCHARGE: * Resume home diabetes regimen
[2020-08-31] MEDS ORDERED: ASPIRIN 81 MG ECTAB PO ONE (23:15)
[2020-08-31] MEDS: NYSTATIN POWDER 15GM BTL EXT SCH (23:31)
[2020-08-31] MEDS: CIPROFLOXACIN 500 MG TAB PO SCH (23:34)
[2020-08-31] MEDS: LINEZOLID 600 MG TAB PO SCH (23:34)
[2020-08-31] MEDS: MIRTAZAPINE TAB 15 MG TAB PO SCH (23:35)
[2020-08-31] MEDS: SENNA 8.6 MG TAB PO SCH ×2 (23:35→23:40)
[2020-08-31] MEDS: traZODone HCL 50 MG TAB PO SCH (23:35)
[2020-08-31] MEDS: DOCUSATE SODIUM 100 MG CAP PO SCH (23:36)
[2020-08-31] MEDS ORDERED: INSULIN GLARGINE SOLOSTAR 100 UNITS/ML 3 ML PEN SC ONE (23:45)
[2020-08-31] MEDS: INSULIN ASPART 100 UNITS/ML 3 ML PEN SC SCH (23:47)
[2020-09-01] MEDS: ceFAZolin 1000MG 1,000 MG/7.5 ML SYR IV SCH ×3 (02:56→17:43)
[2020-09-01] MEDS: INSULIN ASPART 100 UNITS/ML 3 ML PEN SC SCH ×5 (04:28→22:22)
--- NOTE | 2020-09-01 05:04 | Operative Report (OR) ---
DATE OF OPERATION: 08/31/2020 PREOPERATIVE DIAGNOSES: 1. Right foot osteomyelitis. 2. Gangrene. 3. Diabetes mellitus. 4. Peripheral vascular disease. POSTOPERATIVE DIAGNOSES: 1. Right foot osteomyelitis. 2. Gangrene. 3. Diabetes mellitus. 4. Peripheral vascular disease. PROCEDURE: 1. Right transmetatarsal amputation of the foot. 2. Application of platelet rich plasma concentrate. 3. Implantation of 5 mL Stimulan beads with gentamicin and vancomycin. SURGEON: Garcia Ortiz DO GENERAL OFFICE ASSOCIATE: Truman Mckeon PA-C, who was present for patient positioning, sterile prep and drape, management of retractors and instruments. He was present through the critical portions of the case including wound closure, application of sterile dressing and transport of the patient to recovery. ANESTHESIA: MAC regional. SPECIMENS: Bone and tissue, right foot. DRAINS: None. COMPLICATIONS: None. BLOOD LOSS: 4 mL. PERTINENT HISTORY: This is an 89-year-old female who has severe peripheral vascular disease and diabetes mellitus, who had previous partial amputation of the first ray of the right foot. She had wound dehiscence and difficulty with healing due to osteomyelitis. Attempted conservative management with use of a wound VAC, antibiotics, and wound care; however, wound was atrophic, unable to heal, continued drainage. She had an MRI which demonstrated osteomyelitis involving the second and third metatarsal heads. Diabetic with known vascular disease. The patient was then scheduled for transmetatarsal amputation as indicated. All potential risks, benefits, complications, alternatives, rehab, potential for incomplete relief of symptoms, need for further surgery, DVT, PE, , persistent pain, swelling, scarring, weakness, neurovascular injury, wound complications, need for further surgery, or amputation was discussed with the patient and her power of microstrategy bi developer. The patient and power of microstrategy bi developer both decided to proceed with procedure as indicated. DESCRIPTION OF PROCEDURE: The patient was taken to the operative suite, placed supine on the operating room table. After review of consent and identification of proper operative site, the patient was sedated, popliteal block was administered by the anesthesiologist. The patient was properly padded and positioned. Right lower extremity was then sterilely prepped and draped in usual fashion, elevated, and partially exsanguinated with an Esmarch bandage. An Esmarch tourniquet was applied over sterile surgical towel at the level of the ankle. There was minimal exsanguination performed far proximal to the zone of injury due to concern for infection. Surgical timeout was performed and then 15-blade scalpel was used to make transverse incisions approximately at the level of the metatarsophalangeal joints on the dorsum of the foot extending laterally and then maintaining as much of the plantar pad as possible for later rotation over the area of deficit with exposed tissue and bone with deep sinus tract extending all the way to the second metatarsal head medially. The necrotic gangrenous tissue was then resected from the medial aspect of the foot with a 15-blade scalpel and forceps. Next, using Sifuentes elevator, the metatarsal shafts were exposed second, third, fourth, and fifth. Using Hohmann retractors, bones were exposed, tissue was maintained and retracted followed by use of a sagittal saw to resect the metatarsals at their base at the second, third, fourth, and fifth respectively. Next, sharp dissection was then used to skeletonize the cut metatarsals and these were then extracted. The extensors and flexors were identified and then placed on stretch using hemostat and these were transected to remove devitalized tissue from the foot. After careful debridement was completed, leaving only healthy appearing tissue, a translational and rotational flap was then fashioned with a 15-blade scalpel used to cover the large medial deficit. Once this was completed, next bulb syringe with saline and bacitracin was then used to copiously irrigate the amputation site. A this time, approximately 50 mL of the patient's venous blood was harvested and then spun in a centrifuge resulting in platelet-rich plasma concentrate, which was then injected in and around the deep soft tissues of the foot, both superficial and subcutaneous injections were performed. Next, the 5 mL Stimulan beads with gentamicin and vancomycin were then created and then placed deep in the soft tissue adjacent to the area that had been previously infected. The rotational and translational flap was then closed and well approximated with interrupted 3-0 nylon sutures, both horizontal and simple sutures were placed. A sterile compressive dressing was applied, overwrapped in Aron wrap. The tourniquet was released. The patient was awakened and taken to recovery in stable condition. I attest to the content of the Intraoperative Record and any orders documented therein. Any exception s are noted below.
[2020-09-01 06:19] LABS: Hematocrit (blood only) 25.4 % (37-47); Hemoglobin 8.4 g/dL (12.0-16.0); Mean Corpuscular Hemoglobin 26.3 pg (25-34); Mean Corpuscular Hgb Conc 33.1 g/dL (32-36); Mean Corpuscular Volume 79.6 fL (80-100); RDW Coefficient of Variation 16.1 % (11.5-14.5); RDW Standard Deviation 47.5 fL (36.4-46.3); Red Blood Count 3.19 M/uL (4.2-5.4); White Blood Count 5.42 K/uL (4.8-10.8)
[2020-09-01 06:39] LABS: Mean Platelet Volume 8.5 fL (7.4-10.4); Platelet Count 78 K/uL (130-400)
[2020-09-01 06:40] LABS: Platelet Estimate Decreased (Normal)
[2020-09-01 06:41] LABS: BUN Creatinine Ratio 15.3 (10-20); Calcium 7.8 mg/dl (8.5-10.1); Creatinine Clr Calc Pharmacy 64.8 ml/min; Est GFR (African American) 97.6; Est GFR (Non-African American) 84.3; Potassium 3.6 mmol/L (3.5-5.1)
[2020-09-01] MEDS: gemfibroziL 600 MG TAB PO SCH (08:45)
[2020-09-01] MEDS: LINEZOLID 600 MG TAB PO SCH ×3 (08:45→22:27)
[2020-09-01] MEDS: CIPROFLOXACIN 500 MG TAB PO SCH ×3 (08:45→22:28)
[2020-09-01] MEDS: METOPROLOL SUCC 25MG EXT REL TAB PO SCH (08:45)
[2020-09-01] MEDS: CEROVITE ADV FORMULA TAB PO SCH (08:46)
--- NOTE | 2020-09-01 08:51 | Hospitalist Consultation ---
Date of Consultation September 01, 2020 History of Present Illness Attending Physician: Garcia Ortiz DO History of Present Illness 89 year old female with PMHx significant for HTN, HLD, DM, Asthma, GERD, colon ca, endometrial adenocarcinoma and diabetic foot ulcer that required RIGHT foot amputation of her great toe with amputation of first metatarsal ray resection and resection of second metatarsal head, I&D of large necrotic neuropathic ulcer on, first metatarsaophalangeal joint on 07/19 and repeat irrigation and debridement on 07/[address] Ortiz. She is a from [facility] and healing failed to progress and wound dehiscence worsened and she was set up for a right TMA with Stimulan Beads w abx performed by Dr. Ortiz on 08/31. Allergies Allergy/AdvReac Type Severity Reaction Status Date / Time No Known Allergies Allergy Verified 08/31/20 12:41 Home Medications Medication Instructions Recorded Confirmed Type Lantus Solostar U-100 Insulin 12 units SUBCUT AMHS 07/10/18 08/31/20 History gemfibrozil 600 mg PO QAM 07/10/18 08/31/20 History lisinopril 10 mg PO QAM 07/10/18 08/31/20 History metoprolol succinate 25 mg PO QAM 07/10/18 08/31/20 History aspirin 81 mg PO DAILY 07/17/18 08/31/20 History insulin aspart U-100 [Novolog 1 sliding scale dose SUBCUT BID 07/17/18 08/31/20 History PenFill U-100 Insulin] Therems-M 1 tab PO DAILY 03/02/19 08/31/20 History diclofenac sodium [Voltaren] 1 g TOPICAL QID 03/02/19 08/31/20 History mirtazapine 15 mg PO HS 05/23/20 08/31/20 History trazodone 50 mg PO HS 05/23/20 08/31/20 History ferrous sulfate 325 mg PO BID 07/18/20 08/31/20 History acetaminophen 650 mg PO QID PRN 08/29/20 08/31/20 History ciprofloxacin HCl [Cipro] 500 mg PO BID 08/29/20 08/31/20 History citalopram 40 mg PO QAM 08/29/20 08/31/20 History linezolid 600 mg PO BID 08/29/20 08/31/20 History nystatin 1 applic TOPICAL BID 08/31/20 08/31/20 History Patient History Medical History Acquired claw toe of right foot Anemia Asthma Cellulitis RIGHT LOWER LIMB Dementia Daughter, Elizabeth, is POA. Patient does not sign consents. Currently residing in [facility] care unit. Depression Diabetic polyneuropathy DM type 2 (diabetes mellitus, type 2) Controlled, A1C 5.9% 05/2020. 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/15) Endometrial adenocarcinoma, FIGO grade I, status post completion of radiation therapy 2015 Environmental allergies MOLD/POLLEN/CATS/MILDEW Foot ulcer GERD (gastroesophageal reflux disease) Hearing deficit History of colon cancer s/p resection 2012 HTN (hypertension) Hyperlipidemia Reflux esophagitis Surgical History Amputated toe RT TOE H/O colonoscopy with polypectomy History of amputation of left great toe History of amputation of lesser toe of left foot History of cataract surgery left Hx of tubal ligation S/P tonsillectomy and adenoidectomy Social History Smoking Status: Unknown if ever smoked Hx Alcohol Use: No (Unknown.) Hx Substance Use: No (Unknown.) Preferred Language: Belizean Communication Ability: Impaired Bar Back Required: No Beliefs That Will Affect Care: None marital status: / Current Living Situation: Group Home Current Living Situation Comment: [facility] Feels Safe at Home: Yes Assistive Devices: Walker Results & Data Results & Data ([facility]) Vital Signs (Past 12 Hours) Vital Signs Temp Pulse Pulse Resp BP Pulse Ox 09/01/20 07:51 36.3 C L 91 H 17 115/64 96 09/01/20 02:56 36.8 C 82 14 102/73 96 08/31/20 23:19 76 17 113/57 L 95 08/31/20 22:25 75 15 103/56 L 96 08/31/20 21:46 82 14 101/52 L 95 08/31/20 21:20 36.8 C 85 15 126/55 L 96 08/31/20 21:00 88 22 96 08/31/20 20:50 36.5 C 82 22 144/67 H 96 PG Care Time/CCT Total # of Minutes Spent Total Time Spent with Patient: Total time spent is greater than 50% in coordination of care (as documented) at patient's floor/unit and/or counseling patient: Coding
[2020-09-01] MEDS ORDERED: INSULIN GLARGINE SOLOSTAR 100 UNITS/ML 3 ML PEN SC SCH ×2 (09:00→21:00)
[2020-09-01] MEDS ORDERED: INSULIN ASPART 100 UNITS/ML 3 ML PEN SC SCH (09:00)
[2020-09-01] MEDS ORDERED: CITALOPRAM 40 MG TAB PO SCH (09:00)
[2020-09-01] MEDS ORDERED: ASPIRIN 81 MG ECTAB PO SCH (09:00)
--- NOTE | 2020-09-01 09:07 | Orthopedic Progress Note ---
Date of Service September 01, 2020 Assessment & Plan (1) Wound dehiscence, surgical: POD#1 Right foot TMA with stimulon bead placement and application of PRP -NWB Right LE. -Pain management -DVT prophylaxis-SCDs, ASA 81mg daily -AM labs-hemoglobin stable at 8.4 this morning. -D/c-patient returning back to [facility] when stable Admission and Anticipated Discharge Date Admission Date: August 31, 2020 Subjective Patient is POD#1 right foot TMA. She is resting in bed. History limited due to dementia. Does not appear to be in much discomfort. No complaints. Review of Systems Review of Systems: Unobtainable due to cognitive status Physical Exam Physical Exam: Right foot dressing is c/d/i, Calf soft and nontender. Constitutional: well developed and well nourished; no acute distress Results & Data ([facility]) Vital Signs (Past 12 Hours) Vital Signs Temp Pulse Resp BP Pulse Ox 09/01/20 07:51 36.3 C L 91 H 17 115/64 96 09/01/20 02:56 36.8 C 82 14 102/73 96 08/31/20 23:19 76 17 113/57 L 95 08/31/20 22:25 75 15 103/56 L 96 08/31/20 21:46 82 14 101/52 L 95 08/31/20 21:20 36.8 C 85 15 126/55 L 96
--- NOTE | 2020-09-01 09:36 | Pharmacy Report ---
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 Currently rec eiving antibiotics postop * Patient known to glycemic service from recent admission 07/19-07/31. Insulin requirements less than home outpatient regimen * Plan to utilize similar parameters for insulin coverage used last admission as BSGs stable. Patient only requiring about ~20 units of insulin daily, 8 units of basal daily last admission PLAN FOR INPATIENT GLYCEMIC CONTROL: * Basal insulin * Lantus 8 units HS * Bolus insulin * NovoLog per scale ACHS or Q6hrs while NPO * Goal Range: Low 120 mg/dL - High 160 mg/dL * Correction Factor: 40 mg/dL/unit * Nutritional / Prandial insulin per carb ratio of 1 unit per 10 grams CHO consumed PLAN FOR DISCHARGE: * tbd
[2020-09-01] MEDS: DOCUSATE SODIUM 100 MG CAP PO SCH ×3 (10:04→22:28)
[2020-09-01] MEDS: FERROUS SULFATE 325 MG TAB PO SCH ×3 (10:04→22:28)
[2020-09-01] MEDS: lisinopril 10 MG TAB PO SCH (10:04)
[2020-09-01] MEDS: MULTIVITAMIN TAB PO SCH (10:04)
[2020-09-01] MEDS: ASPIRIN 81 MG ECTAB PO SCH (10:04)
[2020-09-01] MEDS: NYSTATIN POWDER 15GM BTL EXT SCH ×2 (10:23→22:21)
--- NOTE | 2020-09-01 11:07 | Hospitalist Consultation ---
Date of Consultation September 01, 2020 Assessment & Plan (1) Status post transmetatarsal amputation of right foot: - POD#1 transmetatarsal amputation of right foot due to ongoing diabetic ulcer, poor wound healing, wound dehiscence - activity and wound care orders as per ortho - pain control with bowel regimen - PT/OT - s/p right great toe amputation on 07/19/21 and repeat I&D on 07/25/2020. Wound culture grew Enterobacter and VRE. Patient was discharged on p.o. Cipro and linezolid to complete a 4-week course from 07/25. Now noted to have thrombocytopenia, likely secondary to linezolid. Afebrile, WBC 5.4K. Discussed with infectious disease at [facility], Dr. Stafford, who feels that it would be appropriate to discontinue antibiotics if source control was obtained. Will discuss with orthopedics. (2) Thrombocytopenia: -Platelets 78K -Likely due to recent linezolid use -Monitor CBC (3) ADAN (iron deficiency anemia): -Hgb 8.4, stable at recent baseline -received 1 unit PRBC on 07/20/20 -Monitor CBC, transfuse as needed -Continue iron replacement (4) DM type 2 (diabetes mellitus, type 2): -Hgb A1c 5.9 05/2020 -Glycemic pharmacy consulted by orthopedics (5) HTN (hypertension): -BP controlled, continue lisinopril (6) Dementia: (7) Depression: -Continue home medications (8) DVT prophylaxis: -SCDs due to thrombocytopenia Thank you for this consultation. We will follow the patient with you during their hospital stay. You can reach a member of the [facility] 09/02 via pager @ [phone]. Supervising Physician Co-Signing Physician Notes I have seen and examined the patient and have discussed the case with the provider above. I agree with the assessment and plan as stated. 89 yo F with recent transmetatarsal amputation from diabetes and poor wound healing. Mental status is confused but appears to be at her baseline. Dementia prevents accurate ROS. Physical exam is unremarkable with right foot in a surgical dres sing without overt drainage. She is appearing comfortable. Agree with concerns listed above and with infectious disease consultation. Thrombocytopenia is a concern, however, she doesn't appear to have significant post-operative bleeding at this time. I feel heparin is a safe option for DVT prophylaxis-anticoagulant may be preferred over an antiplateket such as aspirin which will inhibit platel et function. Will defer this decision to surgery team. Agree with holding her citalopram out of concerns for risk of serotonin syndrome that may develop while on linezolid. Will watch patient closely for any changes in mood or mentation as a result of this change. If ID recommendations are in line with continuing Zyvox another few weeks, will need to re-evaluate risk/benefit of continuing to hold her SSRI therapy as holding it may not be in her best interest. Thank you for this consultation. Linda Moscoso DO, [facility] Hospitalist History of Present Illness Reason for Consultation: Postop medical management Requesting Physician: Dr. Ortiz Attending Physician: Garcia Ortiz DO History of Present Illness 89-year-old female with PMH DM type II, diabetic foot wound, PVD, HTN, dementia, chronic iron deficiency anemia, and other problems listed below who is POD #1 right transmetatarsal amputation. Patient recently admitted to [facility] 07/19/2020 through 07/31/2020 for right great toe osteomyelitis s/p right great toe amputation on 07/19/21 and repeat I&D on 07/25/2020. Wound culture grew Enterobacter and VRE. Patient was discharged on p.o. Cipro and linezolid to complete a 4-week course from 07/25. Patient presented yesterday for planned right transmetatarsal amputation due to poor wound healing and wound dehiscence. Postoperatively, the patient is doing well. She has underlying dementia therefore history is limited from her. She offers no complaints this morning. Allergies Allergy/AdvReac Type Severity Reaction Status Date / Time No Known Allergies Allergy Verified 08/31/20 12:41 Home Medications Medication Instructions Recorded Confirmed Type Lantus Solostar U-100 Insulin 12 units SUBCUT AMHS 07/10/18 08/31/20 History gemfibrozil 600 mg PO QAM 07/10/18 08/31/20 History lisinopril 10 mg PO QAM 07/10/18 08/31/20 History metoprolol succinate 25 mg PO QAM 07/10/18 08/31/20 History aspirin 81 mg PO DAILY 07/17/18 08/31/20 History insulin aspart U-100 [Novolog 1 sliding scale dose SUBCUT BID 07/17/18 08/31/20 History PenFill U-100 Insulin] Therems-M 1 tab PO DAILY 03/02/19 08/31/20 History diclofenac sodium [Voltaren] 1 g TOPICAL QID 03/02/19 08/31/20 History mirtazapine 15 mg PO HS 05/23/20 08/31/20 History trazodone 50 mg PO HS 05/23/20 08/31/20 History ferrous sulfate 325 mg PO BID 07/18/20 08/31/20 History acetaminophen 650 mg PO QID PRN 08/29/20 08/31/20 History ciprofloxacin HCl [Cipro] 500 mg PO BID 08/29/20 08/31/20 History citalopram 40 mg PO QAM 08/29/20 08/31/20 History linezolid 600 mg PO BID 08/29/20 08/31/20 History nystatin 1 applic TOPICAL BID 08/31/20 08/31/20 History Patient History Medical History (Updated 09/01/20 @ 11:17 by SKYLAR Desir) Acquired claw toe of right foot Anemia Asthma Cellulitis RIGHT LOWER LIMB Dementia Daughter, Elizabeth, is POA. Patient does not sign consents. Currently residing in [facility]. Depression Diabetic polyneuropathy DM type 2 (diabetes mellitus, type 2) Controlled, A1C 5.9% 05/2020. 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/15) Endometrial adenocarcinoma, FIGO grade I, status post completion of radiation therapy 2015 Environmental allergies MOLD/POLLEN/CATS/MILDEW Foot ulcer GERD (gastroesophageal reflux disease) Hearing deficit History of colon cancer s/p resection 2012 HTN (hypertension) Hyperlipidemia ADAN (iron deficiency anemia) Reflux esophagitis Thrombocytopenia Surgical History Amputated toe RT TOE H/O colonoscopy with polypectomy History of amputation of left great toe History of amputation of lesser toe of left foot History of cataract surgery left Hx of tubal ligation S/P tonsillectomy and adenoidectomy Status post transmetatarsal amputation of right foot Family History Father Heart disease Social History Smoking Status: Unknown if ever smoked Hx Alcohol Use: No (Unknown.) Hx Substance Use: No (Unknown.) Preferred Language: [place] Communication Ability: Impaired Scale Operator Required: No Beliefs That Will Affect Care: None marital status: / Current Living Situation: [facility] Current Living Situation Comment: [facility] Feels Safe at Home: Yes Assistive Devices: Walker Review of Systems Review of Systems: Unobtainable due to cognitive status Physical Exam Constitutional: WD/WN, vitals as above Eyes: PERRL, conjunctivae normal, anicteric sclerae ENMT: external ear and nose normal, oropharynx normal Ears: + hearing impairment Respiratory: normal respiratory effort, lungs clear to auscultation Cardiovascular: Rate/Rhythm: regular rate and regular rhythm Vessels: normal peripheral pulses Extremities: no edema Gastrointestinal (Abdomen): normal bowel sounds, soft, nontender, no hepatosplenomegaly Musculoskeletal: no cyanosis or clubbing, extremities motor strength 5/[address] to right foot Skin: no rashes, warm and dry Neurologic: PERRL, EOMI, accommodation nl, no face palsy, no dysarthria Psychiatric: Orientation: alert, oriented to person and cooperative; + not oriented to place and + not oriented to time Affect: euthymic affect Insight: + limited insight Results & Data Results & Data ([facility]) Vital Signs (Past 12 Hours) Vital Signs Temp Pulse Resp BP Pulse Ox 09/01/20 07:51 36.3 C L 91 H 17 115/64 96 09/01/20 02:56 36.8 C 82 14 102/73 96 08/31/20 23:19 76 17 113/57 L 95 Laboratory Results Short CBC 09/01/20 Range/Units 05:46 WBC 5.42 (4.8-10.8) K/uL Hgb 8.4 L (12.0-16.0) g/dL Hct 25.4 L (37-47) % Plt Count 78 L (130-400) K/uL [facility] 09/01/20 05:46 Sodium 141 Potassium 3.6 Chloride 109 H Carbon Dioxide 27 BUN 8 Creatinine 0.54 L Glucose 94 Calcium 7.8 L
[2020-09-01] MEDS: traZODone HCL 50 MG TAB PO SCH ×2 (22:08→22:28)
[2020-09-01] MEDS: MIRTAZAPINE TAB 15 MG TAB PO SCH ×2 (22:09→22:27)
[2020-09-01] MEDS: SENNA 8.6 MG TAB PO SCH (22:11)
[2020-09-01] MEDS: INSULIN GLARGINE SOLOSTAR 100 UNITS/ML 3 ML PEN SC SCH (22:23)
[2020-09-02] MEDS: ceFAZolin 1000MG 1,000 MG/7.5 ML SYR IV SCH (02:25)
[2020-09-02 06:08] LABS: Hematocrit (blood only) 24.2 % (37-47); Hemoglobin 7.9 g/dL (12.0-16.0); Mean Corpuscular Hemoglobin 26.2 pg (25-34); Mean Corpuscular Hgb Conc 32.6 g/dL (32-36); Mean Corpuscular Volume 80.4 fL (80-100); RDW Coefficient of Variation 16.5 % (11.5-14.5); RDW Standard Deviation 48.7 fL (36.4-46.3); Red Blood Count 3.01 M/uL (4.2-5.4); White Blood Count 5.52 K/uL (4.8-10.8)
[2020-09-02 06:23] LABS: Mean Platelet Volume 8.7 fL (7.4-10.4); Platelet Count 93 K/uL (130-400)
[2020-09-02 06:41] LABS: BUN Creatinine Ratio 9.7 (10-20); Calcium 8.4 mg/dl (8.5-10.1); Creatinine Clr Calc Pharmacy 53.8 ml/min; Est GFR (African American) 91.9; Est GFR (Non-African American) 79.3; Potassium 3.5 mmol/L (3.5-5.1)
--- NOTE | 2020-09-02 08:35 | Orthopedic Progress Note ---
Date of Service September 02, 2020 Assessment & Plan (1) Wound dehiscence, surgical: POD#2 Right foot TMA with stimulon bead placement and application of PRP -NWB Right LE. -Pain management -DVT prophylaxis-SCDs, ASA 81mg daily -AM labs-hemoglobin stable down some from 8.4 to 7.9 today. Plt count up to 93k from 78 yesterday. -D/c-patient returning back to [facility] when stable Discussed with Dr. Ortiz. He would like patient on 4 more weeks of PO antibiotics. Patient currently on Cipro and Linezolid. There is concern about continuing the linezolid due to her thrombocytopenia and potential interaction with SSRIs. ID consult placed for antibiotic recommendations. Admission and Anticipated Discharge Date Admission Date: August 31, 2020 Subjective Patient is resting in bed, appears comfortable. History limited due to history of dementia. Review of Systems Review of Systems: All systems reviewed & are unremarkable except as noted in HPI & below Physical Exam Physical Exam: Right foot dressing with blood drainage. Dressing was removed. Incision is intact, clean. Mild bloody drainage medial aspect of incision. No erythema. there is some mild maceration medial aspect of incision. Constitutional: well developed and well nourished; no acute distress Results & Data ([facility]) Vital Signs (Past 12 Hours) Vital Signs Temp Pulse Resp BP Pulse Ox 09/02/20 07:22 36.6 C 96 H 20 115/45 L 96 09/01/20 22:30 73 15 102/46 L 94
[2020-09-02] MEDS: INSULIN ASPART 100 UNITS/ML 3 ML PEN SC SCH ×4 (09:09→20:33)
[2020-09-02] MEDS: METOPROLOL SUCC 25MG EXT REL TAB PO SCH (09:13)
[2020-09-02] MEDS: lisinopril 10 MG TAB PO SCH (09:14)
[2020-09-02] MEDS ORDERED: SODIUM CHLORIDE 0.9% 250 ML IV PRN (09:41)
[2020-09-02] MEDS: LINEZOLID 600 MG TAB PO SCH ×2 (10:35→20:15)
[2020-09-02] MEDS: gemfibroziL 600 MG TAB PO SCH (10:41)
[2020-09-02] MEDS: CIPROFLOXACIN 500 MG TAB PO SCH ×2 (10:45→20:16)
[2020-09-02] MEDS: FERROUS SULFATE 325 MG TAB PO SCH ×2 (12:36→20:16)
[2020-09-02] MEDS: NYSTATIN POWDER 15GM BTL EXT SCH ×2 (12:36→20:16)
[2020-09-02] MEDS: CEROVITE ADV FORMULA TAB PO SCH (12:36)
[2020-09-02] MEDS: ASPIRIN 81 MG ECTAB PO SCH (12:36)
[2020-09-02] MEDS: MULTIVITAMIN TAB PO SCH (12:36)
[2020-09-02] MEDS: DOCUSATE SODIUM 100 MG CAP PO SCH ×2 (12:39→20:16)
[2020-09-02 14:38] LABS: Hematocrit (blood only) 26.9 % (37-47); Hemoglobin 8.7 g/dL (12.0-16.0); Mean Corpuscular Hemoglobin 26.7 pg (25-34); Mean Corpuscular Hgb Conc 32.3 g/dL (32-36); Mean Corpuscular Volume 82.5 fL (80-100); RDW Coefficient of Variation 16.5 % (11.5-14.5); RDW Standard Deviation 50.2 fL (36.4-46.3); Red Blood Count 3.26 M/uL (4.2-5.4); White Blood Count 5.11 K/uL (4.8-10.8)
[2020-09-02 14:39] LABS: Mean Platelet Volume 8.9 fL (7.4-10.4); Platelet Count 93 K/uL (130-400)
[2020-09-02 14:54] LABS: Basophils # (auto) 0.01 K/uL (0-0.2); Basophils % (auto) 0.2 %; Eosinophils # (auto) 0.12 K/uL (0-0.5); Eosinophils % (auto) 2.3 %; Immature Granulocytes # (auto) 0.04 K/uL (0.00-0.02); Immature Granulocytes % (auto) 0.8 %; Lymphocytes # (auto) 1.46 K/uL (1.2-3.4); Lymphocytes % (auto) 28.6 %; Monocytes # (auto) 0.98 K/uL (0.11-0.59); Monocytes % (auto) 19.2 %; Neutrophils % (auto) 48.9 %
--- NOTE | 2020-09-02 19:05 | Hospitalist Progress Note ---
Date of Service September 02, 2020 Assessment & Plan (1) Status post transmetatarsal amputation of right foot: - POD#2 transmetatarsal amputation of right foot due to ongoing diabetic ulcer, poor wound healing, wound dehiscence - activity and wound care orders as per ortho - pain control with bowel regimen - PT/OT - s/p right great toe amputation on 07/19/21 and repeat I&D on 07/25/2020. Wound culture grew Enterobacter and VRE. Patient was discharged on p.o. Cipro and linezolid to complete a 4-week course from 07/25. Now noted to have thrombocytopenia, likely secondary to linezolid. -she continues on the cipro and linezolid PO with citalopram held to avoid serotonin syndrome. -ID consult appropriate to determine need for persistent abx given the thrombocytopenia side effect already present. -despite this would still consider anticoagulant such as heparin for DVT prophylaxis. (2) Acute blood loss as cause of postoperative anemia: required one unit of blood to be given. During this transfusion her BP was checked supine and asleep (109/87 @ 1200)and then again when she was sitting up and more alert (136/59@ 1300) with a difference in systolic pressure of around 30 points. Per protocol the transfusion was stopped out of concern and was not restarted. This was not likely a transfusion reaction, however, the blood bank was notified. Repeat CBC reveals an increase in H/H from 7.9/24.2 to 8.7/26.9. Would re-evaluate H/H again in am and reassess the need for additional blood products. (3) Thrombocytopenia: -Platelets 93K -Likely due to recent linezolid use -Monitor CBC (4) DM type 2 (diabetes mellitus, type 2): -Hgb A1c 5.9 05/2020 -Glycemic pharmacy consulted by orthopedics (5) HTN (hypertension): -BP controlled, continue lisinopril (6) Dementia: at her mental baseline. (7) Depression: Citalopram and trazodone held while continuing Zyvox to avoid medication interaction. Will keep the Remeron in place as she has been doing well until this point, but would consider holding this in the next few days if linezolid is slated to continue longer term per ID recommendations tomorrow. Weaning her down would be best. (8) DVT prophylaxis: SCDs Full Code Dispo-per Ortho Thank you for this consultation. We will follow the patient with you during their hospital stay. You can reach a member of the [facility] Hospitalist Team 09/02 via pager @ [phone]. Linda Moscoso DO [facility] Admission and Anticipated Discharge Date Admission Date: August 31, 2020 Subjective Patient is resting in bed, appears comfortable. History limited due to history of dementia. Denies pain. Reports she is eating well. Review of Systems Review of Systems: Unobtainable due to mental health condition Physical Exam 2 Physical Exam: CONSTITUTIONAL: WNWD, vitals as above, generally well- appearing EYES: normal conjunctivae, no scleral icterus ENT: external ear and nose normal, MMM RESPIRATORY: clear to auscultation bilaterally, no crackles, rales or wheezes, normal respiratory effort CARDIOVASCULAR: regular rate and rhythm, S1 and 2 heard without murmurs, gallops or rubs, no JVD, no peripheral edema GASTROINTESTINAL: soft, nontender, nondistended MUSCULOSKELETAL: moves all extremities well except RLE is in large surgical dressing SKIN: warm and dry, surgical incision not assessed with large bandage in place. NEUROLOGIC: CN 2-12 grossly intact, normal speech PSYCHIATRIC: alert cooperative and disoriented to place and time. Answering questions more appropriately today. Results & Data Results & Data ([facility]) Vital Signs (Past 12 Hours) Vital Signs Temp Pulse Pulse Resp BP BP Pulse Ox 09/02/20 14:40 37 C 72 16 118/63 97 09/02/20 12:17 37.1 C 79 18 108/61 95 09/02/20 11:47 36.8 C 73 18 136/59 L 96 09/02/20 11:32 37.0 C 71 18 109/67 97 09/02/20 11:31 37.0 C 77 18 101/58 L 95 09/02/20 11:15 36.6 C 75 18 101/55 L 09/02/20 07:22 36.6 C 96 H 20 115/45 L 96 Laboratory Results Short CBC 09/02/20 09/02/20 Range/Units 05:25 14:22 WBC 5.52 5.11 (4.8-10.8) K/uL Hgb 7.9 L 8.7 L (12.0-16.0) g/dL Hct 24.2 L 26.9 L (37-47) % Plt Count 93 L 93 L (130-400) K/uL [facility] 09/02/20 05:25 Sodium 140 Potassium 3.5 Chloride 105 Carbon Dioxide 28 BUN 6 L Creatinine 0.65 Glucose 123 H Calcium 8.4 L Medications Administered Current Inpatient Medications Acetaminophen (Acetaminophen 325 Mg Tab) 650 mg PO QID PRN PRN Reason: Pain Stop: 09/30/20 22:07 Aspirin (Aspirin 81 Mg Ectab) 81 mg PO DAILY HINA Stop: 10/01/20 08:59 Last Admin: 09/02/20 12:36 Dose: 81 mg Documented by: Bisacodyl (Bisacodyl 10 Mg Supp) 10 mg MA DAILY PRN PRN Reason: Constipation Stop: 09/30/20 22:07 Ciprofloxacin (Ciprofloxacin 500 Mg Tab) 500 mg PO BID [facility]INA Stop: 10/12/20 22:07 Last Admin: 09/02/20 10:45 Dose: 500 mg Documented by: Citalopram Hydrobromide (Citalopram 40 Mg Tab) 40 mg PO QAM [facility]INA Stop: 10/01/20 08:59 Last Admin: 09/01/20 08:46 Dose: 40 mg Documented by: Dextrose (Dextrose 50% 50 Ml Syringe) 25 - 50 ml IV UD PRN; Protocol PRN Reason: Hypoglycemia Protocol Stop: 09/30/20 22:44 Docusate Sodium (Docusate Sodium 100 Mg Cap) 100 mg PO BID HINA Stop: 09/30/20 22:07 Last Admin: 09/02/20 12:39 Dose: 100 mg Documented by: Ferrous Sulfate (Ferrous Sulfate 325 Mg Tab) 325 mg PO BID [facility] Stop: 10/01/20 08:59 Last Admin: 09/02/20 12:36 Dose: 325 mg Documented by: Gemfibrozil (Gemfibrozil 600 Mg Tab) 600 mg PO QAM [facility] Stop: 10/01/20 08:59 Last Admin: 09/02/20 10:41 Dose: 600 mg Documented by: Glucagon (Glucagon For Inj 1 Mg Vial) 1 mg SQ UD PRN; Protocol PRN Reason: Hypoglycemia Protocol Stop: 09/30/20 22:44 Glucose (Glucose 40% Gel 15 Gm Tube) 15 - 30 gm PO UD PRN; Protocol PRN Reason: Hypoglycemia Protocol Stop: 09/30/20 22:44 Glucose (Glucose 10 Tabs/Tube) 4 - 8 tabs PO UD PRN; Protocol PRN Reason: Hypoglycemia Protocol Stop: 09/30/20 22:44 Hydromorphone HCl (Hydromorphone Inj 0.5 Mg/0.5 Ml Syr) 0.25 mg IV Q4H PRN PRN Reason: Pain or Pre PT Stop: 09/14/20 22:07 Sodium Chloride (Nss) 250 mls @ 15 mls/hr IV .[id number] PRN PRN Reason: For Transfusion Stop: 09/02/20 19:41 Insulin Aspart (Insulin Aspart 100 Units/Ml 3 Ml Pen) 0 units SC [facility] Stop: 10/01/20 07:29 Last Admin: 09/02/20 18:19 Dose: 2 units Documented by: Insulin Glargine (Insulin Glargine Solostar 100 Units/Ml 3 Ml Pen) 0 units SC [facility]; Protocol Stop: 10/01/20 20:59 Last Admin: 09/01/20 22:23 Dose: 6 units Documented by: Linezolid (Linezolid 600 Mg Tab) 600 mg PO BID [facility] Stop: 10/12/20 22:07 Last Admin: 09/02/20 10:35 Dose: 600 mg Documented by: Lisinopril (Lisinopril 10 Mg Tab) 10 mg PO QAM [facility] Stop: 10/01/20 08:59 Last Admin: 09/02/20 09:14 Dose: 10 mg Documented by: Magnesium Hydroxide (Magnesium Hydroxide Susp 30 Ml Udc) 30 ml PO Q6H PRN PRN Reason: Constipation Stop: 09/30/20 22:07 Metoclopramide HCl (Metoclopramide Hcl Inj 5 Mg/Ml 2 Ml Vial) 10 mg IV Q6H PRN PRN Reason: Nausea And Vomiting Stop: 09/30/20 22:07 Metoprolol Succinate (Metoprolol Succ 25mg Ext Rel Tab) 25 mg PO QAM [facility] Stop: 10/01/20 08:59 Last Admin: 09/02/20 09:13 Dose: 25 mg Documented by: Mirtazapine (Mirtazapine Tab 15 Mg Tab) 15 mg PO [facility] Stop: 09/30/20 22:07 Last Admin: 09/01/20 22:27 Dose: Not Given Documented by: Miscellaneous (Carbohydrates For Hypoglycemia ) 15 - 30 gm PO UD PRN PRN Reason: Hypoglycemia Treatment Stop: 09/30/20 22:44 Miscellaneous Information (Linezolid Consult Active) 1 ea N/A UD PRN PRN Reason: Consult Stop: 09/30/20 22:07 Miscellaneous Information (Pharmacy Glycemic Mgmt Consult) 1 ea N/A UD PRN PRN Reason: Consult Stop: 09/30/20 22:31 Multivitamins (Multivitamin Tab) 1 tab PO QAM [facility] Stop: 10/01/20 08:59 Last Admin: 09/02/20 12:36 Dose: 1 tab Documented by: Multivitamins/Minerals (Cerovite Adv Formula Tab) 1 tab PO DAILY [facility] Stop: 10/01/20 08:59 Last Admin: 09/02/20 12:36 Dose: 1 tab Documented by: Naloxone HCl (Naloxone Hcl 0.4 Mg/1 Ml Vial/Carp) 0.1 mg IV Q5M PRN PRN Reason: Oversedation/Resp Depression Stop: 09/30/20 22:07 Nystatin (Nystatin Powder 15gm Btl) 1 appln EXT BID [facility] Stop: 09/30/20 22:07 Last Admin: 09/02/20 12:36 Dose: Not Given Documented by: Ondansetron HCl (Ondansetron Inj 2 Mg/Ml 2 Ml Vial) 4 mg IV Q6H PRN PRN Reason: Nausea And Vomiting Stop: 09/30/20 22:07 Oxycodone HCl (Oxycodone Hcl Ir 5 Mg Tab (Immediate Release)) 5 mg PO Q4H PRN PRN Reason: Pain or Pre PT Stop: 09/14/20 22:07 Sennosides (Senna 8.6 Mg Tab) 17.2 mg PO HS [facility] Stop: 09/30/20 22:07 Last Admin: 09/01/20 22:11 Dose: Not Given Documented by: Trazodone HCl (Trazodone Hcl 50 Mg Tab) 50 mg PO HS [facility] Stop: 09/30/20 22:07 Last Admin: 09/01/20 22:28 Dose: Not Given Documented by:
[2020-09-02] MEDS: MIRTAZAPINE TAB 15 MG TAB PO SCH (20:15)
[2020-09-02] MEDS: SENNA 8.6 MG TAB PO SCH (20:15)
[2020-09-02] MEDS: INSULIN GLARGINE SOLOSTAR 100 UNITS/ML 3 ML PEN SC SCH (20:33)
[2020-09-03 05:40] LABS: Hematocrit (blood only) 25.3 % (37-47); Hemoglobin 8.3 g/dL (12.0-16.0); Mean Corpuscular Hemoglobin 26.4 pg (25-34); Mean Corpuscular Hgb Conc 32.8 g/dL (32-36); Mean Corpuscular Volume 80.6 fL (80-100); RDW Coefficient of Variation 16.5 % (11.5-14.5); RDW Standard Deviation 48.7 fL (36.4-46.3); Red Blood Count 3.14 M/uL (4.2-5.4); White Blood Count 4.81 K/uL (4.8-10.8)
[2020-09-03 05:44] LABS: Mean Platelet Volume 8.5 fL (7.4-10.4); Platelet Count 94 K/uL (130-400)
[2020-09-03 05:58] LABS: Creatinine Clr Calc Pharmacy 63.6 ml/min; Est GFR (African American) 97.1; Est GFR (Non-African American) 83.7
[2020-09-03 05:59] LABS: Basophils # (auto) 0.02 K/uL (0-0.2); Basophils % (auto) 0.4 %; Eosinophils # (auto) 0.17 K/uL (0-0.5); Eosinophils % (auto) 3.5 %; Immature Granulocytes # (auto) 0.05 K/uL (0.00-0.02); Lymphocytes # (auto) 1.59 K/uL (1.2-3.4); Lymphocytes % (auto) 33.1 %; Monocytes % (auto) 16.6 %; Neutrophils # (auto) 2.18 K/uL (1.4-6.5); Neutrophils % (auto) 45.4 %
--- NOTE | 2020-09-03 08:09 | Orthopedic Progress Note ---
Date of Service September 03, 2020 Assessment & Plan (1) Wound dehiscence, surgical: POD#2 Right foot TMA with stimulon bead placement and application of PRP -NWB Right LE. -Pain management -DVT prophylaxis-SCDs, ASA 81mg daily -AM labs-hemoglobin 8.3 today. Plt count up to 94k -D/c-patient returning back to [facility] when stable Discussed with Dr. Ortiz. He would like patient on 4 more weeks of PO antibiotics. Patient currently on Cipro and Linezolid. There is concern about continuing the linezolid due to her thrombocytopenia and potential interaction with SSRIs. ID consult placed for antibiotic recommendations. Await ID Team input. Admission and Anticipated Discharge Date Admission Date: August 31, 2020 Subjective POD 3 Pt awake, alert. Pleasant. Currently eating her breakfast. No complaints at this time. Physical Exam Physical Exam: Dressings C/D/I. Calves soft,NT Results & Data ([facility]) Vital Signs (Past 12 Hours) Vital Signs Temp Pulse Resp BP Pulse Ox 09/02/20 23:26 37.0 C 76 16 118/59 L 95 Laboratory Results Laboratory Results WBC 4.81 K/uL (4.8-10.8) 09/03/20 05:19 RBC 3.14 M/uL (4.2-5.4) L 09/03/20 05:19 Hgb 8.3 g/dL (12.0-16.0) L 09/03/20 05:19 Hct 25.3 % (37-47) L 09/03/20 05:19 MCV 80.6 fL (80-100) 09/03/20 05:19 MCH 26.4 pg (25-34) 09/03/20 05:19 MCHC 32.8 g/dL (32-36) 09/03/20 05:19 RDW Std Deviation 48.7 fL (36.4-46.3) H 09/03/20 05:19 RDW Coeff of Pamela 16.5 % (11.5-14.5) H 09/03/20 05:19 Plt Count 94 K/uL (130-400) L 09/03/20 05:19 MPV 8.5 fL (7.4-10.4) 09/03/20 05:19 Immature Gran % (Auto) 1.0 % 09/03/20 05:19 Neut % (Auto) 45.4 % 09/03/20 05:19 Lymph % (Auto) 33.1 % 09/03/20 05:19 Whitley % (Auto) 16.6 % 09/03/20 05:19 Eos % (Auto) 3.5 % 09/03/20 05:19 Baso % (Auto) 0.4 % 09/03/20 05:19 Neut # (Auto) 2.18 K/uL (1.4-6.5) 09/03/20 05:19 Lymph # (Auto) 1.59 K/uL (1.2-3.4) 09/03/20 05:19 Whitley # (Auto) 0.80 K/uL (0.11-0.59) H 09/03/20 05:19 Eos # (Auto) 0.17 K/uL (0-0.5) 09/03/20 05:19 Baso # (Auto) 0.02 K/uL (0-0.2) 09/03/20 05:19 Immature Gran # (Auto) 0.05 K/uL (0.00-0.02) H 09/03/20 05:19 Platelet Estimate Decreased (Normal) L 09/01/20 05:46 PT 11.6 Seconds (9.0-12.0) 08/31/20 12:06 INR 1.2 (0.9-1.1) H 08/31/20 12:06 APTT 27.2 Seconds (21.0-31.0) 08/31/20 12:06 PTT Ratio 1.0 08/31/20 12:06 Sodium 140 mmol/L (136-145) 09/02/20 05:25 Potassium 3.5 mmol/L (3.5-5.1) 09/02/20 05:25 Chloride 105 mmol/L (98-107) 09/02/20 05:25 Carbon Dioxide 28 mmol/L (21-32) 09/02/20 05:25 Anion Gap 6.0 (3-11) 09/02/20 05:25 BUN 6 mg/dl (7-18) L 09/02/20 05:25 Creatinine 0.55 mg/dl (0.6-1.2) L 09/03/20 05:19 Est Cr Clr Drug Dosing 63.6 ml/min 09/03/20 05:19 Est GFR ( Amer) 97.1 09/03/20 05:19 Est GFR (Non-Af Amer) 83.7 09/03/20 05:19 BUN/Creatinine Ratio 9.7 (10-20) L 09/02/20 05:25 Glucose 123 mg/dl (70-99) H 09/02/20 05:25 POC Glucose 108 mg/dl (70-99) H 09/03/20 08:02 Calcium 8.4 mg/dl (8.5-10.1) L 09/02/20 05:25 Nasal Screen MRSA (PCR) Negative (Negative) 08/31/20 Unknown Blood Type B Negative 08/31/20 12:06 Antibody Screen NEGATIVE 08/31/20 12:06 Crossmatch See Detail 08/31/20 12:06
[2020-09-03] MEDS: LINEZOLID 600 MG TAB PO SCH ×2 (08:13→20:13)
[2020-09-03] MEDS: NYSTATIN POWDER 15GM BTL EXT SCH ×2 (08:14→20:14)
[2020-09-03] MEDS: CEROVITE ADV FORMULA TAB PO SCH (08:14)
[2020-09-03] MEDS: FERROUS SULFATE 325 MG TAB PO SCH ×2 (08:15→20:12)
[2020-09-03] MEDS: CIPROFLOXACIN 500 MG TAB PO SCH ×2 (08:16→20:12)
[2020-09-03] MEDS: ASPIRIN 81 MG ECTAB PO SCH (08:16)
[2020-09-03] MEDS: MULTIVITAMIN TAB PO SCH (08:17)
[2020-09-03] MEDS: gemfibroziL 600 MG TAB PO SCH (08:17)
[2020-09-03] MEDS: DOCUSATE SODIUM 100 MG CAP PO SCH ×2 (08:22→20:13)
[2020-09-03] MEDS: lisinopril 10 MG TAB PO SCH (08:22)
[2020-09-03] MEDS: METOPROLOL SUCC 25MG EXT REL TAB PO SCH (08:23)
[2020-09-03] MEDS: INSULIN ASPART 100 UNITS/ML 3 ML PEN SC SCH ×4 (08:43→21:39)
--- NOTE | 2020-09-03 10:01 | Pharmacy Report ---
Pharmacy Glycemic Short Note 2 - Date of Service September 03, 2020 - Glycemic Short BSG Results (Last 24 hours): 09/02/20 09/02/20 09/02/20 12:02 17:11 20:31 POC Glucose 210 H 180 H 157 H 09/03/20 08:02 POC Glucose 108 H OUTPATIENT ANTIDIABETIC REGIMEN: * Lantus 12 units sq BID * Novolog SSI * JnI5z=9.9% from 05/2020: * Patient received a total of 13 units of insulin yesterday, 6 units of basal * POD #3, on T2DM diet, continues on po linezolid + cipro, ID consulted (thrombocytopenia possibly from linezolid) * Previous day BSG [phone] mg/dL, Fasting this AM 108 mg/dL * Continue same lantus scale, adjusted goal range to 110-140 mg/dL, if prandial BSGs continue above goal will tighten carb ratio 09/01: * Patient received total of 11 units of insulin yesterday, of which 10 were basal (unclear insulin DESIGN SALES CONSULTANT 08/31 AM) * Patient is now POD 1 of right foot transmetatarsal amputation. Currently receiving antibiotics postop * Patient known to glycemic service from recent admission 07/19-07/31. Insulin requirements less than home outpatient regimen * Plan to utilize similar parameters for insulin coverage used last admission as BSGs stable. Patient only requiring about ~20 units of insulin daily, 8 units of basal daily last admission PLAN FOR INPATIENT GLYCEMIC CONTROL: * Basal insulin * Lantus 6/8 units HS per scale * Bolus insulin * NovoLog per scale ACHS or Q6hrs while NPO * Goal Range: Low 110 mg/dL - High 140 mg/dL * Correction Factor: 40 mg/dL/unit * Nutritional / Prandial insulin per carb ratio of 1 unit per 10 grams CHO consumed PLAN FOR DISCHARGE: * tbd
[2020-09-03 10:55] LABS: Blood Urine Negative (Negative)
--- NOTE | 2020-09-03 16:57 | Hospitalist Progress Note ---
Date of Service September 03, 2020 Assessment & Plan (1) Status post transmetatarsal amputation of right foot: - POD#3 transmetatarsal amputation of right foot due to ongoing diabetic ulcer, poor wound healing, wound dehiscence Overall doing okay. Pain is well controlled. Continue with oxycodone and Dilaudid for pain control. Bowel regimen. Continue to work with PT/OT. Will defer the anticoagulation to primary team. - s/p right great toe amputation on 07/19/21 and repeat I&D on 07/25/2020: Wound culture grew Enterobacter and VRE. Patient was discharged on p.o. Cipro and linezolid to complete a 4-week course from 07/25. Now noted to have thromb ocytopenia, likely secondary to linezolid. -she continues on the cipro and linezolid PO with citalopram held to avoid serotonin syndrome. It appears that there were no cultures sent from the OR. Likely that the source was removed. No any blood cultures or OR cultures available. I spoke with infectious disease at [facility] (Dr. Mario Torres), he stated that if the source has been removed there is no indication for antibiotics this time. Previously physician has also spoken with infectious disease team at [facility] and they were under similar conclusion. (2) Acute blood loss as cause of postoperative anemia: Did require 1 unit of PRBC during this admission. Hemoglobin remains stable. Hemoglobin at 8.3 today. (3) Thrombocytopenia: Odilon stable. Today at 94. -Likely due to recent linezolid use -Monitor CBC (4) DM type 2 (diabetes mellitus, type 2): -Hgb A1c 5.9 05/2020 -Glycemic pharmacy consulted by orthopedics (5) HTN (hypertension): -BP controlled, continue lisinopril (6) Dementia: at her mental baseline. (7) Depression: Citalopram and trazodone held while continuing Zyvox to avoid medication interaction. Remeron in place if needed. Recommend holding citalopram/trazodone to avoid interaction for serotonin syndrome. (8) DVT prophylaxis: SCDs Full Code Dispo-per Ortho Admission and Anticipated Discharge Date Admission Date: August 31, 2020 Subjective Patient is resting comfortably. Reports pain is well controlled. Denies any chest pain or shortness of breath. Review of systems limited due to her baseline mental status given her dementia. Review of Systems Review of Systems: All systems reviewed & are unremarkable except as noted in HPI & below Physical Exam Physical Exam: General: Awake and alert HENT: NCAT, MMM, EOMI Eyes: PERRLA Neck: Supple, normal range of motion CVS: normal rate and rhythm Resp: b/l breath sounds Abdomen: Soft, distended nontender Extremities: Able to move all 4 extremities Neuro: No focal deficit appreciated Skin: warm and dry, no rashes/lesions/errythema MSK: normal ROM, no joint swelling/erythema Results & Data Results & Data ([facility]) Vital Signs (Past 12 Hours) Vital Signs Temp Pulse Resp BP Pulse Ox 09/03/20 14:46 36.5 C 71 17 118/63 98 09/03/20 08:19 36.6 C 72 17 133/63 96
[2020-09-03] MEDS: SENNA 8.6 MG TAB PO SCH (20:12)
[2020-09-03] MEDS: MIRTAZAPINE TAB 15 MG TAB PO SCH (20:13)
[2020-09-03] MEDS: INSULIN GLARGINE SOLOSTAR 100 UNITS/ML 3 ML PEN SC SCH (21:38)
[2020-09-04] MEDS: LINEZOLID 600 MG TAB PO SCH ×2 (08:27→21:19)
[2020-09-04] MEDS: ASPIRIN 81 MG ECTAB PO SCH (08:28)
[2020-09-04] MEDS: MULTIVITAMIN TAB PO SCH (08:28)
[2020-09-04] MEDS: METOPROLOL SUCC 25MG EXT REL TAB PO SCH (08:28)
[2020-09-04] MEDS: lisinopril 10 MG TAB PO SCH (08:29)
[2020-09-04] MEDS: FERROUS SULFATE 325 MG TAB PO SCH ×2 (08:29→21:20)
[2020-09-04] MEDS: CEROVITE ADV FORMULA TAB PO SCH (08:29)
[2020-09-04] MEDS: CIPROFLOXACIN 500 MG TAB PO SCH ×2 (08:29→21:18)
[2020-09-04] MEDS: gemfibroziL 600 MG TAB PO SCH (08:31)
[2020-09-04] MEDS: DOCUSATE SODIUM 100 MG CAP PO SCH ×2 (08:39→21:20)
[2020-09-04] MEDS: NYSTATIN POWDER 15GM BTL EXT SCH ×2 (08:40→21:22)
[2020-09-04] MEDS: INSULIN ASPART 100 UNITS/ML 3 ML PEN SC SCH ×4 (09:13→21:30)
--- NOTE | 2020-09-04 11:07 | Orthopedic Progress Note ---
Date of Service September 04, 2020 Assessment & Plan (1) Wound dehiscence, surgical: POD#4 Right foot TMA with stimulon bead placement and application of PRP -NWB Right LE. -Pain management -DVT prophylaxis-SCDs, ASA 81mg daily -dressing changed today -D/c-patient returning back to [facility] when stable Discussed with Dr. Ortiz. He would like patient on 4 more weeks of PO antibiotics. Patient currently on Cipro and Linezolid. There is concern about continuing the linezolid due to her thrombocytopenia and potential interaction with SSRIs. ID consult placed for antibiotic recommendations. Await ID Team input. Admission and Anticipated Discharge Date Admission Date: August 31, 2020 Subjective POD 4 Pt awake, alert. Pleasant. No complaints at this time. Physical Exam Physical Exam: Vital Signs Temp 36.8 C 09/04/20 07:54 Pulse 68 09/04/20 07:54 Resp 16 09/04/20 07:54 BP 135/58 L 09/04/20 07:54 Pulse Ox 96 09/04/20 07:54 Intake & Output 09/03/20 09/04/20 09/04/20 18:59 06:59 18:59 Intake Total 300 / 300 Output Total 1000 / 1000 1050 / 1050 Balance -700 / -700 -1050 / -1050 Intake: Oral 300 / 300 Output: Urine 1000 / 1000 1050 / 1050 Other: Other Intake Bette rce sips # Unmeasured Voi ds 1 1 Musculoskeletal: Right foot: dressing changed today, skin edges well approximated, no drainage, no erythema or warmth. Results & Data ([facility]) Vital Signs (Past 12 Hours) Vital Signs Temp Pulse Resp BP Pulse Ox 09/04/20 07:54 36.8 C 68 16 135/58 L 96
--- NOTE | 2020-09-04 13:19 | Pharmacy Report ---
Pharmacy Glycemic Short Note 2 - Date of Service September 04, 2020 - Glycemic Short BSG Results (Last 24 hours): 09/03/20 09/03/20 09/04/20 16:45 20:59 08:16 POC Glucose 111 H 122 H 100 H 09/04/20 12:12 POC Glucose 118 H OUTPATIENT ANTIDIABETIC REGIMEN: * Lantus 12 units sq BID * Novolog SSI * AwM2g=0.9% from 05/2020: * Patient received a total of 13 units of insulin yesterday, 6 of basal * POD#4, T2DM diet, continues on po linezolid + cipro * Previous day BSGs [phone] mg/dL, fasting this AM 100 mg/dL * Will set PM lantus dose as 6 units and remove scale * Prandial BSGs improved with tightened parameters yesterday, continue 09/03: * Patient received a total of 13 units of insulin yesterday, 6 units of basal * POD #3, on T2DM diet, continues on po linezolid + cipro, ID consulted (thrombocytopenia possibly from linezolid) * Previous day BSG [phone] mg/dL, Fasting this AM 108 mg/dL * Continue same lantus scale, adjusted goal range to 110-140 mg/dL, if prandial BSGs continue above goal will tighten carb ratio 09/01: * Patient received total of 11 units of insulin yesterday, of which 10 were basal (unclear insulin THERMAL ENGINEER 2/12 AM) * Patient is now POD 1 of right foot transmetatarsal amputation. Currently receiving antibiotics postop * Patient known to glycemic service from recent admission 07/19-07/31. Insulin requirements less than home outpatient regimen * Plan to utilize similar parameters for insulin coverage used last admission as BSGs stable. Patient only requiring about ~20 units of insulin daily, 8 units of basal daily last admission PLAN FOR INPATIENT GLYCEMIC CONTROL: * Basal insulin * Lantus 6 units HS * Bolus insulin * NovoLog per scale ACHS or Q6hrs while NPO * Goal Range: Low 110 mg/dL - High 140 mg/dL * Correction Factor: 35 mg/dL/unit * Nutritional / Prandial insulin per carb ratio of 1 unit per 9 grams CHO consumed PLAN FOR DISCHARGE: * A1c in May within goal range, <7%. Continue home regimen if patient not experiencing frequent hypoglycemic events at home, patient has been requiring reduced doses while inpatient, f/u with outpatient provider.
--- NOTE | 2020-09-04 16:41 | Hospitalist Progress Note ---
Date of Service September 04, 2020 Assessment & Plan (1) Status post transmetatarsal amputation of right foot: - POD#3 transmetatarsal amputation of right foot due to ongoing diabetic ulcer, poor wound healing, wound dehiscence Continue with oxycodone and Dilaudid for pain control. Bowel regimen. Continue to work with PT/OT. Will defer the anticoagulation to primary team. - s/p right great toe amputation on 07/19/21 and repeat I&D on 07/25/2020: Wound culture grew Enterobacter and VRE. Patient was discharged on p.o. Cipro and linezolid to complete a 4-week course from 07/25. Now noted to have thrombocytopenia, likely secondary to linezolid. -she continues on the cipro and linezolid PO with citalopram held to avoid serotonin syndrome. It appears that there were no cultures sent from the OR. Likely that the source was removed. No any blood cultures or OR cultures available. I spoke with infectious disease at [facility] (Dr. Mario Torres) on 09/03, he stated that if the source has been removed there is no indication for antibiotics this time. Previously physician has also spoken with infectious disease team at [facility] and they were under similar conclusion. Given her mental status, ID will not do [id number] consult as per my understanding. (2) Acute blood loss as cause of postoperative anemia: Did require 1 unit of PRBC during this admission. Hemoglobin remains stable. Hemoglobin at 8.3 today. (3) Thrombocytopenia: Remains stable. -Likely due to recent linezolid use -Monitor CBC (4) DM type 2 (diabetes mellitus, type 2): -Hgb A1c 5.9 05/2020 -Glycemic pharmacy consulted by orthopedics (5) HTN (hypertension): -BP controlled, continue lisinopril (6) Dementia: at her mental baseline. (7) Depression: Citalopram and trazodone held while continuing Zyvox to avoid medication interaction. Remeron in place if needed. Recommend holding citalopram/trazodone to avoid interaction for serotonin syndrome. (8) DVT prophylaxis: SCDs Full Code Dispo-per Ortho Admission and Anticipated Discharge Date Admission Date: August 31, 2020 Subjective Patient is resting comfortably. She is awake and alert. Does not appear to be in any distress. Review of Systems Review of Systems: Unobtainable due to mental health condition Physical Exam Physical Exam: General: Awake and alert HENT: NCAT, MMM, EOMI Eyes: PERRLA Neck: Supple, normal range of motion CVS: normal rate and rhythm Resp: b/l breath sounds Abdomen: Soft, distended nontender Extremities: Able to move all 4 extremities Neuro: No focal deficit appreciated Skin: warm and dry, no rashes/lesions/errythema MSK: normal ROM, no joint swelling/erythema Results & Data Results & Data ([facility]) Vital Signs (Past 12 Hours) Vital Signs Temp Pulse Resp BP Pulse Ox 09/04/20 15:53 36.4 C L 80 18 168/77 H 97 09/04/20 07:54 36.8 C 68 16 135/58 L 96
[2020-09-04] MEDS: MIRTAZAPINE TAB 15 MG TAB PO SCH (21:19)
[2020-09-04] MEDS: SENNA 8.6 MG TAB PO SCH (21:21)
[2020-09-04] MEDS: INSULIN GLARGINE SOLOSTAR 100 UNITS/ML 3 ML PEN SC SCH (21:30)
[2020-09-05] MEDS: ASPIRIN 81 MG ECTAB PO SCH (08:19)
[2020-09-05] MEDS: CIPROFLOXACIN 500 MG TAB PO SCH (08:19)
[2020-09-05] MEDS: FERROUS SULFATE 325 MG TAB PO SCH ×2 (08:20→20:14)
[2020-09-05] MEDS: MULTIVITAMIN TAB PO SCH (08:20)
[2020-09-05] MEDS: gemfibroziL 600 MG TAB PO SCH (08:20)
[2020-09-05] MEDS: DOCUSATE SODIUM 100 MG CAP PO SCH ×2 (08:20→20:13)
[2020-09-05] MEDS: NYSTATIN POWDER 15GM BTL EXT SCH ×2 (08:21→20:16)
[2020-09-05] MEDS: METOPROLOL SUCC 25MG EXT REL TAB PO SCH (08:21)
[2020-09-05] MEDS: CEROVITE ADV FORMULA TAB PO SCH (08:21)
[2020-09-05] MEDS: lisinopril 10 MG TAB PO SCH (08:21)
[2020-09-05] MEDS: LINEZOLID 600 MG TAB PO SCH (08:22)
[2020-09-05] MEDS: INSULIN ASPART 100 UNITS/ML 3 ML PEN SC SCH ×4 (08:32→20:47)
--- NOTE | 2020-09-05 13:41 | Orthopedic Progress Note ---
Date of Service September 05, 2020 Assessment & Plan (1) Wound dehiscence, surgical: POD#5 Right foot TMA with stimulon bead placement and application of PRP -NWB Right LE. -Pain management -DVT prophylaxis-SCDs, ASA 81mg daily -dressing changed today -D/c-patient returning back to [facility] when stable, it appears likely tomorrow. Spoke with medical team that has been in contact with ID at [facility], does not feel there is a clear indication for antibiotics at this time. will cont with daily dressing changes. Admission and Anticipated Discharge Date Admission Date: August 31, 2020 Subjective POD 5 Pt awake, alert. Pleasant. No complaints at this time. Physical Exam Physical Exam: Vital Signs Temp 36.8 C 09/05/20 08:20 Pulse 78 09/05/20 08:20 Resp 18 09/05/20 08:20 BP 153/67 H 09/05/20 08:20 Pulse Ox 97 09/05/20 08:20 Intake & Output 09/04/20 09/05/20 09/05/20 18:59 06:59 18:59 Intake Total 150 / 150 Output Total 1580 / 1580 Balance -1430 / -1430 Intake: Oral 150 / 150 Output: Urine 1580 / 1580 Other: # Unmeasured Voi ds 1 1 Musculoskeletal: Right Foot: dressing removed, is s/p TMA. skin edges approximated, some of the stimulin beads visible along the lateral wound area. there is no erythema or warmth noted. Results & Data ([facility]) Vital Signs (Past 12 Hours) Vital Signs Temp Pulse Resp BP Pulse Ox 09/05/20 08:20 36.8 C 78 18 153/67 H 97 Laboratory Results Laboratory Results WBC 4.81 K/uL (4.8-10.8) 09/03/20 05:19 RBC 3.14 M/uL (4.2-5.4) L 09/03/20 05:19 Hgb 8.3 g/dL (12.0-16.0) L 09/03/20 05:19 Hct 25.3 % (37-47) L 09/03/20 05:19 MCV 80.6 fL (80-100) 09/03/20 05:19 MCH 26.4 pg (25-34) 09/03/20 05:19 MCHC 32.8 g/dL (32-36) 09/03/20 05:19 RDW Std Deviation 48.7 fL (36.4-46.3) H 09/03/20 05:19 RDW Coeff of Pamela 16.5 % (11.5-14.5) H 09/03/20 05:19 Plt Count 94 K/uL (130-400) L 09/03/20 05:19 MPV 8.5 fL (7.4-10.4) 09/03/20 05:19 Immature Gran % (Auto) 1.0 % 09/03/20 05:19 Neut % (Auto) 45.4 % 09/03/20 05:19 Lymph % (Auto) 33.1 % 09/03/20 05:19 [place] % (Auto) 16.6 % 09/03/20 05:19 Eos % (Auto) 3.5 % 09/03/20 05:19 Baso % (Auto) 0.4 % 09/03/20 05:19 Neut # (Auto) 2.18 K/uL (1.4-6.5) 09/03/20 05:19 Lymph # (Auto) 1.59 K/uL (1.2-3.4) 09/03/20 05:19 [place] # (Auto) 0.80 K/uL (0.11-0.59) H 09/03/20 05:19 Eos # (Auto) 0.17 K/uL (0-0.5) 09/03/20 05:19 Baso # (Auto) 0.02 K/uL (0-0.2) 09/03/20 05:19 Immature Gran # (Auto) 0.05 K/uL (0.00-0.02) H 09/03/20 05:19 Platelet Estimate Decreased (Normal) L 09/01/20 05:46 PT 11.6 Seconds (9.0-12.0) 08/31/20 12:06 INR 1.2 (0.9-1.1) H 08/31/20 12:06 APTT 27.2 Seconds (21.0-31.0) 08/31/20 12:06 PTT Ratio 1.0 08/31/20 12:06 Sodium 140 mmol/L (136-145) 09/02/20 05:25 Potassium 3.5 mmol/L (3.5-5.1) 09/02/20 05:25 Chloride 105 mmol/L (98-107) 09/02/20 05:25 Carbon Dioxide 28 mmol/L (21-32) 09/02/20 05:25 Anion Gap 6.0 (3-11) 09/02/20 05:25 BUN 6 mg/dl (7-18) L 09/02/20 05:25 Creatinine 0.55 mg/dl (0.6-1.2) L 09/03/20 05:19 Est Cr Clr Drug Dosing 63.6 ml/min 09/03/20 05:19 Est GFR ( Amer) 97.1 09/03/20 05:19 Est GFR (Non-Af Amer) 83.7 09/03/20 05:19 BUN/Creatinine Ratio 9.7 (10-20) L 09/02/20 05:25 Glucose 123 mg/dl (70-99) H 09/02/20 05:25 POC Glucose 136 mg/dl (70-99) H 09/05/20 12:12 Calcium 8.4 mg/dl (8.5-10.1) L 09/02/20 05:25 Urine Blood Negative (Negative) 09/03/20 Unknown Nasal Screen MRSA (PCR) Negative (Negative) 08/31/20 Unknown Blood Type B Negative 08/31/20 12:06 Antibody Screen NEGATIVE 08/31/20 12:06 Crossmatch See Detail 08/31/20 12:06 Transfusion React Date 09/02/20 09/02/20 14:28 Transfusion React Time 1428 09/02/20 14:28 Tx React Symptoms HYPERTENSION 09/02/20 14:28 Reaction Clerical Check None Found 09/02/20 14:28 Lab Clerical Err Check None Found 09/02/20 14:28 React Component Return PCLR 09/02/20 14:28 Volume Returned 117.7 ML 09/02/20 14:28 Pre-Trans Blood Type B NEGATIVE 09/02/20 14:28 Pre-Trans Vis Hemolysis No 09/02/20 14:28 Pre-Trans VEE Negative (Negative) 09/02/20 14:28 Pre-Trans VEE IgG Neg (Negative) 09/02/20 14:28 Pre-Trans VEE Poly Neg (Negative) 09/02/20 14:28 Pre-Trans VEE C3b, C3d Neg (Negative) 09/02/20 14:28 Post-Trans Blood Type B NEGATIVE 09/02/20 14:28 Post-Tx Visible Hemolys No 09/02/20 14:28 Post-Trans VEE Negative (Negative) 09/02/20 14:28 Post-Trans VEE IgG Neg (Negative) 09/02/20 14:28 Post-Trans VEE Poly Neg (Negative) 09/02/20 14:28 Post-Trans VEE C3b, C3d Neg (Negative) 09/02/20 14:28 Post-Trans Ur Hemoglobin 09/02/20 14:28 Reaction Path Interpret 09/02/20 14:28 Transfusion Serv Com 09/02/20 14:28
--- NOTE | 2020-09-05 16:28 | Hospitalist Progress Note ---
Date of Service September 05, 2020 Assessment & Plan (1) Status post transmetatarsal amputation of right foot: POD#4 transmetatarsal amputation of right foot due to ongoing diabetic ulcer, poor wound healing, wound dehiscence s/p right great toe amputation on 07/19/21 and repeat I&D on 07/25/2020: Wound culture grew Enterobacter and VRE. Patient was discharged on p.o. Cipro and linezolid to complete a 4-week course from 07/25 Continue with oxycodone and Dilaudid for pain control. Bowel regimen. Continue to work with PT/OT. Will defer the anticoagulation to primary team. Now noted to have thrombocytopenia, likely secondary to linezolid. Antibiotics stopped and will monitor CBC Note from prior hospitalist: It appears that there were no cultures sent from the OR. Likely that the source was removed. No any blood cultures or OR cultures available. I spoke with infectious disease at [facility] (Dr. Mario Torres) on 09/03, he stated that if the source has been removed there is no indication for antibiotics this time. Previously physician has also spoken with infectious disease team at [facility] and they were under similar conclusion. Given her mental status, ID will not do [id number] consult as per my understanding. Discussed with orthopedic PA and antibiotics were discontinued She has been awaiting to be placed Medically stable (2) Acute blood loss as cause of postoperative anemia: Did require 1 unit of PRBC during this admission. Hemoglobin remains stable. Hemoglobin at 8.3 . (3) Thrombocytopenia: Remains stable. -Likely due to recent linezolid use -Platelet 94 as of 15 at this point (4) DM type 2 (diabetes mellitus, type 2): -Hgb A1c 5.9 05/2020 -Glycemic pharmacy consulted by orthopedics (5) HTN (hypertension): -BP controlled, continue lisinopril (6) Dementia: at her mental baseline. (7) Depression: Citalopram and trazodone held while continuing Zyvox to avoid medication interaction. Remeron in place if needed. Recommend holding citalopram/trazodone to avoid interaction for serotonin syndrome. (8) DVT prophylaxis: SCDs Full Code Dispo-per Ortho Awaiting placement Admission and Anticipated Discharge Date Admission Date: August 31, 2020 Subjective 09/05/2020 The patient was seen and examined in medical floor She is a status post POD 4 of right foot transmetatarsal amputation Denies any significant symptoms and no fever and/or chills He remains asymptomatic without any increase in white cell count Review of Systems Review of Systems: All systems reviewed and are unremarkable except as noted below Physical Exam Physical Exam: Lying in bed comfortably Constitutional: average body habitus; not ill appearing Eyes: PERRL, conjunctivae normal, anicteric sclerae ENMT: external ear and nose normal, oropharynx normal Neck: trachea midline, no thyromegaly Respiratory: no respiratory distress Auscultation: lungs clear to auscultation bilaterally Cardiovascular: Rate/Rhythm: regular rate and regular rhythm Heart Sounds: no murmur Extremities: no edema Gastrointestinal (Abdomen): Inspection/Auscultation: normal bowel sounds; abdomen not distended Percussion/Palpation: abdomen soft; abdomen nontender Musculoskeletal: No acute arthritis in any joint but the right foot is bandaged Neurologic: .Alert and awake. Pleasantly confused Psychiatric: Insight: + poor insight Results & Data Results & Data ([facility]) Vital Signs (Past 12 Hours) Vital Signs Temp Pulse Resp BP Pulse Ox 09/05/20 16:01 36.5 C 78 16 159/70 H 98 09/05/20 08:20 36.8 C 78 18 153/67 H 97 Medications Administered Current Inpatient Medications Acetaminophen (Acetaminophen 325 Mg Tab) 650 mg PO QID PRN PRN Reason: Pain Stop: 09/30/20 22:07 Aspirin (Aspirin 81 Mg Ectab) 81 mg PO DAILY HINA Stop: 10/01/20 08:59 Last Admin: 09/05/20 08:19 Dose: 81 mg Documented by: Bisacodyl (Bisacodyl 10 Mg Supp) 10 mg OH DAILY PRN PRN Reason: Constipation Stop: 09/30/20 22:07 Citalopram Hydrobromide (Citalopram 40 Mg Tab) 40 mg PO QAM HINA Stop: 10/01/20 08:59 Last Admin: 09/01/20 08:46 Dose: 40 mg Documented by: Dextrose (Dextrose 50% 50 Ml Syringe) 25 - 50 ml IV UD PRN; Protocol PRN Reason: Hypoglycemia Protocol Stop: 09/30/20 22:44 Docusate Sodium (Docusate Sodium 100 Mg Cap) 100 mg PO BID [facility] Stop: 09/30/20 22:07 Last Admin: 09/05/20 08:20 Dose: 100 mg Documented by: Ferrous Sulfate (Ferrous Sulfate 325 Mg Tab) 325 mg PO BID [facility] Stop: 10/01/20 08:59 Last Admin: 09/05/20 08:20 Dose: 325 mg Documented by: Gemfibrozil (Gemfibrozil 600 Mg Tab) 600 mg PO QAM [facility] Stop: 10/01/20 08:59 Last Admin: 09/05/20 08:20 Dose: 600 mg Documented by: Glucagon (Glucagon For Inj 1 Mg Vial) 1 mg SQ UD PRN; Protocol PRN Reason: Hypoglycemia Protocol Stop: 09/30/20 22:44 Glucose (Glucose 40% Gel 15 Gm Tube) 15 - 30 gm PO UD PRN; Protocol PRN Reason: Hypoglycemia Protocol Stop: 09/30/20 22:44 Glucose (Glucose 10 Tabs/Tube) 4 - 8 tabs PO UD PRN; Protocol PRN Reason: Hypoglycemia Protocol Stop: 09/30/20 22:44 Hydromorphone HCl (Hydromorphone Inj 0.5 Mg/0.5 Ml Syr) 0.25 mg IV Q4H PRN PRN Reason: Pain or Pre PT Stop: 09/14/20 22:07 Insulin Aspart (Insulin Aspart 100 Units/Ml 3 Ml Pen) 0 units SC [facility] Stop: 10/01/20 07:29 Last Admin: 09/05/20 12:38 Dose: 4 units Documented by: Insulin Glargine (Insulin Glargine Solostar 100 Units/Ml 3 Ml Pen) 0 units SC [facility]; Protocol Stop: 10/01/20 20:59 Last Admin: 09/04/20 21:30 Dose: 6 units Documented by: Lisinopril (Lisinopril 10 Mg Tab) 10 mg PO QAM [facility] Stop: 10/01/20 08:59 Last Admin: 09/05/20 08:21 Dose: 10 mg Documented by: Magnesium Hydroxide (Magnesium Hydroxide Susp 30 Ml Udc) 30 ml PO Q6H PRN PRN Reason: Constipation Stop: 09/30/20 22:07 Metoclopramide HCl (Metoclopramide Hcl Inj 5 Mg/Ml 2 Ml Vial) 10 mg IV Q6H PRN PRN Reason: Nausea And Vomiting Stop: 09/30/20 22:07 Metoprolol Succinate (Metoprolol Succ 25mg Ext Rel Tab) 25 mg PO QAM [facility] Stop: 10/01/20 08:59 Last Admin: 09/05/20 08:21 Dose: 25 mg Documented by: Mirtazapine (Mirtazapine Tab 15 Mg Tab) 15 mg PO [facility] Stop: 09/30/20 22:07 Last Admin: 09/04/20 21:19 Dose: 15 mg Documented by: Miscellaneous (Carbohydrates For Hypoglycemia ) 15 - 30 gm PO UD PRN PRN Reason: Hypoglycemia Treatment Stop: 09/30/20 22:44 Miscellaneous Information (Pharmacy Glycemic Mgmt Consult) 1 ea N/A UD PRN PRN Reason: Consult Stop: 09/30/20 22:31 Multivitamins (Multivitamin Tab) 1 tab PO QAM [facility] Stop: 10/01/20 08:59 Last Admin: 09/05/20 08:20 Dose: 1 tab Documented by: Multivitamins/Minerals (Cerovite Adv Formula Tab) 1 tab PO DAILY [facility] Stop: 10/01/20 08:59 Last Admin: 09/05/20 08:21 Dose: 1 tab Documented by: Naloxone HCl (Naloxone Hcl 0.4 Mg/1 Ml Vial/Carp) 0.1 mg IV Q5M PRN PRN Reason: Oversedation/Resp Depression Stop: 09/30/20 22:07 Nystatin (Nystatin Powder 15gm Btl) 1 appln EXT BID [facility] Stop: 09/30/20 22:07 Last Admin: 09/05/20 08:21 Dose: 1 appln Documented by: Ondansetron HCl (Ondansetron Inj 2 Mg/Ml 2 Ml Vial) 4 mg IV Q6H PRN PRN Reason: Nausea And Vomiting Stop: 09/30/20 22:07 Oxycodone HCl (Oxycodone Hcl Ir 5 Mg Tab (Immediate Release)) 5 mg PO Q4H PRN PRN Reason: Pain or Pre PT Stop: 09/14/20 22:07 Sennosides (Senna 8.6 Mg Tab) 17.2 mg PO [facility] Stop: 09/30/20 22:07 Last Admin: 09/04/20 21:21 Dose: 17.2 mg Documented by: Trazodone HCl (Trazodone Hcl 50 Mg Tab) 50 mg PO HS [facility] Stop: 09/30/20 22:07 Last Admin: 09/01/20 22:28 Dose: Not Given Documented by:
[2020-09-05] MEDS: SENNA 8.6 MG TAB PO SCH (20:14)
[2020-09-05] MEDS: MIRTAZAPINE TAB 15 MG TAB PO SCH (20:15)
[2020-09-05] MEDS: INSULIN GLARGINE SOLOSTAR 100 UNITS/ML 3 ML PEN SC SCH (20:47)
[2020-09-06 06:02] LABS: Basophils # (auto) 0.01 K/uL (0-0.2); Basophils % (auto) 0.2 %; Eosinophils # (auto) 0.14 K/uL (0-0.5); Eosinophils % (auto) 3.1 %; Hematocrit (blood only) 31.9 % (37-47); Hemoglobin 10.5 g/dL (12.0-16.0); Immature Granulocytes # (auto) 0.02 K/uL (0.00-0.02); Immature Granulocytes % (auto) 0.4 %; Lymphocytes # (auto) 1.83 K/uL (1.2-3.4); Mean Corpuscular Hgb Conc 32.9 g/dL (32-36); Mean Platelet Volume 8.3 fL (7.4-10.4); Monocytes % (auto) 10.9 %; Neutrophils # (auto) 2.07 K/uL (1.4-6.5); Neutrophils % (auto) 45.4 %; Platelet Count 125 K/uL (130-400); RDW Coefficient of Variation 17.5 % (11.5-14.5); RDW Standard Deviation 50.1 fL (36.4-46.3); Red Blood Count 3.89 M/uL (4.2-5.4); White Blood Count 4.57 K/uL (4.8-10.8)
[2020-09-06 06:29] LABS: BUN Creatinine Ratio 12.1 (10-20); Calcium 8.7 mg/dl (8.5-10.1); Creatinine Clr Calc Pharmacy 58.3 ml/min; Est GFR (African American) 94.3; Est GFR (Non-African American) 81.4; Magnesium 2.1 mg/dl (1.8-2.4); Phosphorus 3.5 mg/dl (2.5-4.9); Potassium 4.7 mmol/L (3.5-5.1)
[2020-09-06] MEDS: INSULIN ASPART 100 UNITS/ML 3 ML PEN SC SCH ×4 (09:03→20:49)
[2020-09-06] MEDS: CEROVITE ADV FORMULA TAB PO SCH (09:07)
[2020-09-06] MEDS: MULTIVITAMIN TAB PO SCH (09:07)
[2020-09-06] MEDS: lisinopril 10 MG TAB PO SCH (09:07)
[2020-09-06] MEDS: gemfibroziL 600 MG TAB PO SCH (09:08)
[2020-09-06] MEDS: METOPROLOL SUCC 25MG EXT REL TAB PO SCH (09:08)
[2020-09-06] MEDS: FERROUS SULFATE 325 MG TAB PO SCH ×2 (09:08→20:32)
[2020-09-06] MEDS: NYSTATIN POWDER 15GM BTL EXT SCH ×2 (09:08→20:31)
[2020-09-06] MEDS: ASPIRIN 81 MG ECTAB PO SCH (09:08)
[2020-09-06] MEDS: DOCUSATE SODIUM 100 MG CAP PO SCH ×2 (09:13→20:33)
--- NOTE | 2020-09-06 10:01 | Orthopedic Progress Note ---
Date of Service September 06, 2020 Assessment & Plan (1) Wound dehiscence, surgical: POD#6 Right foot TMA with stimulon bead placement and application of PRP -NWB Right LE. -Pain management -DVT prophylaxis-SCDs, ASA 81mg daily -dressing changed today -D/c- Transfer to [facility] today if bed available. Spoke with medical team that has been in contact with [place] [facility], does not feel there is a clear indication for antibiotics at this time. will cont with daily dressing changes. Admission and Anticipated Discharge Date Admission Date: August 31, 2020 Supervising Physician Co-Signing Physician Notes Patient seen and examined. I agree with AMBERLY Hannon's note as above. She was asleep but was slightly confused immediately upon awakening. She denies any complaints with her foot. Subjective POD 6 Pt awake, alert. Pleasant and cooperative. No complaints this AM. States that her foot feels good this AM. Physical Exam Physical Exam: Dressings removed. Suture line intact. antibiotic beads noted at the medial corner of the wound. Mild drainage noted on dressing. No odor. No purulence. Wound redressed. Results & Data ([facility]) Vital Signs (Past 12 Hours) Vital Signs Temp Pulse Resp BP BP Pulse Ox 09/06/20 08:01 37.1 C 77 16 174/72 H 98 09/05/20 22:31 36.8 C 75 16 187/66 H 179/72 H 96
--- NOTE | 2020-09-06 10:18 | Hospitalist Progress Note ---
Date of Service September 06, 2020 Assessment & Plan (1) Status post transmetatarsal amputation of right foot: POD#6 transmetatarsal amputation of right foot due to ongoing diabetic ulcer, poor wound healing, wound dehiscence S/p right great toe amputation on 07/19/21 and repeat I&D on 07/25/2020: Wound culture grew Enterobacter and VRE. Patient was discharged on p.o. Cipro and linezolid to complete a 4-week course from 07/25 Continue pain management, wound care, bowel regimen. Continue to work with PT/OT - NWB Right LE Discussed need for continued abx with Dr. Mario Torres of [facility] on 09/03, who stated that if the source has been removed there is no indication for antibiotics this time - abx have been discontinued Medically stable for discharge -Transfer to [facility] today if bed available (2) Acute blood loss as cause of postoperative anemia: Did require 1 unit of PRBC during this admission. Hemoglobin remains stable at 10.5 (3) Thrombocytopenia: Improved to 125 after discontinuation of Linezolid. Continue monitoring on CBC at SNF (4) DM type 2 (diabetes mellitus, type 2): Hgb A1c 5.9 05/2020 -Glycemic pharmacy consulted by orthopedics (5) HTN (hypertension): Continue lisinopril, optimize pain control (6) Dementia: At mentation baseline (7) Depression: Citalopram and trazodone resumed now that patient no longer taking Zyvox (8) DVT prophylaxis: SCDs Full Code Dispo-per Ortho - plan for d/c to [facility] today Patient seen in collaboration with Dr. Cohen. Please see addendum. Admission and Anticipated Discharge Date Admission Date: August 31, 2020 Supervising Physician Co-Signing Physician Notes Attending addendum: The patient was seen and examined in medical floor She remains stable without any significant symptoms Denies any pain and/or fever, nausea or vomiting On examination No apparent distress at rest Hemodynamically stable Chest-clear to auscultate Heart-S1-S2 regular Abdomen-benign Pleasantly confused without any acute confusion Remains medically stable to be discharged/transferred Agree with assessment and plan as outlined above by ROLANDO Nguyen Dr Subjective Seen and examined in [facility]. Feeling well today, denying pain. Cannot obtain full ROS 2/2 dementia. Pleasantly confused. VSS. Discharge to [facility] today. Review of Systems Review of Systems: Unobtainable due to cognitive status Physical Exam Physical Exam: Physical Exam: Lying in bed comfortably Constitutional: average body habitus; not ill appearing Eyes: PERRL, conjunctivae normal, anicteric sclerae ENMT: external ear and nose normal, oropharynx normal Neck: trachea midline, no thyromegaly Respiratory: no respiratory distress Auscultation: lungs clear to auscultation bilaterally Cardiovascular: Rate/Rhythm: regular rate and regular rhythm Heart Sounds: no murmur Extremities: no edema Gastrointestinal (Abdomen): Inspection/Auscultation: normal bowel sounds; abdomen not distended Percussion/Palpation: abdomen soft; abdomen nontender Musculoskeletal: No acute arthritis in any joint but the right foot is bandaged Neurologic: Alert and awake. Pleasantly confused Psychiatric: Insight: + poor insight Results & Data Results & Data ([facility]) Vital Signs (Past 12 Hours) Vital Signs Temp Pulse Resp BP BP Pulse Ox 09/06/20 08:01 37.1 C 77 16 174/72 H 98 09/05/20 22:31 36.8 C 75 16 187/66 H 179/72 H 96 Laboratory Results Short CBC 09/06/20 Range/Units 05:21 WBC 4.57 L (4.8-10.8) K/uL Hgb 10.5 L (12.0-16.0) g/dL Hct 31.9 L (37-47) % Plt Count 125 L (130-400) K/uL BMP 09/06/20 05:21 Sodium 143 Potassium 4.7 Chloride 107 Carbon Dioxide 32 BUN 7 Creatinine 0.60 Glucose 131 H Calcium 8.7
[2020-09-06] MEDS: CITALOPRAM 40 MG TAB PO SCH (12:04)
--- NOTE | 2020-09-06 13:42 | Pharmacy Report ---
Pharmacy Glycemic Short Note 2 - Date of Service September 06, 2020 - Glycemic Short BSG Results (Last 24 hours): 09/05/20 09/05/20 09/06/20 17:12 20:41 05:21 Glucose 131 H POC Glucose 173 H 208 H 09/06/20 09/06/20 08:00 12:10 Glucose POC Glucose 154 H 221 H OUTPATIENT ANTIDIABETIC REGIMEN: * Lantus 12 units sq BID * Novolog SSI * EoM0l=3.9% from 05/2020: * Patient received a total of 19 units of insulin yesterday * 8 units of basal and 11 units of bolus * Fasting BSG of 154 mg/dL is above goal despite patient receiving increased dose of basal insulin last evening. I will not react to single elevated fasting level since basal dose has been consistent the past 4 days. * Will slightly tighten Novolog parameters (elevated BSG yesterday at bedtime and today at lunch) 09/04: * Patient received a total of 13 units of insulin yesterday, 6 of basal * POD#4, T2DM diet, continues on po linezolid + cipro * Previous day BSGs [phone] mg/dL, fasting this AM 100 mg/dL * Will set PM lantus dose as 6 units and remove scale * Prandial BSGs improved with tightened parameters yesterday, continue 09/03: * Patient received a total of 13 units of insulin yesterday, 6 units of basal * POD #3, on T2DM diet, continues on po linezolid + cipro, ID consulted (thrombocytopenia possibly from linezolid) * Previous day BSG [phone] mg/dL, Fasting this AM 108 mg/dL * Continue same lantus scale, adjusted goal range to 110-140 mg/dL, if prandial BSGs continue above goal will tighten carb ratio 09/01: * Patient received total of 11 units of insulin yesterday, of which 10 were basal (unclear insulin [employer] 08/31 AM) * Patient is now POD 1 of right foot transmetatarsal amputation. Currently receiving antibiotics postop * Patient known to glycemic service from recent admission 07/19-07/31. Insulin requirements less than home outpatient regimen * Plan to utilize similar parameters for insulin coverage used last admission as BSGs stable. Patient only requiring about ~20 units of insulin daily, 8 units of basal daily last admission PLAN FOR INPATIENT GLYCEMIC CONTROL: * Basal insulin * Lantus 6-8 units HS * Bolus insulin * NovoLog per scale ACHS or Q6hrs while NPO * Goal Range: Low 110 mg/dL - High 140 mg/dL * Correction Factor: 30 mg/dL/unit * Nutritional / Prandial insulin per carb ratio of 1 unit per 8 grams CHO consumed PLAN FOR DISCHARGE: * A1c in May within goal range, <7%. Continue home regimen if patient not experiencing frequent hypoglycemic events at home, patient has been requiring reduced doses while inpatient, f/u with outpatient provider.
[2020-09-06] MEDS: SENNA 8.6 MG TAB PO SCH (20:34)
[2020-09-06] MEDS: MIRTAZAPINE TAB 15 MG TAB PO SCH (20:34)
[2020-09-06] MEDS: traZODone HCL 50 MG TAB PO SCH (20:47)
[2020-09-06] MEDS: INSULIN GLARGINE SOLOSTAR 100 UNITS/ML 3 ML PEN SC SCH (20:48)
[2020-09-07] MEDS: FERROUS SULFATE 325 MG TAB PO SCH (08:32)
[2020-09-07] MEDS: CEROVITE ADV FORMULA TAB PO SCH (08:32)
[2020-09-07] MEDS: gemfibroziL 600 MG TAB PO SCH (08:33)
[2020-09-07] MEDS: MULTIVITAMIN TAB PO SCH (08:33)
[2020-09-07] MEDS: CITALOPRAM 40 MG TAB PO SCH (08:33)
[2020-09-07] MEDS: lisinopril 10 MG TAB PO SCH (08:33)
[2020-09-07] MEDS: METOPROLOL SUCC 25MG EXT REL TAB PO SCH (08:34)
[2020-09-07] MEDS: ASPIRIN 81 MG ECTAB PO SCH (08:34)
[2020-09-07] MEDS: NYSTATIN POWDER 15GM BTL EXT SCH (08:34)
[2020-09-07] MEDS: INSULIN ASPART 100 UNITS/ML 3 ML PEN SC SCH (08:35)
[2020-09-07] MEDS: DOCUSATE SODIUM 100 MG CAP PO SCH (08:35)
[2020-09-07] MEDS ORDERED: INSULIN GLARGINE SOLOSTAR 100 UNITS/ML 3 ML PEN SC SCH (09:00)
--- NOTE | 2020-09-08 07:56 | Discharge Summary ---
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 The wound failed to progress and the wound dehiscence worsened. She is now being set up for a right TMA. Admission Exam Per Admitting Provider Constitutional: no acute distress ENMT: external ear and nose normal, oropharynx normal Neck: trachea midline, no thyromegaly Respiratory: normal respiratory effort, lungs clear to auscultation Cardiovascular: Rate/Rhythm: regular rate and regular rhythm Gastrointestinal (Abdomen): normal bowel sounds, soft, nontender, no hepatosplenomegaly Musculoskeletal: Right foot: wound dehiscence of great toe and 1st metatarsal head amputation site. Moderate drainage. No evidence of healing. Mild erythema. Neurologic: + abnormal touch/pain/proprioception (Decreased LE sensation BLE.) Psychiatric: Orientation: alert Cognition: + recent memory not intact Principal Diagnosis Right non healing wound, wound dehiscence Discharge Exam Dressings removed. Suture line intact. antibiotic beads noted at the medial corner of the wound. Mild drainage noted on dressing. No odor. No purulence. Wound redressed. Constitutional well developed and well nourished; no acute distress Discharge Data Allergies Allergy/AdvReac Type Severity Reaction Status Date / Time No Known Allergies Allergy Verified 08/31/20 12:41 Consultations 08/31/20 22:08 Consult Case Management - Discharge Planning Routine Consult Hospitalist Routine Procedures Performed Operation Date: 08/31/20 15:30 Actual Procedures p Right Foot Transmetatarsal Amputation, Application of Platelet Rich Plasma, Stimulan Beads(Right) - Garcia Ortiz DO Ordered Studies 08/31/20 05:00 US - OR guided needle placemen Routine Hospital Course (1) Wound dehiscence, surgical: Patient presented to [facility] for same day admission on 08/31/20 following right transmetatarsal amputation. The procedure was well tolerated. Post operatively her progress was monitored and was well tolerated. She underwent daily dressing changes. It was noted that her wound was well approximated, some of the stimulon beads were able to be visualized at medial corner of the incision. Will plan on continued daily dressing changes upon discharge. Labs remained stable. Lowest hemoglobin was 7.9. She was given 1 unit of PRBC during admission. [facility] infectious disease was also consulted for antibiotic recommendations post operatively. They recommended discontinuing antibiotics as no obvious continued source of infection noted. After exam on 09/07/20 patient was felt to be stable for discharge to [facility]. She will follow up with Dr. Ortiz's office 12-14 days post operatively. 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 -Pain management -DVT prophylaxis-SCDs, ASA 81mg daily -dressing changed today -D/c- Transfer to [facility] today if bed available. Spoke with medical team that has been in contact with ID at [facility], does not feel there is a clear indication for antibiotics at this time. will cont with daily dressing changes. Lab Results 08/31/20 08/31/20 08/31/20 Range/Units 12:06 12:06 12:27 WBC (4.8-10.8) K/uL RBC (4.2-5.4) M/uL Hgb (12.0-16.0) g/dL Hct (37-47) % MCV (80-100) fL MCH (25-34) pg MCHC (32-36) g/dL RDW Std Deviation (36.4-46.3) fL RDW Coeff of Pamela (11.5-14.5) % Plt Count (130-400) K/uL MPV (7.4-10.4) fL Immature Gran % (Auto) % Neut % (Auto) % Lymph % (Auto) % Hood % (Auto) % Eos % (Auto) % Baso % (Auto) % Neut # (Auto) (1.4-6.5) K/uL Lymph # (Auto) (1.2-3.4) K/uL Hood # (Auto) (0.11-0.59) K/uL Eos # (Auto) (0-0.5) K/uL Baso # (Auto) (0-0.2) K/uL Immature Gran # (Auto) (0.00-0.02) K/uL Platelet Estimate (Normal) PT 11.6 (9.0-12.0) Seconds INR 1.2 H (0.9-1.1) APTT 27.2 (21.0-31.0) Seconds PTT Ratio 1.0 Sodium (136-145) mmol/L Potassium (3.5-5.1) mmol/L Chloride (98-107) mmol/L Carbon Dioxide (21-32) mmol/L Anion Gap (3-11) BUN (7-18) mg/dl Creatinine (0.6-1.2) mg/dl Est Cr Clr Drug Dosing ml/min Est GFR ( Amer) Est GFR (Non-Af Amer) BUN/Creatinine Ratio (10-20) Glucose (70-99) mg/dl POC Glucose 104 H (70-99) mg/dl Calcium (8.5-10.1) mg/dl Phosphorus (2.5-4.9) mg/dl Magnesium (1.8-2.4) mg/dl Urine Blood (Negative) Nasal Screen MRSA (PCR) (Negative) SARS-CoV-2 Ag (Rapid) (Negative) Blood Type B Negative Antibody Screen NEGATIVE Crossmatch See Detail Transfusion React Date Transfusion React Time Tx React Symptoms Reaction Clerical Check Lab Clerical Err Check React Component Return Volume Returned Pre-Trans Blood Type Pre-Trans Vis Hemolysis Pre-Trans VEE (Negative) Pre-Trans VEE IgG (Negative) Pre-Trans VEE Poly (Negative) Pre-Trans VEE C3b, C3d (Negative) Post-Trans Blood Type Post-Tx Visible Hemolys Post-Trans VEE (Negative) Post-Trans VEE IgG (Negative) Post-Trans VEE Poly (Negative) Post-Trans VEE C3b, C3d (Negative) Post-Trans Ur Hemoglobin Reaction Path Interpret Transfusion Serv Com 08/31/20 08/31/20 08/31/20 Range/Units 18:55 20:40 22:45 WBC (4.8-10.8) K/uL RBC (4.2-5.4) M/uL Hgb (12.0-16.0) g/dL Hct (37-47) % MCV (80-100) fL MCH (25-34) pg MCHC (32-36) g/dL RDW Std Deviation (36.4-46.3) fL RDW Coeff of Pamela (11.5-14.5) % Plt Count (130-400) K/uL MPV (7.4-10.4) fL Immature Gran % (Auto) % Neut % (Auto) % Lymph % (Auto) % Hood % (Auto) % Eos % (Auto) % Baso % (Auto) % Neut # (Auto) (1.4-6.5) K/uL Lymph # (Auto) (1.2-3.4) K/uL Hood # (Auto) (0.11-0.59) K/uL Eos # (Auto) (0-0.5) K/uL Baso # (Auto) (0-0.2) K/uL Immature Gran # (Auto) (0.00-0.02) K/uL Platelet Estimate (Normal) PT (9.0-12.0) Seconds INR (0.9-1.1) APTT (21.0-31.0) Seconds PTT Ratio Sodium (136-145) mmol/L Potassium (3.5-5.1) mmol/L Chloride (98-107) mmol/L Carbon Dioxide (21-32) mmol/L Anion Gap (3-11) BUN (7-18) mg/dl Creatinine (0.6-1.2) mg/dl Est Cr Clr Drug Dosing ml/min Est GFR ( Amer) Est GFR (Non-Af Amer) BUN/Creatinine Ratio (10-20) Glucose (70-99) mg/dl POC Glucose 106 H 105 H 205 H (70-99) mg/dl Calcium (8.5-10.1) mg/dl Phosphorus (2.5-4.9) mg/dl Magnesium (1.8-2.4) mg/dl Urine Blood (Negative) Nasal Screen MRSA (PCR) (Negative) SARS-CoV-2 Ag (Rapid) (Negative) Blood Type Antibody Screen Crossmatch Transfusion React Date Transfusion React Time Tx React Symptoms Reaction Clerical Check Lab Clerical Err Check React Component Return Volume Returned Pre-Trans Blood Type Pre-Trans Vis Hemolysis Pre-Trans VEE (Negative) Pre-Trans VEE IgG (Negative) Pre-Trans VEE Poly (Negative) Pre-Trans VEE C3b, C3d (Negative) Post-Trans Blood Type Post-Tx Visible Hemolys Post-Trans VEE (Negative) Post-Trans VEE IgG (Negative) Post-Trans VEE Poly (Negative) Post-Trans VEE C3b, C3d (Negative) Post-Trans Ur Hemoglobin Reaction Path Interpret Transfusion Serv Com 08/31/20 09/01/20 09/01/20 Range/Units Unknown 04:19 05:46 WBC (4.8-10.8) K/uL RBC (4.2-5.4) M/uL Hgb (12.0-16.0) g/dL Hct (37-47) % MCV (80-100) fL MCH (25-34) pg MCHC (32-36) g/dL RDW Std Deviation (36.4-46.3) fL RDW Coeff of Pamela (11.5-14.5) % Plt Count (130-400) K/uL MPV (7.4-10.4) fL Immature Gran % (Auto) % Neut % (Auto) % Lymph % (Auto) % Hood % (Auto) % Eos % (Auto) % Baso % (Auto) % Neut # (Auto) (1.4-6.5) K/uL Lymph # (Auto) (1.2-3.4) K/uL Hood # (Auto) (0.11-0.59) K/uL Eos # (Auto) (0-0.5) K/uL Baso # (Auto) (0-0.2) K/uL Immature Gran # (Auto) (0.00-0.02) K/uL Platelet Estimate (Normal) PT (9.0-12.0) Seconds INR (0.9-1.1) APTT (21.0-31.0) Seconds PTT Ratio Sodium 141 (136-145) mmol/L Potassium 3.6 (3.5-5.1) mmol/L Chloride 109 H (98-107) mmol/L Carbon Dioxide 27 (21-32) mmol/L Anion Gap 5.0 (3-11) BUN 8 (7-18) mg/dl Creatinine 0.54 L (0.6-1.2) mg/dl Est Cr Clr Drug Dosing 64.8 ml/min Est GFR ( Amer) 97.6 Est GFR (Non-Af Amer) 84.3 BUN/Creatinine Ratio 15.3 (10-20) Glucose 94 (70-99) mg/dl POC Glucose 125 H (70-99) mg/dl Calcium 7.8 L (8.5-10.1) mg/dl Phosphorus (2.5-4.9) mg/dl Magnesium (1.8-2.4) mg/dl Urine Blood (Negative) Nasal Screen MRSA (PCR) Negative (Negative) SARS-CoV-2 Ag (Rapid) (Negative) Blood Type Antibody Screen Crossmatch Transfusion React Date Transfusion React Time Tx React Symptoms Reaction Clerical Check Lab Clerical Err Check React Component Return Volume Returned Pre-Trans Blood Type Pre-Trans Vis Hemolysis Pre-Trans VEE (Negative) Pre-Trans VEE IgG (Negative) Pre-Trans VEE Poly (Negative) Pre-Trans VEE C3b, C3d (Negative) Post-Trans Blood Type Post-Tx Visible Hemolys Post-Trans VEE (Negative) Post-Trans VEE IgG (Negative) Post-Trans VEE Poly (Negative) Post-Trans VEE C3b, C3d (Negative) Post-Trans Ur Hemoglobin Reaction Path Interpret Transfusion Serv Com 09/01/20 09/01/20 09/01/20 Range/Units 05:46 08:10 11:49 WBC 5.42 (4.8-10.8) K/uL RBC 3.19 L (4.2-5.4) M/uL Hgb 8.4 L (12.0-16.0) g/dL Hct 25.4 L (37-47) % MCV 79.6 L (80-100) fL MCH 26.3 (25-34) pg MCHC 33.1 (32-36) g/dL RDW Std Deviation 47.5 H (36.4-46.3) fL RDW Coeff of Pamela 16.1 H (11.5-14.5) % Plt Count 78 L (130-400) K/uL MPV 8.5 (7.4-10.4) fL Immature Gran % (Auto) % Neut % (Auto) % Lymph % (Auto) % Hood % (Auto) % Eos % (Auto) % Baso % (Auto) % Neut # (Auto) (1.4-6.5) K/uL Lymph # (Auto) (1.2-3.4) K/uL Hood # (Auto) (0.11-0.59) K/uL Eos # (Auto) (0-0.5) K/uL Baso # (Auto) (0-0.2) K/uL Immature Gran # (Auto) (0.00-0.02) K/uL Platelet Estimate Decreased L (Normal) PT (9.0-12.0) Seconds INR (0.9-1.1) APTT (21.0-31.0) Seconds PTT Ratio Sodium (136-145) mmol/L Potassium (3.5-5.1) mmol/L Chloride (98-107) mmol/L Carbon Dioxide (21-32) mmol/L Anion Gap (3-11) BUN (7-18) mg/dl Creatinine (0.6-1.2) mg/dl Est Cr Clr Drug Dosing ml/min Est GFR ( Amer) Est GFR (Non-Af Amer) BUN/Creatinine Ratio (10-20) Glucose (70-99) mg/dl POC Glucose 110 H 129 H (70-99) mg/dl Calcium (8.5-10.1) mg/dl Phosphorus (2.5-4.9) mg/dl Magnesium (1.8-2.4) mg/dl Urine Blood (Negative) Nasal Screen MRSA (PCR) (Negative) SARS-CoV-2 Ag (Rapid) (Negative) Blood Type Antibody Screen Crossmatch Transfusion React Date Transfusion React Time Tx React Symptoms Reaction Clerical Check Lab Clerical Err Check React Component Return Volume Returned Pre-Trans Blood Type Pre-Trans Vis Hemolysis Pre-Trans VEE (Negative) Pre-Trans VEE IgG (Negative) Pre-Trans VEE Poly (Negative) Pre-Trans VEE C3b, C3d (Negative) Post-Trans Blood Type Post-Tx Visible Hemolys Post-Trans VEE (Negative) Post-Trans VEE IgG (Negative) Post-Trans VEE Poly (Negative) Post-Trans VEE C3b, C3d (Negative) Post-Trans Ur Hemoglobin Reaction Path Interpret Transfusion Serv Com 09/01/20 09/01/20 09/02/20 Range/Units 17:00 20:38 05:25 WBC (4.8-10.8) K/uL RBC (4.2-5.4) M/uL Hgb (12.0-16.0) g/dL Hct (37-47) % MCV (80-100) fL MCH (25-34) pg MCHC (32-36) g/dL RDW Std Deviation (36.4-46.3) fL RDW Coeff of Pamela (11.5-14.5) % Plt Count (130-400) K/uL MPV (7.4-10.4) fL Immature Gran % (Auto) % Neut % (Auto) % Lymph % (Auto) % Hood % (Auto) % Eos % (Auto) % Baso % (Auto) % Neut # (Auto) (1.4-6.5) K/uL Lymph # (Auto) (1.2-3.4) K/uL Hood # (Auto) (0.11-0.59) K/uL Eos # (Auto) (0-0.5) K/uL Baso # (Auto) (0-0.2) K/uL Immature Gran # (Auto) (0.00-0.02) K/uL Platelet Estimate (Normal) PT (9.0-12.0) Seconds INR (0.9-1.1) APTT (21.0-31.0) Seconds PTT Ratio Sodium 140 (136-145) mmol/L Potassium 3.5 (3.5-5.1) mmol/L Chloride 105 (98-107) mmol/L Carbon Dioxide 28 (21-32) mmol/L Anion Gap 6.0 (3-11) BUN 6 L (7-18) mg/dl Creatinine 0.65 (0.6-1.2) mg/dl Est Cr Clr Drug Dosing 53.8 ml/min Est GFR ( Amer) 91.9 Est GFR (Non-Af Amer) 79.3 BUN/Creatinine Ratio 9.7 L (10-20) Glucose 123 H (70-99) mg/dl POC Glucose 279 H 157 H (70-99) mg/dl Calcium 8.4 L (8.5-10.1) mg/dl Phosphorus (2.5-4.9) mg/dl Magnesium (1.8-2.4) mg/dl Urine Blood (Negative) Nasal Screen MRSA (PCR) (Negative) SARS-CoV-2 Ag (Rapid) (Negative) Blood Type Antibody Screen Crossmatch Transfusion React Date Transfusion React Time Tx React Symptoms Reaction Clerical Check Lab Clerical Err Check React Component Return Volume Returned Pre-Trans Blood Type Pre-Trans Vis Hemolysis Pre-Trans VEE (Negative) Pre-Trans VEE IgG (Negative) Pre-Trans VEE Poly (Negative) Pre-Trans VEE C3b, C3d (Negative) Post-Trans Blood Type Post-Tx Visible Hemolys Post-Trans VEE (Negative) Post-Trans VEE IgG (Negative) Post-Trans VEE Poly (Negative) Post-Trans VEE C3b, C3d (Negative) Post-Trans Ur Hemoglobin Reaction Path Interpret Transfusion Serv Com 09/02/20 09/02/20 09/02/20 Range/Units 05:25 08:09 12:02 WBC 5.52 (4.8-10.8) K/uL RBC 3.01 L (4.2-5.4) M/uL Hgb 7.9 L (12.0-16.0) g/dL Hct 24.2 L (37-47) % MCV 80.4 (80-100) fL MCH 26.2 (25-34) pg MCHC 32.6 (32-36) g/dL RDW Std Deviation 48.7 H (36.4-46.3) fL RDW Coeff of Pamela 16.5 H (11.5-14.5) % Plt Count 93 L (130-400) K/uL MPV 8.7 (7.4-10.4) fL Immature Gran % (Auto) % Neut % (Auto) % Lymph % (Auto) % Hood % (Auto) % Eos % (Auto) % Baso % (Auto) % Neut # (Auto) (1.4-6.5) K/uL Lymph # (Auto) (1.2-3.4) K/uL Hood # (Auto) (0.11-0.59) K/uL Eos # (Auto) (0-0.5) K/uL Baso # (Auto) (0-0.2) K/uL Immature Gran # (Auto) (0.00-0.02) K/uL Platelet Estimate (Normal) PT (9.0-12.0) Seconds INR (0.9-1.1) APTT (21.0-31.0) Seconds PTT Ratio Sodium (136-145) mmol/L Potassium (3.5-5.1) mmol/L Chloride (98-107) mmol/L Carbon Dioxide (21-32) mmol/L Anion Gap (3-11) BUN (7-18) mg/dl Creatinine (0.6-1.2) mg/dl Est Cr Clr Drug Dosing ml/min Est GFR ( Amer) Est GFR (Non-Af Amer) BUN/Creatinine Ratio (10-20) Glucose (70-99) mg/dl POC Glucose 131 H 210 H (70-99) mg/dl Calcium (8.5-10.1) mg/dl Phosphorus (2.5-4.9) mg/dl Magnesium (1.8-2.4) mg/dl Urine Blood (Negative) Nasal Screen MRSA (PCR) (Negative) SARS-CoV-2 Ag (Rapid) (Negative) Blood Type Antibody Screen Crossmatch Transfusion React Date Transfusion React Time Tx React Symptoms Reaction Clerical Check Lab Clerical Err Check React Component Return Volume Returned Pre-Trans Blood Type Pre-Trans Vis Hemolysis Pre-Trans VEE (Negative) Pre-Trans VEE IgG (Negative) Pre-Trans VEE Poly (Negative) Pre-Trans VEE C3b, C3d (Negative) Post-Trans Blood Type Post-Tx Visible Hemolys Post-Trans VEE (Negative) Post-Trans VEE IgG (Negative) Post-Trans VEE Poly (Negative) Post-Trans VEE C3b, C3d (Negative) Post-Trans Ur Hemoglobin Reaction Path Interpret Transfusion Serv Com 09/02/20 09/02/20 09/02/20 Range/Units 14:22 14:28 17:11 WBC 5.11 (4.8-10.8) K/uL RBC 3.26 L (4.2-5.4) M/uL Hgb 8.7 L (12.0-16.0) g/dL Hct 26.9 L (37-47) % MCV 82.5 (80-100) fL MCH 26.7 (25-34) pg MCHC 32.3 (32-36) g/dL RDW Std Deviation 50.2 H (36.4-46.3) fL RDW Coeff of Pamela 16.5 H (11.5-14.5) % Plt Count 93 L (130-400) K/uL MPV 8.9 (7.4-10.4) fL Immature Gran % (Auto) 0.8 % Neut % (Auto) 48.9 % Lymph % (Auto) 28.6 % Hood % (Auto) 19.2 % Eos % (Auto) 2.3 % Baso % (Auto) 0.2 % Neut # (Auto) 2.50 (1.4-6.5) K/uL Lymph # (Auto) 1.46 (1.2-3.4) K/uL Hood # (Auto) 0.98 H (0.11-0.59) K/uL Eos # (Auto) 0.12 (0-0.5) K/uL Baso # (Auto) 0.01 (0-0.2) K/uL Immature Gran # (Auto) 0.04 H (0.00-0.02) K/uL Platelet Estimate (Normal) PT (9.0-12.0) Seconds INR (0.9-1.1) APTT (21.0-31.0) Seconds PTT Ratio Sodium (136-145) mmol/L Potassium (3.5-5.1) mmol/L Chloride (98-107) mmol/L Carbon Dioxide (21-32) mmol/L Anion Gap (3-11) BUN (7-18) mg/dl Creatinine (0.6-1.2) mg/dl Est Cr Clr Drug Dosing ml/min Est GFR ( Amer) Est GFR (Non-Af Amer) BUN/Creatinine Ratio (10-20) Glucose (70-99) mg/dl POC Glucose 180 H (70-99) mg/dl Calcium (8.5-10.1) mg/dl Phosphorus (2.5-4.9) mg/dl Magnesium (1.8-2.4) mg/dl Urine Blood (Negative) Nasal Screen MRSA (PCR) (Negative) SARS-CoV-2 Ag (Rapid) (Negative) Blood Type Antibody Screen Crossmatch Transfusion React Date 09/02/20 Transfusion React Time 1428 Tx React Symptoms HYPERTENSION Reaction Clerical Check None Found Lab Clerical Err Check None Found React Component Return PCLR Volume Returned 117.7 ML Pre-Trans Blood Type B NEGATIVE Pre-Trans Vis Hemolysis No Pre-Trans VEE Negative (Negative) Pre-Trans VEE IgG Neg (Negative) Pre-Trans VEE Poly Neg (Negative) Pre-Trans VEE C3b, C3d Neg (Negative) Post-Trans Blood Type B NEGATIVE Post-Tx Visible Hemolys No Post-Trans VEE Negative (Negative) Post-Trans VEE IgG Neg (Negative) Post-Trans VEE Poly Neg (Negative) Post-Trans VEE C3b, C3d Neg (Negative) Post-Trans Ur Hemoglobin Reaction Path Interpret Transfusion Serv Com 02/14/21 02/15/21 02/15/21 Range/Units 20:31 05:19 05:19 WBC 4.81 (4.8-10.8) K/uL RBC 3.14 L (4.2-5.4) M/uL Hgb 8.3 L (12.0-16.0) g/dL Hct 25.3 L (37-47) % MCV 80.6 (80-100) fL MCH 26.4 (25-34) pg MCHC 32.8 (32-36) g/dL RDW Std Deviation 48.7 H (36.4-46.3) fL RDW Coeff of Pamela 16.5 H (11.5-14.5) % Plt Count 94 L (130-400) K/uL MPV 8.5 (7.4-10.4) fL Immature Gran % (Auto) 1.0 % Neut % (Auto) 45.4 % Lymph % (Auto) 33.1 % Hood % (Auto) 16.6 % Eos % (Auto) 3.5 % Baso % (Auto) 0.4 % Neut # (Auto) 2.18 (1.4-6.5) K/uL Lymph # (Auto) 1.59 (1.2-3.4) K/uL Hood # (Auto) 0.80 H (0.11-0.59) K/uL Eos # (Auto) 0.17 (0-0.5) K/uL Baso # (Auto) 0.02 (0-0.2) K/uL Immature Gran # (Auto) 0.05 H (0.00-0.02) K/uL Platelet Estimate (Normal) PT (9.0-12.0) Seconds INR (0.9-1.1) APTT (21.0-31.0) Seconds PTT Ratio Sodium (136-145) mmol/L Potassium (3.5-5.1) mmol/L Chloride (98-107) mmol/L Carbon Dioxide (21-32) mmol/L Anion Gap (3-11) BUN (7-18) mg/dl Creatinine 0.55 L (0.6-1.2) mg/dl Est Cr Clr Drug Dosing 63.6 ml/min Est GFR ( Amer) 97.1 Est GFR (Non-Af Amer) 83.7 BUN/Creatinine Ratio (10-20) Glucose (70-99) mg/dl POC Glucose 157 H (70-99) mg/dl Calcium (8.5-10.1) mg/dl Phosphorus (2.5-4.9) mg/dl Magnesium (1.8-2.4) mg/dl Urine Blood (Negative) Nasal Screen MRSA (PCR) (Negative) SARS-CoV-2 Ag (Rapid) (Negative) Blood Type Antibody Screen Crossmatch Transfusion React Date Transfusion React Time Tx React Symptoms Reaction Clerical Check Lab Clerical Err Check React Component Return Volume Returned Pre-Trans Blood Type Pre-Trans Vis Hemolysis Pre-Trans VEE (Negative) Pre-Trans VEE IgG (Negative) Pre-Trans VEE Poly (Negative) Pre-Trans VEE C3b, C3d (Negative) Post-Trans Blood Type Post-Tx Visible Hemolys Post-Trans VEE (Negative) Post-Trans VEE IgG (Negative) Post-Trans VEE Poly (Negative) Post-Trans VEE C3b, C3d (Negative) Post-Trans Ur Hemoglobin Reaction Path Interpret Transfusion Serv Com 09/03/20 09/03/20 09/03/20 Range/Units 08:02 12:11 16:45 WBC (4.8-10.8) K/uL RBC (4.2-5.4) M/uL Hgb (12.0-16.0) g/dL Hct (37-47) % MCV (80-100) fL MCH (25-34) pg MCHC (32-36) g/dL RDW Std Deviation (36.4-46.3) fL RDW Coeff of Pamela (11.5-14.5) % Plt Count (130-400) K/uL MPV (7.4-10.4) fL Immature Gran % (Auto) % Neut % (Auto) % Lymph % (Auto) % Hood % (Auto) % Eos % (Auto) % Baso % (Auto) % Neut # (Auto) (1.4-6.5) K/uL Lymph # (Auto) (1.2-3.4) K/uL Hood # (Auto) (0.11-0.59) K/uL Eos # (Auto) (0-0.5) K/uL Baso # (Auto) (0-0.2) K/uL Immature Gran # (Auto) (0.00-0.02) K/uL Platelet Estimate (Normal) PT (9.0-12.0) Seconds INR (0.9-1.1) APTT (21.0-31.0) Seconds PTT Ratio Sodium (136-145) mmol/L Potassium (3.5-5.1) mmol/L Chloride (98-107) mmol/L Carbon Dioxide (21-32) mmol/L Anion Gap (3-11) BUN (7-18) mg/dl Creatinine (0.6-1.2) mg/dl Est Cr Clr Drug Dosing ml/min Est GFR ( Amer) Est GFR (Non-Af Amer) BUN/Creatinine Ratio (10-20) Glucose (70-99) mg/dl POC Glucose 108 H 210 H 111 H (70-99) mg/dl Calcium (8.5-10.1) mg/dl Phosphorus (2.5-4.9) mg/dl Magnesium (1.8-2.4) mg/dl Urine Blood (Negative) Nasal Screen MRSA (PCR) (Negative) SARS-CoV-2 Ag (Rapid) (Negative) Blood Type Antibody Screen Crossmatch Transfusion React Date Transfusion React Time Tx React Symptoms Reaction Clerical Check Lab Clerical Err Check React Component Return Volume Returned Pre-Trans Blood Type Pre-Trans Vis Hemolysis Pre-Trans VEE (Negative) Pre-Trans VEE IgG (Negative) Pre-Trans VEE Poly (Negative) Pre-Trans VEE C3b, C3d (Negative) Post-Trans Blood Type Post-Tx Visible Hemolys Post-Trans VEE (Negative) Post-Trans VEE IgG (Negative) Post-Trans EVE Poly (Negative) Post-Trans VEE C3b, C3d (Negative) Post-Trans Ur Hemoglobin Reaction Path Interpret Transfusion Serv Com 09/03/20 09/03/20 09/04/20 Range/Units 20:59 Unknown 08:16 WBC (4.8-10.8) K/uL RBC (4.2-5.4) M/uL Hgb (12.0-16.0) g/dL Hct (37-47) % MCV (80-100) fL MCH (25-34) pg MCHC (32-36) g/dL RDW Std Deviation (36.4-46.3) fL RDW Coeff of Pamela (11.5-14.5) % Plt Count (130-400) K/uL MPV (7.4-10.4) fL Immature Gran % (Auto) % Neut % (Auto) % Lymph % (Auto) % Hood % (Auto) % Eos % (Auto) % Baso % (Auto) % Neut # (Auto) (1.4-6.5) K/uL Lymph # (Auto) (1.2-3.4) K/uL Hood # (Auto) (0.11-0.59) K/uL Eos # (Auto) (0-0.5) K/uL Baso # (Auto) (0-0.2) K/uL Immature Gran # (Auto) (0.00-0.02) K/uL Platelet Estimate (Normal) PT (9.0-12.0) Seconds INR (0.9-1.1) APTT (21.0-31.0) Seconds PTT Ratio Sodium (136-145) mmol/L Potassium (3.5-5.1) mmol/L Chloride (98-107) mmol/L Carbon Dioxide (21-32) mmol/L Anion Gap (3-11) BUN (7-18) mg/dl Creatinine (0.6-1.2) mg/dl Est Cr Clr Drug Dosing ml/min Est GFR ( Amer) Est GFR (Non-Af Amer) BUN/Creatinine Ratio (10-20) Glucose (70-99) mg/dl POC Glucose 122 H 100 H (70-99) mg/dl Calcium (8.5-10.1) mg/dl Phosphorus (2.5-4.9) mg/dl Magnesium (1.8-2.4) mg/dl Urine Blood Negative (Negative) Nasal Screen MRSA (PCR) (Negative) SARS-CoV-2 Ag (Rapid) (Negative) Blood Type Antibody Screen Crossmatch Transfusion React Date Transfusion React Time Tx React Symptoms Reaction Clerical Check Lab Clerical Err Check React Component Return Volume Returned Pre-Trans Blood Type Pre-Trans Vis Hemolysis Pre-Trans VEE (Negative) Pre-Trans VEE IgG (Negative) Pre-Trans VEE Poly (Negative) Pre-Trans VEE C3b, C3d (Negative) Post-Trans Blood Type Post-Tx Visible Hemolys Post-Trans VEE (Negative) Post-Trans VEE IgG (Negative) Post-Trans VEE Poly (Negative) Post-Trans VEE C3b, C3d (Negative) Post-Trans Ur Hemoglobin Reaction Path Interpret Transfusion Serv Com 09/04/20 09/04/20 09/04/20 Range/Units 12:12 16:59 21:02 WBC (4.8-10.8) K/uL RBC (4.2-5.4) M/uL Hgb (12.0-16.0) g/dL Hct (37-47) % MCV (80-100) fL MCH (25-34) pg MCHC (32-36) g/dL RDW Std Deviation (36.4-46.3) fL RDW Coeff of Pamela (11.5-14.5) % Plt Count (130-400) K/uL MPV (7.4-10.4) fL Immature Gran % (Auto) % Neut % (Auto) % Lymph % (Auto) % Hood % (Auto) % Eos % (Auto) % Baso % (Auto) % Neut # (Auto) (1.4-6.5) K/uL Lymph # (Auto) (1.2-3.4) K/uL Hood # (Auto) (0.11-0.59) K/uL Eos # (Auto) (0-0.5) K/uL Baso # (Auto) (0-0.2) K/uL Immature Gran # (Auto) (0.00-0.02) K/uL Platelet Estimate (Normal) PT (9.0-12.0) Seconds INR (0.9-1.1) APTT (21.0-31.0) Seconds PTT Ratio Sodium (136-145) mmol/L Potassium (3.5-5.1) mmol/L Chloride (98-107) mmol/L Carbon Dioxide (21-32) mmol/L Anion Gap (3-11) BUN (7-18) mg/dl Creatinine (0.6-1.2) mg/dl Est Cr Clr Drug Dosing ml/min Est GFR ( Amer) Est GFR (Non-Af Amer) BUN/Creatinine Ratio (10-20) Glucose (70-99) mg/dl POC Glucose 118 H 185 H 95 (70-99) mg/dl Calcium (8.5-10.1) mg/dl Phosphorus (2.5-4.9) mg/dl Magnesium (1.8-2.4) mg/dl Urine Blood (Negative) Nasal Screen MRSA (PCR) (Negative) SARS-CoV-2 Ag (Rapid) (Negative) Blood Type Antibody Screen Crossmatch Transfusion React Date Transfusion React Time Tx React Symptoms Reaction Clerical Check Lab Clerical Err Check React Component Return Volume Returned Pre-Trans Blood Type Pre-Trans Vis Hemolysis Pre-Trans VEE (Negative) Pre-Trans VEE IgG (Negative) Pre-Trans VEE Poly (Negative) Pre-Trans VEE C3b, C3d (Negative) Post-Trans Blood Type Post-Tx Visible Hemolys Post-Trans VEE (Negative) Post-Trans VEE IgG (Negative) Post-Trans VEE Poly (Negative) Post-Trans VEE C3b, C3d (Negative) Post-Trans Ur Hemoglobin Reaction Path Interpret Transfusion Serv Com 09/05/20 09/05/20 09/05/20 Range/Units 08:09 12:12 17:12 WBC (4.8-10.8) K/uL RBC (4.2-5.4) M/uL Hgb (12.0-16.0) g/dL Hct (37-47) % MCV (80-100) fL MCH (25-34) pg MCHC (32-36) g/dL RDW Std Deviation (36.4-46.3) fL RDW Coeff of Pamela (11.5-14.5) % Plt Count (130-400) K/uL MPV (7.4-10.4) fL Immature Gran % (Auto) % Neut % (Auto) % Lymph % (Auto) % Hood % (Auto) % Eos % (Auto) % Baso % (Auto) % Neut # (Auto) (1.4-6.5) K/uL Lymph # (Auto) (1.2-3.4) K/uL Hood # (Auto) (0.11-0.59) K/uL Eos # (Auto) (0-0.5) K/uL Baso # (Auto) (0-0.2) K/uL Immature Gran # (Auto) (0.00-0.02) K/uL Platelet Estimate (Normal) PT (9.0-12.0) Seconds INR (0.9-1.1) APTT (21.0-31.0) Seconds PTT Ratio Sodium (136-145) mmol/L Potassium (3.5-5.1) mmol/L Chloride (98-107) mmol/L Carbon Dioxide (21-32) mmol/L Anion Gap (3-11) BUN (7-18) mg/dl Creatinine (0.6-1.2) mg/dl Est Cr Clr Drug Dosing ml/min Est GFR ( Amer) Est GFR (Non-Af Amer) BUN/Creatinine Ratio (10-20) Glucose (70-99) mg/dl POC Glucose 137 H 136 H 173 H (70-99) mg/dl Calcium (8.5-10.1) mg/dl Phosphorus (2.5-4.9) mg/dl Magnesium (1.8-2.4) mg/dl Urine Blood (Negative) Nasal Screen MRSA (PCR) (Negative) SARS-CoV-2 Ag (Rapid) (Negative) Blood Type Antibody Screen Crossmatch Transfusion React Date Transfusion React Time Tx React Symptoms Reaction Clerical Check Lab Clerical Err Check React Component Return Volume Returned Pre-Trans Blood Type Pre-Trans Vis Hemolysis Pre-Trans VEE (Negative) Pre-Trans VEE IgG (Negative) Pre-Trans VEE Poly (Negative) Pre-Trans VEE C3b, C3d (Negative) Post-Trans Blood Type Post-Tx Visible Hemolys Post-Trans VEE (Negative) Post-Trans VEE IgG (Negative) Post-Trans VEE Poly (Negative) Post-Trans VEE C3b, C3d (Negative) Post-Trans Ur Hemoglobin Reaction Path Interpret Transfusion Serv Com 09/05/20 09/06/20 09/06/20 Range/Units 20:41 05:21 05:21 WBC 4.57 L (4.8-10.8) K/uL RBC 3.89 L (4.2-5.4) M/uL Hgb 10.5 L (12.0-16.0) g/dL Hct 31.9 L (37-47) % MCV 82.0 (80-100) fL MCH 27.0 (25-34) pg MCHC 32.9 (32-36) g/dL RDW Std Deviation 50.1 H (36.4-46.3) fL RDW Coeff of Pamela 17.5 H (11.5-14.5) % Plt Count 125 L (130-400) K/uL MPV 8.3 (7.4-10.4) fL Immature Gran % (Auto) 0.4 % Neut % (Auto) 45.4 % Lymph % (Auto) 40.0 % Hood % (Auto) 10.9 % Eos % (Auto) 3.1 % Baso % (Auto) 0.2 % Neut # (Auto) 2.07 (1.4-6.5) K/uL Lymph # (Auto) 1.83 (1.2-3.4) K/uL Hood # (Auto) 0.50 (0.11-0.59) K/uL Eos # (Auto) 0.14 (0-0.5) K/uL Baso # (Auto) 0.01 (0-0.2) K/uL Immature Gran # (Auto) 0.02 (0.00-0.02) K/uL Platelet Estimate (Normal) PT (9.0-12.0) Seconds INR (0.9-1.1) APTT (21.0-31.0) Seconds PTT Ratio Sodium 143 (136-145) mmol/L Potassium 4.7 (3.5-5.1) mmol/L Chloride 107 (98-107) mmol/L Carbon Dioxide 32 (21-32) mmol/L Anion Gap 4.0 (3-11) BUN 7 (7-18) mg/dl Creatinine 0.60 (0.6-1.2) mg/dl Est Cr Clr Drug Dosing 58.3 ml/min Est GFR ( Amer) 94.3 Est GFR (Non-Af Amer) 81.4 BUN/Creatinine Ratio 12.1 (10-20) Glucose 131 H (70-99) mg/dl POC Glucose 208 H (70-99) mg/dl Calcium 8.7 (8.5-10.1) mg/dl Phosphorus 3.5 (2.5-4.9) mg/dl Magnesium 2.1 (1.8-2.4) mg/dl Urine Blood (Negative) Nasal Screen MRSA (PCR) (Negative) SARS-CoV-2 Ag (Rapid) (Negative) Blood Type Antibody Screen Crossmatch Transfusion React Date Transfusion React Time Tx React Symptoms Reaction Clerical Check Lab Clerical Err Check React Component Return Volume Returned Pre-Trans Blood Type Pre-Trans Vis Hemolysis Pre-Trans VEE (Negative) Pre-Trans VEE IgG (Negative) Pre-Trans VEE Poly (Negative) Pre-Trans VEE C3b, C3d (Negative) Post-Trans Blood Type Post-Tx Visible Hemolys Post-Trans VEE (Negative) Post-Trans VEE IgG (Negative) Post-Trans VEE Poly (Negative) Post-Trans VEE C3b, C3d (Negative) Post-Trans Ur Hemoglobin Reaction Path Interpret Transfusion Serv Com 09/06/20 09/06/20 09/06/20 Range/Units 08:00 12:10 17:04 WBC (4.8-10.8) K/uL RBC (4.2-5.4) M/uL Hgb (12.0-16.0) g/dL Hct (37-47) % MCV (80-100) fL MCH (25-34) pg MCHC (32-36) g/dL RDW Std Deviation (36.4-46.3) fL RDW Coeff of Pamela (11.5-14.5) % Plt Count (130-400) K/uL MPV (7.4-10.4) fL Immature Gran % (Auto) % Neut % (Auto) % Lymph % (Auto) % Hood % (Auto) % Eos % (Auto) % Baso % (Auto) % Neut # (Auto) (1.4-6.5) K/uL Lymph # (Auto) (1.2-3.4) K/uL Hood # (Auto) (0.11-0.59) K/uL Eos # (Auto) (0-0.5) K/uL Baso # (Auto) (0-0.2) K/uL Immature Gran # (Auto) (0.00-0.02) K/uL Platelet Estimate (Normal) PT (9.0-12.0) Seconds INR (0.9-1.1) APTT (21.0-31.0) Seconds PTT Ratio Sodium (136-145) mmol/L Potassium (3.5-5.1) mmol/L Chloride (98-107) mmol/L Carbon Dioxide (21-32) mmol/L Anion Gap (3-11) BUN (7-18) mg/dl Creatinine (0.6-1.2) mg/dl Est Cr Clr Drug Dosing ml/min Est GFR ( Amer) Est GFR (Non-Af Amer) BUN/Creatinine Ratio (10-20) Glucose (70-99) mg/dl POC Glucose 154 H 221 H 125 H (70-99) mg/dl Calcium (8.5-10.1) mg/dl Phosphorus (2.5-4.9) mg/dl Magnesium (1.8-2.4) mg/dl Urine Blood (Negative) Nasal Screen MRSA (PCR) (Negative) SARS-CoV-2 Ag (Rapid) (Negative) Blood Type Antibody Screen Crossmatch Transfusion React Date Transfusion React Time Tx React Symptoms Reaction Clerical Check Lab Clerical Err Check React Component Return Volume Returned Pre-Trans Blood Type Pre-Trans Vis Hemolysis Pre-Trans VEE (Negative) Pre-Trans VEE IgG (Negative) Pre-Trans VEE Poly (Negative) Pre-Trans VEE C3b, C3d (Negative) Post-Trans Blood Type Post-Tx Visible Hemolys Post-Trans VEE (Negative) Post-Trans VEE IgG (Negative) Post-Trans VEE Poly (Negative) Post-Trans VEE C3b, C3d (Negative) Post-Trans Ur Hemoglobin Reaction Path Interpret Transfusion Serv Com 09/06/20 09/06/20 09/07/20 Range/Units 20:32 Unknown 08:00 WBC (4.8-10.8) K/uL RBC (4.2-5.4) M/uL Hgb (12.0-16.0) g/dL Hct (37-47) % MCV (80-100) fL MCH (25-34) pg MCHC (32-36) g/dL RDW Std Deviation (36.4-46.3) fL RDW Coeff of Pamela (11.5-14.5) % Plt Count (130-400) K/uL MPV (7.4-10.4) fL Immature Gran % (Auto) % Neut % (Auto) % Lymph % (Auto) % Hood % (Auto) % Eos % (Auto) % Baso % (Auto) % Neut # (Auto) (1.4-6.5) K/uL Lymph # (Auto) (1.2-3.4) K/uL Hood # (Auto) (0.11-0.59) K/uL Eos # (Auto) (0-0.5) K/uL Baso # (Auto) (0-0.2) K/uL Immature Gran # (Auto) (0.00-0.02) K/uL Platelet Estimate (Normal) PT (9.0-12.0) Seconds INR (0.9-1.1) APTT (21.0-31.0) Seconds PTT Ratio Sodium (136-145) mmol/L Potassium (3.5-5.1) mmol/L Chloride (98-107) mmol/L Carbon Dioxide (21-32) mmol/L Anion Gap (3-11) BUN (7-18) mg/dl Creatinine (0.6-1.2) mg/dl Est Cr Clr Drug Dosing ml/min Est GFR ( Amer) Est GFR (Non-Af Amer) BUN/Creatinine Ratio (10-20) Glucose (70-99) mg/dl POC Glucose 154 H 157 H (70-99) mg/dl Calcium (8.5-10.1) mg/dl Phosphorus (2.5-4.9) mg/dl Magnesium (1.8-2.4) mg/dl Urine Blood (Negative) Nasal Screen MRSA (PCR) (Negative) SARS-CoV-2 Ag (Rapid) Negative (Negative) Blood Type Antibody Screen Crossmatch Transfusion React Date Transfusion React Time Tx React Symptoms Reaction Clerical Check Lab Clerical Err Check React Component Return Volume Returned Pre-Trans Blood Type Pre-Trans Vis Hemolysis Pre-Trans VEE (Negative) Pre-Trans VEE IgG (Negative) Pre-Trans VEE Poly (Negative) Pre-Trans VEE C3b, C3d (Negative) Post-Trans Blood Type Post-Tx Visible Hemolys Post-Trans VEE (Negative) Post-Trans VEE IgG (Negative) Post-Trans VEE Poly (Negative) Post-Trans VEE C3b, C3d (Negative) Post-Trans Ur Hemoglobin Reaction Path Interpret Transfusion Serv Com Total Time Total Time Spent Total Time Spent (In Minutes): 20 Discharge Plan Discharge Items Patient Disposition: Transfer Alf Fac Reason For Visit: Right Foot Osteomyelitis Discharge Diagnosis: Right Foot Osteomyelitis Activity: Per Instructions section Weightbearing: Right non-weightbearing Non-emergency contact: Surgeon Call non-emergency contact if: your pain is not controlled, your temperature is above 101.5, your wound has increased redness and your wound has increased drainage Follow-up/Referrals: Garcia Ortiz DO [Surgeon] - (FOLLOW UP NEXT WEEK FOR WOUND CHECK) Jennifer Waldron at [place] [Primary Care Provider] - Diet: Carb Consistent or DM2 Addtl Attending Provider Instructions: ACTIVITY RECOMMENDATIONS: Limitations: Nonweightbearing with assistive device. SPECIAL CARE INSTRUCTIONS: * Some drainage onto the dressing is normal and is no cause for alarm. * Some swelling is natural especially after walking. * When resting, keep your foot elevated above the level of your heart. * Call [facility] if you notice: -Increased drainage -Fever over 101 degrees F -Severe constant pain BANDAGE: * CHANGE DRESSING DAILY. IF WOUND REMAINING DRY, MAY CHANGE EVERY OTHER DAY. * ANTIBIOTIC BEADS PLACED IN WOUND DURING SURGERY. EXPECT MILD TO MODERATE SEROUS DRAINAGE. IF WOUND CHANGES OR DRAINAGE CHANGES WORSENING, PLEASE CALL DR JACKSON OFFICE. FOLLOW UP VISIT WITH DR. ORTIZ If appointment is not already scheduled: Please call [facility] after you get home today to schedule a follow-up appointment for [address] Ortiz at . Stand-Alone Forms: My [facility] Skilled Items Patient informed of condition?: Yes DNR: No Discharge Level of Care: Skilled Communicable Disease: No Discharge Prognosis: Stable Lines: None Urinary Catheter: No Medications and DC Order Prescriptions: New docusate sodium 100 mg Capsule 100 mg PO BID Qty: 20 RF: 0 oxycodone 5 mg Tablet 5 mg PO Q4H MDD 6 tabs PRN (Reason: pain) Qty: 18 RF: 0 polyethylene glycol 3350 [Miralax] 17 gram powder in packet 17 g PO DAILY PRN (Reason: constipation) Qty: 5 RF: 0 Continued gemfibrozil 600 mg Tablet 600 mg PO QAM RF: 0 Lantus Solostar U-100 Insulin 100 unit/mL (3 mL) Insulin Pen 12 units subcut AMHS RF: 0 lisinopril 10 mg Tablet 10 mg PO QAM RF: 0 metoprolol succinate 25 mg Tablet Extended Release 24 Hr 25 mg PO QAM RF: 0 aspirin 81 mg Tablet,Chewable 81 mg PO DAILY RF: 0 insulin aspart U-100 [Novolog PenFill U-100 Insulin] 100 unit/mL Cartridge 1 sliding scale dose SUBCUT BID RF: 0 trazodone 50 mg tablet 50 mg PO HS RF: 0 mirtazapine 15 mg tablet 15 mg PO HS RF: 0 ferrous sulfate 325 mg (65 mg iron) Tablet 325 mg PO BID RF: 0 Therems-M 27-0.4 mg Tablet 1 tab PO DAILY RF: 0 diclofenac sodium [Voltaren] 1 % Gel 1 g TOPICAL QID RF: 0 acetaminophen 325 mg Tablet 650 mg PO QID PRN (Reason: Pain) RF: 0 citalopram 40 mg Tablet 40 mg PO QAM RF: 0 nystatin 100,000 unit/gram Powder 1 applic TOPICAL BID RF: 0 Discontinued ciprofloxacin HCl [Cipro] 500 mg Tablet 500 mg PO BID RF: 0 linezolid 600 mg Tablet 600 mg PO BID RF: 0 Discharge Orders: Discharge Order (Routine); Ordered 09/06/20 Ordered By: Mathew Hannon Admission Data Admit Date/Time: 08/31/20 20:36 Attending Provider: Garcia Ortiz Admit Provider: Garcia Ortiz Primary Care Provider: Jennifer Waldron [facility] Other Providers: Coleman Mcclelland ; Jennifer Waldron [facility] ; Robinson Cohen Other Interventions: Discharge Summary Assessment (RN) Last Done: 09/07/20 09:26
== END 2020-09-07 10:00 | DRG 475 ==
LOC: ASU 11:56 → 3E 20:36

== ENCOUNTER 2020-12-22 09:35 | Inpatient (IN) ==
[2020-12-22] MEDS ORDERED: ATROPINE SO4 1 MG/ML 1ML VIAL ONE (09:46)
[2020-12-22] MEDS ORDERED: ATROPINE SULFATE 0.1 MG/ML 5ML SYR IV STA (09:52)
--- NOTE | 2020-12-22 10:06 | Emergency Department Note ---
History of Present Illness General Chief complaint: Illness Stated complaint: Possible sepsis Time Seen by Provider: 12/22/20 09:52 Source: EMS and RN notes reviewed Mode of arrival: EMS Limitations: other (Severe dementia) History of Present Illness Provider complaint: Tachycardia and hypotension Onset (ago): hour(s) This is an 89-year-old female sent over from the detention for evaluation of tachycardia and hypotension. They noted this morning that the patient's blood pressure was in the 60s systolic. They stated that she was tachycardic at the time. They were concerned about possible sepsis as she has a chronic foot infection on the right side. The patient offers no complaints. She is severely demented. She states "I love you. "According to the nurse there is no report of fever. He states that the patient is DNR. He states that since she came to the emergency department her heart rate has been in the 40s. Her blood pressure has been slightly elevated. No further history is available due to the patient's dementia. Home Medications Medication Instructions Recorded Confirmed Type Lantus Solostar U-100 Insulin 12 units SUBCUT [facility] 07/10/18 12/22/20 History gemfibrozil 600 mg PO QAM 07/10/18 12/22/20 History lisinopril 10 mg PO QAM 07/10/18 12/22/20 History aspirin 81 mg PO DAILY 07/17/18 12/22/20 History acetaminophen 650 mg PO QID PRN 08/29/20 12/22/20 History citalopram 40 mg PO QAM 08/29/20 12/22/20 History metoprolol tartrate 12.5 mg PO BID 11/02/20 12/22/20 History mirtazapine [Remeron] 30 mg PO HS 11/02/20 12/22/20 History ferrous sulfate 7.5 mg PO BID 11/09/20 12/22/20 History insulin aspart U-100 [Novolog 1 sliding scale dose SUBCUT 11/09/20 12/22/20 H istory U-100 Insulin aspart] USEASDIRECTD multivitamin with folic acid 1 tab PO DAILY 11/09/20 12/22/20 History [Therems Multivitamin] docusate sodium 100 mg PO BID 12/22/20 12/22/20 History sulfamethoxazole-trimethoprim 1 tab PO BID 12/22/20 12/22/20 History Allergies Allergy/AdvReac Type Severity Reaction Status Date / Time No Known Allergies Allergy Verified 12/22/20 10:55 Past Med/Surg History Medical History Acquired claw toe of right foot Asthma Cellulitis RIGHT LOWER LIMB Dementia Daughter, Elizabeth, is POA. Patient does not sign consents. Currently residing in [facility] care unit. Depression Diabetic polyneuropathy DM type 2 (diabetes mellitus, type 2) Controlled, A1C 5.9% 05/2020. 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/15) Endometrial adenocarcinoma, FIGO grade I, status post completion of radiation therapy 2015 Environmental allergies MOLD/POLLEN/CATS/MILDEW Foot ulcer GERD (gastroesophageal reflux disease) Hearing deficit History of colon cancer s/p resection 2012 HTN (hypertension) Hyperlipidemia ADAN (iron deficiency anemia) PVD (peripheral vascular disease) Surgical History Amputated toe RT TOE H/O colonoscopy with polypectomy History of amputation of left great toe History of amputation of lesser toe of left foot History of cataract surgery left History of esophagogastroduodenoscopy (EGD) History of herniorrhaphy Hx of tubal ligation S/P tonsillectomy and adenoidectomy Status post transmetatarsal amputation of right foot Family History Father Heart disease Social History Smoking Status: Unknown if ever smoked Hx Alcohol Use: No (Unknown.) Hx Substance Use: No (Unknown.) Preferred Language: Czech Communication Ability: Impaired Restaurant 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 Unobtainable due to cognitive status Physical Exam Vital Signs Vital Signs - 24 hr 12/22/20 09:38 12/22/20 09:39 12/22/20 09:45 Temperature Temperature Source Pulse Rate 43 L 54 L Pulse Rate [Left Finger] Pulse Rate from SpO2 Sensor 100 H 39 L Respiratory Rate 23 14 Respiratory Effort / Characteristics Blood Pressure 153/51 H Blood Pressure Mean 85 Pulse Oximetry 91 93 90 Oxygen Delivery Method Sepsis Recent Fever Within 48 Hours Sepsis New/Unexplained Change in Mental Status Sepsis Action Taken by Nursing 12/22/20 10:00 12/22/20 10:01 12/22/20 10:02 Temperature Temperature Source Pulse Rate 59 L 59 L 59 L Pulse Rate [Left Finger] Pulse Rate from SpO2 Sensor 62 59 L 59 L Respiratory Rate 20 21 20 Respiratory Effort / Characteristics Blood Pressure 102/53 L Blood Pressure Mean 69 Pulse Oximetry 92 93 92 Oxygen Delivery Method Sepsis Recent Fever Within 48 Hours Sepsis New/Unexplained Change in Mental Status Sepsis Action Taken by Nursing 12/22/20 10:06 12/22/20 10:15 12/22/20 10:30 Temperature 37.0 C Temperature Source Oral Pulse Rate 38 L 56 L Pulse Rate [Left Finger] Pulse Rate from SpO2 Sensor 56 L Respiratory Rate 18 16 22 Respiratory Effort / Characteristics Blood Pressure 153/51 H Blood Pressure Mean 85 Pulse Oximetry 93 92 91 Oxygen Delivery Method Room Air Sepsis Recent Fever Within 48 Hours Yes Sepsis New/Unexplained Change in Mental Status No Sepsis Action Taken by Nursing No Action Required 12/22/20 10:31 12/22/20 10:45 12/22/20 10:58 Temperature Temperature Source Pulse Rate 74 Pulse Rate [Left Finger] Pulse Rate from SpO2 Sensor 76 73 Respiratory Rate 17 23 25 H Respiratory Effort / Characteristics Blood Pressure 87/53 L 115/38 L Blood Pressure Mean 64 63 Pulse Oximetry 92 93 92 Oxygen Delivery Method Sepsis Recent Fever Within 48 Hours Sepsis New/Unexplained Change in Mental Status Sepsis Action Taken by Nursing 12/22/20 11:00 12/22/20 11:15 12/22/20 11:23 Temperature Temperature Source Pulse Rate 88 Pulse Rate [Left Finger] 85 Pulse Rate from SpO2 Sensor 65 89 Respiratory Rate 23 17 20 Respiratory Effort / Characteristics Non-Labored Spontaneous Blood Pressure 126/55 L Blood Pressure Mean 78 Pulse Oximetry 94 94 Oxygen Delivery Method Room Air Sepsis Recent Fever Within 48 Hours Sepsis New/Unexplained Change in Mental Status Sepsis Action Taken by Nursing 12/22/20 11:30 12/22/20 11:45 12/22/20 12:00 Temperature Temperature Source Pulse Rate 84 Pulse Rate [Left Finger] Pulse Rate from SpO2 Sensor 84 94 H 90 Respiratory Rate 20 20 21 Respiratory Effort / Characteristics Blood Pressure 98/48 L Blood Pressure Mean 64 Pulse Oximetry 94 92 95 Oxygen Delivery Method Sepsis Recent Fever Within 48 Hours Sepsis New/Unexplained Change in Mental Status Sepsis Action Taken by Nursing 12/22/20 12:02 12/22/20 12:15 12/22/20 12:30 Temperature Temperature Source Pulse Rate 97 H 79 Pulse Rate [Left Finger] Pulse Rate from SpO2 Sensor 82 85 Respiratory Rate 24 22 18 Respiratory Effort / Characteristics Blood Pressure 120/53 L 110/47 L Blood Pressure Mean 75 68 Pulse Oximetry 93 93 Oxygen Delivery Method Sepsis Recent Fever Within 48 Hours Sepsis New/Unexplained Change in Mental Status Sepsis Action Taken by Nursing 12/22/20 12:45 12/22/20 13:00 Temperature Temperature Source Pulse Rate 87 82 Pulse Rate [Left Finger] Pulse Rate from SpO2 Sensor Respiratory Rate 23 24 Respiratory Effort / Characteristics Blood Pressure Blood Pressure Mean Pulse Oximetry Oxygen Delivery Method Sepsis Recent Fever Within 48 Hours Sepsis New/Unexplained Change in Mental Status Sepsis Action Taken by Nursing Constitutional: Vital signs reviewed. Pleasant. Eyes: Pupils are equal round reactive to light. Conjunctiva are noninjected. ENT: Pharynx is clear without erythema or exudate. Mucous membranes are slightly dry.. Neck supple without meningeal signs. Respiratory: Clear to auscultation bilaterally. Breath sounds are equal bilaterally. Cardiovascular: Bradycardic. Heart rate 40. GI: Soft, nondistended and nontender. Bowel sounds are present. Musculoskeletal: 2 cm deep ulceration to the right foot near the first metatarsal. Granulation tissue is noted. Mild erythema surrounding the wound. The patient wiggles her foot when I touched the area but then states "that feels good. " Integumentary: No cyanosis. or jaundice. Neurological: The patient is awake and alert. No focal deficits. Psychiatric: Normal affect. Not anxious appearing. Course Administered Medications Sodium Bicarbonate 150 meq/ (Dextrose) 1,150 mls @ 75 mls/hr IV .[id number] [facility] Stop: 12/23/20 03:49 Last Admin: 12/22/20 16:18 Dose: 75 mls/hr Documented by: [id number] Discontinued Medications Albuterol (Albuterol 0.083% Nebu Soln 3 Ml Vial) 2.5 mg NEB NOW STA Stop: 12/22/20 10:26 Last Admin: 12/22/20 11:22 Dose: 2.5 mg Documented by: [id number] Atropine Sulfate (Atropine So4 1 Mg/Ml 1ml Vial) Confirm Administered Dose 1 mg .ROUTE .K-MED ONE Stop: 12/22/20 09:47 Last Admin: 12/22/20 10:18 Dose: 1 mg Documented by: [id number] Atropine Sulfate (Atropine Sulfate 0.1 Mg/Ml 5ml Syr) 1 mg IV NOW STA Stop: 12/22/20 09:53 Last Admin: 12/22/20 10:18 Dose: Not Given Documented by: [id number] Dextrose (Dextrose 50% 50 Ml Syringe) 50 ml IV NOW STA Stop: 12/22/20 10:26 Last Admin: 12/22/20 10:45 Dose: 50 ml Documented by: [id number] Calcium Gluconate () 1,000 mg in 60 mls @ 240 mls/hr IV NOW STA Stop: 12/22/20 10:39 Last Infusion: 12/22/20 12:36 Dose: 0 mls/hr Documented by: [id number] Admin: 12/22/20 10:45 Dose: 240 mls/hr Documented by: [id number] Vancomycin HCl 1,000 mg/ (Sodium Chloride) 270 mls @ 200 mls/hr IV Q12H [facility]; Protocol Stop: 12/29/20 14:29 Last Admin: 12/22/20 15:01 Dose: 200 mls/hr Documented by: [id number] Piperacillin Sod/Tazobactam (Sod 3.375 gm/ Dextrose) 115 mls @ 28.75 mls/hr IV Q8H [facility]; Protocol Stop: 12/29/20 14:29 Last Admin: 12/22/20 15:01 Dose: 28.8 mls/hr Documented by: [id number] Insulin Human Regular (Novolin-R Insulin Per Unit Charge) 10 units IV NOW STA Stop: 12/22/20 10:26 Last Admin: 12/22/20 10:45 Dose: 10 units Documented by: [id number] Cosigned by: [id number] Critical Care Time Critical Care Time: Yes Total Critical Care Time: 45 I have personally spent approximately 45 minutes of critical care time in the direct management of this patient. This includes bedside care, interpretation of diagnostic studies, and testing, discussion with consultants, patient, and family members, and other required patient management activities. These minutes are in excess of all separately billable procedures. Medical Decision Making Differential Diagnosis Dysrhythmia, A-V dissociation, first-degree heart block, sinus bradycardia, electrolyte abnormality, metabolic derangement, ACS Medical Records Attestation: I reviewed the patient's medical records. I did perform a limited focused review of portions of the patient's old chart on the electronic medical record. The patient was admitted in August for infection to the right foot. She underwent surgical debridement. Home Medications Current Medication List: was personally reviewed by me Laboratory Data Attestation: I reviewed the patient's lab results. Result diagrams: 12/22/20 10:13 12/22/20 17:01 Lab Results 12/22/20 12/22/20 12/22/20 Range/Units 10:13 10:13 10:13 WBC 8.74 (4.8-10.8) K/uL RBC 2.95 L (4.2-5.4) M/uL Hgb 8.3 L (12.0-16.0) g/dL POC Hgb (12.0-16.0) g/dl Hct 25.1 L (37-47) % POC Hct (37-47) % MCV 85.1 (80-100) fL MCH 28.1 (25-34) pg MCHC 33.1 (32-36) g/dL RDW Std Deviation 48.4 H (36.4-46.3) fL RDW Coeff of Pamela 15.5 H (11.5-14.5) % Plt Count 224 (130-400) K/uL MPV 8.9 (7.4-10.4) fL Immature Gran % (Auto) 0.2 % Neut % (Auto) 75.4 % Lymph % (Auto) 10.9 % [place] % (Auto) 12.9 % Eos % (Auto) 0.5 % Baso % (Auto) 0.1 % Neut # (Auto) 6.59 H (1.4-6.5) K/uL Lymph # (Auto) 0.95 L (1.2-3.4) K/uL [place] # (Auto) 1.13 H (0.11-0.59) K/uL Eos # (Auto) 0.04 (0-0.5) K/uL Baso # (Auto) 0.01 (0-0.2) K/uL Immature Gran # (Auto) 0.02 (0.00-0.02) K/uL POC Sodium (135-144) mmol/L Sodium 133 L (136-145) mmol/L POC Potassium (3.3-5.0) mmol/L Potassium 6.3 H* (3.5-5.1) mmol/L POC Chloride (101-112) mmol/L Chloride 103 (98-107) mmol/L Carbon Dioxide 22 (21-32) mmol/L POC Total CO2 (24-31) mmol/L Anion Gap 8.0 (3-11) POC Anion Gap (16-25) mmol/L POC BUN (7-18) mg/dl BUN 67 H (7-18) mg/dl Creatinine 2.16 H (0.6-1.2) mg/dl POC Creatinine (0.6-1.3) mg/dl Est Cr Clr Drug Dosing 15.9 ml/min Est GFR ( Amer) 22.8 ml/min Est GFR (Non-Af Amer) 19.7 ml/min BUN/Creatinine Ratio 31.1 H (10-20) Glucose 82 (70-99) mg/dl POC Glucose (70-99) mg/dl POC Glucose (other) (70-99) mg/dl Lactate 2.8 H* (0.4-2.0) mmol/L Calcium 8.0 L (8.5-10.1) mg/dl POC Ioniz Calcium Catrina (1.12-1.32) mmol/l Magnesium 3.0 H (1.8-2.4) mg/dl Total Bilirubin 0.3 (0.2-1) mg/dl AST 20 (15-37) U/L ALT 25 (12-78) U/L Alkaline Phosphatase 84 (45-117) U/L Troponin I 0.607 H* (0-0.045) ng/ml Total Protein 6.7 (6.4-8.2) gm/dl Albumin 2.8 L (3.4-5.0) gm/dl Globulin 3.9 (2.5-4.0) gm/dl Albumin/Globulin Ratio 0.7 L (0.9-2) TSH 2.080 (0.300-4.500) uIu/ml Urine Color Urine Appearance (Clear) Urine pH (4.5-7.5) Ur Specific [place] (1.000-1.030) Urine Protein (Negative) Urine Glucose (UA) (Negative) Urine Ketones (Negative) Urine Blood (Negative) Urine Nitrite (Negative) Urine Bilirubin (Negative) Urine Urobilinogen (Negative) Ur Leukocyte Esterase (Negative) COVID-19 Eval Order SARS-CoV-2 (PCR) (Negative) 12/22/20 12/22/20 12/22/20 Range/Units 10:20 11:10 11:10 WBC (4.8-10.8) K/uL RBC (4.2-5.4) M/uL Hgb (12.0-16.0) g/dL POC Hgb 7.5 L (12.0-16.0) g/dl Hct (37-47) % POC Hct 22 L (37-47) % MCV (80-100) fL MCH (25-34) pg MCHC (32-36) g/dL RDW Std Deviation (36.4-46.3) fL RDW Coeff of Pamela (11.5-14.5) % Plt Count (130-400) K/uL MPV (7.4-10.4) fL Immature Gran % (Auto) % Neut % (Auto) % Lymph % (Auto) % [place] % (Auto) % Eos % (Auto) % Baso % (Auto) % Neut # (Auto) (1.4-6.5) K/uL Lymph # (Auto) (1.2-3.4) K/uL [place] # (Auto) (0.11-0.59) K/uL Eos # (Auto) (0-0.5) K/uL Baso # (Auto) (0-0.2) K/uL Immature Gran # (Auto) (0.00-0.02) K/uL POC Sodium 133 L (135-144) mmol/L Sodium (136-145) mmol/L POC Potassium 6.4 H* (3.3-5.0) mmol/L Potassium (3.5-5.1) mmol/L POC Chloride 102 (101-112) mmol/L Chloride (98-107) mmol/L Carbon Dioxide (21-32) mmol/L POC Total CO2 20 L (24-31) mmol/L Anion Gap (3-11) POC Anion Gap 18.0 (16-25) mmol/L POC BUN 75 H (7-18) mg/dl BUN (7-18) mg/dl Creatinine (0.6-1.2) mg/dl POC Creatinine 2.4 H (0.6-1.3) mg/dl Est Cr Clr Drug Dosing ml/min Est GFR ( Amer) ml/min Est GFR (Non-Af Amer) ml/min BUN/Creatinine Ratio (10-20) Glucose (70-99) mg/dl POC Glucose (70-99) mg/dl POC Glucose (other) 84 (70-99) mg/dl Lactate (0.4-2.0) mmol/L Calcium (8.5-10.1) mg/dl POC Ioniz Calcium Catrina 1.12 (1.12-1.32) mmol/l Magnesium (1.8-2.4) mg/dl Total Bilirubin (0.2-1) mg/dl AST (15-37) U/L ALT (12-78) U/L Alkaline Phosphatase (45-117) U/L Troponin I (0-0.045) ng/ml Total Protein (6.4-8.2) gm/dl Albumin (3.4-5.0) gm/dl Globulin (2.5-4.0) gm/dl Albumin/Globulin Ratio (0.9-2) TSH (0.300-4.500) uIu/ml Urine Color Urine Appearance (Clear) Urine pH (4.5-7.5) Ur Specific [place] (1.000-1.030) Urine Protein (Negative) Urine Glucose (UA) (Negative) Urine Ketones (Negative) Urine Blood (Negative) Urine Nitrite (Negative) Urine Bilirubin (Negative) Urine Urobilinogen (Negative) Ur Leukocyte Esterase (Negative) COVID-19 Eval Order Covid19 at [facility] SARS-CoV-2 (PCR) NEGATIVE (Negative) 12/22/20 12/22/20 12/22/20 Range/Units 11:56 12:23 12:39 WBC (4.8-10.8) K/uL RBC (4.2-5.4) M/uL Hgb (12.0-16.0) g/dL POC Hgb (12.0-16.0) g/dl Hct (37-47) % POC Hct (37-47) % MCV (80-100) fL MCH (25-34) pg MCHC (32-36) g/dL RDW Std Deviation (36.4-46.3) fL RDW Coeff of Pamela (11.5-14.5) % Plt Count (130-400) K/uL MPV (7.4-10.4) fL Immature Gran % (Auto) % Neut % (Auto) % Lymph % (Auto) % [place] % (Auto) % Eos % (Auto) % Baso % (Auto) % Neut # (Auto) (1.4-6.5) K/uL Lymph # (Auto) (1.2-3.4) K/uL [place] # (Auto) (0.11-0.59) K/uL Eos # (Auto) (0-0.5) K/uL Baso # (Auto) (0-0.2) K/uL Immature Gran # (Auto) (0.00-0.02) K/uL POC Sodium (135-144) mmol/L Sodium (136-145) mmol/L POC Potassium (3.3-5.0) mmol/L Potassium (3.5-5.1) mmol/L POC Chloride (101-112) mmol/L Chloride (98-107) mmol/L Carbon Dioxide (21-32) mmol/L POC Total CO2 (24-31) mmol/L Anion Gap (3-11) POC Anion Gap (16-25) mmol/L POC BUN (7-18) mg/dl BUN (7-18) mg/dl Creatinine (0.6-1.2) mg/dl POC Creatinine (0.6-1.3) mg/dl Est Cr Clr Drug Dosing ml/min Est GFR ( Amer) ml/min Est GFR (Non-Af Amer) ml/min BUN/Creatinine Ratio (10-20) Glucose (70-99) mg/dl POC Glucose 92 (70-99) mg/dl POC Glucose (other) (70-99) mg/dl Lactate 1.5 (0.4-2.0) mmol/L Calcium (8.5-10.1) mg/dl POC Ioniz Calcium Catrina (1.12-1.32) mmol/l Magnesium (1.8-2.4) mg/dl Total Bilirubin (0.2-1) mg/dl AST (15-37) U/L ALT (12-78) U/L Alkaline Phosphatase (45-117) U/L Troponin I (0-0.045) ng/ml Total Protein (6.4-8.2) gm/dl Albumin (3.4-5.0) gm/dl Globulin (2.5-4.0) gm/dl Albumin/Globulin Ratio (0.9-2) TSH (0.300-4.500) uIu/ml Urine Color Yellow Urine Appearance Clear (Clear) Urine pH 6.0 (4.5-7.5) Ur Specific [place] 1.012 (1.000-1.030) Urine Protein Negative (Negative) Urine Glucose (UA) Negative (Negative) Urine Ketones Negative (Negative) Urine Blood Negative (Negative) Urine Nitrite Negative (Negative) Urine Bilirubin Negative (Negative) Urine Urobilinogen Negative (Negative) Ur Leukocyte Esterase Negative (Negative) COVID-19 Eval Order SARS-CoV-2 (PCR) (Negative) Imaging Data Radiologist's Impression: Chest X-Ray 12/22/20 09:52 XR chest 1V portable HISTORY: Dysrhythmia COMPARISON: 07/20/2020. FINDINGS: Progressive interstitial/vascular thickening and small bilateral pleural effusions. This is consistent with worsening pulmonary edema. The heart remains enlarged. Bibasilar densities have also slightly progressed. No pneumothorax. IMPRESSION: Interval progression of the pulmonary edema, small bilateral pleural effusions, and bibasilar densities. ACT 112: Negative or not required by law. Electronically signed by: Juan Carlos Bonilla M.D. 12/22/2020 10:45 AM ECG Data Attestation: I personally reviewed and interpreted this ECG as follows: Indication: + bradycardia Rate (beats per minute): 36 Rhythm: + sinus bradycardia ECG Intervals/blocks: + First degree AV block ECG [place]: + Normal ECG ST segments: no ST elevation ECG Findings: no PACs and no PVCs Additional Comments: Repeat twelve-lead EKG performed after administration of 1 mg of atropine per my interpretation demonstrates a narrow complex rhythm with no discernible P waves. Rate is 71. There are PACs. No ST elevations. Low voltage QRS. MDM Narrative I was called emergently into the room to see the patient. I did evaluate the patient as noted above. IV access was established. I did place an order for continuous cardiac monitoring. The monitor showed a narrow complex rhythm with a heart rate of 36. I did order and personally review the patient's 12-lead EKG as described above. She had sinus bradycardia with a rate of 36 and a first- degree AV block. I did treat her with atropine 1 mg IV. Her heart rate came up into the 70s. A repeat twelve-lead EKG demonstrates a narrow complex rhythm with a rate of 71 with PACs. No P waves are visible. I did order and personally reviewed the images of the patient's chest x-ray as described above. She appears to have worsening pulmonary edema. She was not treated with Lasix. Her blood pressure dropped slightly to 102/53. I did order a urine analysis. She does not have an infection. I did order and review the patient's blood work as noted in the electronic medical record. Her white blood cell count is not elevated. Hemoglobin is 8.3. She does have a history of chronic anemia. Plat elet count is within normal limits. Sodium is 133. Potassium is 6.4 with a creatinine of 2.4. I did treat her with IV insulin and dextrose. She was also given an albuterol inhaler. I also treated her with calcium gluconate IV. I did repeat her glucose later and it was 110 at the bedside. Her troponin is elevated at 0.59. Magnesium is 3. I did reassess the patient multiple times. I did discuss the test results with the patient's daughter. I did confirm the patient's DNR status with her. I did discuss the case with the hospitalist and senior case manager. Covid testing was negative. Impression & Plan Bradycardia, LILI (acute kidney injury), Acute hyperkalemia, Hypermagnesemia, Anemia Discharge Plan Visit Data Chief Complaint: Illness Stated Complaint: Possible sepsis ED Provider: Mike Gutiérrez Discharge Problem: Bradycardia, LILI (acute kidney injury), Acute hyperkalemia, Hypermagnesemia, Anemia Patient Disposition: Admitted As Inpatient Discharge Instructions Interventions: ED Discharge Assessment Last Done: 12/22/20 16:20 Discharge Problem: Anemia Qualifiers: Anemia type: unspecified type Qualified Code(s): D64.9 - Anemia, unspecified
[2020-12-22 10:24] LABS: Basophils # (auto) 0.01 K/uL (0-0.2); Basophils % (auto) 0.1 %; Eosinophils # (auto) 0.04 K/uL (0-0.5); Eosinophils % (auto) 0.5 %; Hematocrit (blood only) 25.1 % (37-47); Hemoglobin 8.3 g/dL (12.0-16.0); Immature Granulocytes # (auto) 0.02 K/uL (0.00-0.02); Immature Granulocytes % (auto) 0.2 %; Lymphocytes # (auto) 0.95 K/uL (1.2-3.4); Lymphocytes % (auto) 10.9 %; Mean Corpuscular Hemoglobin 28.1 pg (25-34); Mean Corpuscular Hgb Conc 33.1 g/dL (32-36); Mean Corpuscular Volume 85.1 fL (80-100); Mean Platelet Volume 8.9 fL (7.4-10.4); Monocytes # (auto) 1.13 K/uL (0.11-0.59); Monocytes % (auto) 12.9 %; Neutrophils # (auto) 6.59 K/uL (1.4-6.5); Neutrophils % (auto) 75.4 %; Platelet Count 224 K/uL (130-400); RDW Coefficient of Variation 15.5 % (11.5-14.5); RDW Standard Deviation 48.4 fL (36.4-46.3); Red Blood Count 2.95 M/uL (4.2-5.4); White Blood Count 8.74 K/uL (4.8-10.8)
[2020-12-22] MEDS ORDERED: DEXTROSE 50% 50 ML SYRINGE IV STA (10:25)
[2020-12-22] MEDS ORDERED: ALBUTEROL 0.083% NEBU SOLN 3 ML VIAL NEB STA (10:25)
[2020-12-22] MEDS ORDERED: NovoLIN-R INSULIN PER UNIT CHARGE IV STA (10:25)
[2020-12-22] MEDS ORDERED: CALCIUM GLUCONATE 1,000 MG/60 ML BAG IV STA (10:25)
[2020-12-22 10:34] LABS: iSTAT Creatinine 2.4 mg/dl (0.6-1.3); iSTAT Hemoglobin 7.5 g/dl (12.0-16.0); iSTAT Ionized Calcium 1.12 mmol/l (1.12-1.32); iSTAT Potassium 6.4 mmol/L (3.3-5.0)
--- NOTE | 2020-12-22 10:46 | XRay Report ---
XR chest 1V portable HISTORY: Dysrhythmia COMPARISON: 07/20/2020. FINDINGS: Progressive interstitial/vascular thickening and small bilateral pleural effusions. This is consistent with worsening pulmonary edema. The heart remains enlarged. Bibasilar densities have also slightly progressed. No pneumothorax. IMPRESSION: Interval progression of the pulmonary edema, small bilateral pleural effusions, and bibasilar densiti es. ACT 112: Negative or not required by law. Electronically signed by: Juan Carlos Bonilla M.D. 12/22/2020 10:45 AM
[2020-12-22 11:03] LABS: Albumin Globulin Ratio 0.7 (0.9-2); Albumin Level 2.8 gm/dl (3.4-5.0); BUN Creatinine Ratio 31.1 (10-20); Bilirubin,Total 0.3 mg/dl (0.2-1); Creatinine Clr Calc Pharmacy 15.9 ml/min; Est GFR (African American) 22.8 ml/min; Est GFR (Non-African American) 19.7 ml/min; Globulin 3.9 gm/dl (2.5-4.0); Potassium 6.3 mmol/L (3.5-5.1); Thyroid Stimulating Hormone 2.08 uIu/ml (0.300-4.500); Total Protein 6.7 gm/dl (6.4-8.2); Troponin I 0.607 ng/ml (0-0.045)
--- NOTE | 2020-12-22 12:51 | Electrocardiogram Report ---
Test Reason : Blood Pressure : / mmHG Vent. Rate : 036 BPM Atrial Rate : 021 BPM P-R Int : 000 ms QRS Dur : 084 ms QT Int : 490 ms P-R-T Axes : 000 071 053 degrees QTc Int : 378 ms Sinus bradycardia with 1st degree A-V block Low voltage QRS Abnormal ECG When compared with ECG of 30-JUL-2020 15:12, Vent. rate has decreased BY 33 BPM Confirmed by Hunter Wade ([id number]) on 12/22/2020 12:50:35 PM Referred By: Confirmed By:Hunter Wade
--- NOTE | 2020-12-22 12:52 | Electrocardiogram Report ---
Test Reason : Blood Pressure : / mmHG Vent. Rate : 071 BPM Atrial Rate : 058 BPM P-R Int : 000 ms QRS Dur : 082 ms QT Int : 448 ms P-R-T Axes : 000 043 058 degrees QTc Int : 486 ms Atrial fibrillation with a competing junctional pacemaker Low voltage QRS Abnormal ECG When compared with ECG of 22-DEC-2020 09:42, Atrial fibrillation has replaced Sinus bradycardia Vent. rate has increased BY 35 BPM Confirmed by Hunter Wade ([id number]) on 12/22/2020 12:51:51 PM Referred By: Confirmed By:Hunter Wade
[2020-12-22 12:59] LABS: Appearance Urine Clear (Clear); Bilirubin Urine Negative (Negative); Blood Urine Negative (Negative); Color Urine Yellow; Glucose Urine UA Negative (Negative); Ketones Urine Negative (Negative); Leukocyte Esterase Urine Negative (Negative); Nitrite Urine Negative (Negative); Protein Urine Negative (Negative); Specific Gravity Urine 1.012 (1.000-1.030); Urobilinogen Urine Negative (Negative)
[2020-12-22] MEDS ORDERED: VANCOMYCIN HCL 1,000 MG in SODIUM CHLORIDE 0.9% 250 ML IV SCH (14:30)
[2020-12-22] MEDS ORDERED: SODIUM BICARBONATE 8.4% 150 MEQ in DEXTROSE 5% 1,000 ML IV SCH (14:30)
[2020-12-22] MEDS ORDERED: VANCOMYCIN CONSULT ACTIVE PRN (14:30)
[2020-12-22] MEDS ORDERED: PIPERACILL/TAZOBAC CONSULT ACTIVE PRN (14:30)
[2020-12-22] MEDS ORDERED: PIPERACILLIN/TAZOBACTAM 3.375 GM in DEXTROSE 5% 100 ML IV SCH (14:30)
--- NOTE | 2020-12-22 14:33 | History and Physical Report ---
DATE OF ADMISSION: 12/22/2020 CHIEF COMPLAINT: Hyperkalemia and LILI. HISTORY OF PRESENT ILLNESS: This is an 89-year-old female with past medical history significant for type 2 diabetes, hyperlipidemia, peripheral vascular disease, hypertension, history of status post transmetatarsal amputation of right foot, generalized osteoarthritis of multiple sites, bilateral hearing loss, Alzheimer dementia, iron-deficiency anemia, recurrent depression, history of colon cancer, uterine cancer, microalbuminemia, recent history of blood transfusion, history of nonambulatory status, generalized weakness, currently living at [facility]. The patient is having a slight open ulcer in the right TMA amputation site and she is on Bactrim. As per daughter in the room at bedside, amara is dealing with infection for some time and the amputation was done in 08/2020. The patient is currently bedbound. Today in the residential, they noticed that she was tachycardic and hypotensive, thought of sepsis and was sent in here. In the ER, she was in bradycardia with a heart rate of 36, blood pressure was okay. ER gave a dose of atropine. Her heart rates improved and repeat EKG shows some AFib and her labs showed potassium of 6.4, creatinine of 2.1, baseline creatinine was 0.6, troponin of 0.6, lactic acid of 2.8, repeat lactic acid is 1.5. Hemoglobin was 8.3. Received a dose of nebs and a dose of calcium gluconate, insulin, and dextrose. Currently, patient is resting comfortably, hemodynamically stable. Denies any pain. Denies any nausea. Denies any abdominal pain, no chest pain, no cough, no recent fever or chills, normal bowel and bladder movements as per the daughter. She is on regular diet. She can eat okay. She is oriented to name only, but as per daughter, she can recognize the family members, does not know where she is, but she can talk and make sense. The patient is very hard of hearing. ALLERGIES: POLLEN. PAST MEDICAL HISTORY: As mentioned above. PAST SURGICAL HISTORY: Amputation of toes, bone debridement, closure of vagina, colonoscopy, cystoscopy, cystourethroscopy with stent placement, EGDs, incision and drainage of right foot deep abscess and bursectomy, insertion of temporary indwelling catheter, ligation of oviducts, paraesophageal hernia repair laparoscopic, tonsillectomy and adenoidectomy. MEDICATIONS: The patient is on Tylenol 650 mg p.o. q.i.d. p.r.n., aspirin 81 mg p.o. daily, citalopram 40 mg p.o. a.m., Colace 100 mg p.o. b.i.d., ferrous sulfate 325 mg p.o. b.i.d., gemfibrozil 600 mg p.o. a.m., insulin sliding scale Lantus 12 units b.i.d., lisinopril 20 mg p.o. a.m., metoprolol 12.5 mg p.o. b.i.d., Remeron 30 mg at bedtime, multivitamins with folic acid 1 tablet p.o. daily, Bactrim 1 tablet p.o. b.i.d. FAMILY HISTORY: Significant for daughter has skin cancer. Father had DE. Daughter has endometrial cancer, cervical cancer. SOCIAL HISTORY: Currently , living at [facility]. No smoking. Alcohol rarely. No drug use. REVIEW OF SYSTEMS: As per HPI. Could not get complete review of systems, the patient is somewhat confused. PHYSICAL EXAMINATION: GENERAL: The patient is old and frail, not in acute distress, oriented to name only. VITAL SIGNS: Temperature 37, pulse rate 69, respiratory 21, blood pressure 110/40s currently, oxygen 92 % on room air. HEENT: Pupils equal, round, reactive to light. Oral mucosa dry. NECK: No JVD, no neck masses. CARDIOVASCULAR: S1, S2 heard, irregular rate and rhythm, no murmur, no gallop. RESPIRATORY SYSTEM: Normal AP diameter. No accessory muscle use. No wheezing, no crackles. ABDOMEN: Soft, bowel sounds present, nontender, nondistended. CENTRAL NERVOUS SYSTEM: Alert and oriented to name only. Obeys simple commands. Speech is okay, no facial droop seen. Moves extremities. EXTREMITIES: Right metatarsal amputation seen and 2 x 3 cm open ulcer seen. No obvious drainage seen, no obvious erythema seen. No lower extremity edema seen. LABORATORY DATA: WBC 8.7, hemoglobin 8.3, hematocrit 25.1, platelets 224. Sodium 133, potassium 6.3, chloride 103, bicarbonate 22, BUN 67, creatinine 2.1, serum glucose 82. Lactate initially was 2.8, currently repeat is 1.5. Calcium 8, ionized calcium 1.1, magnesium 3, total bilirubin 0.3, AST 20, ALT 25, alkaline phosphatase 84. Troponin I of 0.6. TSH 2.8. Urinalysis negative. SARS-CoV-2 PCR negative. IMAGING: Chest x-ray, pulmonary edema kind of picture. EKG: Initial EKG was sinus bradycardia with first degree AV block at a rate of 36. Repeat EKG: AFib with competing junctional pacemaker with rate of 71. ASSESSMENT AND PLAN: This is an 89-year-old female who presents with bradycardia, acute kidney injury and hyperkalemia. 1. Bradycardia, could be secondary to electrolyte abnormalities with high potassium, currently in atrial fibrillation. We will closely monitor in the telemetry floor.Hold Lopressor. We will get echocardiogram and cardiac consult. 2. Hyperkalemia. Potassium of 6.3, etiology unclear. The patient is on Bactrim for her lower extremity infection, could be the cause. We will hold lisinopril. Avoid any nephrotoxic agents. She received calcium gluconate, insulin, and dextrose in the Emergency Room. Discussed with nephrology. Plan to give 1 liter of D5 bicarbonate drip at a rate of 75 mL per hour and repeat BMP at 5:00 p.m.Low potassium diet. Closely monitor in the telemetry floor. 3. Acute kidney injury. Baseline creatinine 0.6-0.8, presents with creatinine of 2.1. Hold lisinopril and Bactrim. Getting fluids as above. We will follow the repeat laboratories. 4. Mild elevation of troponin with ongoing illness. We will follow repeat serial enzymes and echocardiogram. Currently, the patient is asymptomatic. 5. Pulmonary edema on chest x-ray. We will monitor for volume overload. Follow the echocardiogram. Currently saturating okay on room air. 6. Lower extremity wound, status post right transmetatarsal amputation in 08/2020. Possible sepsis with elevated lactic acid of 2.8. repeat lactic acid 1.5. Open wound at the site, on Bactrim. We will hold Bactrim, place her on vancomycin and Zosyn. Follow the cultures, .Wound care and orthopedics consult. 7. Type 2 diabetes. We will hold Lantus. We will place her on insulin sliding scan, follow the blood sugar . clear liquid diet.Npo after midnight. 8. History of depression. Continue Remeron and citalopram. 9. History of peripheral vascular disease, on aspirin. 10. Iron-deficiency anemia. Hemoglobin is 8.3, seems to be at baseline. Follow the stool for Hemoccult. 11. Alzheimer dementia and hearing loss. We will monitor for any delirium. 12. Ambulatory dysfunction. Currently, the patient is bedbound, bed rest while she is in the hospital. 13. Hypertension. Holding lisinopril and metoprolol tartrate because of acute kidney injury and bradycardia. We will monitor the blood pressure. 14. History of colon cancer, status post surgery. 15. History of uterine cancer, status post radiation treatment. 16. Deep venous thrombosis prophylaxis. We will place on heparin subcutaneously and sequential compression devices. DISPOSITION: Closely monitor in the tele floor. CODE STATUS: DNR/DNI as per my discussion with the daughter. Social service to help with discharge planning, transfer back to [facility] when stable. Repeat BMP at 5pm Potassium 4.8. cr 1.69. Notified Nephrology. Follow bmp in am. ROSARIO
[2020-12-22] MEDS ORDERED: ONDANSETRON INJ 2 MG/ML 2 ML VIAL IV PRN (16:42)
[2020-12-22] MEDS ORDERED: NITROGLYCERIN SL 0.4 MG/TAB TAB SL PRN (16:42)
[2020-12-22 17:38] LABS: BUN Creatinine Ratio 31.7 (10-20); Calcium 8.2 mg/dl (8.5-10.1); Creatinine Clr Calc Pharmacy 20.3 ml/min; Est GFR (African American) 30.7 ml/min; Est GFR (Non-African American) 26.5 ml/min; Potassium 4.8 mmol/L (3.5-5.1)
[2020-12-22 17:40] LABS: Troponin I 0.598 ng/ml (0-0.045)
[2020-12-22] MEDS ORDERED: VANCOMYCIN HCL 750 MG in SODIUM CHLORIDE 0.9% 250 ML IV STA (18:20)
[2020-12-22] MEDS: INSULIN ASPART 100 UNITS/ML 3 ML PEN SC SCH ×2 (18:39→21:22)
--- NOTE | 2020-12-22 18:52 | XRay Report ---
XR foot RT min 3V routine CLINICAL HISTORY: right foot osteomyelitis?. Right foot swelling. Skin ulceration. COMPARISON STUDY: Right foot 05/23/2020. FINDINGS: Postoperative changes consistent with a transmetatarsal amputation. There is soft tissue sw elling within the residual forefoot. Focal skin ulceration at the medial aspect of the forefoot measu ring 1.8 cm. Evaluation for osteomyelitis is difficult due to the postoperative changes. Specifically , the cortical irregularity at the residual second metatarsal is nonspecific but raises the possibili ty of an acute osteomyelitis. Postsurgical change could also appear similar. Plantar and posterior ca lcaneal heel spur. IMPRESSION: 1. Interval transmetatarsal amputation. 2. A 1.8 cm focal skin ulceration at the medial aspect of the residual distal forefoot. There is sugg estion of cortical irregularity/destruction at the residual base of the second metatarsal which is de ep to the skin ulceration. This favors an osteomyelitis. However, postoperative change could also hav e a similar appearance. ACT 112: Negative or not required by law. Electronically signed by: Juan Carlos Bonilla M.D. 12/22/2020 6:51 PM
[2020-12-22] MEDS: PIPERACILLIN/TAZOBACTAM 3.375 GM in DEXTROSE 5% 100 ML IV SCH (19:53)
--- NOTE | 2020-12-22 19:59 | Pharmacy Report ---
Pharmacy Abx Dose Short Note - Date of Service December 22, 2020 - Assessment & Plan Assessment 89 year old F receiving IV Vancomycin and Zosyn for treatment of R foot wound, possible osteomyelitis Day # 1 of antimicrobial therapy. * Presents with LILI; sCr initially was 2.16 mg/dL, but improved to 1.69 mg/dL ~7 hours later. Therefore, anticipate that renal function is trending back to baseline, which appears ~0.6 mg/dL. * Renal function unstable, therefore unable to determine appropriate Vancomycin maintenance dose at this time. Will give aggressive loading dose due to potential for osteomyelitis and likely dose Vancomycin prn levels until renal function stabilizes Plan Vancomycin * Received Vancomycin 1000mg in the ED; give additional Vancomycin loading dose of 750mg to make a total loading dose of 1750mg (~24 mg/kg) * Goal trough level for foot wound/osteo : 15 to 20 mcg/mL * Random level ordered for: 12/23/20 with AM labs Zosyn * Received Zosyn 3.375g IV x 1 as a loading dose in the ED * Given noted rapid improvement in renal function per labs, will dose Zosyn based on the assumption that CrCl will continue to improve >20 mL/min and give q8. If, however, tomorrow's lab shows that CrCl is <= 20, will need to reduce to q12 dosing. Pharmacy will continue to follow and will adjust dose/frequency as necessary. Thank you.
[2020-12-22] MEDS: DOCUSATE SODIUM SYRUP 100 MG/10 ML UDC PO SCH (21:20)
[2020-12-22] MEDS: MIRTAZAPINE TAB 15 MG TAB PO SCH (21:21)
[2020-12-22] MEDS: ACETAMINOPHEN 325 MG TAB PO PRN (21:21)
[2020-12-22] MEDS: HEPARIN SOD 5,000 UNIT/0.5 ML VIAL SQ SCH (21:22)
[2020-12-22] MEDS: DICLOFENAC SOD 1% GEL 100 GM TUBE EXT PRN (22:43)
[2020-12-23] MEDS: PIPERACILLIN/TAZOBACTAM 3.375 GM in DEXTROSE 5% 100 ML IV SCH ×3 (03:51→19:46)
[2020-12-23 05:28] LABS: Basophils # (auto) 0.02 K/uL (0-0.2); Basophils % (auto) 0.5 %; Eosinophils # (auto) 0.12 K/uL (0-0.5); Eosinophils % (auto) 2.8 %; Hematocrit (blood only) 23.8 % (37-47); Hemoglobin 7.8 g/dL (12.0-16.0); Immature Granulocytes # (auto) 0.01 K/uL (0.00-0.02); Immature Granulocytes % (auto) 0.2 %; Lymphocytes # (auto) 0.77 K/uL (1.2-3.4); Lymphocytes % (auto) 18.2 %; Mean Corpuscular Hemoglobin 28.6 pg (25-34); Mean Corpuscular Hgb Conc 32.8 g/dL (32-36); Mean Corpuscular Volume 87.2 fL (80-100); Mean Platelet Volume 8.4 fL (7.4-10.4); Monocytes % (auto) 14.2 %; Neutrophils % (auto) 64.1 %; Platelet Count 175 K/uL (130-400); RDW Coefficient of Variation 15.5 % (11.5-14.5); RDW Standard Deviation 49.4 fL (36.4-46.3); Red Blood Count 2.73 M/uL (4.2-5.4); White Blood Count 4.22 K/uL (4.8-10.8)
[2020-12-23 05:54] LABS: RBC Morphology Unremarkable
[2020-12-23 05:55] LABS: BUN Creatinine Ratio 30.4 (10-20); Calcium 7.7 mg/dl (8.5-10.1); Creatinine Clr Calc Pharmacy 34.4 ml/min; Est GFR (African American) 53.3 ml/min; Magnesium 2.8 mg/dl (1.8-2.4); Potassium 4.3 mmol/L (3.5-5.1)
[2020-12-23] MEDS: INSULIN ASPART 100 UNITS/ML 3 ML PEN SC SCH ×4 (08:05→20:34)
--- NOTE | 2020-12-23 08:05 | Electrocardiogram Report ---
Test Reason : Blood Pressure : / mmHG Vent. Rate : 067 BPM Atrial Rate : 067 BPM P-R Int : 228 ms QRS Dur : 084 ms QT Int : 452 ms P-R-T Axes : 047 037 062 degrees QTc Int : 477 ms Sinus rhythm with 1st degree A-V block Low voltage QRS Borderline ECG When compared with ECG of 22-DEC-2020 09:52, Sinus rhythm has replaced Atrial fibrillation Confirmed by Hunter Wade ([id number]) on 12/23/2020 8:05:02 AM Referred By: Jennifer trimble [facility] [place] Confirmed By:Hunter Wade
[2020-12-23] MEDS: ASPIRIN 81 MG ECTAB PO SCH (08:07)
[2020-12-23] MEDS: DOCUSATE SODIUM SYRUP 100 MG/10 ML UDC PO SCH ×2 (08:07→20:34)
[2020-12-23] MEDS: CITALOPRAM 40 MG TAB PO SCH (08:08)
[2020-12-23] MEDS: CEROVITE ADV FORMULA TAB PO SCH (08:08)
[2020-12-23] MEDS: gemfibroziL 600 MG TAB PO SCH (08:08)
[2020-12-23] MEDS: HEPARIN SOD 5,000 UNIT/0.5 ML VIAL SQ SCH ×2 (08:09→20:32)
--- NOTE | 2020-12-23 08:31 | Pharmacy Report ---
Pharmacy Abx Dose Short Note - Date of Service December 23, 2020 - Assessment & Plan Assessment 89 year old F receiving IV Vancomycin and Zosyn for treatment of R foot wound, possible osteomyelitis. Pt received vanc 1gm in the ED ~ 1500 yesterday and then a supplemental dose of 750mg X 1 ~1930 as a cumulative load. Random level obtained this AM ~ 0500 due to LILI was ~ 10.5hr level. Renal function improving (SCr 2.16-->1.07). Cultures pending. Foot MRI pending. Day # 2 of antimicrobial therapy. Plan Vancomycin * Random level of 14.9 mcg/mL after LD. It is safe to re-dose. * Due to improving renal function, will schedule a maintenance regimen of 1000mg IV q24h to start now. * Goal trough level for osteomyelitis : 15 to 20 mcg/mL * Will obtain a trough at steady state or sooner if renal function changes. Pharmacy will continue to follow and will adjust dose/frequency as necessary. Thank you.
[2020-12-23] MEDS: VANCOMYCIN HCL 1,000 MG in SODIUM CHLORIDE 0.9% 250 ML IV SCH (09:07)
--- NOTE | 2020-12-23 10:07 | Nephrology Consultation ---
Date of Consultation December 23, 2020 Assessment & Plan (1) LILI (acute kidney injury): Acute kidney injury likely prerenal azotemia in setting of infection and bactrim. Patient was also on Bactrim which falsely elevates creatinine. Patient is off Bactrim. Creatinine down to 1 still higher than baseline of 0.6. -Monitor renal function with daily BMP -Avoid supratherapeutic vancomycin level which can be nephrotoxic (2) Acute hyperkalemia: Hyperkalemia due to acute kidney injury and Bactrim use. He has improved from 6.3-4.3 this morning. -Patient was given a low K diet History of Present Illness Reason for Consultation: Acute kidney injury and hyperkalemia Requesting Physician: Dr. Mccord Attending Physician: Robinson Cohen MD History of Present Illness This is 89-year-old female with history of dementia, type 2 diabetes, hypertension, peripheral vascular disease status post bilateral transmetatarsal amputation most recent in August 2020 complicated by nonhealing wound at the amputation site who was admitted on 12/22/2020 with altered mental status found to have hyperkalemia of 6.3 with baseline of 0.6. Patient has been taking Bactrim for the chronic wound. Patient had tachycardia and hypotension in the ED she received isotonic bicarbonate infusion at 80 mL/h and insulin dextrose for hyperkalemia. Seen with the daughter Kaila at the bedside. Patient feels better today. No shortness of breath. She has pain in the right foot. Vomiting or diarrhea. No NSAID use. Creatinine is down to 1 and potassium is improved 4.3 Allergies Allergy/AdvReac Type Severity Reaction Status Date / Time No Known Allergies Allergy Verified 12/22/20 10:55 Home Medications Medication Instructions Recorded Confirmed Type Lantus Solostar U-100 Insulin 12 units SUBCUT AMHS 07/10/18 12/22/20 History gemfibrozil 600 mg PO QAM 07/10/18 12/22/20 History lisinopril 10 mg PO QAM 07/10/18 12/22/20 History aspirin 81 mg PO DAILY 07/17/18 12/22/20 History acetaminophen 650 mg PO QID PRN 08/29/20 12/22/20 History citalopram 40 mg PO QAM 08/29/20 12/22/20 History metoprolol tartrate 12.5 mg PO BID 11/02/20 12/22/20 History mirtazapine [Remeron] 30 mg PO HS 11/02/20 12/22/20 History ferrous sulfate 7.5 mg PO BID 11/09/20 12/22/20 History insulin aspart U-100 [Novolog 1 sliding scale dose SUBCUT 11/09/20 12/22/20 History U-100 Insulin aspart] USEASDIRECTD multivitamin with folic acid 1 tab PO DAILY 11/09/20 12/22/20 History [Therems Multivitamin] docusate sodium 100 mg PO BID 12/22/20 12/22/20 History sulfamethoxazole-trimethoprim 1 tab PO BID 12/22/20 12/22/20 History Patient History Medical History Acquired claw toe of right foot Asthma Cellulitis RIGHT LOWER LIMB Dementia Daughter, Elizabeth, is POA. Patient does not sign consents. Currently residing in [facility]. Depression Diabetic polyneuropathy DM type 2 (diabetes mellitus, type 2) Controlled, A1C 5.9% 05/2020. 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/15) Endometrial adenocarcinoma, FIGO grade I, status post completion of radiation therapy 2015 Environmental allergies MOLD/POLLEN/CATS/MILDEW Foot ulcer GERD (gastroesophageal reflux disease) Hearing deficit History of colon cancer s/p resection 2012 HTN (hypertension) Hyperlipidemia ADAN (iron deficiency anemia) PVD (peripheral vascular disease) Surgical History Amputated toe RT TOE H/O colonoscopy with polypectomy History of amputation of left great toe History of amputation of lesser toe of left foot History of cataract surgery left History of esophagogastroduodenoscopy (EGD) History of herniorrhaphy Hx of tubal ligation S/P tonsillectomy and adenoidectomy Status post transmetatarsal amputation of right foot Family History Father Heart disease Social History Smoking Status: Unknown if ever smoked Hx Alcohol Use: No Hx Substance Use: No Preferred Language: [place] Citizen Communication Ability: Impaired Paint 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 Required: No Beliefs That Will Affect Care: None marital status: / Current Living Situation: [facility] Current Living Situation Comment: [facility] Other Information That Helps Us Care for You: No Feels Safe at Home: Yes Safety Concerns: Feels Safe At This Time Assistive Devices: Walker Review of Systems Review of Systems: All systems reviewed & are unremarkable except as noted in HPI & below Physical Exam Physical Exam: General exam: Appears comfortable, no acute distress HEENT: Pupils are equal and reactive to light Neck: No JVD, neck is supple trachea is midline Respiratory system: Clear breath sounds bilaterally. Gastrointestinal: Abdomen is soft, non distended, non tender, bowel sounds are present CVS: Regular rate and rhythm. No murmurs, rubs or gallops Musculoskeletal: No joint or muscle tenderness Extremities: Non tender, no edema, peripheral pulses are present. right foot chronic wound dressed Neuro: Oriented, no tremors, no focal neurological deficits Skin: No rashes Results & Data ([facility]) Vital Signs (Past 12 Hours) Vital Signs Temp Pulse Pulse Resp BP Pulse Ox Pulse Ox 12/23/20 08:00 94 12/23/20 07:50 36.6 C 71 19 141/49 H 92 12/23/20 04:00 36.7 C 73 16 131/53 L 92 12/23/20 00:15 75 Laboratory Results 12/23/20 05:11 12/22/20 12/22/20 12/23/20 10:13 10:13 05:11 WBC 8.74 4.22 L RBC 2.95 L 2.73 L MCV 85.1 87.2 MCH 28.1 28.6 MCHC 33.1 32.8 RDW Std Deviation 48.4 H 49.4 H RDW Coeff of Pamela 15.5 H 15.5 H Plt Count 224 175 MPV 8.9 8.4 Albumin 2.8 L
--- NOTE | 2020-12-23 10:10 | Orthopedic Consultation ---
Date of Consultation December 23, 2020 Assessment & Plan (1) Ulcer of right foot with fat layer exposed: The patient's daughter was present with her today. We discussed the upcoming scheduled surgical debridement. If she is going to be inpatient for a prolonged time, we will probably consider doing the I&D of the right foot ulceration while she is inpatient. I discussed that Dr. Ortiz is on-call with me this weekend and he will also be in to see the patient today. We will continue to follow with the patient and possibly schedule the procedure later in the week. Continue daily dressing changes. Nonweightbearing right lower extremity at all times. (2) Peripheral vascular disease in diabetes mellitus: History of Present Illness Reason for Consultation: Right foot ulceration Attending Physician: Robinson Cohen MD History of Present Illness This is a patient known to [facility] and Dr. Ortiz for right foot wounds that subsequently resulted in a transmetatarsal amputation. She has had difficulties with the wound healing, particular at the medial aspect of the wound. She has a persistent ulceration. She was recently seen in our office and set up for repeat I&D of the ulceration. However, she began to have difficulties over the past couple of days at the [facility] and she was br ought to the emergency room for evaluation. She was admitted for an acute kidney injury, hyperkalemia, bradycardia. We were consulted for evaluation of the ulceration on the right foot. Allergies Allergy/AdvReac Type Severity Reaction Status Date / Time No Known Allergies Allergy Verified 12/22/20 10:55 Home Medications Medication Instructions Recorded Confirmed Type Lantus Solostar U-100 Insulin 12 units SUBCUT AMHS 07/10/18 12/22/20 History gemfibrozil 600 mg PO QAM 07/10/18 12/22/20 History lisinopril 10 mg PO QAM 07/10/18 12/22/20 History aspirin 81 mg PO DAILY 07/17/18 12/22/20 History acetaminophen 650 mg PO QID PRN 08/29/20 12/22/20 History citalopram 40 mg PO QAM 08/29/20 12/22/20 History metoprolol tartrate 12.5 mg PO BID 11/02/20 12/22/20 History mirtazapine [Remeron] 30 mg PO HS 11/02/20 12/22/20 History ferrous sulfate 7.5 mg PO BID 11/09/20 12/22/20 History insulin aspart U-100 [Novolog 1 sliding scale dose SUBCUT 11/09/20 12/22/20 History U-100 Insulin aspart] USEASDIRECTD multivitamin with folic acid 1 tab PO DAILY 11/09/20 12/22/20 History [Therems Multivitamin] docusate sodium 100 mg PO BID 12/22/20 12/22/20 History sulfamethoxazole-trimethoprim 1 tab PO BID 12/22/20 12/22/20 History Patient History Medical History Acquired claw toe of right foot Asthma Cellulitis RIGHT LOWER LIMB Dementia Daughter, Elizabeth, is POA. Patient does not sign consents. Currently residing in [facility] care unit. Depression Diabetic polyneuropathy DM type 2 (diabetes mellitus, type 2) Controlled, A1C 5.9% 05/2020. 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/15) Endometrial adenocarcinoma, FIGO grade I, status post completion of radiation therapy 2015 Environmental allergies MOLD/POLLEN/CATS/MILDEW Foot ulcer GERD (gastroesophageal reflux disease) Hearing deficit History of colon cancer s/p resection 2012 HTN (hypertension) Hyperlipidemia ADAN (iron deficiency anemia) PVD (peripheral vascular disease) Surgical History Amputated toe RT TOE H/O colonoscopy with polypectomy History of amputation of left great toe History of amputation of lesser toe of left foot History of cataract surgery left History of esophagogastroduodenoscopy (EGD) History of herniorrhaphy Hx of tubal ligation S/P tonsillectomy and adenoidectomy Status post transmetatarsal amputation of right foot Family History Father Heart disease Social History Smoking Status: Unknown if ever smoked Hx Alcohol Use: No Hx Substance Use: No Preferred Language: Colombian Communication Ability: Impaired Delivery Associate Required: No Beliefs That Will Affect Care: None marital status: / Current Living Situation: Retirement Current Living Situation Comment: [facility] Other Information That Helps Us Care for You: No Feels Safe at Home: Yes Safety Concerns: Feels Safe At This Time Assistive Devices: Walker Physical Exam Constitutional: + frail appearing; no acute distress Neck: trachea midline Musculoskeletal: Right foot: Ulceration of the medial aspect of the transmetatarsal flap. Ulceration measures approximately 1.5 to 2 cm. There is no active drainage. There is no erythema surrounding the ulceration. The dressing was clean/dry/intact. Skin: no rashes, warm and dry Trauma: no evidence of skin trauma Neurologic: + abnormal touch/pain/proprioception Psychiatric: Orientation: alert, oriented to person (Oriented to herself only) and cooperative Results & Data ([facility]) Vital Signs (Past 12 Hours) Vital Signs Temp Pulse Pulse Resp BP Pulse Ox Pulse Ox 12/23/20 08:00 94 12/23/20 07:50 36.6 C 71 19 141/49 H 92 12/23/20 04:00 36.7 C 73 16 131/53 L 92 12/23/20 00:15 75
--- NOTE | 2020-12-23 12:33 | Cardiology Consultation ---
Date of Consultation December 23, 2020 Assessment & Plan (1) Ulcer of right foot with fat layer exposed: (2) Bradycardia: (3) LILI (acute kidney injury): The patient's bradycardia has resolved after IV hydration and correction of her electrolytes. At this point I do not believe any additional cardiac work-up is indicated. She is clinically stable and if necessary during this hospital admission she can go to the operating room to have her foot debrided. History of Present Illness Attending Physician: Robinson Cohen MD History of Present Illness This is a 89-year-old female who resides at the dementia unit at [facility]. Her daughter was in the room today and was helpful with her history. We have never seen her as an outpatient and there are no [facility] records. According to the daughter the patient has never had a serious heart problem. No previous history of ischemic heart disease, congestive heart failure or cardiac arrhythmias. She is a late onset diabetic and had recently a partial right foot amputation. Unfortunately the incision site has never completely healed. She has been under the care of the wound clinic and was scheduled for debridement later this week. The patient presented to the emergency department with a septic picture with associated acute renal failure with hyperkalemia. At presentation she was bradycardic but after being admitted to the hospital and given IV hydration and correction of her electrolyte abnormalities her heart rhythm on telemetry has been normal sinus. She is alert and actually eating lunch today and in no acute distress. Allergies Allergy/AdvReac Type Severity Reaction Status Date / Time No Known Allergies Allergy Verified 12/22/20 10:55 Home Medications Medication Instructions Recorded Confirmed Type Lantus Solostar U-100 Insulin 12 units SUBCUT [facility] 07/10/18 12/22/20 History gemfibrozil 600 mg PO QAM 07/10/18 12/22/20 History lisinopril 10 mg PO QAM 07/10/18 12/22/20 History aspirin 81 mg PO DAILY 07/17/18 12/22/20 History acetaminophen 650 mg PO QID PRN 08/29/20 12/22/20 History citalopram 40 mg PO QAM 08/29/20 12/22/20 History metoprolol tartrate 12.5 mg PO BID 11/02/20 12/22/20 History mirtazapine [Remeron] 30 mg PO HS 11/02/20 12/22/20 History ferrous sulfate 7.5 mg PO BID 11/09/20 12/22/20 History insulin aspart U-100 [Novolog 1 sliding scale dose SUBCUT 11/09/20 12/22/20 History U-100 Insulin aspart] USEASDIRECTD multivitamin with folic acid 1 tab PO DAILY 11/09/20 12/22/20 History [Therems Multivitamin] docusate sodium 100 mg PO BID 12/22/20 12/22/20 History sulfamethoxazole-trimethoprim 1 tab PO BID 12/22/20 12/22/20 History Patient History Medical History Acquired claw toe of right foot Asthma Cellulitis RIGHT LOWER LIMB Dementia Daughter, Elizabeth, is POA. Patient does not sign consents. Currently residing in [facility] care unit. Depression Diabetic polyneuropathy DM type 2 (diabetes mellitus, type 2) Controlled, A1C 5.9% 05/2020. 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/15) Endometrial adenocarcinoma, FIGO grade I, status post completion of radiation therapy 2015 Environmental allergies MOLD/POLLEN/CATS/MILDEW Foot ulcer GERD (gastroesophageal reflux disease) Hearing deficit History of colon cancer s/p resection 2012 HTN (hypertension) Hyperlipidemia ADAN (iron deficiency anemia) PVD (peripheral vascular disease) Surgical History Amputated toe RT TOE H/O colonoscopy with polypectomy History of amputation of left great toe History of amputation of lesser toe of left foot History of cataract surgery left History of esophagogastroduodenoscopy (EGD) History of herniorrhaphy Hx of tubal ligation S/P tonsillectomy and adenoidectomy Status post transmetatarsal amputation of right foot Family History Father Heart disease Social History Smoking Status: Unknown if ever smoked Hx Alcohol Use: No Hx Substance Use: No Preferred Language: Indonesian Communication Ability: Impaired Medical Technologist Clinical Required: No Beliefs That Will Affect Care: None marital status: / Current Living Situation: Senior Care Current Living Situation Comment: [place] How many Children do You have: 4 Other Information That Helps Us Care for You: No Feels Safe at Home: Yes Safety Concerns: Feels Safe At This Time Assistive Devices: None Review of Systems Review of Systems: Unobtainable due to cognitive status Physical Exam Physical Exam: General: no acute distress and stated age Head: normocephalic, no masses, lesions, tenderness or abnormalities Eyes: conjunctiva are pink and non-injected, sclera clear Neck: supple, no adenopathy, no bruits, normal jugular venous pulse, no hepatojugular reflux Chest: normal shape and normal respiratory effort Lungs: clear to auscultation and percussion Cardiac Exam: - regular rate & rhythm, no murmurs gallops or rubs - normal S1, normal S2 Pulses: 2(+) throughout Abdomen: abdomen soft, non-tender, no abnormal masses and no hepatosplenomegaly Musculoskeletal: no gait disturbance, no joint inflammation, no deforming arthritis Extremities: no edema and no cyanosis Neuro: grossly normal exam Results & Data ([facility]) Vital Signs (Past 12 Hours) Vital Signs Temp Pulse Pulse Resp BP Pulse Ox Pulse Ox 12/23/20 11:09 36.9 C 72 19 138/48 L 94 12/23/20 08:00 77 94 12/23/20 07:50 36.6 C 71 19 141/49 H 92 12/23/20 04:00 36.7 C 73 16 131/53 L 92 Laboratory Results Laboratory Results - last 24 hr 12/22/20 12/22/20 12/22/20 12:23 12:39 17:01 WBC RBC Hgb Hct MCV MCH MCHC RDW Std Deviation RDW Coeff of Pamela Plt Count MPV Immature Gran % (Auto) Neut % (Auto) Lymph % (Auto) [place] % (Auto) Eos % (Auto) Baso % (Auto) Neut # (Auto) Lymph # (Auto) [place] # (Auto) Eos # (Auto) Baso # (Auto) Immature Gran # (Auto) RBC Morphology Sodium 133 L Potassium 4.8 D Chloride 103 Carbon Dioxide 22 Anion Gap 8.0 BUN 54 H Creatinine 1.69 H D Est Cr Clr Drug Dosing 20.3 Est GFR ( Amer) 30.7 Est GFR (Non-Af Amer) 26.5 BUN/Creatinine Ratio 31.7 H Glucose 87 POC Glucose Estimat Average Glucose Hemoglobin A1c Lactate 1.5 Calcium 8.2 L Magnesium Troponin I 0.598 H* Urine Color Yellow Urine Appearance Clear Urine pH 6.0 Ur Specific [place] 1.012 Urine Protein Negative Urine Glucose (UA) Negative Urine Ketones Negative Urine Blood Negative Urine Nitrite Negative Urine Bilirubin Negative Urine Urobilinogen Negative Ur Leukocyte Esterase Negative Nasal Screen MRSA (PCR) Random Vancomycin 12/22/20 12/22/20 12/22/20 17:15 18:45 21:13 WBC RBC Hgb Hct MCV MCH MCHC RDW Std Deviation RDW Coeff of Pamela Plt Count MPV Immature Gran % (Auto) Neut % (Auto) Lymph % (Auto) [place] % (Auto) Eos % (Auto) Baso % (Auto) Neut # (Auto) Lymph # (Auto) [place] # (Auto) Eos # (Auto) Baso # (Auto) Immature Gran # (Auto) RBC Morphology Sodium Potassium Chloride Carbon Dioxide Anion Gap BUN Creatinine Est Cr Clr Drug Dosing Est GFR ( Amer) Est GFR (Non-Af Amer) BUN/Creatinine Ratio Glucose POC Glucose 110 H 219 H Estimat Average Glucose Hemoglobin A1c Lactate Calcium Magnesium Troponin I Urine Color Urine Appearance Urine pH Ur Specific [place] Urine Protein Urine Glucose (UA) Urine Ketones Urine Blood Urine Nitrite Urine Bilirubin Urine Urobilinogen Ur Leukocyte Esterase Nasal Screen MRSA (PCR) Negative Random Vancomycin 12/22/20 12/23/20 12/23/20 23:08 05:11 05:11 WBC RBC Hgb Hct MCV MCH MCHC RDW Std Deviation RDW Coeff of Pamela Plt Count MPV Immature Gran % (Auto) Neut % (Auto) Lymph % (Auto) [place] % (Auto) Eos % (Auto) Baso % (Auto) Neut # (Auto) Lymph # (Auto) [place] # (Auto) Eos # (Auto) Baso # (Auto) Immature Gran # (Auto) RBC Morphology Sodium Potassium Chloride Carbon Dioxide Anion Gap BUN Creatinine Est Cr Clr Drug Dosing Est GFR ( Amer) Est GFR (Non-Af Amer) BUN/Creatinine Ratio Glucose POC Glucose Estimat Average Glucose Hemoglobin A1c Lactate Calcium Magnesium Troponin I 0.488 H* 0.367 H* Urine Color Urine Appearance Urine pH Ur Specific [place] Urine Protein Urine Glucose (UA) Urine Ketones Urine Blood Urine Nitrite Urine Bilirubin Urine Urobilinogen Ur Leukocyte Esterase Nasal Screen MRSA (PCR) Random Vancomycin 14.9 12/23/20 12/23/20 12/23/20 05:11 05:11 05:11 WBC 4.22 L RBC 2.73 L Hgb 7.8 L Hct 23.8 L MCV 87.2 MCH 28.6 MCHC 32.8 RDW Std Deviation 49.4 H RDW Coeff of Pamela 15.5 H Plt Count 175 MPV 8.4 Immature Gran % (Auto) 0.2 Neut % (Auto) 64.1 Lymph % (Auto) 18.2 [place] % (Auto) 14.2 Eos % (Auto) 2.8 Baso % (Auto) 0.5 Neut # (Auto) 2.70 Lymph # (Auto) 0.77 L [place] # (Auto) 0.60 H Eos # (Auto) 0.12 Baso # (Auto) 0.02 Immature Gran # (Auto) 0.01 RBC Morphology Unremarkable Sodium 140 D Potassium 4.3 Chloride 108 H Carbon Dioxide 28 Anion Gap 4.0 BUN 33 H Creatinine 1.07 Est Cr Clr Drug Dosing 34.4 Est GFR ( Amer) 53.3 Est GFR (Non-Af Amer) 46.0 BUN/Creatinine Ratio 30.4 H Glucose 84 POC Glucose Estimat Average Glucose Pending Hemoglobin A1c Pending Lactate Calcium 7.7 L Magnesium 2.8 H Troponin I Urine Color Urine Appearance Urine pH Ur Specific [place] Urine Protein Urine Glucose (UA) Urine Ketones Urine Blood Urine Nitrite Urine Bilirubin Urine Urobilinogen Ur Leukocyte Esterase Nasal Screen MRSA (PCR) Random Vancomycin 12/23/20 12/23/20 07:40 11:14 WBC RBC Hgb Hct MCV MCH MCHC RDW Std Deviation RDW Coeff of Pamela Plt Count MPV Immature Gran % (Auto) Neut % (Auto) Lymph % (Auto) [place] % (Auto) Eos % (Auto) Baso % (Auto) Neut # (Auto) Lymph # (Auto) [place] # (Auto) Eos # (Auto) Baso # (Auto) Immature Gran # (Auto) RBC Morphology Sodium Potassium Chloride Carbon Dioxide Anion Gap BUN Creatinine Est Cr Clr Drug Dosing Est GFR ( Amer) Est GFR (Non-Af Amer) BUN/Creatinine Ratio Glucose POC Glucose 106 H 115 H Estimat Average Glucose Hemoglobin A1c Lactate Calcium Magnesium Troponin I Urine Color Urine Appearance Urine pH Ur Specific [place] Urine Protein Urine Glucose (UA) Urine Ketones Urine Blood Urine Nitrite Urine Bilirubin Urine Urobilinogen Ur Leukocyte Esterase Nasal Screen MRSA (PCR) Random Vancomycin Medications Administered Current Inpatient Medications Acetaminophen (Acetaminophen 325 Mg Tab) 650 mg PO Q4H PRN PRN Reason: Pain or Fever Stop: 01/21/21 16:41 Last Admin: 12/22/20 21:21 Dose: 650 mg Documented by: Aspirin (Aspirin 81 Mg Ectab) 81 mg PO DAILY [facility] Stop: 01/22/21 08:59 Last Admin: 12/23/20 08:07 Dose: 81 mg Documented by: Citalopram Hydrobromide (Citalopram 40 Mg Tab) 40 mg PO QAM [facility] Stop: 01/22/21 08:59 Last Admin: 12/23/20 08:08 Dose: 40 mg Documented by: Diclofenac Sodium (Diclofenac Sod 1% Gel 100 Gm Tube) 4 gm EXT QID PRN PRN Reason: knee pain Stop: 01/21/21 20:59 Last Admin: 12/22/20 22:43 Dose: 4 gm Documented by: Docusate Sodium (Docusate Sodium Syrup 100 Mg/10 Ml Udc) 100 mg PO BID [facility] Stop: 01/21/21 20:59 Last Admin: 12/23/20 08:07 Dose: 100 mg Documented by: Gemfibrozil (Gemfibrozil 600 Mg Tab) 600 mg PO QAM [facility] Stop: 01/22/21 08:59 Last Admin: 12/23/20 08:08 Dose: 600 mg Documented by: Heparin Sodium (Porcine) (Heparin Sod 5,000 Unit/0.5 Ml Vial) 5,000 units SQ Q12 [facility] Stop: 01/21/21 20:59 Last Admin: 12/23/20 08:09 Dose: 5,000 units Documented by: Piperacillin Sod/Tazobactam (Sod 3.375 gm/ Dextrose) 115 mls @ 28.75 mls/hr IV Q8H [facility]; Protocol Stop: 12/29/20 19:59 Last Admin: 12/23/20 11:45 Dose: 28.8 mls/hr Documented by: Vancomycin HCl 1,000 mg/ (Sodium Chloride) 270 mls @ 200 mls/hr IV Q24H [facility] Stop: 02/03/21 08:59 Last Infusion: 12/23/20 10:51 Dose: Infused Documented by: Insulin Aspart (Insulin Aspart 100 Units/Ml 3 Ml Pen) 0 units SC ACHS [facility] Stop: 01/21/21 16:41 Last Admin: 12/23/20 11:59 Dose: 3 units Documented by: Mirtazapine (Mirtazapine Tab 15 Mg Tab) 30 mg PO HS [facility] Stop: 01/21/21 20:59 Last Admin: 12/22/20 21:21 Dose: 30 mg Documented by: Miscellaneous Information (Vancomycin Consult Active) 1 ea N/A UD PRN PRN Reason: Consult Stop: 01/21/21 14:29 Miscellaneous Information (Piperacill/Tazobac Consult Active) 1 ea N/A UD PRN PRN Reason: Consult Stop: 01/21/21 14:29 Multivitamins/Minerals (Cerovite Adv Formula Tab) 1 tab PO DAILY [facility] Stop: 01/22/21 08:59 Last Admin: 12/23/20 08:08 Dose: 1 tab Documented by: Nitroglycerin (Nitroglycerin Sl 0.4 Mg/Tab Tab) 0.4 mg SL UD PRN PRN Reason: Chest Pain Stop: 01/21/21 16:41 Ondansetron HCl (Ondansetron Inj 2 Mg/Ml 2 Ml Vial) 4 mg IV Q6H PRN PRN Reason: Nausea Stop: 01/21/21 16:41
[2020-12-23] MEDS ORDERED: LORazepam 0.25 MG/0.5 ML VIAL IV ONE (14:20)
--- NOTE | 2020-12-23 15:56 | Hospitalist Progress Note ---
Date of Service December 23, 2020 Assessment & Plan (1) LILI (acute kidney injury): Presented with LILI, no significant symptoms were obtainable because of dementia status Has been receiving oral Bactrim as an outpatient Has dehydration which is causing more impairment in renal function Has been receiving intravenous fluid with significant improvement of the kidney function Reactive hyperkalemia which has been corrected Appreciate nephrology input and recommendation Nutritional status Daughter feels that her mom is deficient in nutrients We will get dietary advice before discharging her (2) Ulcer of right foot with fat layer exposed: 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 Has been ongoing right foot ulceration with more swelling Appreciate orthopedic input and recommendation Will have MRI to evaluate the right foot wound better before the proposed I&D (3) Bradycardia: Noted to be bradycardic on admission Lowest rate was 38 Appreciate cardiology input and recommendation Bradycardia is improved (4) Acute hyperkalemia: Secondary to LILI Normalized (5) Dementia: Has dementia Possible acute confusion (6) Depression: (7) DM type 2 (diabetes mellitus, type 2): Lantus is on hold On SSI (8) HTN (hypertension): Is controlled DVT prophylaxis Subcu heparin CODE STATUS DNR/DNI Discussed with the daughter in detail Admission and Anticipated Discharge Date Admission Date: December 22, 2020 Subjective 12/23/2020 The patient was seen and examined in telemetry unit in presence of the daughter She has dementia and remains stable in bed She has history of agitation usually during the end of the day Denies any symptoms Review of Systems Review of Systems: Unobtainable due to cognitive status Physical Exam Physical Exam: Lying in bed comfortably Constitutional: average body habitus; not ill appearing Eyes: PERRL, conjunctivae normal, anicteric sclerae ENMT: external ear and nose normal, oropharynx normal Neck: trachea midline, no thyromegaly Respiratory: + labored breathing; no respiratory distress Auscultation: lungs clear to auscultation bilaterally Cardiovascular: Rate/Rhythm: regular rate and regular rhythm Heart Sounds: no murmur Extremities: + edema (Trace edema bilaterally) Musculoskeletal: Has bilateral amputation of the toes, right foot has swelling and is bandaged bandaged Neurologic: Alert and awake. Pleasantly confused Lymphatic: no cervical or axillary lymphadenopathy Results & Data Results & Data [facility]) Vital Signs (Past 12 Hours) Vital Signs Temp Pulse Pulse Resp BP Pulse Ox Pulse Ox 12/23/20 15:27 36.7 C 69 18 134/54 L 94 12/23/20 11:09 36.9 C 72 19 138/48 L 94 12/23/20 08:00 77 94 12/23/20 07:50 36.6 C 71 19 141/49 H 92 12/23/20 04:00 36.7 C 73 16 131/53 L 92 Laboratory Results Short CBC 12/23/20 Range/Units 05:11 WBC 4.22 L (4.8-10.8) K/uL Hgb 7.8 L (12.0-16.0) g/dL Hct 23.8 L (37-47) % Plt Count 175 (130-400) K/uL BMP 12/22/20 12/23/20 17:01 05:11 Sodium 133 L 140 D Potassium 4.8 D 4.3 Chloride 103 108 H Carbon Dioxide 22 28 BUN 54 H 33 H Creatinine 1.69 H D 1.07 Glucose 87 84 Calcium 8.2 L 7.7 L Cardiac Enzymes 12/22/20 12/22/20 12/23/20 Range/Units 17:01 23:08 05:11 Troponin I 0.598 H* 0.488 H* 0.367 H* (0-0.045) ng/ml Medications Administered Current Inpatient Medications Acetaminophen (Acetaminophen 325 Mg Tab) 650 mg PO Q4H PRN PRN Reason: Pain or Fever Stop: 01/21/21 16:41 Last Admin: 12/22/20 21:21 Dose: 650 mg Documented by: Aspirin (Aspirin 81 Mg Ectab) 81 mg PO DAILY [facility] Stop: 01/22/21 08:59 Last Admin: 12/23/20 08:07 Dose: 81 mg Documented by: Citalopram Hydrobromide (Citalopram 40 Mg Tab) 40 mg PO QAM [facility] Stop: 01/22/21 08:59 Last Admin: 12/23/20 08:08 Dose: 40 mg Documented by: Diclofenac Sodium (Diclofenac Sod 1% Gel 100 Gm Tube) 4 gm EXT QID PRN PRN Reason: knee pain Stop: 01/21/21 20:59 Last Admin: 12/22/20 22:43 Dose: 4 gm Documented by: Docusate Sodium (Docusate Sodium Syrup 100 Mg/10 Ml Udc) 100 mg PO BID [facility] Stop: 01/21/21 20:59 Last Admin: 12/23/20 08:07 Dose: 100 mg Documented by: Gemfibrozil (Gemfibrozil 600 Mg Tab) 600 mg PO QAM [facility] Stop: 01/22/21 08:59 Last Admin: 12/23/20 08:08 Dose: 600 mg Documented by: Heparin Sodium (Porcine) (Heparin Sod 5,000 Unit/0.5 Ml Vial) 5,000 units SQ Q12 [facility] Stop: 01/21/21 20:59 Last Admin: 12/23/20 08:09 Dose: 5,000 units Documented by: Piperacillin Sod/Tazobactam (Sod 3.375 gm/ Dextrose) 115 mls @ 28.75 mls/hr IV Q8H [facility]; Protocol Stop: 12/29/20 19:59 Last Admin: 12/23/20 11:45 Dose: 28.8 mls/hr Documented by: Vancomycin HCl 1,000 mg/ (Sodium Chloride) 270 mls @ 200 mls/hr IV Q24H [facility] Stop: 02/03/21 08:59 Last Infusion: 12/23/20 10:51 Dose: Infused Documented by: Insulin Aspart (Insulin Aspart 100 Units/Ml 3 Ml Pen) 0 units SC ACHS [facility] Stop: 01/21/21 16:41 Last Admin: 12/23/20 11:59 Dose: 3 units Documented by: Mirtazapine (Mirtazapine Tab 15 Mg Tab) 30 mg PO HS [facility] Stop: 01/21/21 20:59 Last Admin: 12/22/20 21:21 Dose: 30 mg Documented by: Miscellaneous Information (Vancomycin Consult Active) 1 ea N/A UD PRN PRN Reason: Consult Stop: 01/21/21 14:29 Miscellaneous Information (Piperacill/Tazobac Consult Active) 1 ea N/A UD PRN PRN Reason: Consult Stop: 01/21/21 14:29 Multivitamins/Minerals (Cerovite Adv Formula Tab) 1 tab PO DAILY [facility] Stop: 01/22/21 08:59 Last Admin: 12/23/20 08:08 Dose: 1 tab Documented by: Nitroglycerin (Nitroglycerin Sl 0.4 Mg/Tab Tab) 0.4 mg SL UD PRN PRN Reason: Chest Pain Stop: 01/21/21 16:41 Ondansetron HCl (Ondansetron Inj 2 Mg/Ml 2 Ml Vial) 4 mg IV Q6H PRN PRN Reason: Nausea Stop: 01/21/21 16:41
[2020-12-23] MEDS: MIRTAZAPINE TAB 15 MG TAB PO SCH (20:32)
[2020-12-23] MEDS: ACETAMINOPHEN 325 MG TAB PO PRN (20:33)
--- NOTE | 2020-12-23 21:06 | Magnetic Resonance Report ---
HISTORY: Rule out osteomyelitis TECHNIQUE: MRI of the entire right foot was performed. Multiplanar multisequence imaging was performe d using standard departmental protocol. FINDINGS: Nondiagnostic exam due to severe motion artifact. IMPRESSION: Nondiagnostic exam. Electronically signed by: Diana Mahmood DO 12/23/2020 9:34 PM
[2020-12-24] MEDS: PIPERACILLIN/TAZOBACTAM 3.375 GM in DEXTROSE 5% 100 ML IV SCH ×3 (04:04→20:35)
[2020-12-24 06:49] LABS: Basophils # (auto) 0.01 K/uL (0-0.2); Basophils % (auto) 0.2 %; Eosinophils # (auto) 0.25 K/uL (0-0.5); Eosinophils % (auto) 6.1 %; Hematocrit (blood only) 26.3 % (37-47); Hemoglobin 8.5 g/dL (12.0-16.0); Immature Granulocytes # (auto) 0.02 K/uL (0.00-0.02); Immature Granulocytes % (auto) 0.5 %; Lymphocytes # (auto) 0.96 K/uL (1.2-3.4); Lymphocytes % (auto) 23.4 %; Mean Corpuscular Hemoglobin 28.4 pg (25-34); Mean Corpuscular Hgb Conc 32.3 g/dL (32-36); Mean Platelet Volume 8.2 fL (7.4-10.4); Monocytes # (auto) 0.53 K/uL (0.11-0.59); Monocytes % (auto) 12.9 %; Neutrophils # (auto) 2.34 K/uL (1.4-6.5); Neutrophils % (auto) 56.9 %; Platelet Count 209 K/uL (130-400); RDW Coefficient of Variation 15.3 % (11.5-14.5); RDW Standard Deviation 49.4 fL (36.4-46.3); Red Blood Count 2.99 M/uL (4.2-5.4); White Blood Count 4.11 K/uL (4.8-10.8)
[2020-12-24 07:23] LABS: Estimated Average Glucose 128 mg/dl; Hemoglobin A1C 6.1 % (4.5-5.6)
[2020-12-24 07:24] LABS: BUN Creatinine Ratio 17.3 (10-20); Calcium 8.1 mg/dl (8.5-10.1); Creatinine Clr Calc Pharmacy 54.7 ml/min; Est GFR (African American) 89.9 ml/min; Est GFR (Non-African American) 77.6 ml/min; Magnesium 2.2 mg/dl (1.8-2.4); Phosphorus 2.4 mg/dl (2.5-4.9); Potassium 4.1 mmol/L (3.5-5.1)
[2020-12-24] MEDS: INSULIN ASPART 100 UNITS/ML 3 ML PEN SC SCH ×4 (08:46→20:48)
[2020-12-24] MEDS: CEROVITE ADV FORMULA TAB PO SCH (08:48)
[2020-12-24] MEDS: gemfibroziL 600 MG TAB PO SCH (08:48)
[2020-12-24] MEDS: CITALOPRAM 40 MG TAB PO SCH (08:49)
[2020-12-24] MEDS: VANCOMYCIN HCL 1,000 MG in SODIUM CHLORIDE 0.9% 250 ML IV SCH (08:49)
[2020-12-24] MEDS: DOCUSATE SODIUM SYRUP 100 MG/10 ML UDC PO SCH ×2 (08:49→20:34)
[2020-12-24] MEDS: ASPIRIN 81 MG ECTAB PO SCH (08:49)
[2020-12-24] MEDS: HEPARIN SOD 5,000 UNIT/0.5 ML VIAL SQ SCH ×2 (11:54→20:35)
[2020-12-24] MEDS ORDERED: DAPTOmycin 525 MG in SYRINGE 0 ML IV SCH (12:00)
--- NOTE | 2020-12-24 14:21 | Hospitalist Progress Note ---
Date of Service December 24, 2020 Assessment & Plan (1) LILI (acute kidney injury): Presented with LILI, no significant symptoms were obtainable because of dementia status Has been receiving oral Bactrim as an outpatient Has dehydration which is causing more impairment in renal function Has been receiving intravenous fluid with significant improvement of the kidney function Reactive hyperkalemia which has been corrected Appreciate nephrology input and recommendation Kidney function has remained stable Advised to drink more fluid Nutritional status Daughter feels that her mom is deficient in nutrients We will get dietary advice before discharging her Has had belching this morning With possible minimal aspiration Irritation in the throat with bouts of cough Resolved thereafter (2) Ulcer of right foot with fat layer exposed: 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 Has been ongoing right foot ulceration with more swelling Appreciate orthopedic input and recommendation Will have MRI to evaluate the right foot wound better before the proposed I&D MRI was inconclusive due to motion artifact Await Ortho input (3) Bradycardia: Noted to be bradycardic on admission Lowest rate was 38 Appreciate cardiology input and recommendation Bradycardia is improved (4) Acute hyperkalemia: Secondary to LILI Normalized (5) Dementia: Has dementia Possible acute confusion (6) Depression: (7) DM type 2 (diabetes mellitus, type 2): Lantus is on hold On SSI (8) HTN (hypertension): Is controlled DVT prophylaxis Subcu heparin CODE STATUS DNR/DNI Discussed with the daughter in detail Admission and Anticipated Discharge Date Admission Date: December 22, 2020 Subjective 12/23/2020 The patient was seen and examined in telemetry unit in presence of the daughter She has dementia and remains stable in bed She has history of agitation usually during the end of the day Denies any symptoms 12/24/2020 The patient was seen and examined in telemetry unit in presence of the daughters She has had an episode of possible aspiration with dry cough and irritation in the throat that lasted for a few minutes She denies any other symptoms Review of Systems Review of Systems: Unobtainable due to cognitive status Physical Exam Physical Exam: Lying in bed comfortably Constitutional: average body habitus; not ill appearing Eyes: PERRL, conjunctivae normal, anicteric sclerae ENMT: external ear and nose normal, oropharynx normal Neck: trachea midline, no thyromegaly Respiratory: + labored breathing; no respiratory distress Auscultation: lungs clear to auscultation bilaterally Cardiovascular: Rate/Rhythm: regular rate and regular rhythm Heart Sounds: no murmur Extremities: + edema (Trace edema bilaterally) Gastrointestinal (Abdomen): Inspection/Auscultation: normal bowel sounds; abdomen not distended Percussion/Palpation: abdomen soft; abdomen nontender Musculoskeletal: No acute arthritis of any joint. She has bilateral amput ations of the toes with right foot ulceration over the medial aspect of the stump Neurologic: Alert and awake. Has dementia but no acute delirium Lymphatic: no cervical or axillary lymphadenopathy Results & Data Results & Data ([facility]) Vital Signs (Past 12 Hours) Vital Signs Temp Pulse Pulse Resp BP BP Pulse Ox 12/24/20 11:07 36.7 C 78 19 128/58 L 93 12/24/20 08:00 89 12/24/20 07:18 36.5 C 76 18 127/63 93 12/24/20 03:37 36.5 C 71 18 115/53 L 92 Laboratory Results Short CBC 12/24/20 Range/Units 06:29 WBC 4.11 L (4.8-10.8) K/uL Hgb 8.5 L (12.0-16.0) g/dL Hct 26.3 L (37-47) % Plt Count 209 (130-400) K/uL BMP 12/24/20 06:29 Sodium 139 Potassium 4.1 Chloride 109 H Carbon Dioxide 25 BUN 12 D Creatinine 0.68 D Glucose 130 H Calcium 8.1 L Medications Administered Current Inpatient Medications Acetaminophen (Acetaminophen 325 Mg Tab) 650 mg PO Q4H PRN PRN Reason: Pain or Fever Stop: 01/21/21 16:41 Last Admin: 12/23/20 20:33 Dose: 650 mg Documented by: Aspirin (Aspirin 81 Mg Ectab) 81 mg PO DAILY [facility] Stop: 01/22/21 08:59 Last Admin: 12/24/20 08:49 Dose: 81 mg Documented by: Citalopram Hydrobromide (Citalopram 40 Mg Tab) 40 mg PO QAM [facility] Stop: 01/22/21 08:59 Last Admin: 12/24/20 08:49 Dose: 40 mg Documented by: Diclofenac Sodium (Diclofenac Sod 1% Gel 100 Gm Tube) 4 gm EXT QID PRN PRN Reason: knee pain Stop: 01/21/21 20:59 Last Admin: 12/22/20 22:43 Dose: 4 gm Documented by: Docusate Sodium (Docusate Sodium Syrup 100 Mg/10 Ml Udc) 100 mg PO BID [facility] Stop: 01/21/21 20:59 Last Admin: 12/24/20 08:49 Dose: 100 mg Documented by: Gemfibrozil (Gemfibrozil 600 Mg Tab) 600 mg PO QAM [facility] Stop: 01/22/21 08:59 Last Admin: 12/24/20 08:48 Dose: 600 mg Documented by: Heparin Sodium (Porcine) (Heparin Sod 5,000 Unit/0.5 Ml Vial) 5,000 units SQ Q12 [facility] Stop: 01/21/21 20:59 Last Admin: 12/24/20 11:54 Dose: 5,000 units Documented by: Piperacillin Sod/Tazobactam (Sod 3.375 gm/ Dextrose) 115 mls @ 28.75 mls/hr IV Q8H [facility]; Protocol Stop: 12/29/20 19:59 Last Admin: 12/24/20 12:01 Dose: 28.7 mls/hr Documented by: Daptomycin 525 mg/ Syringe 10.5 mls @ 5.25 mls/min IV Q24H [facility]; Protocol Stop: 02/04/21 11:59 Last Admin: 12/24/20 11:56 Dose: 5.25 mls/min Documented by: Insulin Aspart (Insulin Aspart 100 Units/Ml 3 Ml Pen) 0 units SC ACHS [facility] Stop: 01/21/21 16:41 Last Admin: 12/24/20 11:56 Dose: 5 units Documented by: Mirtazapine (Mirtazapine Tab 15 Mg Tab) 30 mg PO HS [facility] Stop: 01/21/21 20:59 Last Admin: 12/23/20 20:32 Dose: 30 mg Documented by: Miscellaneous Information (Piperacill/Tazobac Consult Active) 1 ea N/A UD PRN PRN Reason: Consult Stop: 01/21/21 14:29 Miscellaneous Information (Daptomycin Consult Active) 1 ea N/A UD PRN PRN Reason: Consult Stop: 01/23/21 10:33 Multivitamins/Minerals (Cerovite Adv Formula Tab) 1 tab PO DAILY [facility] Stop: 01/22/21 08:59 Last Admin: 12/24/20 08:48 Dose: 1 tab Documented by: Nitroglycerin (Nitroglycerin Sl 0.4 Mg/Tab Tab) 0.4 mg SL UD PRN PRN Reason: Chest Pain Stop: 01/21/21 16:41 Ondansetron HCl (Ondansetron Inj 2 Mg/Ml 2 Ml Vial) 4 mg IV Q6H PRN PRN Reason: Nausea Stop: 01/21/21 16:41
[2020-12-24] MEDS ORDERED: VANCOMYCIN HCL 1,000 MG in SODIUM CHLORIDE 0.9% 250 ML IV SCH (20:00)
[2020-12-24] MEDS: MIRTAZAPINE TAB 15 MG TAB PO SCH (20:34)
[2020-12-25] MEDS: PIPERACILLIN/TAZOBACTAM 3.375 GM in DEXTROSE 5% 100 ML IV SCH (04:34)
[2020-12-25] MEDS ORDERED: VANCOMYCIN TROUGH ONE (07:30)
[2020-12-25 08:09] LABS: Basophils # (auto) 0.02 K/uL (0-0.2); Basophils % (auto) 0.4 %; Eosinophils # (auto) 0.29 K/uL (0-0.5); Eosinophils % (auto) 6.3 %; Hematocrit (blood only) 28.4 % (37-47); Hemoglobin 9.1 g/dL (12.0-16.0); Immature Granulocytes # (auto) 0.02 K/uL (0.00-0.02); Immature Granulocytes % (auto) 0.4 %; Lymphocytes # (auto) 1.27 K/uL (1.2-3.4); Lymphocytes % (auto) 27.6 %; Mean Corpuscular Hemoglobin 27.8 pg (25-34); Mean Corpuscular Volume 86.9 fL (80-100); Mean Platelet Volume 8.4 fL (7.4-10.4); Monocytes # (auto) 0.58 K/uL (0.11-0.59); Monocytes % (auto) 12.6 %; Neutrophils # (auto) 2.42 K/uL (1.4-6.5); Neutrophils % (auto) 52.7 %; Platelet Count 231 K/uL (130-400); RDW Coefficient of Variation 15.1 % (11.5-14.5); RDW Standard Deviation 47.8 fL (36.4-46.3); Red Blood Count 3.27 M/uL (4.2-5.4)
[2020-12-25 08:26] LABS: BUN Creatinine Ratio 17.3 (10-20); Calcium 8.4 mg/dl (8.5-10.1); Est GFR (African American) 91.7 ml/min; Est GFR (Non-African American) 79.1 ml/min; Magnesium 2.1 mg/dl (1.8-2.4); Phosphorus 2.7 mg/dl (2.5-4.9); Potassium 4.4 mmol/L (3.5-5.1)
[2020-12-25] MEDS: CITALOPRAM 40 MG TAB PO SCH (09:01)
[2020-12-25] MEDS: CEROVITE ADV FORMULA TAB PO SCH (09:02)
[2020-12-25] MEDS: ASPIRIN 81 MG ECTAB PO SCH (09:02)
[2020-12-25] MEDS: HEPARIN SOD 5,000 UNIT/0.5 ML VIAL SQ SCH ×2 (09:02→20:02)
[2020-12-25] MEDS: DOCUSATE SODIUM SYRUP 100 MG/10 ML UDC PO SCH ×2 (09:02→20:02)
[2020-12-25] MEDS: gemfibroziL 600 MG TAB PO SCH (09:02)
[2020-12-25] MEDS: INSULIN ASPART 100 UNITS/ML 3 ML PEN SC SCH ×4 (09:09→20:37)
[2020-12-25] MEDS: ceFAZolin 2000MG 2,000 MG/15 ML SYR IV SCH ×2 (11:47→19:58)
--- NOTE | 2020-12-25 14:17 | Hospitalist Progress Note ---
Date of Service December 25, 2020 Assessment & Plan (1) LILI (acute kidney injury): Presented with LILI, no significant symptoms were obtainable because of dementia status Has been receiving oral Bactrim as an outpatient Has dehydration which is causing more impairment in renal function Has been receiving intravenous fluid with significant improvement of the kidney function Reactive hyperkalemia which has been corrected Appreciate nephrology input and recommendation Kidney function has remained stable Advised to drink more fluid Kidney function is normalized and remains stable Nutritional status Daughter feels that her mom is deficient in nutrients We will get dietary advice before discharging her Has had belching this morning With possible minimal aspiration Irritation in the throat with bouts of cough Resolved thereafter No more episodes of belching and/or cough (2) Ulcer of right foot with fat layer exposed: 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 Has been ongoing right foot ulceration with more swelling Appreciate orthopedic input and recommendation Will have MRI to evaluate the right foot wound better before the proposed I&D MRI was inconclusive due to motion artifact Appreciate Ortho input and recommendation for possible I&D The nature of the wound has been noted in the picture (3) Bradycardia: Noted to be bradycardic on admission Lowest rate was 38 Appreciate cardiology input and recommendation Bradycardia is improved (4) Acute hyperkalemia: Secondary to LILI Normalized (5) Dementia: Has dementia Possible acute confusion (6) Depression: (7) DM type 2 (diabetes mellitus, type 2): Lantus is on hold On SSI (8) HTN (hypertension): Is controlled DVT prophylaxis Subcu heparin CODE STATUS DNR/DNI Discussed with the daughter in detail Admission and Anticipated Discharge Date Admission Date: December 22, 2020 Subjective 12/23/2020 The patient was seen and examined in telemetry unit in presence of the daughter She has dementia and remains stable in bed She has history of agitation usually during the end of the day Denies any symptoms 12/24/2020 The patient was seen and examined in telemetry unit in presence of the daughters She has had an episode of possible aspiration with dry cough and irritation in the throat that lasted for a few minutes She denies any other symptoms 12/25/2020 The patient was seen and examined in telemetry unit She remains stable this morning She has had her breakfast without any events Denies any fever and/or chills and no acute distress Review of Systems Review of Systems: Unobtainable due to cognitive status Physical Exam Physical Exam: Lying in bed comfortably Constitutional: average body habitus; not ill appearing Eyes: PERRL, conjunctivae normal, anicteric sclerae ENMT: external ear and nose normal, oropharynx normal Neck: trachea midline, no thyromegaly Respiratory: + labored breathing; no respiratory distress Auscultation: lungs clear to auscultation bilaterally Cardiovascular: Rate/Rhythm: regular rate and regular rhythm Heart Sounds: no murmur Extremities: + edema (Trace edema bilaterally) Gastrointestinal (Abdomen): Inspection/Auscultation: normal bowel sounds; abdomen not distended Percussion/Palpation: abdomen soft; abdomen nontender Musculoskeletal: No acute arthritis in any joint Skin: Has significant ulcerated wound right foot stamp as shown in the picture Neurologic: Alert and awake. Only confused with dementia Lymphatic: no cervical or axillary lymphadenopathy Results & Data Results & Data ([facility]) Vital Signs (Past 12 Hours) Vital Signs Temp Pulse Resp BP BP Pulse Ox 12/25/20 11:14 36.4 C L 77 17 145/71 H 94 12/25/20 06:58 36.8 C 77 18 148/69 H 92 12/25/20 04:35 36.5 C 87 14 121/56 L 96 Laboratory Results Short CBC 12/25/20 Range/Units 07:23 WBC 4.60 L (4.8-10.8) K/uL Hgb 9.1 L (12.0-16.0) g/dL Hct 28.4 L (37-47) % Plt Count 231 (130-400) K/uL BMP 12/25/20 07:23 Sodium 138 Potassium 4.4 Chloride 110 H Carbon Dioxide 22 BUN 11 Creatinine 0.64 Glucose 113 H Calcium 8.4 L Medications Administered Current Inpatient Medications Acetaminophen (Acetaminophen 325 Mg Tab) 650 mg PO Q4H PRN PRN Reason: Pain or Fever Stop: 01/21/21 16:41 Last Admin: 12/23/20 20:33 Dose: 650 mg Documented by: Aspirin (Aspirin 81 Mg Ectab) 81 mg PO DAILY [facility] Stop: 01/22/21 08:59 Last Admin: 12/25/20 09:02 Dose: 81 mg Documented by: Citalopram Hydrobromide (Citalopram 40 Mg Tab) 40 mg PO QAM [facility] Stop: 01/22/21 08:59 Last Admin: 12/25/20 09:01 Dose: 40 mg Documented by: Diclofenac Sodium (Diclofenac Sod 1% Gel 100 Gm Tube) 4 gm EXT QID PRN PRN Reason: knee pain Stop: 01/21/21 20:59 Last Admin: 12/22/20 22:43 Dose: 4 gm Documented by: Docusate Sodium (Docusate Sodium Syrup 100 Mg/10 Ml Udc) 100 mg PO BID [facility] Stop: 01/21/21 20:59 Last Admin: 12/25/20 09:02 Dose: 100 mg Documented by: Gemfibrozil (Gemfibrozil 600 Mg Tab) 600 mg PO QAM [facility] Stop: 01/22/21 08:59 Last Admin: 12/25/20 09:02 Dose: 600 mg Documented by: Heparin Sodium (Porcine) (Heparin Sod 5,000 Unit/0.5 Ml Vial) 5,000 units SQ Q12 [facility] Stop: 01/21/21 20:59 Last Admin: 12/25/20 09:02 Dose: 5,000 units Documented by: Cefazolin Sodium (Ancef 2000mg) 2,000 mg in 15 mls @ 3.75 mls/min IV Q8H [facility]; Protocol Stop: 02/05/21 11:59 Last Admin: 12/25/20 11:47 Dose: 3.75 mls/min Documented by: Insulin Aspart (Insulin Aspart 100 Units/Ml 3 Ml Pen) 0 units SC ACHS [facility] Stop: 01/21/21 16:41 Last Admin: 12/25/20 12:02 Dose: 4 units Documented by: Mirtazapine (Mirtazapine Tab 15 Mg Tab) 30 mg PO HS [facility] Stop: 01/21/21 20:59 Last Admin: 12/24/20 20:34 Dose: 30 mg Documented by: Multivitamins/Minerals (Cerovite Adv Formula Tab) 1 tab PO DAILY [facility] Stop: 01/22/21 08:59 Last Admin: 12/25/20 09:02 Dose: 1 tab Documented by: Nitroglycerin (Nitroglycerin Sl 0.4 Mg/Tab Tab) 0.4 mg SL UD PRN PRN Reason: Chest Pain Stop: 01/21/21 16:41 Ondansetron HCl (Ondansetron Inj 2 Mg/Ml 2 Ml Vial) 4 mg IV Q6H PRN PRN Reason: Nausea Stop: 01/21/21 16:41
[2020-12-25] MEDS: MIRTAZAPINE TAB 15 MG TAB PO SCH (20:03)
[2020-12-26] MEDS: ceFAZolin 2000MG 2,000 MG/15 ML SYR IV SCH ×3 (04:04→20:45)
[2020-12-26] MEDS: INSULIN ASPART 100 UNITS/ML 3 ML PEN SC SCH ×4 (08:00→20:47)
[2020-12-26] MEDS: gemfibroziL 600 MG TAB PO SCH (08:01)
[2020-12-26] MEDS: CITALOPRAM 40 MG TAB PO SCH (08:01)
[2020-12-26] MEDS: CEROVITE ADV FORMULA TAB PO SCH (08:01)
[2020-12-26] MEDS: ASPIRIN 81 MG ECTAB PO SCH (08:02)
[2020-12-26] MEDS: HEPARIN SOD 5,000 UNIT/0.5 ML VIAL SQ SCH (08:02)
[2020-12-26 08:06] LABS: Creatinine Clr Calc Pharmacy 51.8 ml/min; Est GFR (African American) 89.9 ml/min; Est GFR (Non-African American) 77.6 ml/min
[2020-12-26] MEDS: DOCUSATE SODIUM SYRUP 100 MG/10 ML UDC PO SCH ×2 (09:22→20:25)
--- NOTE | 2020-12-26 10:58 | Anesthesiology Consultation ---
Date of Service December 26, 2020 Assessment & Plan (1) Encounter for pre-operative examination: Chart Review Chart Review: Acceptable Risk for Surgery and Patient NOT seen in Pre Admission Testing Covid neg 12/22/20. Consults Requested none Cardiology consults 12/23/20" Assessment & Plan (1) Ulcer of right foot with fat layer exposed: (2) Bradycardia: (3) LILI (acute kidney injury): The patient's bradycardia has resolved after IV hydration and correction of her electrolytes. At this point I do not believe any additional cardiac work-up is indicated. She is clinically stable and if necessary during this hospital admission she can go to the operating room to have her foot debrided. History Surgery Operation Date: 12/26/20 07:00 Proposed Procedures p Irrigation and Debridement Right Heel Ulcer - Garica Ortiz DO Height/Weight Height: 5 ft 3 in Weight: 67.7 kg Allergies Allergy/AdvReac Type Severity Reaction Status Date / Time No Known Allergies Allergy Verified 12/22/20 10:55 Medications Home Medications Medication Instructions Recorded Confirmed Last Taken Lantus Solostar U-100 Insulin 12 units SUBCUT [facility] 07/10/18 12/22/20 12/21/20 12 units gemfibrozil 600 mg PO QAM 07/10/18 12/22/20 12/21/20 lisinopril 10 mg PO QAM 07/10/18 12/22/20 12/21/20 aspirin 81 mg PO DAILY 07/17/18 12/22/20 12/21/20 acetaminophen 650 mg PO QID PRN 08/29/20 12/22/20 Unknown citalopram 40 mg PO QAM 08/29/20 12/22/20 12/21/20 metoprolol tartrate 12.5 mg PO BID 11/02/20 12/22/20 12/21/20 mirtazapine [Remeron] 30 mg PO HS 11/02/20 12/22/20 12/21/20 ferrous sulfate 7.5 mg PO BID 11/09/20 12/22/20 12/21/20 insulin aspart U-100 [Novolog 1 sliding scale dose SUBCUT 11/09/20 12/22/20 12/21/20 U-100 Insulin aspart] USEASDIRECTD multivitamin with folic acid 1 tab PO DAILY 04/12/22/20 12/21/20 [Therems Multivitamin] docusate sodium 100 mg PO BID 12/22/20 12/22/20 12/21/20 sulfamethoxazole-trimethoprim 1 tab PO BID 12/22/20 12/22/20 12/21/20 Active Medications Generic Name Dose Route Start Last Admin Trade Name Freq PRN Reason Stop Dose Admin Acetaminophen 650 mg 12/22/20 16:42 12/23/20 20:33 Acetaminophen 325 Mg Tab PO 01/21/21 16:41 650 mg Q4H PRN Administration Pain or Fever Aspirin 81 mg 12/23/20 09:00 12/26/20 08:02 Aspirin 81 Mg Ectab PO 01/22/21 08:59 81 mg DAILY [facility] Administration Citalopram Hydrobromide 40 mg 12/23/20 09:00 12/26/20 08:01 Citalopram 40 Mg Tab PO 01/22/21 08:59 40 mg QAM [facility] Administration Diclofenac Sodium 4 gm 12/22/20 20:53 12/22/20 22:43 Diclofenac Sod 1% Gel 100 Gm Tube EXT 01/21/21 20:59 4 gm QID PRN Administration knee pain Docusate Sodium 100 mg 12/22/20 21:00 12/26/20 09:22 Docusate Sodium Syrup 100 Mg/10 Ml Udc PO 01/21/21 20:59 100 mg BID [facility] Administration Gemfibrozil 600 mg 12/23/20 09:00 12/26/20 08:01 Gemfibrozil 600 Mg Tab PO 01/22/21 08:59 600 mg QAM [facility] Administration Cefazolin Sodium 2,000 mg in 15 mls @ 3.75 mls/min 12/25/20 12:00 12/26/20 04:04 Ancef 2000mg IV 02/05/21 11:59 3.75 mls/min Q8H [facility] Administration Protocol Insulin Aspart 0 units 12/22/20 16:42 12/26/20 08:00 Insulin Aspart 100 Units/Ml 3 Ml Pen SC 01/21/21 16:41 Not Given ACHS [facility] Mirtazapine 30 mg 12/22/20 21:00 12/25/20 20:03 Mirtazapine Tab 15 Mg Tab PO 01/21/21 20:59 30 mg HS [facility] Administration Multivitamins/Minerals 1 tab 12/23/20 09:00 12/26/20 08:01 Cerovite Adv Formula Tab PO 01/22/21 08:59 1 tab DAILY [facility] Administration NPO Date Last Intake of Fluids: 12/25/20 Time Last Intake of Fluids: 22:08 Date Last Intake of Solids: 12/25/20 Past Medical History Medical History Acquired claw toe of right foot Asthma Cellulitis RIGHT LOWER LIMB Dementia Daughter, Elizabeth, is POA. Patient does not sign consents. Currently residing in [facility]. Depression Diabetic polyneuropathy DM type 2 (diabetes mellitus, type 2) Controlled, A1C 5.9% 05/2020. 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/15) Endometrial adenocarcinoma, FIGO grade I, status post completion of radiation therapy 2015 Environmental allergies MOLD/POLLEN/CATS/MILDEW Foot ulcer GERD (gastroesophageal reflux disease) Hearing deficit History of colon cancer s/p resection 2012 HTN (hypertension) Hyperlipidemia ADAN (iron deficiency anemia) PVD (peripheral vascular disease) Per hospitalist note 12/25/20: Patient with belching. Irritation in the throat with bouts of cough. Concern for possible minimal aspiration. Past Family History Family History Father Heart disease Past Surgical History Surgical History Amputated toe RT TOE H/O colonoscopy with polypectomy History of amputation of left great toe History of amputation of lesser toe of left foot History of cataract surgery left History of esophagogastroduodenoscopy (EGD) History of herniorrhaphy Hx of tubal ligation S/P tonsillectomy and adenoidectomy Status post transmetatarsal amputation of right foot Right foot I and D at [facility] by Dr. Ortiz: 08/2020. Pt made ASA 3. Patient had right popliteal nerve block and sedation. Appeared to tolerate without incident. Social History Smoking Status: Unknown if ever smoked Hx Alcohol Use: No Hx Substance Use: No Physical Exam Vital Signs Last Vital Signs Temp 36.8 C 12/26/20 07:58 Pulse 83 12/26/20 07:58 Resp 20 12/26/20 07:58 BP 130/62 12/26/20 07:58 Pulse Ox 98 12/26/20 08:00 Testing Laboratory Results 12/25/20 07:23 12/26/20 06:50 Hemoglobin A1c 6.1 % (4.5-5.6) H 12/23/20 05:11 Urine Color Yellow 12/22/20 12:23 Urine Appearance Clear (Clear) 12/22/20 12:23 Urine pH 6.0 (4.5-7.5) 12/22/20 12:23 Ur Specific Saline 1.012 (1.000-1.030) 12/22/20 12:23 Urine Protein Negative (Negative) 12/22/20 12:23 Urine Glucose (UA) Negative (Negative) 12/22/20 12:23 Urine Ketones Negative (Negative) 12/22/20 12:23 Urine Nitrite Negative (Negative) 12/22/20 12:23 Ur Leukocyte Esterase Negative (Negative) 12/22/20 12:23 12/22/20 17:00 Gram Stain - Final Foot,Right Wound Culture - Final Staphylococcus aureus 12/22/20 10:13 Aerobic Blood Culture - Preliminary Blood No growth in Aerobic bottle after 48 hours. Anaerobic Blood Culture - Preliminary No growth in Anaerobic bottle after 48 hours. 12/22/20 10:35 Aerobic Blood Culture - Preliminary Blood No growth in Aerobic bottle after 48 hours. Anaerobic Blood Culture - Preliminary No growth in Anaerobic bottle after 48 hours. 12/26/20 07:14 POC Glucose 131 H Laboratory Tests 12/25/20 07:23 Sodium 138 Potassium 4.4 Chloride 110 H Carbon Dioxide 22 BUN 11 Creatinine 0.64 Glucose 113 H Electrocardiogram Date: 12/22/20 DICTATED BY: Hunter Wade MD Test Reason : Blood Pressure : / mmHG Vent. Rate : 067 BPM Atrial Rate : 067 BPM P-R Int : 228 ms QRS Dur : 084 ms QT Int : 452 ms P-R-T Axes : 047 037 062 degrees QTc Int : 477 ms Sinus rhythm with 1st degree A-V block Low voltage QRS Borderline ECG When compared with ECG of 22-DEC-2020 09:52, Sinus rhythm has replaced Atrial fibrillation Confirmed by Hunter Wade ([id number]) on 12/23/2020 8:05:02 AM Echocardiogram Date: 12/23/20 No significant valvular pathology. NO Moderate concentric LVH LV systolic function is normal. EF 65-70% RV systolic function is normal LA moderated dilated RA is mild to moderately dilated.
--- NOTE | 2020-12-26 14:10 | Hospitalist Progress Note ---
Date of Service December 26, 2020 Assessment & Plan (1) LILI (acute kidney injury): Presented with LILI, no significant symptoms were obtainable because of dementia status Has been receiving oral Bactrim as an outpatient Has dehydration which is causing more impairment in renal function Has been receiving intravenous fluid with significant improvement of the kidney function Reactive hyperkalemia which has been corrected Appreciate nephrology input and recommendation Kidney function has remained stable Advised to drink more fluid Kidney function is normalized and remains stable Nutritional status Daughter feels that her mom is deficient in nutrients We will get dietary advice before discharging her Has had belching With possible minimal aspiration Irritation in the throat with bouts of cough Resolved thereafter No more episodes of belching and/or cough (2) Ulcer of right foot with fat layer exposed: 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 Has been ongoing right foot ulceration with more swelling Appreciate orthopedic input and recommendation Will have MRI to evaluate the right foot wound better before the proposed I&D MRI was inconclusive due to motion artifact Appreciate Ortho input and recommendation for possible I&D The nature of the wound has been noted in the picture We will have surgical debridement today by Ortho Likely discharge in 2 to 3 days following the procedure (3) Bradycardia: Noted to be bradycardic on admission Lowest rate was 38 Appreciate cardiology input and recommendation Bradycardia is improved (4) Acute hyperkalemia: Secondary to LILI Normalized (5) Dementia: Has dementia Possible acute confusion-resolved (6) Depression: (7) DM type 2 (diabetes mellitus, type 2): Lantus is on hold On SSI (8) HTN (hypertension): Is controlled DVT prophylaxis Subcu heparin CODE STATUS DNR/DNI Discussed with the daughter in detail-has been discussing with her daily Admission and Anticipated Discharge Date Admission Date: December 22, 2020 Subjective 12/23/2020 The patient was seen and examined in telemetry unit in presence of the daughter She has dementia and remains stable in bed She has history of agitation usually during the end of the day Denies any symptoms 12/24/2020 The patient was seen and examined in telemetry unit in presence of the daughters She has had an episode of possible aspiration with dry cough and irritation in the throat that lasted for a few minutes She denies any other symptoms 12/25/2020 The patient was seen and examined in telemetry unit She remains stable this morning She has had her breakfast without any events Denies any fever and/or chills and no acute distress 12/26/2020 The patient was seen and examined in telemetry unit in presence of the caring daughter She remains stable without any acute symptoms She will be going for surgical debridement of the right foot stamp today Review of Systems Review of Systems: Unobtainable due to cognitive status Physical Exam Physical Exam: Lying in bed comfortably Constitutional: average body habitus; not ill appearing Eyes: PERRL, conjunctivae normal, anicteric sclerae ENMT: external ear and nose normal, oropharynx normal Neck: trachea midline, no thyromegaly Respiratory: + labored breathing; no respiratory distress Auscultation: lungs clear to auscultation bilaterally Cardiovascular: Rate/Rhythm: regular rate and regular rhythm Heart Sounds: no murmur Extremities: + edema (Trace edema bilaterally) Gastrointestinal (Abdomen): Inspection/Auscultation: normal bowel sounds; abdomen not distended Percussion/Palpation: abdomen soft; abdomen nontender Musculoskeletal: No acute arthritis in any joint Neurologic: Alert and awake. 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 Moves all extremities Psychiatric: Insight: + poor insight Lymphatic: no cervical or axillary lymphadenopathy Results & Data Results & Data ([facility]) Vital Signs (Past 12 Hours) Vital Signs Temp Pulse Resp BP BP Pulse Ox Pulse Ox 12/26/20 12:31 36.4 C L 88 19 139/61 93 12/26/20 08:00 98 12/26/20 07:58 36.8 C 83 20 130/62 98 12/26/20 04:21 36.9 C 93 H 18 123/58 L 93 Laboratory Results [facility] [place] 12/26/20 06:50 Creatinine 0.68 Medications Administered Current Inpatient Medications Acetaminophen (Acetaminophen 325 Mg Tab) 650 mg PO Q4H PRN PRN Reason: Pain or Fever Stop: 01/21/21 16:41 Last Admin: 12/23/20 20:33 Dose: 650 mg Documented by: Aspirin (Aspirin 81 Mg Ectab) 81 mg PO DAILY [facility] Stop: 01/22/21 08:59 Last Admin: 12/26/20 08:02 Dose: 81 mg Documented by: Citalopram Hydrobromide (Citalopram 40 Mg Tab) 40 mg PO QAM [facility] Stop: 01/22/21 08:59 Last Admin: 12/26/20 08:01 Dose: 40 mg Documented by: Diclofenac Sodium (Diclofenac Sod 1% Gel 100 Gm Tube) 4 gm EXT QID PRN PRN Reason: knee pain Stop: 01/21/21 20:59 Last Admin: 12/22/20 22:43 Dose: 4 gm Documented by: Docusate Sodium (Docusate Sodium Syrup 100 Mg/10 Ml Udc) 100 mg PO BID [facility] Stop: 01/21/21 20:59 Last Admin: 12/26/20 09:22 Dose: 100 mg Documented by: Gemfibrozil (Gemfibrozil 600 Mg Tab) 600 mg PO QAM [facility] Stop: 01/22/21 08:59 Last Admin: 12/26/20 08:01 Dose: 600 mg Documented by: Cefazolin Sodium (Ancef 2000mg) 2,000 mg in 15 mls @ 3.75 mls/min IV Q8H [facility]; Protocol Stop: 02/05/21 11:59 Last Admin: 12/26/20 11:36 Dose: 3.75 mls/min Documented by: Insulin Aspart (Insulin Aspart 100 Units/Ml 3 Ml Pen) 0 units SC ACHS [facility] Stop: 01/21/21 16:41 Last Admin: 12/26/20 11:34 Dose: Not Given Documented by: Mirtazapine (Mirtazapine Tab 15 Mg Tab) 30 mg PO HS [facility] Stop: 01/21/21 20:59 Last Admin: 12/25/20 20:03 Dose: 30 mg Documented by: Multivitamins/Minerals (Cerovite Adv Formula Tab) 1 tab PO DAILY [facility] Stop: 01/22/21 08:59 Last Admin: 12/26/20 08:01 Dose: 1 tab Documented by: Nitroglycerin (Nitroglycerin Sl 0.4 Mg/Tab Tab) 0.4 mg SL UD PRN PRN Reason: Chest Pain Stop: 01/21/21 16:41 Ondansetron HCl (Ondansetron Inj 2 Mg/Ml 2 Ml Vial) 4 mg IV Q6H PRN PRN Reason: Nausea Stop: 01/21/21 16:41
[2020-12-26] MEDS ORDERED: fentaNYL citrate 100 MCG/2 ML VIAL ONE (16:28)
--- NOTE | 2020-12-26 16:37 | History & Physical Bridge Note ---
Date of Service December 26, 2020 History & Physical Bridge Note I have examined the patient, reviewed the History & Physical and in the interval since the performance of the History & Physical I have noted the following changes of clinical significance: no changes noted
[2020-12-26] MEDS ORDERED: ONDANSETRON INJ 2 MG/ML 2 ML VIAL IV PRN ×2 (16:43)
[2020-12-26] MEDS ORDERED: ePHEDrine sulfate 50 MG/ML AMP IV PRN ×2 (16:43)
[2020-12-26] MEDS ORDERED: fentaNYL citrate 100 MCG/2 ML VIAL IV PRN ×2 (16:43)
[2020-12-26] MEDS ORDERED: ATROPINE SULFATE 0.1 MG/ML 10ML SYR IV PRN ×2 (16:43)
[2020-12-26] MEDS ORDERED: BUPIVACAINE/EPINEPHRINE 0.5% MPF 1:200,000 30 ML VIAL ONE (16:47)
[2020-12-26] MEDS ORDERED: GLUCAGON FOR INJ 1 MG VIAL IM PRN (17:00)
[2020-12-26] MEDS ORDERED: DEXTROSE 50% 50 ML SYRINGE IV PRN (17:00)
[2020-12-26] MEDS ORDERED: CARBOHYDRATES FOR HYPOGLYCEMIA PO PRN (17:00)
[2020-12-26] MEDS ORDERED: GLUCOSE 40% GEL 15 GM TUBE PO PRN (17:00)
[2020-12-26] MEDS ORDERED: GLUCOSE 10 TABS/TUBE PO PRN (17:00)
[2020-12-26] MEDS ORDERED: LIDOCAINE 2% 2 ML VIAL/AMP(20MG/ML) INFIL ONE (17:15)
[2020-12-26] MEDS ORDERED: ONDANSETRON INJ 2 MG/ML 2 ML VIAL ONE (17:15)
[2020-12-26] MEDS ORDERED: PROPOFOL IV EMULSION 10 MG/ML 20 ML VIAL IV ONE ×2 (17:15→17:46)
[2020-12-26] MEDS ORDERED: PHENYLEPHRINE 100MCG/ML 5ML SYR ONE (17:55)
--- NOTE | 2020-12-26 18:18 | Post Operative Brief Note ---
Immediate Post Op Note v1 Date of Surgery December 26, 2020 Pre & Post Diagnosis Operation Date: 12/26/20 07:00 Pre-Op Diagnosis: Right Medial Foot diabetic neuropathic ulcer 2.5cm x 2.0cm x 2.3cm Post-Op Diagnosis: Right Medial Foot diabetic neuropathic ulcer 2.5cm x 2.0cm x 2.3cm, Osteomyelitis medial cuneiform, septic tenosynovitis abductor hallucis I identified the patient and participated in the time-out.: Yes Procedure Operation Date: 12/26/20 07:00 Actual Procedures p Irrigation and Debridement Right Medial Foot ulcer 2.0cm X 2.3cm X 2.5cm, Exostectomy medial cuneiform bone, Irrigation and Debridement Bone, Fascia, Tendon and Muscle(Right) - Garcia Ortiz DO Surgeon Garcia Ortiz DO Vacuum Cleaner Mechanic None Estimated Blood Loss 2 Findings Consistent with Post-Op Diagnosis Specimens Aerobic, anaerobic, Gram stain right medial foot ulceration Drains Other (1/2 inch iodoform gauze drain) Anesthesia Type MAC Regional Complications none Disposition Accompanied Patient To Recovery: Yes Disposition: Recovery Room
--- NOTE | 2020-12-26 18:45 | Anesthesiology Progress Note ---
Date of Service December 26, 2020 Anesthesia Post Procedure Vital Signs Vital Signs: Temp Pulse Pulse Pulse Resp BP BP 12/26/20 18:35 36.5 C 90 20 127/67 12/26/20 18:25 90 20 125/66 12/26/20 18:18 36.5 C 80 20 148/62 H 12/26/20 16:27 37.2 C 95 H 20 130/90 12/26/20 15:55 37.0 C 93 H 18 144/60 H 12/26/20 12:31 36.4 C L 88 19 139/61 12/26/20 08:00 12/26/20 07:58 36.8 C 83 20 130/62 12/26/20 04:21 36.9 C 93 H 18 123/58 L 12/26/20 00:41 36.4 C L 92 H 18 131/51 L 12/26/20 00:00 100 H 12/25/20 19:15 36.3 C L 105 H 20 155/69 H Pulse Ox Pulse Ox 12/26/20 18:35 95 12/26/20 18:25 97 12/26/20 18:18 97 12/26/20 16:27 94 12/26/20 15:55 93 12/26/20 12:31 93 12/26/20 08:00 98 12/26/20 07:58 98 12/26/20 04:21 93 12/26/20 00:41 94 12/26/20 00:00 12/25/20 19:15 93 Transfer of Care Handoff Completed per policy Notes Mental Status: alert / awake / arousable and participated in evaluation Nausea / Vomiting: adequately controlled Pain: adequately controlled Airway Patency, RR, SpO2: stable & adequate BP & HR: stable & adequate Hydration State: stable & adequate Anesthetic Complications: no major complications apparent and Pt Satisfied with anesthetic care Notes: back to preoperative baseline for mental status.
[2020-12-26] MEDS ORDERED: NALOXONE HCL 0.4 MG/1 ML VIAL/CARP IV PRN (18:47)
--- NOTE | 2020-12-26 19:31 | Operative Report (OR) ---
DATE OF OPERATION: 12/26/2020 PREOPERATIVE DIAGNOSES: 1. Right medial foot diabetic neuropathic ulcer 2.5 cm x 2.0 cm x 2.3 cm. 2. Osteomyelitis of the medial cuneiform. 3. Septic tenosynovitis of the abductor hallucis. POSTOPERATIVE DIAGNOSES: 1. Right medial foot diabetic neuropathic ulcer 2.5 cm x 2.0 cm x 2.3 cm. 2. Osteomyelitis of the medial cuneiform. 3. Septic tenosynovitis of the abductor hallucis. PROCEDURES: 1. Right foot irrigation and debridement of medial foot diabetic neuropathic ulcer 2.0 cm x 2.3 cm x 2.5 cm. 2. Exostectomy, medial cuneiform bone. 3. Irrigation and debridement of bone, fascia, tendon and muscle, right foot. SURGEON: Garcia Ortiz DO. CHUCKING AND SAWING MACHINE OPERATOR: None. ANESTHESIA: MAC regional. SPECIMENS: Aerobic, anaerobic, Gram stain of right medial foot ulceration. DRAINS: One 1/2 inch iodoform gauze packing drain. COMPLICATIONS: None. BLOOD LOSS: 2 mL. PERTINENT HISTORY: This is an 89-year-old female who has had an ulceration along the medial foot related to a previously diagnosed osteomyelitis with multiple debridements and a transmetatarsal amputation. She demonstrated continued residual ulceration along the medial distal aspect of the right transmetatarsal amputation with suspicion regarding osteomyelitis. She had a significant tachybrady episode and was then transported to [facility]. She was evaluated and stabilized and she was scheduled for surgery as indicated for her right foot. All potential risks, benefits, complications, alternatives, rehab potential for incomplete relief of symptoms, DVT, PE, , persistent pain, swelling, scarring, weakness, neurovascular injury, wound complications, need for further surgery or amputation was discussed with the patient and the family. They all decided to proceed with the procedure as indicated. DESCRIPTION OF PROCEDURE: The patient was taken to the operative suite, placed supine on the operating room table. After review of consent and identification of proper operative site, the patient was sedated and right lower extremity was then sterilely prepped and draped in the usual fashion. Next, the right foot was then injected around the mid foot with approximately 10 mL of 0.5% Marcaine plain at the site of the deep peroneal nerve and the branches of the posterior tibial nerve. After this was completed, a 15 blade scalpel was then used to debride the 2.5 cm x 2.0 cm x 2.3 cm ulceration. Culture was obtained deep in the ulceration with aerobic, anaerobic, Gram stain specimen sent. Next, after bleeding tissue and bone was encountered, moderate-sized curette was then used to curettage the bone, fascia, tendon and muscle. There was a softened area of medial cuneiform, which at this point was resected using a rongeur to perform the exostectomy. Any devitalized tissue was resected as well as the surrounding fascia. The abductor hallucis tendon was noted to have features of tenosynovitis distally. This was then resected both with 15 blade scalpel and a rongeur until resected back to healthy stable margin. Next, the abductor hallucis muscle was also identified and this was debrided with a rongeur. After all devitalized tissue was sharply excised, the site was then copiously irrigated with 3 liters of Ancef using a pulsatile lavage. Once this was completed, top gloves were changed and the 1/2 inch iodoform gauze packing was placed deep in the ulceration. A small stab incision was made with a 15 blade more proximal and medial to the ulceration and a 1/2 inch iodoform gauze drain was then shuttled through the small incision in through the site of packing. Next, the flap was then sharply ellipsed with a 15 blade scalpel to reduce the closing pressure and then the flap of tissue at the ulceration site was then loosely closed using interrupted 3-0 nylon sutures. Next, a sterile compressive dressing was applied consisting of Xeroform gauze, sterile 4 x 4's, ABD pads, 4-inch cast padding and 4-inch Aron wraps x2. The patient was then awakened and taken to recovery in stable condition. I attest to the content of the Intraoperative Record and any orders documented therein. Any exceptions are noted below. MTDD
[2020-12-26] MEDS: DICLOFENAC SOD 1% GEL 100 GM TUBE EXT PRN (20:25)
[2020-12-26] MEDS: MIRTAZAPINE TAB 15 MG TAB PO SCH (20:25)
[2020-12-27] MEDS: ceFAZolin 2000MG 2,000 MG/15 ML SYR IV SCH ×3 (03:26→19:55)
[2020-12-27 07:34] LABS: Hematocrit (blood only) 32.8 % (37-47); Hemoglobin 10.5 g/dL (12.0-16.0); Mean Corpuscular Hemoglobin 27.9 pg (25-34); Mean Corpuscular Volume 87.2 fL (80-100); Mean Platelet Volume 7.8 fL (7.4-10.4); Platelet Count 240 K/uL (130-400); RDW Coefficient of Variation 15.2 % (11.5-14.5); RDW Standard Deviation 48.3 fL (36.4-46.3); Red Blood Count 3.76 M/uL (4.2-5.4); White Blood Count 7.72 K/uL (4.8-10.8)
[2020-12-27 07:56] LABS: BUN Creatinine Ratio 28.8 (10-20); Creatinine Clr Calc Pharmacy 53.2 ml/min; Est GFR (African American) 91.2 ml/min; Est GFR (Non-African American) 78.7 ml/min; Potassium 5.3 mmol/L (3.5-5.1)
--- NOTE | 2020-12-27 08:12 | Orthopedic Progress Note ---
Date of Service December 27, 2020 Assessment & Plan (1) Ulcer of right foot with fat layer exposed: Postop day 1 status post I&D right heel ulcer. Nonweightbearing on the right lower extremity. Patient may be out of bed to chair with foot elevated. Previous cultures on 12/22/2020 showing staph aureus. Current OR culture showing no organisms. Continue current IV antibiotics for now. Plan for dressing change tomorrow. Admission and Anticipated Discharge Date Admission Date: December 22, 2020 Subjective Postop day 1 Patient currently sitting up in bed eating her breakfast. No complaints this morning. States she is feeling well. Physical Exam Physical Exam: Dressings are clean, dry, and intact. Calves appear to be nontender. Results & Data ([facility]) Vital Signs (Past 12 Hours) Vital Signs Temp Pulse Pulse Resp BP Pulse Ox 12/27/20 08:01 36.6 C 83 16 150/69 H 95 12/27/20 05:00 36.6 C 86 18 128/64 96 12/26/20 23:44 36.6 C 88 16 118/56 L 94 12/26/20 23:18 88 Laboratory Results Laboratory Results WBC 7.72 K/uL (4.8-10.8) 12/27/20 07:08 RBC 3.76 M/uL (4.2-5.4) L 12/27/20 07:08 Hgb 10.5 g/dL (12.0-16.0) L 12/27/20 07:08 POC Hgb 7.5 g/dl (12.0-16.0) L 12/22/20 10:20 Hct 32.8 % (37-47) L 12/27/20 07:08 POC Hct 22 % (37-47) L 12/22/20 10:20 MCV 87.2 fL (80-100) 12/27/20 07:08 MCH 27.9 pg (25-34) 12/27/20 07:08 MCHC 32.0 g/dL (32-36) 12/27/20 07:08 RDW Std Deviation 48.3 fL (36.4-46.3) H 12/27/20 07:08 RDW Coeff of Pamela 15.2 % (11.5-14.5) H 12/27/20 07:08 Plt Count 240 K/uL (130-400) 12/27/20 07:08 MPV 7.8 fL (7.4-10.4) 12/27/20 07:08 Immature Gran % (Auto) 0.4 % 12/25/20 07:23 Neut % (Auto) 52.7 % 12/25/20 07:23 Lymph % (Auto) 27.6 % 12/25/20 07:23 Callahan % (Auto) 12.6 % 12/25/20 07:23 Eos % (Auto) 6.3 % 12/25/20 07:23 Baso % (Auto) 0.4 % 12/25/20 07:23 Neut # (Auto) 2.42 K/uL (1.4-6.5) 12/25/20 07:23 Lymph # (Auto) 1.27 K/uL (1.2-3.4) 12/25/20 07:23 Callahan # (Auto) 0.58 K/uL (0.11-0.59) 12/25/20 07:23 Eos # (Auto) 0.29 K/uL (0-0.5) 12/25/20 07:23 Baso # (Auto) 0.02 K/uL (0-0.2) 12/25/20 07:23 Immature Gran # (Auto) 0.02 K/uL (0.00-0.02) 12/25/20 07:23 RBC Morphology Unremarkable 12/23/20 05:11 POC Sodium 133 mmol/L (135-144) L 12/22/20 10:20 Sodium 139 mmol/L (136-145) 12/27/20 07:08 POC Potassium 6.4 mmol/L (3.3-5.0) H* 12/22/20 10:20 Potassium 5.3 mmol/L (3.5-5.1) H D 12/27/20 07:08 POC Chloride 102 mmol/L (101-112) 12/22/20 10:20 Chloride 109 mmol/L (98-107) H 12/27/20 07:08 Carbon Dioxide 26 mmol/L (21-32) 12/27/20 07:08 POC Total CO2 20 mmol/L (24-31) L 12/22/20 10:20 Anion Gap 3.0 (3-11) 12/27/20 07:08 POC Anion Gap 18.0 mmol/L (16-25) 12/22/20 10:20 POC BUN 75 mg/dl (7-18) H 12/22/20 10:20 BUN 19 mg/dl (7-18) H D 12/27/20 07:08 Creatinine 0.65 mg/dl (0.6-1.2) 12/27/20 07:08 POC Creatinine 2.4 mg/dl (0.6-1.3) H 12/22/20 10:20 Est Cr Clr Drug Dosing 53.2 ml/min 12/27/20 07:08 Est GFR ( Amer) 91.2 ml/min 12/27/20 07:08 Est GFR (Non-Af Amer) 78.7 ml/min 12/27/20 07:08 BUN/Creatinine Ratio 28.8 (10-20) H 12/27/20 07:08 Glucose 117 mg/dl (70-99) H 12/27/20 07:08 POC Glucose 124 mg/dl (70-99) H 12/27/20 07:32 POC Glucose (other) 84 mg/dl (70-99) 12/22/20 10:20 Estimat Average Glucose 128 mg/dl 12/23/20 05:11 Hemoglobin A1c 6.1 % (4.5-5.6) H 12/23/20 05:11 Lactate 1.5 mmol/L (0.4-2.0) 12/22/20 12:39 Calcium 9.0 mg/dl (8.5-10.1) 12/27/20 07:08 POC Ioniz Calcium Catrina 1.12 mmol/l (1.12-1.32) 12/22/20 10:20 Phosphorus 2.7 mg/dl (2.5-4.9) 12/25/20 07:23 Magnesium 2.1 mg/dl (1.8-2.4) 12/25/20 07:23 Total Bilirubin 0.3 mg/dl (0.2-1) 12/22/20 10:13 AST 20 U/L (15-37) 12/22/20 10:13 ALT 25 U/L (12-78) 12/22/20 10:13 Alkaline Phosphatase 84 U/L (45-117) 12/22/20 10:13 Troponin I 0.367 ng/ml (0-0.045) H* 12/23/20 05:11 Total Protein 6.7 gm/dl (6.4-8.2) 12/22/20 10:13 Albumin 2.8 gm/dl (3.4-5.0) L 12/22/20 10:13 Globulin 3.9 gm/dl (2.5-4.0) 12/22/20 10:13 Albumin/Globulin Ratio 0.7 (0.9-2) L 12/22/20 10:13 TSH 2.080 uIu/ml (0.300-4.500) 12/22/20 10:13 Urine Color Yellow 12/22/20 12:23 Urine Appearance Clear (Clear) 12/22/20 12:23 Urine pH 6.0 (4.5-7.5) 12/22/20 12:23 Ur Specific [place] 1.012 (1.000-1.030) 12/22/20 12:23 Urine Protein Negative (Negative) 12/22/20 12:23 Urine Glucose (UA) Negative (Negative) 12/22/20 12:23 Urine Ketones Negative (Negative) 12/22/20 12:23 Urine Blood Negative (Negative) 12/22/20 12:23 Urine Nitrite Negative (Negative) 12/22/20 12:23 Urine Bilirubin Negative (Negative) 12/22/20 12:23 Urine Urobilinogen Negative (Negative) 12/22/20 12:23 Ur Leukocyte Esterase Negative (Negative) 12/22/20 12:23 Nasal Screen MRSA (PCR) Negative (Negative) 12/22/20 18:45 Vancomycin Trough 9.2 mcg/ml (See Comment) 12/25/20 07:23 Random Vancomycin 14.9 mcg/ml 12/23/20 05:11 COVID-19 Eval Order Covid19 at [facility] 12/22/20 11:10 SARS-CoV-2 (PCR) NEGATIVE (Negative) 12/22/20 11:10
[2020-12-27] MEDS: INSULIN ASPART 100 UNITS/ML 3 ML PEN SC SCH ×4 (08:14→20:32)
[2020-12-27] MEDS: CITALOPRAM 40 MG TAB PO SCH (08:16)
[2020-12-27] MEDS: CEROVITE ADV FORMULA TAB PO SCH (08:16)
[2020-12-27] MEDS: DOCUSATE SODIUM SYRUP 100 MG/10 ML UDC PO SCH ×2 (08:16→20:31)
[2020-12-27] MEDS: gemfibroziL 600 MG TAB PO SCH (08:16)
[2020-12-27] MEDS: ASPIRIN 81 MG ECTAB PO SCH (08:16)
[2020-12-27] MEDS: traMADol HCL 50 MG TABLET PO PRN ×2 (10:52→11:40)
[2020-12-27] MEDS: MIRTAZAPINE TAB 15 MG TAB PO SCH (20:31)
[2020-12-28] MEDS: ceFAZolin 2000MG 2,000 MG/15 ML SYR IV SCH ×3 (03:57→20:21)
[2020-12-28] MEDS: CITALOPRAM 40 MG TAB PO SCH (08:24)
[2020-12-28] MEDS: DOCUSATE SODIUM SYRUP 100 MG/10 ML UDC PO SCH ×2 (08:24→20:35)
[2020-12-28] MEDS: ASPIRIN 81 MG ECTAB PO SCH (08:24)
[2020-12-28] MEDS: CEROVITE ADV FORMULA TAB PO SCH (08:25)
[2020-12-28] MEDS: gemfibroziL 600 MG TAB PO SCH (08:25)
[2020-12-28] MEDS: INSULIN ASPART 100 UNITS/ML 3 ML PEN SC SCH ×4 (08:26→20:39)
--- NOTE | 2020-12-28 09:05 | Orthopedic Progress Note ---
Date of Service December 28, 2020 Assessment & Plan (1) Ulcer of right foot with fat layer exposed: Postop day 2 status post I&D right heel ulcer. Nonweightbearing on the right lower extremity. Patient may be out of bed to chair with foot elevated. Previous cultures on 12/22/2020 showing staph aureus. (MSSA) Current OR culture NGTD. Continue current IV antibiotics for now. Continue daily dressing changes. No further surgery needed at this time. Admission and Anticipated Discharge Date Admission Date: December 22, 2020 Subjective Postop day 2 Patient is sitting up eating her breakfast this morning. No complaints. Pain is controlled. She is very pleasant. Physical Exam Physical Exam: Dressings have a small amount of dried drainage noted on them. Dressing removed. Wound is well approximated and benign. Iodoform gauze is present and all of the packing has been removed. Some scant serous drainage from the site where the iodoform gauze was removed. New dressing applied with use of Adaptic, 4 x 4's, ABDs, Kerlix, and Aron wrap. Results & Data ([facility]) Vital Signs (Past 12 Hours) Vital Signs Temp Pulse Pulse Resp BP Pulse Ox 12/28/20 07:54 36.7 C 91 H 18 103/52 L 92 12/28/20 07:27 80 12/28/20 04:00 36.8 C 100 H 23 125/87 93 12/28/20 00:00 102 H 12/27/20 23:36 37 C 104 H 20 121/57 L 93
--- NOTE | 2020-12-28 10:53 | Hospitalist Progress Note ---
Date of Service December 28, 2020 Late billing for 12/27/2020 Assessment & Plan (1) LILI (acute kidney injury): Presented with LILI, no significant symptoms were obtainable because of dementia status Has been receiving oral Bactrim as an outpatient Has dehydration which is causing more impairment in renal function Has been receiving intravenous fluid with significant improvement of the kidney function Reactive hyperkalemia which has been corrected Appreciate nephrology input and recommendation Kidney function has remained stable Advised to drink more fluid Kidney function is normalized and remains stable Advised to drink more fluid again Nutritional status Daughter feels that her mom is deficient in nutrients We will get dietary advice before discharging her Has had belching With possible minimal aspiration Irritation in the throat with bouts of cough Resolved thereafter No more episodes of belching and/or cough No more episode of cough and no shortness of breath (2) Ulcer of right foot with fat layer exposed: 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 Has been ongoing right foot ulceration with more swelling Appreciate orthopedic input and recommendation Will have MRI to evaluate the right foot wound better before the proposed I&D MRI was inconclusive due to motion artifact Appreciate Ortho input and recommendation for possible I&D The nature of the wound has been noted in the picture Wound debridement will be done this afternoon (3) Bradycardia: Noted to be bradycardic on admission Lowest rate was 38 Appreciate cardiology input and recommendation Bradycardia is improved (4) Acute hyperkalemia: Secondary to LILI Normalized (5) Dementia: Has dementia Possible acute confusion-resolved (6) Depression: (7) DM type 2 (diabetes mellitus, type 2): Lantus is on hold On SSI (8) HTN (hypertension): Is controlled DVT prophylaxis Subcu heparin CODE STATUS DNR/DNI Discussed with the daughter in detail-has been discussing with her daily Admission and Anticipated Discharge Date Admission Date: December 22, 2020 Subjective 12/23/2020 The patient was seen and examined in telemetry unit in presence of the daughter She has dementia and remains stable in bed She has history of agitation usually during the end of the day Denies any symptoms 12/24/2020 The patient was seen and examined in telemetry unit in presence of the daughters She has had an episode of possible aspiration with dry cough and irritation in the throat that lasted for a few minutes She denies any other symptoms 12/25/2020 The patient was seen and examined in telemetry unit She remains stable this morning She has had her breakfast without any events Denies any fever and/or chills and no acute distress 12/26/2020 The patient was seen and examined in telemetry unit in presence of the caring daughter She remains stable without any acute symptoms She will be going for surgical debridement of the right foot stamp today 12/27/2020 The patient was seen and examined in telemetry unit She will go for debridement of the right foot wound this afternoon She denies any symptoms remains stable Review of Systems Review of Systems: All systems reviewed and unremarkable except as noted below Physical Exam Physical Exam: Lying in bed comfortably Constitutional: average body habitus; not ill appearing Eyes: PERRL, conjunctivae normal, anicteric sclerae ENMT: external ear and nose normal, oropharynx normal Neck: trachea midline, no thyromegaly Respiratory: + labored breathing; no respiratory distress Auscultation: lungs clear to auscultation bilaterally Cardiovascular: Rate/Rhythm: regular rate and regular rhythm Heart Sounds: no murmur Extremities: + edema (Trace edema bilaterally) Gastrointestinal (Abdomen): Inspection/Auscultation: normal bowel sounds; abdomen not distended Percussion/Palpation: abdomen soft; abdomen nontender Musculoskeletal: No acute arthritis in any joint except right foot pain secondary to ulcer Psychiatric: Insight: + poor insight Lymphatic: no cervical or axillary lymphadenopathy Results & Data Results & Data ([facility]) Vital Signs (Past 12 Hours) Vital Signs Temp Pulse Pulse Resp BP Pulse Ox 12/28/20 07:54 36.7 C 91 H 18 103/52 L 92 12/28/20 07:27 80 12/28/20 04:00 36.8 C 100 H 23 125/87 93 12/28/20 00:00 102 H 12/27/20 23:36 37 C 104 H 20 121/57 L 93
--- NOTE | 2020-12-28 11:39 | Hospitalist Progress Note ---
Date of Service December 28, 2020 Assessment & Plan (1) LILI (acute kidney injury): Presented with LILI, no significant symptoms were obtainable because of dementia status Has been receiving oral Bactrim as an outpatient Has dehydration which is causing more impairment in renal function Has been receiving intravenous fluid with significant improvement of the kidney function Reactive hyperkalemia which has been corrected Appreciate nephrology input and recommendation Kidney function has remained stable Advised to drink more fluid Kidney function is normalized and remains stable Advised to drink more fluid again We will check PRP at around noon Nutritional status Daughter feels that her mom is deficient in nutrients We will get dietary advice before discharging her Has been eating and drinking reasonably Has had belching With possible minimal aspiration Irritation in the throat with bouts of cough Resolved thereafter No more episodes of belching and/or cough No more episode of cough and no shortness of breath (2) Ulcer of right foot with fat layer exposed: 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 Has been ongoing right foot ulceration with more swelling Appreciate orthopedic input and recommendation Will have MRI to evaluate the right foot wound better before the proposed I&D MRI was inconclusive due to motion artifact Appreciate Ortho input and recommendation for possible I&D The nature of the wound has been noted in the picture Wound debridement will be done this afternoon Status post wound debridement on right foot on 12/26/2020 and dressing change on 12/28/2020 Management as per Ortho (3) Bradycardia: Noted to be bradycardic on admission Lowest rate was 38 Appreciate cardiology input and recommendation Bradycardia is improved and no more recurrence (4) Acute hyperkalemia: Secondary to LILI Potassium was slightly high at 5.3 yesterday Advised to drink more fluid We will recheck (5) Dementia: Has dementia Possible acute confusion-resolved (6) Depression: (7) DM type 2 (diabetes mellitus, type 2): Lantus is on hold On SSI (8) HTN (hypertension): Is controlled DVT prophylaxis Subcu heparin CODE STATUS DNR/DNI Discussed with the daughter in detail-has been discussing with her daily We will transfer her to medical floor and continue with IV antibiotic for the next day or 2 Admission and Anticipated Discharge Date Admission Date: December 22, 2020 Subjective 12/23/2020 The patient was seen and examined in telemetry unit in presence of the daughter She has dementia and remains stable in bed She has history of agitation usually during the end of the day Denies any symptoms 12/24/2020 The patient was seen and examined in telemetry unit in presence of the daughters She has had an episode of possible aspiration with dry cough and irritation in the throat that lasted for a few minutes She denies any other symptoms 12/25/2020 The patient was seen and examined in telemetry unit She remains stable this morning She has had her breakfast without any events Denies any fever and/or chills and no acute distress 12/26/2020 The patient was seen and examined in telemetry unit in presence of the caring daughter She remains stable without any acute symptoms She will be going for surgical debridement of the right foot stamp today 12/27/2020 The patient was seen and examined in telemetry unit She will go for debridement of the right foot wound this afternoon She denies any symptoms remains stable 12/28/2020 The patient was seen and examined in telemetry unit in presence of the daughter She remains stable and was noted to have high blood sugar this morning She is a status post debridement of the right foot and complains some pain in the right foot No fever and/or chills Review of Systems Review of Systems: All systems reviewed and unremarkable except as noted below-through the daughter Physical Exam Physical Exam: Lying in bed comfortably Constitutional: average body habitus; not ill appearing Eyes: PERRL, conjunctivae normal, anicteric sclerae ENMT: external ear and nose normal, oropharynx normal Ears: + hearing impairment; able to visualize TM (Minimal wax number the years) Neck: trachea midline, no thyromegaly Respiratory: + labored breathing; no respiratory distress Auscultation: lungs clear to auscultation bilaterally Cardiovascular: Rate/Rhythm: regular rate and regular rhythm Heart Sounds: no murmur Extremities: + edema (Trace edema bilaterally) Gastrointestinal (Abdomen): Inspection/Auscultation: normal bowel sounds; abdomen not distended Percussion/Palpation: abdomen soft; abdomen nontender Musculoskeletal: Right foot is bandaged Psychiatric: Insight: + poor insight Lymphatic: no cervical or axillary lymphadenopathy Results & Data Results & Data ([facility]) Vital Signs (Past 12 Hours) Vital Signs Temp Pulse Pulse Resp BP Pulse Ox 12/28/20 07:54 36.7 C 91 H 18 103/52 L 92 12/28/20 07:27 80 12/28/20 04:00 36.8 C 100 H 23 125/87 93 12/28/20 00:00 102 H 12/27/20 23:36 37 C 104 H 20 121/57 L 93 Medications Administered Current Inpatient Medications Acetaminophen (Acetaminophen 325 Mg Tab) 650 mg PO Q4H PRN PRN Reason: Pain or Fever Stop: 01/21/21 16:41 Last Admin: 12/23/20 20:33 Dose: 650 mg Documented by: Aspirin (Aspirin 81 Mg Ectab) 81 mg PO DAILY [facility] Stop: 01/22/21 08:59 Last Admin: 12/28/20 08:24 Dose: 81 mg Documented by: Carbamide Peroxide (Carbamide Peroxide 6.5% 15 Ml Btl) 2 drops OT BID [facility] Stop: 01/01/21 10:59 Citalopram Hydrobromide (Citalopram 40 Mg Tab) 40 mg PO QAM [facility] Stop: 01/22/21 08:59 Last Admin: 12/28/20 08:24 Dose: 40 mg Documented by: Dextrose (Dextrose 50% 50 Ml Syringe) 25 - 50 ml IV UD PRN; Protocol PRN Reason: Hypoglycemia Protocol Stop: 01/25/21 16:59 Diclofenac Sodium (Diclofenac Sod 1% Gel 100 Gm Tube) 4 gm EXT QID PRN PRN Reason: knee pain Stop: 01/21/21 20:59 Last Admin: 12/26/20 20:25 Dose: 4 gm Documented by: Docusate Sodium (Docusate Sodium Syrup 100 Mg/10 Ml Udc) 100 mg PO BID [facility] Stop: 01/21/21 20:59 Last Admin: 12/28/20 08:24 Dose: 100 mg Documented by: Gemfibrozil (Gemfibrozil 600 Mg Tab) 600 mg PO QAM [facility] Stop: 01/22/21 08:59 Last Admin: 12/28/20 08:25 Dose: 600 mg Documented by: Glucagon (Glucagon For Inj 1 Mg Vial) 1 mg IM UD PRN; Protocol PRN Reason: Hypoglycemia Protocol Stop: 01/25/21 16:59 Glucose (Glucose 40% Gel 15 Gm Tube) 15 - 30 gm PO UD PRN; Protocol PRN Reason: Hypoglycemia Protocol Stop: 01/25/21 16:59 Glucose (Glucose 10 Tabs/Tube) 4 - 8 tabs PO UD PRN; Protocol PRN Reason: Hypoglycemia Protocol Stop: 01/25/21 16:59 Cefazolin Sodium (Ancef 2000mg) 2,000 mg in 15 mls @ 3.75 mls/min IV Q8H [facility]; Protocol Stop: 02/05/21 11:59 Last Admin: 12/28/20 03:57 Dose: 3.75 mls/min Documented by: Insulin Aspart (Insulin Aspart 100 Units/Ml 3 Ml Pen) 0 units SC ACHS [facility] Stop: 01/21/21 16:41 Last Admin: 12/28/20 08:26 Dose: 4 units Documented by: Mirtazapine (Mirtazapine Tab 15 Mg Tab) 30 mg PO HS [facility] Stop: 01/21/21 20:59 Last Admin: 12/27/20 20:31 Dose: 30 mg Documented by: Miscellaneous (Carbohydrates For Hypoglycemia ) 15 - 30 gm PO UD PRN PRN Reason: Hypoglycemia Treatment Stop: 01/25/21 16:59 Multivitamins/Minerals (Cerovite Adv Formula Tab) 1 tab PO DAILY [facility] Stop: 01/22/21 08:59 Last Admin: 12/28/20 08:25 Dose: 1 tab Documented by: Naloxone HCl (Naloxone Hcl 0.4 Mg/1 Ml Vial/Carp) 0.1 mg IV Q5M PRN PRN Reason: Oversedation/Resp Depression Stop: 01/25/21 18:46 Nitroglycerin (Nitroglycerin Sl 0.4 Mg/Tab Tab) 0.4 mg SL UD PRN PRN Reason: Chest Pain Stop: 01/21/21 16:41 Ondansetron HCl (Ondansetron Inj 2 Mg/Ml 2 Ml Vial) 4 mg IV Q6H PRN PRN Reason: Nausea Stop: 01/21/21 16:41 Tramadol HCl (Tramadol Hcl 50 Mg Tablet) 50 - 100 mg PO Q4H PRN PRN Reason: Pain & Pre PT Stop: 01/25/21 18:46 Last Admin: 12/27/20 11:40 Dose: 50 mg Documented by:
[2020-12-28] MEDS: CARBAMIDE PEROXIDE 6.5% 15 ML BTL OT SCH ×2 (11:52→20:42)
[2020-12-28 13:59] LABS: BUN Creatinine Ratio 26.3 (10-20); Calcium 8.9 mg/dl (8.5-10.1); Creatinine Clr Calc Pharmacy 46.5 ml/min; Est GFR (African American) 81.9 ml/min; Est GFR (Non-African American) 70.7 ml/min; Potassium 3.8 mmol/L (3.5-5.1)
[2020-12-28] MEDS: INSULIN GLARGINE SOLOSTAR 100 UNITS/ML 3 ML PEN SC SCH ×2 (17:06→20:40)
[2020-12-28] MEDS: MIRTAZAPINE TAB 15 MG TAB PO SCH (20:36)
[2020-12-29] MEDS ORDERED: diphenhydrAMINE HCl 12.5 MG/5 ML UDC PO ONE ×2 (00:15→23:30)
[2020-12-29] MEDS ORDERED: NYSTATIN POWDER 15GM BTL EXT PRN (00:59)
[2020-12-29] MEDS: ceFAZolin 2000MG 2,000 MG/15 ML SYR IV SCH ×2 (05:11→12:42)
[2020-12-29] MEDS: ASPIRIN 81 MG ECTAB PO SCH (09:29)
[2020-12-29] MEDS: gemfibroziL 600 MG TAB PO SCH (09:30)
[2020-12-29] MEDS: CITALOPRAM 40 MG TAB PO SCH (09:30)
[2020-12-29] MEDS: CARBAMIDE PEROXIDE 6.5% 15 ML BTL OT SCH ×2 (09:30→22:01)
[2020-12-29] MEDS: INSULIN GLARGINE SOLOSTAR 100 UNITS/ML 3 ML PEN SC SCH ×2 (09:31→22:05)
[2020-12-29] MEDS: DOCUSATE SODIUM SYRUP 100 MG/10 ML UDC PO SCH ×2 (09:31→21:57)
[2020-12-29] MEDS: CEROVITE ADV FORMULA TAB PO SCH (09:31)
[2020-12-29] MEDS: INSULIN ASPART 100 UNITS/ML 3 ML PEN SC SCH ×4 (09:35→22:05)
--- NOTE | 2020-12-29 11:44 | Orthopedic Progress Note ---
Date of Service December 29, 2020 Assessment & Plan (1) Ulcer of right foot with fat layer exposed: Postop day 3 Continue daily dressing changes. Operative cultures being reintubated pinpoint growth. Previous culture staph aureus MSSA Antibiotics as per medicine service. Nonweightbearing on the right lower extremity. Family states they are planning to have the patient return to [facility] on Thursday if she is medically stable. Orthopedics will sign off at this time. Please call with any questions. Instructions placed in discharge instructions section. Admission and Anticipated Discharge Date Admission Date: December 22, 2020 Supervising Physician Co-Signing Physician Notes Patient seen and examined. Agree with AMBERLY Hannon's note as above. She is resting comfortably. She denies any pain in her right foot. She is actively engaged in working a puzzle with her daughter. Subjective Postop day 3 Patient sleeping upon arrival but easily awoken. No complaints this morning. Patient's daughter is with her and states that she was somewhat agitated last night and removed her dressing on her right foot. The dressing was reapplied by nursing staff last night. No new complaints. Physical Exam Physical Exam: Dressings removed. Wound is well approximated. Minimal to no erythema. There is no drainage. There was only scant drainage noted on the dressing. No purulence noted. Wound redressed. Results & Data ([facility]) Vital Signs (Past 12 Hours) Vital Signs Temp Pulse Pulse Resp BP BP Pulse Ox 12/29/20 11:12 36.4 C L 96 H 18 121/50 L 95 12/29/20 08:00 89 12/29/20 07:24 36.7 C 89 18 110/58 L 94 12/29/20 04:08 36.9 C 97 H 18 117/69 93
[2020-12-29] MEDS: ADVANCED PROBIOTIC 1250 MG CAPSULE PO SCH (15:44)
[2020-12-29] MEDS: CLINDAMYCIN 300 MG in DEXTROSE 5% 50 ML IV SCH (15:46)
--- NOTE | 2020-12-29 16:13 | Hospitalist Progress Note ---
Date of Service December 29, 2020 Assessment & Plan (1) LILI (acute kidney injury): Presented with LILI, no significant symptoms were obtainable because of dementia status Has been receiving oral Bactrim as an outpatient Has dehydration which is causing more impairment in renal function Has been receiving intravenous fluid with significant improvement of the kidney function Reactive hyperkalemia which has been corrected Appreciate nephrology input and recommendation Her creatinine has been normalized Advised to drink more fluid Nutritional status Daughter feels that her mom is deficient in nutrients We will get dietary advice before discharging her Has been eating and drinking reasonably Has had belching With possible minimal aspiration Irritation in the throat with bouts of cough Resolved thereafter No more episodes of belching and/or cough No more episode of cough and no shortness of breath Maculopapular rash As mentioned above Likely secondary to cefazolin We will change antibiotic to intravenous clindamycin for the next 2 days before discharge on Thursday (2) Ulcer of right foot with fat layer exposed: 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 Has been ongoing right foot ulceration with more swelling Appreciate orthopedic input and recommendation Will have MRI to evaluate the right foot wound better before the proposed I&D MRI was inconclusive due to motion artifact Appreciate Ortho input and recommendation for possible I&D The nature of the wound has been noted in the picture Wound debridement will be done this afternoon Status post wound debridement on right foot on 12/26/2020 and dressing change on 12/28/2020 Management as per Ortho Not having any signs or symptoms of infection Has been getting physical therapy and doing much better (3) Bradycardia: Noted to be bradycardic on admission Lowest rate was 38 Appreciate cardiology input and recommendation Bradycardia is improved and no more recurrence (4) Acute hyperkalemia: Secondary to LILI Potassium was slightly high at 5.3 yesterday Advised to drink more fluid We will recheck (5) Dementia: Has dementia Possible acute confusion-resolved (6) Depression: (7) DM type 2 (diabetes mellitus, type 2): Lantus is on hold On SSI (8) HTN (hypertension): Is controlled DVT prophylaxis Subcu heparin CODE STATUS DNR/DNI Discussed with the daughter in detail-has been discussing with her daily We will transfer her to medical floor and continue with IV antibiotic for the next day or 2 Admission and Anticipated Discharge Date Admission Date: December 22, 2020 Subjective 12/23/2020 The patient was seen and examined in telemetry unit in presence of the daughter She has dementia and remains stable in bed She has history of agitation usually during the end of the day Denies any symptoms 12/24/2020 The patient was seen and examined in telemetry unit in presence of the daughters She has had an episode of possible aspiration with dry cough and irritation in the throat that lasted for a few minutes She denies any other symptoms 12/25/2020 The patient was seen and examined in telemetry unit She remains stable this morning She has had her breakfast without any events Denies any fever and/or chills and no acute distress 12/26/2020 The patient was seen and examined in telemetry unit in presence of the caring daughter She remains stable without any acute symptoms She will be going for surgical debridement of the right foot stamp today 12/27/2020 The patient was seen and examined in telemetry unit She will go for debridement of the right foot wound this afternoon She denies any symptoms remains stable 12/28/2020 The patient was seen and examined in telemetry unit in presence of the daughter She remains stable and was noted to have high blood sugar this morning She is a status post debridement of the right foot and complains some pain in the right foot No fever and/or chills 12/29/2020 The patient was seen in medical telemetry unit in presence of the daughter She has been feeling a lot better and wants to participate in physical therapy Denies any symptoms whatsoever today Noted to have a new rash involving the left lower back and adjoining area of the thigh Review of Systems Review of Systems: All systems reviewed and unremarkable except as noted below-through the daughter Physical Exam Physical Exam: Sitting at the edge of the bed without any acute distress Constitutional: average body habitus; not ill appearing Eyes: PERRL, conjunctivae normal, anicteric sclerae ENMT: external ear and nose normal, oropharynx normal Ears: + hearing impairment; able to visualize TM (Minimal wax number the years) Neck: trachea midline, no thyromegaly Respiratory: + labored breathing; no respiratory distress Auscultation: lungs clear to auscultation bilaterally Cardiovascular: Rate/Rhythm: regular rate and regular rhythm Heart Sounds: no murmur Extremities: + edema (Trace edema bilaterally) Gastrointestinal (Abdomen): Inspection/Auscultation: normal bowel sounds; abdomen not distended Percussion/Palpation: abdomen soft; abdomen nontender Musculoskeletal: No acute arthritis in any joint Skin: Has maculopapular rash involving the left lower back, buttock and the adjoining area of the left upper thigh Neurologic: Very alert and awake, pleasantly confused from dementia. Moving all the limbs equally Psychiatric: Insight: + poor insight Lymphatic: no cervical or axillary lymphadenopathy Results & Data Results & Data ([facility]) Vital Signs (Past 12 Hours) Vital Signs Temp Pulse Pulse Resp BP Pulse Ox 12/29/20 15:15 36.6 C 96 H 18 124/57 L 94 12/29/20 11:12 36.4 C L 96 H 18 121/50 L 95 12/29/20 08:00 89 12/29/20 07:24 36.7 C 89 18 110/58 L 94 Medications Administered Current Inpatient Medications Acetaminophen (Acetaminophen 325 Mg Tab) 650 mg PO Q4H PRN PRN Reason: Pain or Fever Stop: 01/21/21 16:41 Last Admin: 12/23/20 20:33 Dose: 650 mg Documented by: Aspirin (Aspirin 81 Mg Ectab) 81 mg PO DAILY [facility] Stop: 01/22/21 08:59 Last Admin: 12/29/20 09:29 Dose: 81 mg Documented by: Carbamide Peroxide (Carbamide Peroxide 6.5% 15 Ml Btl) 2 drops OT BID [facility] Stop: 01/01/21 10:59 Last Admin: 12/29/20 09:30 Dose: 2 drops Documented by: Citalopram Hydrobromide (Citalopram 40 Mg Tab) 40 mg PO QAM [facility] Stop: 01/22/21 08:59 Last Admin: 12/29/20 09:30 Dose: 40 mg Documented by: Dextrose (Dextrose 50% 50 Ml Syringe) 25 - 50 ml IV UD PRN; Protocol PRN Reason: Hypoglycemia Protocol Stop: 01/25/21 16:59 Diclofenac Sodium (Diclofenac Sod 1% Gel 100 Gm Tube) 4 gm EXT QID PRN PRN Reason: knee pain Stop: 01/21/21 20:59 Last Admin: 12/26/20 20:25 Dose: 4 gm Documented by: Docusate Sodium (Docusate Sodium Syrup 100 Mg/10 Ml Udc) 100 mg PO BID [facility] Stop: 01/21/21 20:59 Last Admin: 12/29/20 09:31 Dose: 100 mg Documented by: Gemfibrozil (Gemfibrozil 600 Mg Tab) 600 mg PO QAM [facility] Stop: 01/22/21 08:59 Last Admin: 12/29/20 09:30 Dose: 600 mg Documented by: Glucagon (Glucagon For Inj 1 Mg Vial) 1 mg IM UD PRN; Protocol PRN Reason: Hypoglycemia Protocol Stop: 01/25/21 16:59 Glucose (Glucose 40% Gel 15 Gm Tube) 15 - 30 gm PO UD PRN; Protocol PRN Reason: Hypoglycemia Protocol Stop: 01/25/21 16:59 Glucose (Glucose 10 Tabs/Tube) 4 - 8 tabs PO UD PRN; Protocol PRN Reason: Hypoglycemia Protocol Stop: 01/25/21 16:59 Clindamycin Phosphate 300 mg/ (Dextrose) 52 mls @ 100 mls/hr IV Q8H [facility]; Protocol Stop: 01/05/21 15:59 Last Admin: 12/29/20 15:46 Dose: 100 mls/hr Documented by: Insulin Aspart (Insulin Aspart 100 Units/Ml 3 Ml Pen) 0 units SC ACHS [facility] Stop: 01/21/21 16:41 Last Admin: 12/29/20 12:40 Dose: 12 units Documented by: Insulin Glargine (Insulin Glargine Solostar 100 Units/Ml 3 Ml Pen) 10 units SC BID [facility] Stop: 01/28/21 20:59 Insulin Glargine (Insulin Glargine Solostar 100 Units/Ml 3 Ml Pen) 4 units SC TODAY@1630 [facility] Stop: 12/29/20 16:31 Lactobacillus Acidoph/Casei/Rhamnos (Advanced Probiotic 1250 Mg Capsule) 2 cap PO DAILY [facility] Stop: 01/28/21 14:14 Last Admin: 12/29/20 15:44 Dose: 2 cap Documented by: Mirtazapine (Mirtazapine Tab 15 Mg Tab) 30 mg PO HS [facility] Stop: 01/21/21 20:59 Last Admin: 12/28/20 20:36 Dose: 30 mg Documented by: Miscellaneous (Carbohydrates For Hypoglycemia ) 15 - 30 gm PO UD PRN PRN Reason: Hypoglycemia Treatment Stop: 01/25/21 16:59 Multivitamins/Minerals (Cerovite Adv Formula Tab) 1 tab PO DAILY [facility] Stop: 01/22/21 08:59 Last Admin: 12/29/20 09:31 Dose: 1 tab Documented by: Naloxone HCl (Naloxone Hcl 0.4 Mg/1 Ml Vial/Carp) 0.1 mg IV Q5M PRN PRN Reason: Oversedation/Resp Depression Stop: 01/25/21 18:46 Nitroglycerin (Nitroglycerin Sl 0.4 Mg/Tab Tab) 0.4 mg SL UD PRN PRN Reason: Chest Pain Stop: 01/21/21 16:41 Nystatin (Nystatin Powder 15gm Btl) 1 appln EXT QSHIFT PRN PRN Reason: Affected Skin Folds Stop: 01/28/21 00:58 Ondansetron HCl (Ondansetron Inj 2 Mg/Ml 2 Ml Vial) 4 mg IV Q6H PRN PRN Reason: Nausea Stop: 01/21/21 16:41 Tramadol HCl (Tramadol Hcl 50 Mg Tablet) 50 - 100 mg PO Q4H PRN PRN Reason: Pain & Pre PT Stop: 01/25/21 18:46 Last Admin: 12/27/20 11:40 Dose: 50 mg Documented by:
[2020-12-29] MEDS ORDERED: INSULIN GLARGINE SOLOSTAR 100 UNITS/ML 3 ML PEN SC SCH (16:30)
[2020-12-29] MEDS: MIRTAZAPINE TAB 15 MG TAB PO SCH (22:00)
[2020-12-30] MEDS: CLINDAMYCIN 300 MG in DEXTROSE 5% 50 ML IV SCH ×3 (00:32→16:31)
[2020-12-30] MEDS: INSULIN ASPART 100 UNITS/ML 3 ML PEN SC SCH ×4 (08:36→21:50)
[2020-12-30] MEDS: CARBAMIDE PEROXIDE 6.5% 15 ML BTL OT SCH ×2 (08:38→21:45)
[2020-12-30] MEDS: ASPIRIN 81 MG ECTAB PO SCH (08:38)
[2020-12-30] MEDS: CITALOPRAM 40 MG TAB PO SCH (08:39)
[2020-12-30] MEDS: DOCUSATE SODIUM SYRUP 100 MG/10 ML UDC PO SCH ×2 (08:39→21:45)
[2020-12-30] MEDS: gemfibroziL 600 MG TAB PO SCH (08:39)
[2020-12-30] MEDS: ADVANCED PROBIOTIC 1250 MG CAPSULE PO SCH (08:40)
[2020-12-30] MEDS: INSULIN GLARGINE SOLOSTAR 100 UNITS/ML 3 ML PEN SC SCH ×2 (08:40→21:51)
[2020-12-30] MEDS: CEROVITE ADV FORMULA TAB PO SCH (08:41)
[2020-12-30] MEDS ORDERED: traMADol HCL 50 MG TABLET PO PRN (10:34)
[2020-12-30] MEDS ORDERED: HYDROCORTISONE 1% CRM 30 GM TUBE EXT PRN (10:34)
--- NOTE | 2020-12-30 13:22 | Hospitalist Progress Note ---
Date of Service December 30, 2020 Assessment & Plan (1) LILI (acute kidney injury): Presented with LILI, no significant symptoms were obtainable because of dementia status Has been receiving oral Bactrim as an outpatient Has dehydration which is causing more impairment in renal function Has been receiving intravenous fluid with significant improvement of the kidney function Reactive hyperkalemia which has been corrected Appreciate nephrology input and recommendation Her creatinine has been normalized Advised to drink more fluid Renal function remains and will check it again tomorrow Nutritional status Daughter feels that her mom is deficient in nutrients We will get dietary advice before discharging her Has been eating and drinking reasonably Has had belching With possible minimal aspiration Irritation in the throat with bouts of cough Resolved thereafter No more episodes of belching and/or cough No more episode of cough and no shortness of breath Maculopapular rash As mentioned above Likely secondary to cefazolin We will change antibiotic to intravenous clindamycin for the next 2 days before discharge on Thursday We will give hydrocortisone cream for the rash and the itch Benadryl has been discontinued due to increasing lethargy and drowsiness (2) Ulcer of right foot with fat layer exposed: 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 Has been ongoing right foot ulceration with more swelling Appreciate orthopedic input and recommendation Will have MRI to evaluate the right foot wound better before the proposed I&D MRI was inconclusive due to motion artifact Appreciate Ortho input and recommendation for possible I&D The nature of the wound has been noted in the picture Wound debridement will be done this afternoon Status post wound debridement on right foot on 12/26/2020 and dressing change on 12/28/2020 Management as per Ortho Not having any signs or symptoms of infection Has been getting physical therapy and doing much better We will follow wound care recommendation and recommendation from the Ortho for the foot care (3) Bradycardia: Noted to be bradycardic on admission Lowest rate was 38 Appreciate cardiology input and recommendation Bradycardia is improved and no more recurrence (4) Acute hyperkalemia: Secondary to LILI Potassium was slightly high at 5.3 yesterday Advised to drink more fluid We will recheck (5) Dementia: Has dementia Possible acute confusion-resolved (6) Depression: (7) DM type 2 (diabetes mellitus, type 2): Lantus is on hold On SSI (8) HTN (hypertension): Is controlled DVT prophylaxis Subcu heparin CODE STATUS DNR/DNI Discussed with the daughter in detail-has been discussing with her daily We will transfer her to medical floor and continue with IV antibiotic for the next day or 2 Likely transfer tomorrow Admission and Anticipated Discharge Date Admission Date: December 22, 2020 Subjective 12/23/2020 The patient was seen and examined in telemetry unit in presence of the daughter She has dementia and remains stable in bed She has history of agitation usually during the end of the day Denies any symptoms 12/24/2020 The patient was seen and examined in telemetry unit in presence of the daughters She has had an episode of possible aspiration with dry cough and irritation in the throat that lasted for a few minutes She denies any other symptoms 12/25/2020 The patient was seen and examined in telemetry unit She remains stable this morning She has had her breakfast without any events Denies any fever and/or chills and no acute distress 12/26/2020 The patient was seen and examined in telemetry unit in presence of the caring daughter She remains stable without any acute symptoms She will be going for surgical debridement of the right foot stamp today 12/27/2020 The patient was seen and examined in telemetry unit She will go for debridement of the right foot wound this afternoon She denies any symptoms remains stable 12/28/2020 The patient was seen and examined in telemetry unit in presence of the daughter She remains stable and was noted to have high blood sugar this morning She is a status post debridement of the right foot and complains some pain in the right foot No fever and/or chills 12/29/2020 The patient was seen in medical telemetry unit in presence of the daughter She has been feeling a lot better and wants to participate in physical therapy Denies any symptoms whatsoever today Noted to have a new rash involving the left lower back and adjoining area of the thigh 12/30/2020 The patient was seen and examined in medical telemetry unit in presence of the daughter She has been a little drowsy since she received a dose of Benadryl last night She denies any other symptoms Her rash remains the same Review of Systems Review of Systems: All systems reviewed and unremarkable except as noted below-through the daughter Neurologic: + generalized weakness Physical Exam Physical Exam: Sitting at the edge of the bed without any acute distress Constitutional: average body habitus; not ill appearing Eyes: PERRL, conjunctivae normal, anicteric sclerae ENMT: external ear and nose normal, oropharynx normal Ears: + hearing impairment; able to visualize TM (Minimal wax number the years) Neck: trachea midline, no thyromegaly Respiratory: + labored breathing; no respiratory distress Auscultation: lungs clear to auscultation bilaterally Cardiovascular: Rate/Rhythm: regular rate and regular rhythm Heart Sounds: no murmur Extremities: + edema (Trace edema bilaterally) Gastrointestinal (Abdomen): Inspection/Auscultation: normal bowel sounds; abdomen not distended Percussion/Palpation: abdomen soft; abdomen nontender Musculoskeletal: No acute arthritis in any joint Neurologic: Has significant dementia without any delirium Psychiatric: Insight: + poor insight Lymphatic: no cervical or axillary lymphadenopathy Results & Data Results & Data ([facility]) Vital Signs (Past 12 Hours) Vital Signs Temp Pulse Pulse Resp BP BP Pulse Ox 12/30/20 11:00 36.4 C L 94 H 16 119/64 95 12/30/20 07:25 36.8 C 87 16 115/51 L 95 12/30/20 04:54 36.8 C 89 16 113/52 L 95 Medications Administered Current Inpatient Medications Acetaminophen (Acetaminophen 325 Mg Tab) 650 mg PO Q4H PRN PRN Reason: Pain or Fever Stop: 01/21/21 16:41 Last Admin: 12/23/20 20:33 Dose: 650 mg Documented by: Aspirin (Aspirin 81 Mg Ectab) 81 mg PO DAILY [facility] Stop: 01/22/21 08:59 Last Admin: 12/30/20 08:38 Dose: 81 mg Documented by: Carbamide Peroxide (Carbamide Peroxide 6.5% 15 Ml Btl) 2 drops OT BID [facility] Stop: 01/01/21 10:59 Last Admin: 12/30/20 08:38 Dose: 2 drops Documented by: Citalopram Hydrobromide (Citalopram 40 Mg Tab) 40 mg PO QAM [facility] Stop: 01/22/21 08:59 Last Admin: 12/30/20 08:39 Dose: 40 mg Documented by: Dextrose (Dextrose 50% 50 Ml Syringe) 25 - 50 ml IV UD PRN; Protocol PRN Reason: Hypoglycemia Protocol Stop: 01/25/21 16:59 Diclofenac Sodium (Diclofenac Sod 1% Gel 100 Gm Tube) 4 gm EXT QID PRN PRN Reason: knee pain Stop: 01/21/21 20:59 Last Admin: 12/26/20 20:25 Dose: 4 gm Documented by: Docusate Sodium (Docusate Sodium Syrup 100 Mg/10 Ml Udc) 100 mg PO BID [facility] Stop: 01/21/21 20:59 Last Admin: 12/30/20 08:39 Dose: 100 mg Documented by: Gemfibrozil (Gemfibrozil 600 Mg Tab) 600 mg PO QAM [facility] Stop: 01/22/21 08:59 Last Admin: 12/30/20 08:39 Dose: 600 mg Documented by: Glucagon (Glucagon For Inj 1 Mg Vial) 1 mg IM UD PRN; Protocol PRN Reason: Hypoglycemia Protocol Stop: 01/25/21 16:59 Glucose (Glucose 40% Gel 15 Gm Tube) 15 - 30 gm PO UD PRN; Protocol PRN Reason: Hypoglycemia Protocol Stop: 01/25/21 16:59 Glucose (Glucose 10 Tabs/Tube) 4 - 8 tabs PO UD PRN; Protocol PRN Reason: Hypoglycemia Protocol Stop: 01/25/21 16:59 Hydrocortisone (Hydrocortisone 1% Crm 30 Gm Tube) 1 appln EXT TID PRN PRN Reason: Rash Stop: 01/29/21 10:33 Clindamycin Phosphate 300 mg/ (Dextrose) 52 mls @ 100 mls/hr IV Q8H [facility]; Protocol Stop: 01/05/21 15:59 Last Infusion: 12/30/20 09:57 Dose: Infused Documented by: Insulin Aspart (Insulin Aspart 100 Units/Ml 3 Ml Pen) 0 units SC ACHS [facility] Stop: 01/21/21 16:41 Last Admin: 12/30/20 12:36 Dose: 16 units Documented by: Insulin Glargine (Insulin Glargine Solostar 100 Units/Ml 3 Ml Pen) 10 units SC BID [facility] Stop: 01/28/21 20:59 Last Admin: 12/30/20 08:40 Dose: 10 units Documented by: Lactobacillus Acidoph/Casei/Rhamnos (Advanced Probiotic 1250 Mg Capsule) 2 cap PO DAILY [facility] Stop: 01/28/21 14:14 Last Admin: 12/30/20 08:40 Dose: 2 cap Documented by: Mirtazapine (Mirtazapine Tab 15 Mg Tab) 30 mg PO HS [facility] Stop: 01/21/21 20:59 Last Admin: 12/29/20 22:00 Dose: 30 mg Documented by: Miscellaneous (Carbohydrates For Hypoglycemia ) 15 - 30 gm PO UD PRN PRN Reason: Hypoglycemia Treatment Stop: 01/25/21 16:59 Multivitamins/Minerals (Cerovite Adv Formula Tab) 1 tab PO DAILY [facility] Stop: 01/22/21 08:59 Last Admin: 12/30/20 08:41 Dose: 1 tab Documented by: Naloxone HCl (Naloxone Hcl 0.4 Mg/1 Ml Vial/Carp) 0.1 mg IV Q5M PRN PRN Reason: Oversedation/Resp Depression Stop: 01/25/21 18:46 Nitroglycerin (Nitroglycerin Sl 0.4 Mg/Tab Tab) 0.4 mg SL UD PRN PRN Reason: Chest Pain Stop: 01/21/21 16:41 Nystatin (Nystatin Powder 15gm Btl) 1 appln EXT QSHIFT PRN PRN Reason: Affected Skin Folds Stop: 01/28/21 00:58 Ondansetron HCl (Ondansetron Inj 2 Mg/Ml 2 Ml Vial) 4 mg IV Q6H PRN PRN Reason: Nausea Stop: 01/21/21 16:41 Tramadol HCl (Tramadol Hcl 50 Mg Tablet) 50 mg PO Q4H PRN PRN Reason: Pain & Pre PT Stop: 01/25/21 18:46
[2020-12-30] MEDS: MIRTAZAPINE TAB 15 MG TAB PO SCH (21:46)
[2020-12-31] MEDS: CLINDAMYCIN 300 MG in DEXTROSE 5% 50 ML IV SCH ×2 (00:14→09:13)
[2020-12-31 08:13] LABS: Basophils # (auto) 0.02 K/uL (0-0.2); Basophils % (auto) 0.3 %; Eosinophils # (auto) 0.29 K/uL (0-0.5); Eosinophils % (auto) 4.1 %; Hematocrit (blood only) 30.6 % (37-47); Hemoglobin 9.8 g/dL (12.0-16.0); Immature Granulocytes # (auto) 0.05 K/uL (0.00-0.02); Immature Granulocytes % (auto) 0.7 %; Lymphocytes % (auto) 24.3 %; Mean Corpuscular Volume 87.4 fL (80-100); Mean Platelet Volume 7.9 fL (7.4-10.4); Monocytes # (auto) 0.85 K/uL (0.11-0.59); Monocytes % (auto) 12.1 %; Neutrophils # (auto) 4.09 K/uL (1.4-6.5); Neutrophils % (auto) 58.5 %; Platelet Count 254 K/uL (130-400); RDW Coefficient of Variation 15.7 % (11.5-14.5); RDW Standard Deviation 49.6 fL (36.4-46.3)
[2020-12-31 08:45] LABS: BUN Creatinine Ratio 31.2 (10-20); Calcium 8.7 mg/dl (8.5-10.1); Est GFR (African American) 95.3 ml/min; Est GFR (Non-African American) 82.2 ml/min; Magnesium 2.1 mg/dl (1.8-2.4)
[2020-12-31] MEDS: INSULIN GLARGINE SOLOSTAR 100 UNITS/ML 3 ML PEN SC SCH (09:14)
[2020-12-31] MEDS: INSULIN ASPART 100 UNITS/ML 3 ML PEN SC SCH ×2 (09:14→12:35)
[2020-12-31] MEDS: CEROVITE ADV FORMULA TAB PO SCH (09:15)
[2020-12-31] MEDS: ASPIRIN 81 MG ECTAB PO SCH (09:15)
[2020-12-31] MEDS: CITALOPRAM 40 MG TAB PO SCH (09:15)
[2020-12-31] MEDS: ADVANCED PROBIOTIC 1250 MG CAPSULE PO SCH (09:15)
[2020-12-31] MEDS: gemfibroziL 600 MG TAB PO SCH (09:16)
[2020-12-31] MEDS: CARBAMIDE PEROXIDE 6.5% 15 ML BTL OT SCH (09:16)
[2020-12-31] MEDS: DOCUSATE SODIUM SYRUP 100 MG/10 ML UDC PO SCH (09:17)
--- NOTE | 2020-12-31 10:54 | Hospitalist Progress Note ---
Date of Service December 31, 2020 Assessment & Plan (1) LILI (acute kidney injury): Presented with LILI, no significant symptoms were obtainable because of dementia status Has been receiving oral Bactrim as an outpatient Has dehydration which is causing more impairment in renal function Has been receiving intravenous fluid with significant improvement of the kidney function Reactive hyperkalemia which has been corrected Appreciate nephrology input and recommendation Her creatinine has been normalized Advised to drink more fluid Kidney function is normalized Nutritional status Daughter feels that her mom is deficient in nutrients We will get dietary advice before discharging her Has been eating and drinking reasonably Has had belching With possible minimal aspiration Irritation in the throat with bouts of cough Resolved thereafter No more episodes of belching and/or cough No more episode of cough and no shortness of breath Maculopapular rash As mentioned above Likely secondary to cefazolin We will change antibiotic to intravenous clindamycin for the next 2 days before discharge on Thursday We will give hydrocortisone cream for the rash and the itch Benadryl has been discontinued due to increasing lethargy and drowsiness Maculopapular rash at the back has been improving (2) Ulcer of right foot with fat layer exposed: 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 Has been ongoing right foot ulceration with more swelling Appreciate orthopedic input and recommendation Will have MRI to evaluate the right foot wound better before the proposed I&D MRI was inconclusive due to motion artifact Appreciate Ortho input and recommendation for possible I&D The nature of the wound has been noted in the picture Wound debridement will be done this afternoon Status post wound debridement on right foot on 12/26/2020 and dressing change on 12/28/2020 Management as per Ortho Not having any signs or symptoms of infection Has been getting physical therapy and doing much better We will follow wound care recommendation and recommendation from the Ortho for the foot care We will follow the instructions from Ortho (3) Bradycardia: Noted to be bradycardic on admission Lowest rate was 38 Appreciate cardiology input and recommendation Bradycardia is improved and no more recurrence (4) Acute hyperkalemia: Secondary to LILI Potassium was slightly high at 5.3 yesterday Advised to drink more fluid We will recheck-normalized (5) Dementia: Has dementia Possible acute confusion-resolved (6) Depression: (7) DM type 2 (diabetes mellitus, type 2): Lantus is on hold On SSI (8) HTN (hypertension): Is controlled DVT prophylaxis Subcu heparin CODE STATUS DNR/DNI Discussed with the daughter in detail-has been discussing with her daily We will transfer her to medical floor and continue with IV antibiotic for the next day or 2 We will discharge her to [facility] this afternoon Admission and Anticipated Discharge Date Admission Date: December 22, 2020 Subjective 12/23/2020 The patient was seen and examined in telemetry unit in presence of the daughter She has dementia and remains stable in bed She has history of agitation usually during the end of the day Denies any symptoms 12/24/2020 The patient was seen and examined in telemetry unit in presence of the daughters She has had an episode of possible aspiration with dry cough and irritation in the throat that lasted for a few minutes She denies any other symptoms 12/25/2020 The patient was seen and examined in telemetry unit She remains stable this morning She has had her breakfast without any events Denies any fever and/or chills and no acute distress 12/26/2020 The patient was seen and examined in telemetry unit in presence of the caring daughter She remains stable without any acute symptoms She will be going for surgical debridement of the right foot stamp today 12/27/2020 The patient was seen and examined in telemetry unit She will go for debridement of the right foot wound this afternoon She denies any symptoms remains stable 12/28/2020 The patient was seen and examined in telemetry unit in presence of the daughter She remains stable and was noted to have high blood sugar this morning She is a status post debridement of the right foot and complains some pain in the right foot No fever and/or chills 12/29/2020 The patient was seen in medical telemetry unit in presence of the daughter She has been feeling a lot better and wants to participate in physical therapy Denies any symptoms whatsoever today Noted to have a new rash involving the left lower back and adjoining area of the thigh 12/30/2020 The patient was seen and examined in medical telemetry unit in presence of the daughter She has been a little drowsy since she received a dose of Benadryl last night She denies any other symptoms Her rash remains the same 12/31/2020 The patient was seen and examined in medical telemetry unit She has been feeling a lot better and denies any significant symptoms Her rash seems to be improving She will be transferred to [facility] this afternoon Review of Systems Review of Systems: All systems reviewed and unremarkable except as noted below-through the daughter Neurologic: + generalized weakness Physical Exam Physical Exam: Lying in bed without any apparent distress Constitutional: average body habitus; not ill appearing Eyes: PERRL, conjunctivae normal, anicteric sclerae ENMT: external ear and nose normal, oropharynx normal Ears: + hearing impairment; able to visualize TM (Minimal wax number the years) Neck: trachea midline, no thyromegaly Respiratory: + labored breathing; no respiratory distress Auscultation: lungs clear to auscultation bilaterally Cardiovascular: Rate/Rhythm: regular rate and regular rhythm Heart Sounds: no murmur Extremities: + edema (Trace edema bilaterally) Gastrointestinal (Abdomen): Inspection/Auscultation: normal bowel sounds; abdomen not distended Percussion/Palpation: abdomen soft; abdomen nontender Musculoskeletal: No acute arthritis in any joint. Has bilateral amputation of the toes and distal part of foot. Neurologic: Alert and awake. Pleasantly confused. Moving all limbs equally Psychiatric: Insight: + poor insight Lymphatic: no cervical or axillary lymphadenopathy Results & Data Results & Data ([facility]) Vital Signs (Past 12 Hours) Vital Signs Temp Pulse Pulse Resp BP BP Pulse Ox 12/31/20 07:55 36.8 C 84 16 123/57 L 94 12/31/20 01:51 36.5 C 80 18 137/58 L 94 12/30/20 23:56 103 H 12/30/20 23:04 36.5 C 95 H 18 151/74 H 96 Laboratory Results Short CBC 12/31/20 Range/Units 07:53 WBC 7.00 (4.8-10.8) K/uL Hgb 9.8 L (12.0-16.0) g/dL Hct 30.6 L (37-47) % Plt Count 254 (130-400) K/uL BMP 12/31/20 07:53 Sodium 138 Potassium 4.0 Chloride 106 Carbon Dioxide 24 BUN 18 Creatinine 0.57 L Glucose 114 H Calcium 8.7 Medications Administered Current Inpatient Medications Acetaminophen (Acetaminophen 325 Mg Tab) 650 mg PO Q4H PRN PRN Reason: Pain or Fever Stop: 01/21/21 16:41 Last Admin: 12/23/20 20:33 Dose: 650 mg Documented by: Aspirin (Aspirin 81 Mg Ectab) 81 mg PO DAILY [facility] Stop: 01/22/21 08:59 Last Admin: 12/31/20 09:15 Dose: 81 mg Documented by: Carbamide Peroxide (Carbamide Peroxide 6.5% 15 Ml Btl) 2 drops OT BID [facility] Stop: 01/01/21 10:59 Last Admin: 12/31/20 09:16 Dose: 2 drops Documented by: Citalopram Hydrobromide (Citalopram 40 Mg Tab) 40 mg PO [facility] Stop: 01/22/21 08:59 Last Admin: 12/31/20 09:15 Dose: 40 mg Documented by: Dextrose (Dextrose 50% 50 Ml Syringe) 25 - 50 ml IV UD PRN; Protocol PRN Reason: Hypoglycemia Protocol Stop: 01/25/21 16:59 Diclofenac Sodium (Diclofenac Sod 1% Gel 100 Gm Tube) 4 gm EXT QID PRN PRN Reason: knee pain Stop: 01/21/21 20:59 Last Admin: 12/26/20 20:25 Dose: 4 gm Documented by: Docusate Sodium (Docusate Sodium Syrup 100 Mg/10 Ml Udc) 100 mg PO BID [facility] Stop: 01/21/21 20:59 Last Admin: 12/31/20 09:17 Dose: 100 mg Documented by: Gemfibrozil (Gemfibrozil 600 Mg Tab) 600 mg PO [facility] Stop: 01/22/21 08:59 Last Admin: 12/31/20 09:16 Dose: 600 mg Documented by: Glucagon (Glucagon For Inj 1 Mg Vial) 1 mg IM UD PRN; Protocol PRN Reason: Hypoglycemia Protocol Stop: 01/25/21 16:59 Glucose (Glucose 40% Gel 15 Gm Tube) 15 - 30 gm PO UD PRN; Protocol PRN Reason: Hypoglycemia Protocol Stop: 01/25/21 16:59 Glucose (Glucose 10 Tabs/Tube) 4 - 8 tabs PO UD PRN; Protocol PRN Reason: Hypoglycemia Protocol Stop: 01/25/21 16:59 Hydrocortisone (Hydrocortisone 1% Crm 30 Gm Tube) 1 appln EXT TID PRN PRN Reason: Rash Stop: 01/29/21 10:33 Last Admin: 12/30/20 21:47 Dose: 1 appln Documented by: Clindamycin Phosphate 300 mg/ (Dextrose) 52 mls @ 100 mls/hr IV Q8H [facility]; Protocol Stop: 01/05/21 15:59 Last Admin: 12/31/20 09:13 Dose: 100 mls/hr Documented by: Insulin Aspart (Insulin Aspart 100 Units/Ml 3 Ml Pen) 0 units SC ACHS [facility] Stop: 01/21/21 16:41 Last Admin: 12/31/20 09:14 Dose: 3 units Documented by: Insulin Glargine (Insulin Glargine Solostar 100 Units/Ml 3 Ml Pen) 10 units SC BID [facility] Stop: 01/28/21 20:59 Last Admin: 12/31/20 09:14 Dose: 10 units Documented by: Lactobacillus Acidoph/Casei/Rhamnos (Advanced Probiotic 1250 Mg Capsule) 2 cap PO DAILY [facility] Stop: 01/28/21 14:14 Last Admin: 12/31/20 09:15 Dose: 2 cap Documented by: Mirtazapine (Mirtazapine Tab 15 Mg Tab) 30 mg PO HS [facility] Stop: 01/21/21 20:59 Last Admin: 12/30/20 21:46 Dose: 30 mg Documented by: Miscellaneous (Carbohydrates For Hypoglycemia ) 15 - 30 gm PO UD PRN PRN Reason: Hypoglycemia Treatment Stop: 01/25/21 16:59 Multivitamins/Minerals (Cerovite Adv Formula Tab) 1 tab PO DAILY [facility] Stop: 01/22/21 08:59 Last Admin: 12/31/20 09:15 Dose: 1 tab Documented by: Naloxone HCl (Naloxone Hcl 0.4 Mg/1 Ml Vial/Carp) 0.1 mg IV Q5M PRN PRN Reason: Oversedation/Resp Depression Stop: 01/25/21 18:46 Nitroglycerin (Nitroglycerin Sl 0.4 Mg/Tab Tab) 0.4 mg SL UD PRN PRN Reason: Chest Pain Stop: 01/21/21 16:41 Nystatin (Nystatin Powder 15gm Btl) 1 appln EXT QSHIFT PRN PRN Reason: Affected Skin Folds Stop: 01/28/21 00:58 Ondansetron HCl (Ondansetron Inj 2 Mg/Ml 2 Ml Vial) 4 mg IV Q6H PRN PRN Reason: Nausea Stop: 01/21/21 16:41 Tramadol HCl (Tramadol Hcl 50 Mg Tablet) 50 mg PO Q4H PRN PRN Reason: Pain & Pre PT Stop: 01/25/21 18:46
[2020-12-31] MEDS: DICLOFENAC SOD 1% GEL 100 GM TUBE EXT PRN (12:39)
--- NOTE | 2021-01-01 07:32 | Discharge Summary ---
Date of Service January 01, 2021 Admission HPI Per Admitting Provider DICTATED BY: Bc Mccord MD DATE OF ADMISSION: 12/22/2020 CHIEF COMPLAINT: Hyperkalemia and LILI. HISTORY OF PRESENT ILLNESS: This is an 89-year-old female with past medical history significant for type 2 diabetes, hyperlipidemia, peripheral vascular disease, hypertension, history of status post transmetatarsal amputation of right foot, generalized osteoarthritis of multiple sites, bilateral hearing loss, Alzheimer dementia, iron-deficiency anemia, recurrent depression, history of colon cancer, uterine cancer, microalbuminemia, recent history of blood transfusion, history of nonambulatory status, generalized weakness, currently living at [facility]. The patient is having a slight open ulcer in the right TMA amputation site and she is on Bactrim. As per daughter in the room at bedside, amara is dealing with infection for some time and the amputation was done in 08/2020. The patient is currently bedbound. Today in the residential, they noticed that she was tachycardic and hypotensive, thought of sepsis and was sent in here. In the ER, she was in bradycardia with a heart rate of 36, blood pressure was okay. ER gave a dose of atropine. Her heart rates improved and repeat EKG shows some AFib and her labs showed potassium of 6.4, creatinine of 2.1, baseline creatinine was 0.6, troponin of 0.6, lactic acid of 2.8, repeat lactic acid is 1.5. Hemoglobin was 8.3. Received a dose of nebs and a dose of calcium gluconate, insulin, and dextrose. Currently, patient is resting comfortably, hemodynamically stable. Denies any pain. Denies any nausea. Denies any abdominal pain, no chest pain, no cough, no recent fever or chills, normal bowel and bladder movements as per the daughter. She is on regular diet. She can eat okay. She is oriented to name only, but as per daughter, she can recognize the family members, does not know where she is, but she can talk and make sense. The patient is very hard of hearing. Admission Exam Per Admitting Provider GENERAL: The patient is old and frail, not in acute distress, oriented to name only. VITAL SIGNS: Temperature 37, pulse rate 69, respiratory 21, blood pressure 110/40s currently, oxygen 92 % on room air. HEENT: Pupils equal, round, reactive to light. Oral mucosa dry. NECK: No JVD, no neck masses. CARDIOVASCULAR: S1, S2 heard, irregular rate and rhythm, no murmur, no gallop. RESPIRATORY SYSTEM: Normal AP diameter. No accessory muscle use. No wheezing, no crackles. ABDOMEN: Soft, bowel sounds present, nontender, nondistended. CENTRAL NERVOUS SYSTEM: Alert and oriented to name only. Obeys simple commands. Speech is okay, no facial droop seen. Moves extremities. EXTREMITIES: Right metatarsal amputation seen and 2 x 3 cm open ulcer seen. No obvious drainage seen, no obvious erythema seen. No lower extremity edema seen. Principal Diagnosis Acute Kidney Injury-Improved,Right foot wound s/p I&D,DM type 2.HNT,Dementia Discharge Exam Constitutional average body habitus; not ill appearing Eyes PERRL, conjunctivae normal, anicteric sclerae ENMT external ear and nose normal, oropharynx normal Ears: + hearing impairment; able to visualize TM (Minimal wax number the years) Neck trachea midline, no thyromegaly Respiratory + labored breathing; no respiratory distress Auscultation: lungs clear to auscultation bilaterally Cardiovascular Rate/Rhythm: regular rate and regular rhythm Heart Sounds: no murmur Extremities: + edema (Trace edema bilaterally) Gastrointestinal (Abdomen) Inspection/Auscultation: normal bowel sounds; abdomen not distended Percussion/Palpation: abdomen soft; abdomen nontender Psychiatric Insight: + poor insight Lymphatic no cervical or axillary lymphadenopathy Discharge Data Allergies Allergy/AdvReac Type Severity Reaction Status Date / Time No Known Allergies Allergy Verified 12/22/20 10:55 Consultations 12/22/20 12:17 ED Decision to Admit Stat 12/22/20 16:42 Consult Cardiology Routine Consult Nephrology Routine 12/23/20 08:00 Consult Orthopedic Surgery Routine Procedures Performed Operation Date: 12/26/20 07:00 Actual Procedures p Irrigation and Debridement Right Medial Foot ulcer 2.0 X 2.3 X 2.5cm, Irrigation and Debridement Bone, Fascia, Tendon and Muscle(Right) - Garcia Ortiz DO s Exostectomy Bone,(Right) - Garcia Ortiz DO Operation Date: 12/28/20 14:00 <No data on this case meets the specified criteria> Ordered Studies 12/23/20 09:00 MR foot RT w/o con Urgent Hospital Course (1) LILI (acute kidney injury): Presented with LILI, no significant symptoms were obtainable because of dementia status Has been receiving oral Bactrim as an outpatient Has dehydration which is causing more impairment in renal function Has been receiving intravenous fluid with significant improvement of the kidney function Reactive hyperkalemia which has been corrected Appreciate nephrology input and recommendation Her creatinine has been normalized Advised to drink more fluid Kidney function is normalized Nutritional status Daughter feels that her mom is deficient in nutrients We will get dietary advice before discharging her Has been eating and drinking reasonably Has had belching With possible minimal aspiration Irritation in the throat with bouts of cough Resolved thereafter No more episodes of belching and/or cough No more episode of cough and no shortness of breath Maculopapular rash As mentioned above Likely secondary to cefazolin We will change antibiotic to intravenous clindamycin for the next 2 days before discharge on Thursday We will give hydrocortisone cream for the rash and the itch Benadryl has been discontinued due to increasing lethargy and drowsiness Maculopapular rash at the back has been improving (2) Ulcer of right foot with fat layer exposed: 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 Has been ongoing right foot ulceration with more swelling Appreciate orthopedic input and recommendation Will have MRI to evaluate the right foot wound better before the proposed I&D MRI was inconclusive due to motion artifact Appreciate Ortho input and recommendation for possible I&D The nature of the wound has been noted in the picture Wound debridement will be done this afternoon Status post wound debridement on right foot on 12/26/2020 and dressing change on 12/28/2020 Management as per Ortho Not having any signs or symptoms of infection Has been getting physical therapy and doing much better We will follow wound care recommendation and recommendation from the Ortho for the foot care We will follow the instructions from Ortho (3) Bradycardia: Noted to be bradycardic on admission Lowest rate was 38 Appreciate cardiology input and recommendation Bradycardia is improved and no more recurrence (4) Acute hyperkalemia: Secondary to LILI Potassium was slightly high at 5.3 yesterday Advised to drink more fluid We will recheck-normalized (5) Dementia: Has dementia Possible acute confusion-resolved (6) Depression: (7) DM type 2 (diabetes mellitus, type 2): Lantus is on hold On SSI (8) HTN (hypertension): Is controlled DVT prophylaxis Subcu heparin CODE STATUS DNR/DNI Discussed with the daughter in detail-has been discussing with her daily We will transfer her to medical floor and continue with IV antibiotic for the next day or 2 We will discharge her to [facility] this afternoon Total Time Total Time Spent Total Time Spent (In Minutes): 35 minutes Total Time Includes: Examination of the Patient, Discharge Planning, Medication Reconciliation and Communication With Other Providers Discharge Plan Discharge Items Patient Disposition: Transfer Care Home Fac Reason For Visit: ILLNESS Discharge Diagnosis: Acute Kidney Injury-Improved,Right foot wound s/p I&D,DM type 2.HNT,Dementia Condition on Discharge: Good Activity: As commented below Activity Comment: As per ortho recommendation Weightbearing: Right non-weightbearing Non-emergency contact: Primary Care Provider and Surgeon Call non-emergency contact if: your pain is not controlled, your temperature is above 101.5, your wound has increased redness and your wound has increased drainage Follow-up/Referrals: Garcia Ortiz DO [Surgeon] - (10-14 days follow up from the day of surgery with Dr Ortiz) Jennifer Waldron at [place] [Primary Care Provider] - Diet: Carb Consistent or DM2 and Heart Healthy Diet Texture: Pureed (blended smooth) Diet Comment: Continue a pured, CHF consistent diet. Gelatinoid plus twice daily Addtl Attending Provider Instructions: Please take precautions to avoid fall Diet recommendation as per instruction from industrial arts teacher: She will need a high-protein diet to support wound healing She has been receiving gelatin plus twice daily-lunch and dinner Boost breeze with a.m. snack Drink more fluid to avoid dehydration Her lisinopril has been stopped due to abnormal kidney function Her metoprolol has been discontinued due to low heart rate Bactrim has been discontinued She may need blood pressure for hypertension down the line-I would recommend amlodipine 2.5 mg to start with Addtl Marriage And Family Therapist Provider Instructions: ACTIVITY RECOMMENDATIONS: Limitations: No weight bearing to affected limb at all times. SPECIAL CARE INSTRUCTIONS: * Some drainage onto the dressing is normal and is no cause for alarm. * Some swelling is natural especially after walking. * When resting, keep your foot elevated above the level of your heart. * Call [facility] if you notice: -Increased drainage -Fever over 101 degrees F -Severe constant pain BANDAGE: * DAILY DRESSING CHANGES.. * Keep bandage/cast dry at all times. FOLLOW UP VISIT WITH DR. ORTIZ If appointment is not already scheduled: Please call [facility] after you get home today to schedule a follow-up appointment for [address] Ortiz at . Pending Studies at Discharge: No Stand-Alone Forms: [employer] Smoking Cessation Skilled Items Patient informed of condition?: Yes DNR: Yes Discharge Level of Care: Other Communicable Disease: No Discharge Prognosis: Stable Lines: None Urinary Catheter: No Medications and DC Order Prescriptions: New hydrocortisone 1 % Ointment 1 applic EXT TID Qty: 28 RF: 0 Continued gemfibrozil 600 mg Tablet 600 mg PO QAM RF: 0 Lantus Solostar U-100 Insulin 100 unit/mL (3 mL) Insulin Pen 12 units subcut AMHS RF: 0 aspirin 81 mg Tablet,Chewable 81 mg PO DAILY RF: 0 acetaminophen 325 mg Tablet 650 mg PO QID PRN (Reason: Pain) RF: 0 citalopram 40 mg Tablet 40 mg PO QAM RF: 0 mirtazapine [Remeron] 30 mg Tablet 30 mg PO HS RF: 0 insulin aspart U-100 [Novolog U-100 Insulin aspart] 100 unit/mL Solution 1 sliding scale dose SUBCUT USEASDIRECTD RF: 0 multivitamin with folic acid [Therems Multivitamin] 400 mcg Tablet 1 tab PO DAILY RF: 0 ferrous sulfate 7.5 mg iron/0.5 mL Syringe 7.5 mg PO BID RF: 0 docusate sodium 50 mg/5 mL Liquid 100 mg PO BID RF: 0 Discontinued lisinopril 10 mg Tablet 10 mg PO QAM RF: 0 metoprolol tartrate 25 mg Tablet 12.5 mg PO BID RF: 0 sulfamethoxazole-trimethoprim 800-160 mg tablet 1 tab PO BID RF: 0 Discharge Orders: Discharge Order (Routine); Ordered 12/31/20 Ordered By: Robinson Sanchez/Other Patient Handouts: Managing Diabetes: The A1C Test Admission Data Admit Date/Time: 12/22/20 13:12 Attending Provider: Robinson Cohen Admit Provider: Bc Mccord Primary Care Provider: Jennifer Waldron [place] Other Providers: Jennifer Waldron [place] ; Bc Mccord ; Adan Wise ; Willian Bhakta ; Garcia Ortiz Other Interventions: Discharge Summary Assessment (RN) Last Done: 12/31/20 12:48
== END 2020-12-31 13:29 | DRG 574 ==
LOC: ED 09:35 → SUATTDRO 13:12 → 2S 13:12 → 2W 12-28 18:06